=== PATIENT | male | born 1955 | race Caucasian/White ===

== ENCOUNTER 2020-07-18 10:06 | Outpatient (REF) | payer OTHER, SELFPAY ==
--- NOTE | 2020-07-18 | US_ITS ---
EXAMINATION: US RETROPERITONEAL LIMITED (RENAL ONLY) CLINICAL INFORMATION: Renal stone. COMPARISON: Renal ultrasound 02/16/2020 and 11/11/2019. KUB 05/11/2019 and 02/16/2019. CT abdomen and pelvis 05/26/2018. TECHNIQUE: Real-time imaging of the kidneys. FINDINGS: RIGHT KIDNEY: 11.0 x 6.2 x 6.2 cm (SAG x AP x TRV). The kidney is normal in size, contour, and echogenicity. Renal cortical thickness is normal. No hydronephrosis. Simple cyst middle pole right kidney 3.5 x 3.3 x 3 cm. There are echogenic structures likely nonobstructing stones, upper pole 5 x 3 x 3 mm, lower pole 4 x 4 by 3 x 4 mm and lower pole 3 x 5 x 4 millimeter. LEFT KIDNEY: 11.0 x 5.9 x 4.8 cm (SAG x AP x TRV). The kidney is normal in size, contour, and echogenicity. Renal cortical thickness is normal. No hydronephrosis. There is a cyst middle pole left kidney 9 x 9 x 8 mm and 2.2 x 1.8 x 2.2 cm. There are echogenic foci likely nonobstructing stones middle pole 3 x 2 x 2 mm and lower pole 3 x 4 x 3 mm. IMPRESSION: 1. Redemonstration of renal cysts. 2. Redemonstration of Bilateral echogenic structures likely nonobstructing stones 3 on the right and 2 on the left. 3. No ultrasound evidence of renal obstruction or hydronephrosis..
== END 2020-07-18 10:07 | disposition home or self-care (01) ==
LOC: HO.HMGCX 10:06
PROVIDERS: PCP Internal Medicine; Visit Provider Urology
DX: N20.0 Calculus of kidney (principal)
CPT/HCPCS: 76775

== ENCOUNTER 2020-12-30 17:51 | Emergency (ER) | payer OTHER, SELFPAY ==
[2020-12-30 17:58] VITALS: BP 139/84; PULSE 73; RESP 20; TEMP 37.2; O2SAT 96; BMI 24.4
== END 2020-12-30 19:06 | disposition left against medical advice (07) ==
PROVIDERS: Emergency Provider Emergency Medicine; PCP Internal Medicine
DX: R10.9 Unspecified abdominal pain (principal); Z87.442 Personal history of urinary calculi
CPT/HCPCS: 99281; 99282

== ENCOUNTER → 2021-01-09 16:07 | Outpatient (BNVA) | payer OTHER, SELFPAY | PROVIDERS: Visit Provider Urology ==

== ENCOUNTER 2021-01-14 07:35 | Emergency (ER) | payer OTHER, SELFPAY ==
--- NOTE | ~2021-01-14 | CT_ITS ---
EXAMINATION: CT ABDOMEN AND PELVIS WITH CONTRAST CLINICAL INFORMATION: Left lower quadrant pain COMPARISON: None TECHNIQUE: Multidetector volumetric images were obtained from the superior aspect of the liver through the pubic symphysis following administration 85 mL of Omnipaque 350 intravenous contrast. Sagittal and coronal reformatted images were obtained on the technologist's workstation. Oral contrast: No This CT examination was performed using dose optimization techniques as appropriate, variously including the following: *Automated exposure control *Adjustment of mA and/or kV according to patient size (this includes techniques or standardized protocols for targeted exams where dose is matched to indication/reason for exam; i.e. extremities or head) *Use of iterative reconstruction technique DLP: 570 mGy-cm FINDINGS: LUNG BASES: There is bibasilar dependent atelectasis. The heart size is normal. LIVER, GALLBLADDER, AND BILIARY TREE: The liver is normal in size, shape, and attenuation. No focal hepatic lesion or biliary ductal dilatation is present. The gallbladder is unremarkable with no evidence of radiopaque gallstones, gallbladder wall thickening, or obvious pericholecystic inflammatory changes. PANCREAS: Unremarkable. SPLEEN: Unremarkable. ADRENAL GLANDS: Unremarkable. KIDNEYS AND URETERS: The kidneys are normal in size, shape, and attenuation. There is a large 4.1 cm midpole cyst right kidney and 2 cm exophytic and 9 mm cortical midpole left renal cysts. There are several radiopaque calculi right kidney. A 3 mm upper pole, 5 mm midpole, 3 mm and 2 mm lower pole radiopaque right renal calculi. A tumor nonobstructive lower pole left renal calculi seen. BLADDER: Unremarkable. GASTROINTESTINAL TRACT: There is scattered stool and gas seen in colon without distention. There is diffuse colonic diverticulosis with mild mural thickening and pericolic fat stranding proximal sigmoid colon. No free air or fluid collection seen. The cecum, ileocecal valve and the small bowel loops are normal caliber. ABDOMINAL WALL: No significant hernia is appreciated. LYMPH NODES: Normal. VASCULAR: Unremarkable. PELVIC VISCERA: The prostate gland is enlarged. The periprostatic fat planes are preserved. OSSEOUS STRUCTURES: No lytic or sclerotic process seen. There is mild ventral spondylosis L3-L4, L4-L5 and L5-S1 disc levels.. CT/CT abdomen pelvis w con IMPRESSION: Diffuse sigmoid diverticulosis with early proximal sigmoid colon diverticulitis. No proximal obstruction, free air or free fluid. Appendix is not seen. Nonobstructive bilateral radiopaque renal calculi. Bilateral renal cysts. No hydronephrosis seen Mild prostate enlargement.
[2021-01-14 07:41] VITALS: BP 151/89; PULSE 67; RESP 20; TEMP 36.6; O2SAT 99; BMI 24.5
--- NOTE | 2021-01-14 07:59 | ED_ITS ---
HPI - Abdominal Pain General Chief Complaint: General Medical Stated Complaint: LOWER LEFT ABD PAIN Time Seen by Provider: 01/14/21 07:58 Source: patient Mode of arrival: ambulatory Limitations: no limitations History of Present Illness HPI narrative: 65 yo male with hx of renal colic and diverticulitis c/o L low ba ck pain x 3 months but now since yesterday LLQ pain noted, no n/v/d fevers, no bloody stools, last colonoscopy 1 year ago MD elicited complaint: abdominal pain and flank pain Pertinent past history: diverticulitis and kidney stones Onset (ago): day(s) (1) Pain Consistency: constant Location: LLQ Severity: moderate Quality: cramping Radiation: none Migration to: no migration Exacerbating factors: nothing Relieving factors: nothing Associated symptoms: denies other symptoms Related Data Previous Rx's Medication Instructions Recorded doxazosin 2 mg tablet 2 mg PO BEDTIME 14 Days #14 tab 01/09/21 naproxen 500 mg tablet 500 mg PO Q12H PRN #30 tab 01/09/21 oxycodone-acetaminophen 5 mg-325 1 tab PO Q8H PRN 7 Days #20 tab 01/09/21 mg tablet pyridoxine (vitamin B6) 100 mg 100 mg PO DAILY 90 Days #90 tab 01/09/21 tablet levofloxacin 500 mg PO DAILY 7 Days #7 tab 01/14/21 ondansetron 4 mg PO Q8H PRN #20 tab 01/14/21 Allergies Allergy/AdvReac Type Severity Reaction Status Date / Time Penicillins Allergy Intermediate HIVES Verified 01/09/21 16:09 Sulfa (Sulfonamide Allergy Intermediate HIVES Verified 01/09/21 16:09 Antibiotics) citalopram [CITALOPRAM] Allergy Unknown PER H&P Verified 01/09/21 16:09 metronidazole [METRONIDAZOLE] Allergy Unknown PER H&P Verified 01/09/21 16:09 penicillin V Allergy Unknown Unknown Verified 01/09/21 16:09 Clindamycin HCl Allergy Unknown Unknown Uncoded 01/09/21 16:09 Review of Systems Review of Systems Constitutional : No Weight loss, No Fever, No Chills ENT/Mouth : No sore throat, No Rhinorrhea Eyes: No Swelling, No Redness Cardiovascular : No Chest Pain, No SOB, NoEdema Respiratory : No Cough, No Sputum, No Wheezing Gastrointestinal : no Nausea, no Vomiting, no Diarrhea, positive abdominal Pain, No Hematochezia, No Melena Genitourinary : No Dysuria, No Urinary Frequency, No Hematuria, No Urgency Musculoskeletal : No joint pain, No Myalgias, No Joint Swelling Skin : No Skin Lesions, No rash Neuro : No Weakness, No Numbness, No Dizziness, No Headache Psych : No Anxiety/Panic, No Depression Heme/Lymph: No Bruising, No Lymphadenopathy Endocrine : No Polyuria, No Polydipsia All other systems reviewed and are negative. Physical Exam Vital Signs: Vital Signs: Last Vital Signs Temp 97.9 F 01/14/21 10:46 Pulse 57 01/14/21 10:46 Resp 15 01/14/21 10:46 BP 140/87 H 01/14/21 10:46 Pulse Ox 100 01/14/21 10:46 Body Mass Index 24.5 Appearance: Alert. Oriented X3. No acute distress. Eyes: Pupils equal, round and reactive to light. ENT: Pharynx normal. Neck: Normal inspection. Neck supple. CVS: Normal heart rate and rhythm. Pulses normal. Respiratory: No respiratory distress. Breath sounds normal. Abdomen: Soft and mild LLQ no rebround or guarding Skin: Skin warm and dry. Normal skin color. Normal skin turgor. Extremities: No lower extremity edema. No calf ttp Neuro: Oriented X 3. No motor deficit. No sensory deficit. Course Course Course Narrative: able to tolerate PO not toxic, stable for DC treat as outpatient levofloxacin single treatment given PCN and flagyl allergy MDM - Abdominal Pain MDM Narrative Medical decision making narrative: 65 yo male with hx of kidney stones and diverticulitis c/o 3 months L flank pain but noted LLQ pain since yesterday at this time will need labs, UA, CT scan for diverticulitis/renal colic, dispo per results and findings. Lab Data Result diagrams: 01/14/21 08:12 01/14/21 08:12 Labs: Lab Results 01/14/21 01/14/21 01/14/21 Range/Units 08:12 08:12 08:12 WBC 8.2 (4.8-10.8) X10*3/uL RBC 5.44 (4.60-5.80) X10*6/uL Hgb 15.8 (14.0-18.0) g/dl Hct 47.9 (42-52) % MCV 88.1 (80-98) fL MCH 29.0 (27.0-33.0) pg MCHC 33.0 (31.0-36.0) g/dl RDW 13.8 (11.0-16.0) % Plt Count 187 (160-400) X10*3/uL MPV 9.7 (9.4-12.4) fL Immature Gran % (Auto) 0.4 (0.0-0.4) % Neut % (Auto) 77.6 H (45-73) % Lymph % (Auto) 13.6 L (20-40) % [place] % (Auto) 7.2 (2-11) % Eos % (Auto) 0.7 (0-4) % Baso % (Auto) 0.5 (0-2) % Lymph # (Auto) 1.1 L (1.2-4.9) X10*3/uL [place] # (Auto) 0.6 (0.1-1.2) X10*3/uL Eos # (Auto) 0.1 (0.0-0.4) X10*3/uL Baso # (Auto) 0.0 (0.0-0.2) X10*3/uL Abs Immat Gran (auto) 0.03 (0.00-0.03) X10*3/uL Absolute Neuts (auto) 6.3 (2.0-8.3) X10*3/uL Absolute Nucleated RBC 0.000 (0.0-0.012) X10*3/uL Nucleated RBC % (auto) 0.0 (0.0-0.2) /100WBC Hold Blue Top SEE NOTE Sodium 140 (135-145) mmol/L Potassium 4.2 (3.3-5.1) mmol/L Chloride 106 (96-108) mmol/L Carbon Dioxide 27 (22-29) mmol/L Anion Gap 11 L (12-20) BUN 16 (9-16) mg/dL Creatinine 0.98 (0.5-1.4) mg/dL Estim Creat Clear Calc 81.1 Estimated GFR > 60 Random Glucose 98 (60-115) mg/dL Calcium 9.2 (8.4-10.2) mg/dL Magnesium (1.6-2.6) mg/dL Total Bilirubin (0.0-1.0) mg/dL Direct Bilirubin (0.0-0.5) mg/dL AST (5-37) U/L ALT (0-40) U/L Alkaline Phosphatase (39-117) U/L Total Protein (6.5-8.0) g/dL Albumin (3.5-5.0) g/dL Lipase (8-78) U/L Urine Color Urine Appearance Urine pH (5.0-8.0) Ur Specific [place] (1.005-1.025) Urine Protein (NEG-TRACE) MG/DL Urine Glucose (UA) (NEG) MG/DL Urine Ketones (NEG) MG/DL Urine Blood (NEG) Urine Nitrite (NEG) Ur Leukocyte Esterase (NEG) 01/14/21 01/14/21 Range/Units 08:12 09:00 WBC (4.8-10.8) X10*3/uL RBC (4.60-5.80) X10*6/uL Hgb (14.0-18.0) g/dl Hct (42-52) % MCV (80-98) fL MCH (27.0-33.0) pg MCHC (31.0-36.0) g/dl RDW (11.0-16.0) % Plt Count (160-400) X10*3/uL MPV (9.4-12.4) fL Immature Gran % (Auto) (0.0-0.4) % Neut % (Auto) (45-73) % Lymph % (Auto) (20-40) % [place] % (Auto) (2-11) % Eos % (Auto) (0-4) % Baso % (Auto) (0-2) % Lymph # (Auto) (1.2-4.9) X10*3/uL [place] # (Auto) (0.1-1.2) X10*3/uL Eos # (Auto) (0.0-0.4) X10*3/uL Baso # (Auto) (0.0-0.2) X10*3/uL Abs Immat Gran (auto) (0.00-0.03) X10*3/uL Absolute Neuts (auto) (2.0-8.3) X10*3/uL Absolute Nucleated RBC (0.0-0.012) X10*3/uL Nucleated RBC % (auto) (0.0-0.2) /100WBC Hold Blue Top Sodium (135-145) mmol/L Potassium (3.3-5.1) mmol/L Chloride (96-108) mmol/L Carbon Dioxide (22-29) mmol/L Anion Gap (12-20) BUN (9-16) mg/dL Creatinine (0.5-1.4) mg/dL Estim Creat Clear Calc Estimated GFR Random Glucose (60-115) mg/dL Calcium (8.4-10.2) mg/dL Magnesium 2.1 (1.6-2.6) mg/dL Total Bilirubin 1.2 H (0.0-1.0) mg/dL Direct Bilirubin 0.4 (0.0-0.5) mg/dL AST 19 (5-37) U/L ALT 36 (0-40) U/L Alkaline Phosphatase 76 (39-117) U/L Total Protein 6.9 (6.5-8.0) g/dL Albumin 4.4 (3.5-5.0) g/dL Lipase 37 (8-78) U/L Urine Color YELLOW Urine Appearance CLEAR Urine pH 6.0 (5.0-8.0) Ur Specific [place] 1.020 (1.005-1.025) Urine Protein NEG (NEG-TRACE) MG/DL Urine Glucose (UA) NEG (NEG) MG/DL Urine Ketones NEG (NEG) MG/DL Urine Blood NEG (NEG) Urine Nitrite NEG (NEG) Ur Leukocyte Esterase NEG (NEG) Discharge Plan Discharge Clinical Impression: Diverticulitis Patient Disposition: Home, Self-Care Instructions: Diverticulitis (ED) Additional Instructions: return to ED for any worsening symptoms or concerns CT scan results: Diffuse sigmoid diverticulosis with early proximal sigmoid colon diverticulitis. No proximal obstruction, free air or free fluid. Appendix is not seen. Nonobstructive bilateral radiopaque renal calculi. Bilateral renal cysts. No hydronephrosis seen Mild prostate enlargement. Prescriptions: New ondansetron 4 mg tablet,disintegrating 4 mg PO Q8H PRN (Reason: nausea and vomiting) Qty: 20 RF: 0 levofloxacin 500 mg tablet 500 mg PO DAILY 7 Days Qty: 7 RF: 0 No Action doxazosin 2 mg tablet 2 mg PO BEDTIME 14 Days Qty: 14 RF: 1 naproxen [Naprosyn] 500 mg tablet 500 mg PO Q12H PRN (Reason: pain) Qty: 30 RF: 0 oxycodone-acetaminophen [Percocet] 5-325 mg tablet 1 tab PO Q8H PRN (Reason: pain) 7 Days Qty: 20 RF: 0 pyridoxine (vitamin B6) 100 mg tablet 100 mg PO DAILY 90 Days Qty: 90 RF: 1 Referrals: Dilip Grady MD, DO [Primary Care Provider] - 3 days (if not better) Interventions: ED Discharge Assessment Last Done: 01/14/21 10:51 Discharge Date/Time: 01/14/21 10:52 Print Language: Yoruba [facility] Past Medical History Attestation statement: The following information was validated with the patient. Medical History (Updated 01/14/21 @ 10:31 by Madelin Gibbs DO) Diverticulitis Kidney stones Surgical History (Updated 01/14/21 @ 08:05 by Madelin Gibbs DO) Hx of appendectomy Social History Social History (Updated 01/14/21 @ 08:05 by Madelin Gibbs DO) Smoking Status: Never smoker Use of substances other than those prescribed or required for medical reasons: No Advance Directives: Yes Advance Directives Information Provided: Yes Advance Directives on File: No
[2021-01-14] MEDS: 0.9 % Sodium Chloride 1,000 ML 999 ML IVCONT (08:13)
[2021-01-14 08:16] LABS: MANUAL DIFF FLAG NO
[2021-01-14 08:17] LABS: Basophils Percent Auto 0.5 % (0-2); Eosinophils Absolute Auto 0.1 X10*3/uL (0.0-0.4); Eosinophils Percent Auto 0.7 % (0-4); Hematocrit 47.9 % (42-52); Hemoglobin 15.8 g/dl (14.0-18.0); Imm Gran Abs Auto 0.03 X10*3/uL (0.00-0.03); Imm Gran Pct Auto 0.4 % (0.0-0.4); Lymphocytes Absolute Auto 1.1 X10*3/uL (1.2-4.9); Lymphocytes Percent Auto 13.6 % (20-40); Mean Corpuscular Volume 88.1 fL (80-98); Mean Platelet Volume 9.7 fL (9.4-12.4); Monocytes Absolute Auto 0.6 X10*3/uL (0.1-1.2); Monocytes Percent Auto 7.2 % (2-11); Neutrophils Absolute Auto 6.3 X10*3/uL (2.0-8.3); Neutrophils Percent Auto 77.6 % (45-73); Platelet Count 187 X10*3/uL (160-400); Red Blood Count 5.44 X10*6/uL (4.60-5.80); Red Cell Distribution Width 13.8 % (11.0-16.0); White Blood Count 8.2 X10*3/uL (4.8-10.8)
[2021-01-14 08:36] VITALS: BP 153/90; PULSE 56; RESP 20; O2SAT 97
[2021-01-14 08:52] LABS: Anion Gap 11 (12-20); Blood Urea Nitrogen 16 mg/dL (9-16); Calcium 9.2 mg/dL (8.4-10.2); Carbon Dioxide 27 mmol/L (22-29); Chloride 106 mmol/L (96-108); Creatinine Clr Calc Pharmacy 81.1; Estimated Glomerular Filt Rate > 60; Glucose Random 98 mg/dL (60-115); Potassium 4.2 mmol/L (3.3-5.1); Sodium 140 mmol/L (135-145)
[2021-01-14 08:53] LABS: Alanine Aminotransferase 36 U/L (0-40); Albumin Level 4.4 g/dL (3.5-5.0); Alkaline Phosphatase 76 U/L (39-117); Aspartate Amino Transferase 19 U/L (5-37); Bilirubin Direct 0.4 mg/dL (0.0-0.5); Bilirubin Total 1.2 mg/dL (0.0-1.0); Lipase 37 U/L (8-78); Magnesium 2.1 mg/dL (1.6-2.6); Total Protein 6.9 g/dL (6.5-8.0)
[2021-01-14 09:27] LABS: Glucose Urine UA NEG (NEG); Leukocyte Esterase Urine NEG (NEG); Nitrite Urine NEG (NEG); Urine Blood NEG (NEG); Urine Ketones NEG (NEG); Urine Protein NEG (NEG-TRACE)
[2021-01-14 09:31] LABS: Appearance Urine CLEAR; Color Urine YELLOW
[2021-01-14] MEDS: iohexoL 350 MG/ML 100 ML INFUS..BTL IV (09:37)
[2021-01-14 10:46] VITALS: BP 140/87; PULSE 57; RESP 15; TEMP 36.6; O2SAT 100
== END 2021-01-14 10:52 | disposition home or self-care (01) ==
PROVIDERS: Emergency Provider Emergency Medicine; PCP Internal Medicine
DX: K57.32 Diverticulitis of large intestine without perforation or abscess without bleeding (principal); Q61.02 Congenital multiple renal cysts; N20.0 Calculus of kidney; R10.32 Left lower quadrant pain; Z87.442 Personal history of urinary calculi
CPT/HCPCS: 36415; 74177; 80048; 80076; 81003; 83690; 83735; 85025; 96360; 99284; Q9967

== ENCOUNTER 2021-03-04 15:14 | Emergency (ER) | payer OTHER, SELFPAY ==
--- NOTE | ~2021-03-04 | CT_ITS ---
EXAMINATION: CT ABDOMEN AND PELVIS WITHOUT CONTRAST CLINICAL INFORMATION: History of kidney stones. Right flank pain. COMPARISON: CT abdomen pelvis 01/14/2021 TECHNIQUE: Multidetector volumetric imaging was performed from the superior aspect of the liver through the pubic symphysis. Sagittal and coronal reformatted images were obtained on the technologist's workstation. This CT examination was performed using dose optimization techniques as appropriate, variously including the following: *Automated exposure control *Adjustment of mA and/or kV according to patient size (this includes techniques or standardized protocols for targeted exams where dose is matched to indication/reason for exam; i.e. extremities or head) *Use of iterative reconstruction technique DLP: 562 mGy-cm FINDINGS: LUNG BASES: The visualized lung bases are unremarkable. LIVER, GALLBLADDER, AND BILIARY TREE: The liver is normal in size, shape, and attenuation. No focal hepatic lesion or biliary ductal dilatation is present. The gallbladder is unremarkable with no evidence of radiopaque gallstones, gallbladder wall thickening, or obvious pericholecystic inflammatory changes. PANCREAS: Unremarkable. SPLEEN: Unremarkable. ADRENAL GLANDS: Unremarkable. KIDNEYS AND URETERS: Right kidney: At the upper pole the right kidney there is a 3.7 cm cyst. Density measurement of 0 Hounsfield units. There is moderate hydronephrosis of the right kidney collecting system. There is an obstructing stone in the mid right ureter at about the level of the L4-L5 disc level. Stone measures 5 mm. Coronal image 43/77 series 5. Within the right kidney there are approximately 5 additional nonobstructive stones. These measure from 1 mm to 5 mm. Left kidney: There is an exophytic 2 cm cyst at the midpole the left kidney. Density measurement of 13 Hounsfield units. There is a nonobstructive 1 mm stone in the upper pole and a 3 mm stone at the lower pole of the right kidney. There are no ureteral stones. There is no hydronephrosis. BLADDER: Unremarkable. GASTROINTESTINAL TRACT: There are numerous diverticula throughout the colon. Diverticula are most severe at the sigmoid colon. There is no diverticulitis. There is no bowel wall thickening /edema. There is no bowel obstruction. There is a moderate volume of stool in the colon. The appendix is nonvisualized . The small bowel loops are unremarkable. The stomach is normal. There is no hiatal hernia. ABDOMINAL WALL: No significant hernia is appreciated. LYMPH NODES: Normal. VASCULAR: Unremarkable. PELVIC VISCERA: Prostate enlarged. Prostate measures 5 cm transverse. OSSEOUS STRUCTURES: Unremarkable. CT/CT abdomen pelvis wo con IMPRESSION: 1. Moderate hydronephrosis of right kidney due to an obstructing 5 mm stone at the mid right ureter. 2. Additional nonobstructive calculi in both kidneys. 3. Bilateral anechoic cysts in both kidneys. No follow-up imaging is recommended for simple renal cyst. 4. Diverticulosis of the colon. There is no acute abnormality of the bowel.
[2021-03-04 16:12] VITALS: BP 147/64; PULSE 63; RESP 18; TEMP 36.9; O2SAT 98; BMI 24.9
[2021-03-04 16:42] LABS: Basophils Percent Auto 0.2 % (0-2); Eosinophils Percent Auto 0.1 % (0-4); Hematocrit 45.8 % (42-52); Hemoglobin 15.2 g/dl (14.0-18.0); Imm Gran Abs Auto 0.02 X10*3/uL (0.00-0.03); Imm Gran Pct Auto 0.2 % (0.0-0.4); Lymphocytes Absolute Auto 0.6 X10*3/uL (1.2-4.9); Lymphocytes Percent Auto 7.3 % (20-40); MANUAL DIFF FLAG SCAN; Mean Corpuscular HGB Conc 33.2 g/dl (31.0-36.0); Mean Corpuscular Hemoglobin 29.5 pg (27.0-33.0); Mean Corpuscular Volume 88.8 fL (80-98); Mean Platelet Volume 9.7 fL (9.4-12.4); Monocytes Absolute Auto 0.5 X10*3/uL (0.1-1.2); Monocytes Percent Auto 5.4 % (2-11); Neutrophils Absolute Auto 7.6 X10*3/uL (2.0-8.3); Neutrophils Percent Auto 86.8 % (45-73); Platelet Count 177 X10*3/uL (160-400); Red Blood Count 5.16 X10*6/uL (4.60-5.80); Red Cell Distribution Width 13.1 % (11.0-16.0); SCAN SMEAR FLAG 1; White Blood Count 8.8 X10*3/uL (4.8-10.8)
[2021-03-04 16:43] LABS: Glucose Urine UA NEG (NEG); Leukocyte Esterase Urine NEG (NEG); Nitrite Urine NEG (NEG); PH 6.5 (5.0-8.0); Urine Blood 3+ (NEG); Urine Ketones NEG (NEG); Urine Protein TRACE MG/DL (NEG-TRACE)
[2021-03-04 16:44] LABS: Appearance Urine HAZY; Color Urine YELLOW
[2021-03-04 16:51] LABS: Bacteria Urine TRACE /LPF; RBC Urine 50-75 /HPF (0); Squamous Epithelial Cell Urine TRACE /LPF
[2021-03-04 16:58] LABS: SLIDE REVIEW VERIFIED
[2021-03-04 17:07] LABS: Alanine Aminotransferase 29 U/L (0-40); Albumin Level 4.5 g/dL (3.5-5.0); Alkaline Phosphatase 77 U/L (39-117); Anion Gap 12 (12-20); Aspartate Amino Transferase 23 U/L (5-37); Bilirubin Total 1.2 mg/dL (0.0-1.0); Blood Urea Nitrogen 17 mg/dL (9-16); Calcium 9.2 mg/dL (8.4-10.2); Carbon Dioxide 27 mmol/L (22-29); Chloride 106 mmol/L (96-108); Creatinine Clr Calc Pharmacy 67.3; Estimated Glomerular Filt Rate > 60; Glucose Random 103 mg/dL (60-115); Potassium 4.1 mmol/L (3.3-5.1); Sodium 141 mmol/L (135-145); Total Protein 6.9 g/dL (6.5-8.0)
[2021-03-04 17:22] LABS: Lipase 205 U/L (8-78)
--- NOTE | 2021-03-04 17:41 | ED.ABDPAIN ---
HPI - Abdominal Pain General Chief Complaint: General Medical Stated Complaint: flank pain? Time Seen by Provider: 03/04/21 17:06 Source: patient Mode of arrival: ambulatory Limitations: no limitations History of Present Illness MD elicited complaint: abdominal pain Pertinent past history: diverticulitis and kidney stones Onset (ago): hour(s) (started at 8am today) Pain Consistency: constant Location: R flank Severity: severe Quality: stabbing Radiation: RLQ Migration to: no migration Exacerbating factors: nothing Relieving factors: nothing Context: history of similar episodes Associated symptoms: nausea Treatments prior to arrival: prescription analgesics (tried oxycodone with no relief) Related Data Previous Rx's Medication Instructions Recorded doxazosin 2 mg tablet 2 mg PO BEDTIME 14 Days #14 tab 01/09/21 naproxen 500 mg tablet 500 mg PO Q12H PRN #30 tab 01/09/21 oxycodone-acetaminophen 5 mg-325 1 tab PO Q8H PRN 7 Days #20 tab 01/09/21 mg tablet pyridoxine (vitamin B6) 100 mg 100 mg PO DAILY 90 Days #90 tab 01/09/21 tablet levofloxacin 500 mg PO DAILY 7 Days #7 tab 01/14/21 ondansetron 4 mg PO Q8H PRN #20 tab 01/14/21 ondansetron 4 mg PO Q8H PRN #20 tab 03/04/21 oxycodone 5 mg PO Q4H PRN #14 tab 03/04/21 prednisone 40 mg PO DAILY 5 Days #10 tab 03/04/21 tamsulosin 0.4 mg PO DAILY 14 Days #14 cap 03/04/21 Allergies Allergy/AdvReac Type Severity Reaction Status Date / Time Penicillins Allergy Intermediate HIVES Verified 03/04/21 16:11 Sulfa (Sulfonamide Allergy Intermediate HIVES Verified 03/04/21 16:11 Antibiotics) citalopram [CITALOPRAM] Allergy Unknown PER H&P Verified 03/04/21 16:11 metronidazole [METRONIDAZOLE] Allergy Unknown PER H&P Verified 03/04/21 16:11 penicillin V Allergy Unknown Unknown Verified 03/04/21 16:11 Clindamycin HCl Allergy Unknown Unknown Uncoded 01/09/21 16:09 Review of Systems Review of Systems Constitutional : No Weight loss, No Fever, No Chills ENT/Mouth : No sore throat, No Rhinorrhea Eyes: No Swelling, No Redness Cardiovascular : No Chest Pain, No SOB, NoEdema Respiratory : No Cough, No Sputum, No Wheezing Gastrointestinal : Positive Nausea, no Vomiting, no Diarrhea, positive abdominal Pain, No Hematochezia, No Melena Genitourinary : No Dysuria, No Urinary Frequency, No Hematuria, No Urgency Musculoskeletal : No joint pain, No Myalgias, No Joint Swelling Skin : No Skin Lesions, No rash Neuro : No Weakness, No Numbness, No Dizziness, No Headache Psych : No Anxiety/Panic, No Depression Heme/Lymph: No Bruising, No Lymphadenopathy Endocrine : No Polyuria, No Polydipsia All other systems reviewed and are negative. Physical Exam Vital Signs: Vital Signs: Last Vital Signs Temp 98.4 F 03/04/21 16:12 Pulse 57 03/04/21 18:30 Resp 16 03/04/21 18:30 BP 144/70 H 03/04/21 18:30 Pulse Ox 98 03/04/21 18:30 Body Mass Index 24.9 Appearance: Alert. Oriented X3. Anxious in pain mild acute distress. Eyes: Pupils equal, round and reactive to light. ENT: Pharynx normal. Neck: Normal inspection. Neck supple. CVS: Normal heart rate and rhythm. Pulses normal. Respiratory: No respiratory distress. Breath sounds normal. Abdomen: Soft and mild R sided abdominal pain Skin: Skin warm and dry. Normal skin color. Normal skin turgor. Extremities: No lower extremity edema. No calf ttp Neuro: Oriented X 3. No motor deficit. No sensory deficit. Course Course Course Narrative: lipase elevated but no epigastric pain to palpation flomax and steroids ordered for obstructing 5mm stone mid ureter pain improved with dilaudid patient doesn't want admission, message sent to Dr. Erazo patient to follow up as outpatient - he is reliable aware it is obstructing and he will not pass it at home, Dr. Erazo aware MDM - Abdominal Pain MDM Narrative Medical decision making narrative: 65 yo male hx of diverticulitis and renal colic requiring lithotripsy in the past presents with 10 hours of sharp R flank pain consistent with prior history of renal colic, at this time labs, CT scan, IV dilaudid for pain ordered, dispo per results and findings Lab Data Result diagrams: 03/04/21 16:36 03/04/21 16:36 Labs: Lab Results 03/04/21 03/04/21 03/04/21 Range/Units 16:30 16:36 16:36 WBC 8.8 (4.8-10.8) X10*3/uL RBC 5.16 (4.60-5.80) X10*6/uL Hgb 15.2 (14.0-18.0) g/dl Hct 45.8 (42-52) % MCV 88.8 (80-98) fL MCH 29.5 (27.0-33.0) pg MCHC 33.2 (31.0-36.0) g/dl RDW 13.1 (11.0-16.0) % Plt Count 177 (160-400) X10*3/uL MPV 9.7 (9.4-12.4) fL Immature Gran % (Auto) 0.2 (0.0-0.4) % Neut % (Auto) 86.8 H (45-73) % Lymph % (Auto) 7.3 L (20-40) % [place] % (Auto) 5.4 (2-11) % Eos % (Auto) 0.1 (0-4) % Baso % (Auto) 0.2 (0-2) % Lymph # (Auto) 0.6 L (1.2-4.9) X10*3/uL [place] # (Auto) 0.5 (0.1-1.2) X10*3/uL Eos # (Auto) 0.0 (0.0-0.4) X10*3/uL Baso # (Auto) 0.0 (0.0-0.2) X10*3/uL Abs Immat Gran (auto) 0.02 (0.00-0.03) X10*3/uL Absolute Neuts (auto) 7.6 (2.0-8.3) X10*3/uL Absolute Nucleated RBC 0.000 (0.0-0.012) X10*3/uL Nucleated RBC % (auto) 0.0 (0.0-0.2) /100WBC Smear Tech's Comments VERIFIED Sodium (135-145) mmol/L Potassium (3.3-5.1) mmol/L Chloride (96-108) mmol/L Carbon Dioxide (22-29) mmol/L Anion Gap (12-20) BUN (9-16) mg/dL Creatinine (0.5-1.4) mg/dL Estim Creat Clear Calc Estimated GFR Random Glucose (60-115) mg/dL Calcium (8.4-10.2) mg/dL Total Bilirubin (0.0-1.0) mg/dL AST (5-37) U/L ALT (0-40) U/L Alkaline Phosphatase (39-117) U/L Total Protein (6.5-8.0) g/dL Albumin (3.5-5.0) g/dL Lipase 205 H (8-78) U/L Urine Color YELLOW Urine Appearance HAZY Urine pH 6.5 (5.0-8.0) Ur Specific [place] 1.020 (1.005-1.025) Urine Protein TRACE (NEG-TRACE) MG/DL Urine Glucose (UA) NEG (NEG) MG/DL Urine Ketones NEG (NEG) MG/DL Urine Blood 3+ H (NEG) Urine Nitrite NEG (NEG) Ur Leukocyte Esterase NEG (NEG) Urine RBC 50-75 H (0) /HPF Urine WBC 1-4 (0-4) /HPF Ur Squamous Epith Cells TRACE /LPF Urine Bacteria TRACE /LPF 03/04/21 Range/Units 16:36 WBC (4.8-10.8) X10*3/uL RBC (4.60-5.80) X10*6/uL Hgb (14.0-18.0) g/dl Hct (42-52) % MCV (80-98) fL MCH (27.0-33.0) pg MCHC (31.0-36.0) g/dl RDW (11.0-16.0) % Plt Count (160-400) X10*3/uL MPV (9.4-12.4) fL Immature Gran % (Auto) (0.0-0.4) % Neut % (Auto) (45-73) % Lymph % (Auto) (20-40) % [place] % (Auto) (2-11) % Eos % (Auto) (0-4) % Baso % (Auto) (0-2) % Lymph # (Auto) (1.2-4.9) X10*3/uL [place] # (Auto) (0.1-1.2) X10*3/uL Eos # (Auto) (0.0-0.4) X10*3/uL Baso # (Auto) (0.0-0.2) X10*3/uL Abs Immat Gran (auto) (0.00-0.03) X10*3/uL Absolute Neuts (auto) (2.0-8.3) X10*3/uL Absolute Nucleated RBC (0.0-0.012) X10*3/uL Nucleated RBC % (auto) (0.0-0.2) /100WBC Smear Tech's Comments Sodium 141 (135-145) mmol/L Potassium 4.1 (3.3-5.1) mmol/L Chloride 106 (96-108) mmol/L Carbon Dioxide 27 (22-29) mmol/L Anion Gap 12 (12-20) BUN 17 H (9-16) mg/dL Creatinine 1.18 (0.5-1.4) mg/dL Estim Creat Clear Calc 67.3 Estimated GFR > 60 Random Glucose 103 (60-115) mg/dL Calcium 9.2 (8.4-10.2) mg/dL Total Bilirubin 1.2 H (0.0-1.0) mg/dL AST 23 (5-37) U/L ALT 29 (0-40) U/L Alkaline Phosphatase 77 (39-117) U/L Total Protein 6.9 (6.5-8.0) g/dL Albumin 4.5 (3.5-5.0) g/dL Lipase (8-78) U/L Urine Color Urine Appearance Urine pH (5.0-8.0) Ur Specific [place] (1.005-1.025) Urine Protein (NEG-TRACE) MG/DL Urine Glucose (UA) (NEG) MG/DL Urine Ketones (NEG) MG/DL Urine Blood (NEG) Urine Nitrite (NEG) Ur Leukocyte Esterase (NEG) Urine RBC (0) /HPF Urine WBC (0-4) /HPF Ur Squamous Epith Cells /LPF Urine Bacteria /LPF Discharge Plan Discharge Clinical Impression: Ureterolithiasis Patient Disposition: Home, Self-Care Instructions: Ureteral Stones (ED) Additional Instructions: return to ED for any worsening symptoms or concerns Prescriptions: New prednisone 20 mg tablet 40 mg PO DAILY 5 Days Qty: 10 RF: 0 ondansetron 4 mg tablet,disintegrating 4 mg PO Q8H PRN (Reason: nausea and vomiting) Qty: 20 RF: 0 oxycodone 5 mg tablet 5 mg PO Q4H PRN (Reason: pain) Qty: 14 RF: 0 tamsulosin 0.4 mg capsule 0.4 mg PO DAILY 14 Days Qty: 14 RF: 0 No Action ondansetron 4 mg tablet,disintegrating 4 mg PO Q8H PRN (Reason: nausea and vomiting) Qty: 20 RF: 0 levofloxacin 500 mg tablet 500 mg PO DAILY 7 Days Qty: 7 RF: 0 doxazosin 2 mg tablet 2 mg PO BEDTIME 14 Days Qty: 14 RF: 1 naproxen [Naprosyn] 500 mg tablet 500 mg PO Q12H PRN (Reason: pain) Qty: 30 RF: 0 oxycodone-acetaminophen [Percocet] 5-325 mg tablet 1 tab PO Q8H PRN (Reason: pain) 7 Days Qty: 20 RF: 0 pyridoxine (vitamin B6) 100 mg tablet 100 mg PO DAILY 90 Days Qty: 90 RF: 1 Referrals: Isreal Erazo MD [Physician] - 2 days (if not better) Stand Alone Forms: Work/School Release [facility] Past Medical History Attestation statement: The following information was validated with the patient. Medical History Diverticulitis Kidney stones Surgical History Hx of appendectomy Social History Social History Alcohol intake: current Alcohol intake frequency: holidays/special occasions only Alcohol type: wine Patient Tobacco Use Status: Never used Tobacco Use of substances other than those prescribed or required for medical reasons: No Advance Directives: No Advance Directives Information Provided: No
[2021-03-04] MEDS: HYDROmorphone HCl 1 MG/ML SYRINGE IVPUSH (17:53)
[2021-03-04] MEDS: ondansetron HCL 4 MG/2 ML VIAL IVPUSH (17:53)
[2021-03-04] MEDS: 0.9 % Sodium Chloride 1,000 ML 999 ML IVCONT (17:59)
[2021-03-04 18:30] VITALS: BP 144/70; PULSE 57; RESP 16; O2SAT 98
[2021-03-04] MEDS: Tamsulosin HCL 0.4 MG CAPSULE PO (19:06)
[2021-03-04] MEDS: methylPREDNISolone Sod Succ 125 MG/2 ML VIAL 60 MG IVPUSH (19:06)
[2021-03-04 19:13] VITALS: BP 142/88; PULSE 58; RESP 16; O2SAT 99
== END 2021-03-04 19:27 | disposition home or self-care (01) ==
PROVIDERS: Emergency Medicine Emergency Medical Services; Emergency Provider Emergency Medicine; PCP Internal Medicine
DX: N13.2 Hydronephrosis with renal and ureteral calculous obstruction (principal); N40.0 Benign prostatic hyperplasia without lower urinary tract symptoms; N28.1 Cyst of kidney, acquired; K57.30 Diverticulosis of large intestine without perforation or abscess without bleeding; Z87.442 Personal history of urinary calculi
CPT/HCPCS: 36415; 74176; 80053; 81001; 83690; 85025; 96361; 96374; 96375; 99284; J1170; J2405; J2930

== ENCOUNTER 2021-03-06 12:03 | Inpatient (IN) | payer OTHER, SELFPAY ==
--- NOTE | ~2021-03-06 | FL_ITS ---
EXAMINATION: Intraoperative fluoroscopy CLINICAL INFORMATION: Right retrograde urogram COMPARISON: CT abdomen pelvis March 04, 2021 TECHNIQUE: Intraoperative fluoroscopy was provided for use by Dr. Erazo. A total of 1 image was saved to PACS. A radiologist was not present during imaging. Today's dictation is only for administrative purposes to document intraoperative fluoroscopic usage. TOTAL FLUOROSCOPIC TIME: 19 seconds FL/FL guidance in OR FINDINGS~\^^ Intraoperative fluoroscopy provided for use by Dr. Erazo. Please see operative note for detailed findings.
[2021-03-06 13:35] VITALS: BP 150/72; PULSE 71; RESP 16; TEMP 36.7; O2SAT 98; BMI 24.8
[2021-03-06 14:00] LABS: MANUAL DIFF FLAG NO
[2021-03-06 14:05] LABS: Basophils Percent Auto 0.2 % (0-2); Eosinophils Absolute Auto 0.1 X10*3/uL (0.0-0.4); Eosinophils Percent Auto 0.6 % (0-4); Glucose Urine UA NEG (NEG); Hematocrit 43.3 % (42-52); Hemoglobin 14.1 g/dl (14.0-18.0); Imm Gran Abs Auto 0.04 X10*3/uL (0.00-0.03); Imm Gran Pct Auto 0.4 % (0.0-0.4); Leukocyte Esterase Urine NEG (NEG); Lymphocytes Absolute Auto 1.3 X10*3/uL (1.2-4.9); Mean Corpuscular HGB Conc 32.6 g/dl (31.0-36.0); Mean Corpuscular Hemoglobin 29.5 pg (27.0-33.0); Mean Corpuscular Volume 90.6 fL (80-98); Mean Platelet Volume 9.7 fL (9.4-12.4); Monocytes Absolute Auto 0.9 X10*3/uL (0.1-1.2); Monocytes Percent Auto 8.2 % (2-11); Neutrophils Absolute Auto 8.2 X10*3/uL (2.0-8.3); Neutrophils Percent Auto 78.6 % (45-73); Nitrite Urine NEG (NEG); PH 5.5 (5.0-8.0); Platelet Count 175 X10*3/uL (160-400); Red Blood Count 4.78 X10*6/uL (4.60-5.80); Red Cell Distribution Width 13.3 % (11.0-16.0); Urine Blood 2+ (NEG); Urine Ketones NEG (NEG); Urine Protein NEG (NEG-TRACE); White Blood Count 10.5 X10*3/uL (4.8-10.8)
[2021-03-06 14:07] LABS: Appearance Urine CLEAR; Color Urine YELLOW
[2021-03-06 14:13] LABS: WBC Urine 0-2 /HPF (0-4)
[2021-03-06 14:30] LABS: Anion Gap 11 (12-20); Blood Urea Nitrogen 34 mg/dL (9-16); Calcium 9.2 mg/dL (8.4-10.2); Carbon Dioxide 29 mmol/L (22-29); Chloride 104 mmol/L (96-108); Creatinine Clr Calc Pharmacy 36.2; Estimated Glomerular Filt Rate 30; Glucose Random 86 mg/dL (60-115); Potassium 4.1 mmol/L (3.3-5.1); Sodium 140 mmol/L (135-145)
--- NOTE | 2021-03-06 15:22 | ED.ABDPAIN ---
HPI - Abdominal Pain General Chief Complaint: Abdominal Pain Stated Complaint: flank pain Time Seen by Provider: 03/06/21 15:20 Source: patient and old records reviewed Mode of arrival: ambulatory Limitations: no limitations History of Present Illness MD elicited complaint: flank pain Pertinent past history: kidney stones (dx 03/04 with R sided 5mm obstructing stone declined admission) Onset (ago): day(s) (3) Pain Consistency: colicky Location: none and R flank Severity: severe Quality: stabbing Radiation: RLQ Migration to: no migration Exacerbating factors: nothing Relieving factors: nothing Context: history of similar episodes Associated symptoms: nausea Treatments prior to arrival: prescription analgesics Related Data Home Medications Medication Instructions Recorded Confirmed lorazepam 0.5 mg PO BID PRN 03/06/21 03/06/21 Previous Rx's Medication Instructions Recorded pyridoxine (vitamin B6) 100 mg 100 mg PO DAILY 90 Days #90 tab 01/09/21 tablet ondansetron 4 mg PO Q8H PRN #20 tab 03/04/21 oxycodone 5 mg PO Q4H PRN #14 tab 03/04/21 prednisone 40 mg PO DAILY 5 Days #10 tab 03/04/21 tamsulosin 0.4 mg PO DAILY 14 Days #14 cap 03/04/21 Allergies Allergy/AdvReac Type Severity Reaction Status Date / Time Penicillins Allergy Intermediate HIVES Verified 03/04/21 16:11 Sulfa (Sulfonamide Allergy Intermediate HIVES Verified 03/04/21 16:11 Antibiotics) citalopram [CITALOPRAM] Allergy Unknown PER H&P Verified 03/04/21 16:11 metronidazole [METRONIDAZOLE] Allergy Unknown PER H&P Verified 03/04/21 16:11 penicillin V Allergy Unknown Unknown Verified 03/04/21 16:11 Clindamycin HCl Allergy Unknown Unknown Uncoded 01/09/21 16:09 Review of Systems Review of Systems Constitutional : No Weight loss, No Fever, No Chills ENT/Mouth : No sore throat, No Rhinorrhea Eyes: No Swelling, No Redness Cardiovascular : No Chest Pain, No SOB, NoEdema Respiratory : No Cough, No Sputum, No Wheezing Gastrointestinal : Positive Nausea, no Vomiting, no Diarrhea, positive abdominal Pain, No Hematochezia, No Melena Genitourinary : No Dysuria, No Urinary Frequency, No Hematuria, No Urgency Musculoskeletal : No joint pain, No Myalgias, No Joint Swelling Skin : No Skin Lesions, No rash Neuro : No Weakness, No Numbness, No Dizziness, No Headache Psych : No Anxiety/Panic, No Depression Heme/Lymph: No Bruising, No Lymphadenopathy Endocrine : No Polyuria, No Polydipsia All other systems reviewed and are negative. Physical Exam Vital Signs: Vital Signs: Last Vital Signs Temp 98.0 F 03/06/21 13:35 Pulse 62 03/06/21 15:41 Resp 18 03/06/21 15:41 BP 158/87 H 03/06/21 15:41 Pulse Ox 100 03/06/21 15:41 Body Mass Index 24.8 Appearance: Alert. Oriented X3. No acute distress. anxious in pain Eyes: Pupils equal, round and reactive to light. ENT: Pharynx normal. Neck: Normal inspection. Neck supple. CVS: Normal heart rate and rhythm. Pulses normal. Respiratory: No respiratory distress. Breath sounds normal. Abdomen: Soft and mild R sided pain Skin: Skin warm and dry. Normal skin color. Normal skin turgor. Extremities: No lower extremity edema. No calf ttp Neuro: Oriented X 3. No motor deficit. No sensory deficit. Course Course Course Narrative: Dr. Erazo aware will admit patient MDM - Abdominal Pain MDM Narrative Medical decision making narrative: 65 yo male known R sided 5mm obstructing stone dx 03/04 did not want admission comes back with pain and LADI - will need urology admission repeat labs, IV dilaudid for pain Lab Data Result diagrams: 03/06/21 13:50 03/06/21 13:50 Labs: Lab Results 03/06/21 03/06/21 03/06/21 Range/Units 13:50 13:50 13:50 WBC 10.5 (4.8-10.8) X10*3/uL RBC 4.78 (4.60-5.80) X10*6/uL Hgb 14.1 (14.0-18.0) g/dl Hct 43.3 (42-52) % MCV 90.6 (80-98) fL MCH 29.5 (27.0-33.0) pg MCHC 32.6 (31.0-36.0) g/dl RDW 13.3 (11.0-16.0) % Plt Count 175 (160-400) X10*3/uL MPV 9.7 (9.4-12.4) fL Immature Gran % (Auto) 0.4 (0.0-0.4) % Neut % (Auto) 78.6 H (45-73) % Lymph % (Auto) 12.0 L (20-40) % [place] % (Auto) 8.2 (2-11) % Eos % (Auto) 0.6 (0-4) % Baso % (Auto) 0.2 (0-2) % Lymph # (Auto) 1.3 (1.2-4.9) X10*3/uL [place] # (Auto) 0.9 (0.1-1.2) X10*3/uL Eos # (Auto) 0.1 (0.0-0.4) X10*3/uL Baso # (Auto) 0.0 (0.0-0.2) X10*3/uL Abs Immat Gran (auto) 0.04 H (0.00-0.03) X10*3/uL Absolute Neuts (auto) 8.2 (2.0-8.3) X10*3/uL Absolute Nucleated RBC 0.000 (0.0-0.012) X10*3/uL Nucleated RBC % (auto) 0.0 (0.0-0.2) /100WBC Sodium 140 (135-145) mmol/L Potassium 4.1 (3.3-5.1) mmol/L Chloride 104 (96-108) mmol/L Carbon Dioxide 29 (22-29) mmol/L Anion Gap 11 L (12-20) BUN 34 H D (9-16) mg/dL Creatinine 2.19 H (0.5-1.4) mg/dL Estim Creat Clear Calc 36.2 Estimated GFR 30 Random Glucose 86 (60-115) mg/dL Calcium 9.2 (8.4-10.2) mg/dL Urine Color YELLOW Urine Appearance CLEAR Urine pH 5.5 (5.0-8.0) Ur Specific [place] 1.020 (1.005-1.025) Urine Protein NEG (NEG-TRACE) MG/DL Urine Glucose (UA) NEG (NEG) MG/DL Urine Ketones NEG (NEG) MG/DL Urine Blood 2+ H (NEG) Urine Nitrite NEG (NEG) Ur Leukocyte Esterase NEG (NEG) Urine RBC 10-14 H (0) /HPF Urine WBC 0-2 (0-4) /HPF Ur Squamous Epith Cells NONE /LPF Urine Bacteria NONE /LPF Discharge Plan Discharge Clinical Impression: LADI (acute kidney injury), Ureterolithiasis Patient Disposition: Admitted As Inpatient [facility] Past Medical History Attestation statement: The following information was validated with the patient. Medical History Diverticulitis Kidney stones Surgical History Hx of appendectomy Social History Social History Alcohol intake: current Alcohol intake frequency: holidays/special occasions only Alcohol type: wine Patient Tobacco Use Status: Never used Tobacco Advance Directives: No Advance Directives Information Provided: Yes
--- NOTE | 2021-03-06 15:34 | HE.PHANOTE ---
Pharmacy Consult ? Medication Reconciliation Pharmacy has completed the medication reconciliation and there were no significant medication issues requiring provider attention. Ashley Myles, PharmD [phone]
[2021-03-06] MEDS: 0.9 % Sodium Chloride 1,000 ML 999 ML IVCONT (15:35)
[2021-03-06] MEDS: HYDROmorphone HCl 1 MG/ML SYRINGE IVPUSH (15:35)
[2021-03-06] MEDS: ondansetron HCL 4 MG/2 ML VIAL IVPUSH (15:36)
[2021-03-06 15:41] VITALS: BP 158/87; PULSE 62; RESP 18; O2SAT 100
[2021-03-06 16:16] LABS: COVID-19 Test Negative (Negative); IDNOW Serial# 08D9AD1C
[2021-03-06 16:55] VITALS: BP 141/81; PULSE 72
--- NOTE | 2021-03-06 16:58 | PC.NURSE ---
Pt's pain improving. VSS. Awaiting for admission.
[2021-03-06 19:12] VITALS: BP 141/81; PULSE 72; RESP 18; O2SAT 100
[2021-03-06 22:44] VITALS: BP 149/83; PULSE 73; RESP 20; TEMP 36.8; O2SAT 96
[2021-03-06] MEDS: 0.9 % Sodium Chloride 1,000 ML 100 ML IVCONT (22:46)
[2021-03-06] MEDS: oxyCODONE HCl Immed Release 5 MG TABLET PO (22:49)
[2021-03-06 23:43] VITALS: RESP 20
[2021-03-07] VITALS (9 sets, daily range): BP systolic 143–174; BP diastolic 51–86; PULSE 52–68; RESP 14–18; TEMP 36.2–36.8; O2SAT 95–99
[2021-03-07] MEDS: 0.9 % Sodium Chloride 1,000 ML 100 ML IVCONT (07:21)
--- NOTE | 2021-03-07 08:23 | PM.HPGS ---
History of Present Illness History of Present Illness Date of Service: 03/07/21 Chief complaint: Right ureteric stones Narrative: Julio Garcia is a 65 year old male He is a well known stone former Has had right-sided pain associated with nausea and vomiting for past 3-4 days. Evaluated in the emergency room. CT scan shows mid right ureteric stone with perinephric stranding and right hydroureteronephrosis Creatinine elevated over 2 WBC normal range Pain up to 10/10 on right side Will admit for IV medication, pain control and procedure PMFSH Past Medical History Medical History Diverticulitis Kidney stones Surgical History Surgical History Hx of appendectomy Social History Social History Household Members: Spouse Alcohol intake: current Alcohol intake frequency: holidays/special occasions only Alcohol type: wine Patient Tobacco Use Status: Never used Tobacco Smoked in Last 30 Days: No Use of substances other than those prescribed or required for medical reasons: No Currently Displaying Signs/Symptoms of Drug Intoxication Withdrawal: No Have you been hit, kicked, punched, or otherwise hurt by someone within the past year? If so, by whom?: No Do you feel safe in your current relationship?: Yes Is there a partner from a previous relationship who is making you feel unsafe now?: No Are you made to feel afraid or neglected: No Advance Directives: No Advance Directives Information Provided: Yes Do you have thoughts of harming others: None Do you have a plan to hurt others: No Plan Recently lost weight without trying: No Eating poorly because of decreased appetite: No Nutrition Risks: No Nutritional Risk Meds Allergies Allergy/AdvReac Type Severity Reaction Status Date / Time Penicillins Allergy Intermediate HIVES Verified 03/04/21 16:11 Sulfa (Sulfonamide Allergy Intermediate HIVES Verified 03/04/21 16:11 Antibiotics) citalopram [CITALOPRAM] Allergy Unknown PER H&P Verified 03/04/21 16:11 metronidazole [METRONIDAZOLE] Allergy Unknown PER H&P Verified 03/04/21 16:11 penicillin V Allergy Unknown Unknown Verified 03/04/21 16:11 Clindamycin HCl Allergy Unknown Unknown Uncoded 01/09/21 16:09 Active Medications: Current Medications Generic Name Dose Route Start Last Admin Trade Name Hunter PRN Reason Stop Dose Admin Acetaminophen 650 mg 03/06/21 19:12 Acetaminophen 325 Mg Tablet PO Q6H PRN Pain, Mild (Pain Scale 1-3) Sodium Chloride 1,000 mls @ 100 mls/hr 03/06/21 19:15 03/07/21 07:21 Ns IVCONT 100 mls/hr .Q10H DOMINIQUE Administration Ketorolac Tromethamine 30 mg 03/06/21 19:12 Ketorolac Tromethamine 30 Mg/Ml Vial IVPUSH 03/11/21 19:11 Q6H PRN Pain, Mild (Pain Scale 1-3) Levofloxacin 500 mg 03/07/21 09:00 Levofloxacin 500 Mg Tablet PO 03/07/21 09:01 ONCE ONE Ondansetron HCl 4 mg 03/06/21 19:12 Ondansetron Hcl 4 Mg/2 Ml Vial IVPUSH Q8H PRN Nausea and Vomiting Oxycodone HCl 5 mg 03/06/21 19:12 03/06/21 22:49 Oxycodone Hcl Immed Release 5 Mg Tablet PO 5 mg Q6H PRN Administration Pain, Severe (Pain Scale 7-10) Pharmacy Consult 1 each 03/06/21 15:23 Consult Rx Perform Med Rec MISCELLANE ONCE PRN Consult order Sodium Chloride 3 ml 03/07/21 00:00 03/07/21 07:23 0.9 % Sodium Chloride Flush 3 Ml Syringe IVFLUSH Not Given QSHIFT [facility] Home Medications Medication Instructions Recorded Confirmed Last Taken Type lorazepam 0.5 mg PO BID PRN 03/06/21 03/06/21 Unknown History Physical Exam Vital Signs: Vital Signs: Last Vital Signs Temp 98.3 F 03/07/21 03:25 Pulse 68 03/07/21 03:25 Resp 15 03/07/21 03:25 BP 145/51 H 03/07/21 03:25 Pulse Ox 96 03/07/21 03:25 Body Mass Index 24.8 Const: General: cooperative, healthy appearing, comfortable and no acute distress Nutritional Appearance: average body habitus Orientation/consciousness: oriented to person, oriented to place and oriented to time Eyes: General: appearance normal, both eyes and all related structures Chest: Chest palpation & inspection: normal inspection of the chest Resp: Effort & Inspection: normal respiratory effort Cardio: Rate: regular rate GI: Inspection: Yes normal to inspection Skin: Hair: normal Neuro: General: oriented to person, oriented to place and oriented to time Extrem: General: Yes normal to inspection Results Results Labs: Short CBC 03/06/21 Range/Units 13:50 WBC 10.5 (4.8-10.8) X10*3/uL Hgb 14.1 (14.0-18.0) g/dl Hct 43.3 (42-52) % Plt Count 175 (160-400) X10*3/uL BMP 03/06/21 13:50 Sodium 140 Potassium 4.1 Chloride 104 Carbon Dioxide 29 BUN 34 H D Creatinine 2.19 H Calcium 9.2 Urine 03/06/21 Range/Units 13:50 Urine Color YELLOW Urine Appearance CLEAR Urine pH 5.5 (5.0-8.0) Ur Specific [place] 1.020 (1.005-1.025) Urine Protein NEG (NEG-TRACE) MG/DL Urine Glucose (UA) NEG (NEG) MG/DL Assessment and Plan (1) LADI (acute kidney injury): Status: Acute (2) Ureterolithiasis: Status: Acute Ureteroscopy We discussed the nature of the decision and reasonable alternatives for performing the above surgery. Interventions include chemical dissolution, ESWL, ureteroscopy with laser lithotripsy and stent placement, PCNL. Options such as medical therapy were discussed. The relative uncertainties and benefits related to each alternate procedure were adequately discussed. General surgical risks including, but not limited to, pain, bleeding, infection, myocardial infarction, pulmonary embolus, deep vein thrombosis and cerebrovascular accident which may result in further hospitalization were discussed. Full disclosure of the procedure as well as all major risks, benefits and complications were discussed including but not limited to damage to the urethra, bladder and kidney infection, damage to the ureter, stent migration or malposition, scarring to the renal pelvis, remnant stone fragments, subsequent stone passage with need for secondary procedures. The overall secondary procedure rate is approximately 10-15%. The success rate of the procedure was discussed. Success of the procedure in the short-term does not necessarily guarantee that long-term success will be maintained. Suitable follow up will need to be maintained. The patient showed understanding of discussion and wishes to proceed with - cystoscopy, retrograde, ureteroscopy, possible lithotripsy/stone basketing and stent on the right side Procedures Date of Service Date of Service: 03/07/21
[2021-03-07] MEDS: Acetaminophen 325 MG TABLET 650 MG PO (10:20)
[2021-03-07] MEDS: oxyCODONE HCl Immed Release 5 MG TABLET PO ×2 (10:20→17:59)
[2021-03-07] MEDS: levoFLOXacin 500 MG TABLET PO (10:20)
--- NOTE | 2021-03-07 11:31 | MHC.CM.PN ---
CM MET WITH PT WHO REPORTS HE LIVES WITH A FRIEND AND IS INDEPENDENT WITH ALL CARE AND MOBILITY. PT DENIES THE USE OF DME OR SERVICES AT HOME. 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 PT REPORTS HE HAS A HCP COMPLETED ALREADY AND HE CONFIRMS HIS PCP IS [facility]. CURRENT DC PLAN IS HOME WITH NO SERVICES PTS CAR IS IN LOT, HE PLANS TO DRIVE HIMSELF HOME
--- NOTE | 2021-03-07 13:50 | MHC.CM.PN ---
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 per documentation,patient wished to proceed with cystoscopy, retrograde ureteroscopy. possible lithotripsy, care connector to continue to follow for discharge needs
--- NOTE | 2021-03-07 16:09 | HO.ANESPROP2 ---
[facility] Active Problems Active Problems: All Active Problems (Updated 03/06/21 @ 15:44 by Madelin Gibbs DO) LADI (acute kidney injury) (Acute) Ureterolithiasis (Acute) Nephrolithiasis (Acute) Past Medical History Medical History Diverticulitis Kidney stones Surgical History Surgical History Hx of appendectomy Social History Social History Household Members: Spouse Alcohol intake: current Alcohol intake frequency: holidays/special occasions only Alcohol type: wine Patient Tobacco Use Status: Never used Tobacco Smoked in Last 30 Days: No Use of substances other than those prescribed or required for medical reasons: No Currently Displaying Signs/Symptoms of Drug Intoxication Withdrawal: No Have you been hit, kicked, punched, or otherwise hurt by someone within the past year? If so, by whom?: No Do you feel safe in your current relationship?: Yes Is there a partner from a previous relationship who is making you feel unsafe now?: No Are you made to feel afraid or neglected: No Advance Directives: No Advance Directives Information Provided: Yes Do you have thoughts of harming others: None Do you have a plan to hurt others: No Plan Recently lost weight without trying: No Eating poorly because of decreased appetite: No Nutrition Risks: No Nutritional Risk service: No Current occupational status: employed Meds Allergies Allergy/AdvReac Type Severity Reaction Status Date / Time Penicillins Allergy Intermediate HIVES Verified 03/04/21 16:11 Sulfa (Sulfonamide Allergy Intermediate HIVES Verified 03/04/21 16:11 Antibiotics) citalopram [CITALOPRAM] Allergy Unknown PER H&P Verified 03/04/21 16:11 metronidazole [METRONIDAZOLE] Allergy Unknown PER H&P Verified 03/04/21 16:11 penicillin V Allergy Unknown Unknown Verified 03/04/21 16:11 Clindamycin HCl Allergy Unknown Unknown Uncoded 01/09/21 16:09 Active Medications: Current Medications Generic Name Dose Route Start Last Admin Trade Name Freq PRN Reason Stop Dose Admin Acetaminophen 650 mg 03/06/21 19:12 03/07/21 10:20 Acetaminophen 325 Mg Tablet PO 650 mg Q6H PRN Administration Pain, Mild (Pain Scale 1-3) Sodium Chloride 1,000 mls @ 100 mls/hr 03/06/21 19:15 03/07/21 07:21 Ns IVCONT 100 mls/hr .Q10H DOMINIQUE Administration Ketorolac Tromethamine 30 mg 03/06/21 19:12 Ketorolac Tromethamine 30 Mg/Ml Vial IVPUSH 03/11/21 19:11 Q6H PRN Pain, Mild (Pain Scale 1-3) Ondansetron HCl 4 mg 03/06/21 19:12 Ondansetron Hcl 4 Mg/2 Ml Vial IVPUSH Q8H PRN Nausea and Vomiting Oxycodone HCl 5 mg 03/06/21 19:12 03/07/21 10:20 Oxycodone Hcl Immed Release 5 Mg Tablet PO 5 mg Q6H PRN Administration Pain, Severe (Pain Scale 7-10) Pharmacy Consult 1 each 03/06/21 15:23 Consult Rx Perform Med Rec MISCELLANE ONCE PRN Consult order Sodium Chloride 3 ml 03/07/21 00:00 03/07/21 07:23 0.9 % Sodium Chloride Flush 3 Ml Syringe IVFLUSH Not Given QSHIFT [facility] Home Medications Medication Instructions Recorded Confirmed Last Taken Type lorazepam 0.5 mg PO BID PRN 03/06/21 03/06/21 Unknown History Exam Exam Date and Time: March 07, 2021 1609 Height,Weight and Vital Signs: Height 5 ft 11 in Weight 80.739 kg Last Vital Signs Temp 97.2 F 03/07/21 15:08 Pulse 53 03/07/21 15:08 Resp 18 03/07/21 15:08 BP 151/77 H 03/07/21 15:08 Pulse Ox 95 03/07/21 15:08 Pertinent Lab Results Pertinent Lab Results: Laboratory Tests 03/06/21 03/06/21 03/06/21 13:50 13:50 13:50 WBC 10.5 RBC 4.78 Hgb 14.1 Hct 43.3 MCV 90.6 MCH 29.5 MCHC 32.6 RDW 13.3 Plt Count 175 MPV 9.7 Immature Gran % (Auto) 0.4 Neut % (Auto) 78.6 H Lymph % (Auto) 12.0 L [place] % (Auto) 8.2 Eos % (Auto) 0.6 Baso % (Auto) 0.2 Lymph # (Auto) 1.3 [place] # (Auto) 0.9 Eos # (Auto) 0.1 Baso # (Auto) 0.0 Abs Immat Gran (auto) 0.04 H Absolute Neuts (auto) 8.2 Absolute Nucleated RBC 0.000 Nucleated RBC % (auto) 0.0 Sodium 140 Potassium 4.1 Chloride 104 Carbon Dioxide 29 Anion Gap 11 L BUN 34 H D Creatinine 2.19 H Estim Creat Clear Calc 36.2 Estimated GFR 30 Random Glucose 86 Calcium 9.2 Urine Color YELLOW Urine Appearance CLEAR Urine pH 5.5 Ur Specific [place] 1.020 Urine Protein NEG Urine Glucose (UA) NEG Urine Ketones NEG Urine Blood 2+ H Urine Nitrite NEG Ur Leukocyte Esterase NEG Urine RBC 10-14 H Urine WBC 0-2 Ur Squamous Epith Cells NONE Urine Bacteria NONE COVID-19 (VARGHESE) COVID-19 IV Diagnostics Com 03/06/21 15:43 WBC RBC Hgb Hct MCV MCH MCHC RDW Plt Count MPV Immature Gran % (Auto) Neut % (Auto) Lymph % (Auto) [place] % (Auto) Eos % (Auto) Baso % (Auto) Lymph # (Auto) [place] # (Auto) Eos # (Auto) Baso # (Auto) Abs Immat Gran (auto) Absolute Neuts (auto) Absolute Nucleated RBC Nucleated RBC % (auto) Sodium Potassium Chloride Carbon Dioxide Anion Gap BUN Creatinine Estim Creat Clear Calc Estimated GFR Random Glucose Calcium Urine Color Urine Appearance Urine pH Ur Specific [place] Urine Protein Urine Glucose (UA) Urine Ketones Urine Blood Urine Nitrite Ur Leukocyte Esterase Urine RBC Urine WBC Ur Squamous Epith Cells Urine Bacteria COVID-19 (VARGHESE) Negative COVID-19 Clin Com See Note Airway Mallampati Class: II TM Dist: >3cm Neck ROM: Full Assessment and Plan Assessment Anesthesia Assessment: Anesthesia Plan Discussed and Chart Reviewed Final Anesthetic Review NPO: Yes ASA Class: II Final Preanesthetic Review: No Changes in Pt Med Stat, Meds/Allgs Chart Reviewed, Consent Obtained/Reviewed and Anes Risks/Benef Reviewed Patient Risk: Low Procedure Risk: Low Assessment/Block/Sedation in SS: Assess/Block/Sedation-SS Anesthetic Plan Anesthetic Plan: GA Disposition: Standard PACU
--- NOTE | 2021-03-07 17:01 | MHC.SHP ---
Pre-Procedural Eval Section A The patient is an INPATIENT: Yes Changes since office visit: No Cold of Flu in the past 2 weeks, No New Medical Problems, No Changes in Medication and No Patient answered all questions The History & Physical has been completed within 30 days and I have reviewed it.: Yes Section B Chief Complaint: Right ureteric stones Allergies: Allergies Allergy/AdvReac Type Severity Reaction Status Date / Time Penicillins Allergy Intermediate HIVES Verified 03/04/21 16:11 Sulfa (Sulfonamide Allergy Intermediate HIVES Verified 03/04/21 16:11 Antibiotics) citalopram [CITALOPRAM] Allergy Unknown PER H&P Verified 03/04/21 16:11 metronidazole [METRONIDAZOLE] Allergy Unknown PER H&P Verified 03/04/21 16:11 penicillin V Allergy Unknown Unknown Verified 03/04/21 16:11 Clindamycin HCl Allergy Unknown Unknown Uncoded 01/09/21 16:09 Plan Diagnosis/Plan: Unchanged (Right retrograde, ureteroscopy, laser lithotripsy stent placement) I have reviewed the history and physical and performed a pertinent physical examination on my patient. No changes have occurred unless specified.
--- NOTE | 2021-03-07 17:03 | W.PM.OPN ---
Operative Note Operative Note Date of Service: 03/07/21 Narrative: PreOperative Diagnosis: Right mid ureteric stone Post Operative Diagnosis: Right mid ureteric stone Procedure: - right cystoscopy, retrograde - dilatation of ureteric orifice under fluoroscopy - right ureteroscopy, laser lithotripsy, stone basketing - stent placement Surgeon: Dr Isreal Erazo Anesthesia: General Indications for procedure: 65-year-old male. Admitted through emergency room with right mid ureteric stone. Also elevated creatinine and perinephric inflammation presume secondary to calyceal rupture. Plan for intervention with ureteroscopy and stent placement. 8 mm mid ureteric stone Procedure: After informed consent was verified patient was brought to the operating placed in supine position. Anesthesia was administered per protocol. Patient was placed in modified dorsal lithotomy position and prepped and draped in a sterile fashion. Safety pause time-out and side of surgery confirmed. Antibiotics confirmed. A 22 Bengali cystoscope was advanced per urethra. The bladder was examined and normal. Both ureteric orifices in normal position. The right ureteric orifice was cannulated and retrograde examination was performed. Filling defect was seen just distal to the pelvic brim. This is consistent with the location of the stone is seen on CT scan. A Sensor guidewire was placed to the renal pelvis. A Dawson dilator was used to dilate the ureteric orifice under fluoroscopic guidance. A semi rigid Quintanilla ureteral scope was then placed alongside the wire. The stone was encountered. Using a laser the stone was broken into small pieces. Using a flat wire basket multiple passes were made and fragments removed. After fragment removal the wire was backloaded onto the 22 Bengali cystoscope. A 6 Bengali by 24 cm stent was used and placed up to the renal pelvis with good coil. Good coil was seen in the renal pelvis under fluoroscopy and a good coil was seen in the bladder under direct visualization. The bladder was emptied. He tolerated the procedure well was extubated in operating room and transferred in stable condition to the recovery area. Pathology: Stones Drains: 6 Bengali by 24 cm double-J stent
[2021-03-07] MEDS: Phenazopyridine HCL 100 MG TABLET PO (17:53)
--- NOTE | 2021-03-07 20:15 | PM.DS ---
DS: Providers Provider Date of Service: 03/07/21 Date of admission: 03/06/21 19:13 Primary care physician: Dilip Grady MD, DO DS: Diagnosis Discharge Diagnosis (1) LADI (acute kidney injury): Status: Acute (2) Ureterolithiasis: Status: Acute Problem details: 03/25 Ureteroscopy with laser lithotripsy, stone basketing and stent placement DS: Medications Discharge Medications Home Medications: Home Medications Medication Instructions Recorded Confirmed lorazepam 0.5 mg PO BID PRN 03/06/21 03/06/21 Previous Rx's Medication Instructions Recorded pyridoxine (vitamin B6) 100 mg 100 mg PO DAILY 90 Days #90 tab 01/09/21 tablet ondansetron 4 mg PO Q8H PRN #20 tab 03/04/21 oxycodone 5 mg PO Q4H PRN #14 tab 03/04/21 tamsulosin 0.4 mg PO DAILY 14 Days #14 cap 03/04/21 DS: Summary Time Spent with Patient Time attestation: Total time spent providing and/or coordinating discharge services: Discharge coordination time: Less than 30 minutes Quality: Stroke Does the patient have a stroke diagnosis?: No Physical Exam Vital Signs: Vital Signs: Last Vital Signs Temp 98.1 F 03/07/21 17:55 Pulse 56 03/07/21 17:55 Resp 18 03/07/21 17:55 BP 174/86 H 03/07/21 17:55 Pulse Ox 99 03/07/21 17:55 Body Mass Index 24.8 DS: Data Data Completed and Pending Pending studies at discharge: Pending at discharge 03/07/21 17:16 Surgical [PTH] Routine Discharge Plan Discharge Patient Disposition: Home, Self-Care Discharge Diagnosis: Right mid ureteric stone Referrals: Dilip Grady MD, DO [Primary Care Provider] - 1 Week Discharge Medications: Continued ondansetron 4 mg tablet,disintegrating 4 mg PO Q8H PRN (Reason: nausea and vomiting) Qty: 20 RF: 0 oxycodone 5 mg tablet 5 mg PO Q4H PRN (Reason: pain) Qty: 14 RF: 0 tamsulosin 0.4 mg capsule 0.4 mg PO DAILY 14 Days Qty: 14 RF: 0 lorazepam 0.5 mg tablet 0.5 mg PO BID PRN (Reason: Anxiety) RF: 0 pyridoxine (vitamin B6) 100 mg tablet 100 mg PO DAILY 90 Days Qty: 90 RF: 1 Discontinued prednisone 20 mg tablet 40 mg PO DAILY 5 Days Qty: 10 RF: 0 Discharge Orders: Discharge Order (Routine); Ordered 03/07/21 Ordered By: Isreal Erazo Diet: advance to usual diet Activity on Discharge: As tolerated Stand Alone Forms: Patient Portal Discharge page Care Plan Goals: Stone management Health Concerns: Stone stone management Plan of Treatment: Stone management Assessment: Stone in kidney management Discharge Date/Time: 03/07/21 18:15
== END 2021-03-07 18:15 | disposition home or self-care (01) | DRG 446 ==
LOC: HO.ED 16:37 → HO.EDOVER 19:26 → HO.S3 21:18
PROVIDERS: Admitting Provider Urology; Emergency Provider Emergency Medicine; PCP Internal Medicine; Visit Provider Urology
PROC: 0TC68ZZ Extirpation of Matter from Right Ureter, Via Natural or Artificial Opening Endoscopic (ICD-10-PCS; principal; 2021-03-07 16:00)
DX: N20.1 Calculus of ureter (principal); N17.9 Acute kidney failure, unspecified; Z20.822 Contact with and (suspected) exposure to COVID-19; Z88.0 Allergy status to penicillin; Z88.2 Allergy status to sulfonamides; Z87.442 Personal history of urinary calculi; Z79.899 Other long term (current) drug therapy
CPT/HCPCS: 36415; 80048; 81001; 81003; 82365; 85025; 87635; 88300; 96374; 96375; 99285; C1758; C1769; C2617; J1100; J1170; J1885; J2250; J2405; J3010; Q9967

== ENCOUNTER → 2021-03-08 08:41 | Outpatient (BNVA) | payer OTHER, SELFPAY | END | disposition home health service (06) | PROVIDERS: PCP Internal Medicine; Visit Provider Urology | DX: N20.1 Calculus of ureter (principal); N17.9 Acute kidney failure, unspecified | CPT/HCPCS: 99212 ==

== ENCOUNTER → 2021-03-14 08:54 | Outpatient (BNVA) | payer OTHER, SELFPAY | PROVIDERS: PCP Internal Medicine; Visit Provider Urology | DX: N20.0 Calculus of kidney (principal) | CPT/HCPCS: 52310; 99212 ==

== ENCOUNTER 2021-04-09 15:54 | Outpatient (REF) | payer OTHER, SELFPAY ==
--- NOTE | ~2021-04-09 | US_ITS ---
EXAMINATION: US RETROPERITONEAL LIMITED (RENAL ONLY) CLINICAL INFORMATION: Calculus of kidney. COMPARISON: CT abdomen pelvis 03/04/2021. Ultrasound renal 07/18/2020 and 02/16/2020. KUB 05/11/2019 and 02/16/2019. TECHNIQUE: Real-time imaging of the kidneys. FINDINGS: RIGHT KIDNEY: 10.9 x 6.5 x 5.3 cm (SAG x AP x TRV). The kidney is normal in size, contour, and echogenicity. Renal cortical thickness is normal. There is a 3.7 x 3.8 x 3.2 cm cyst in the upper pole. There are 2 stones in the mid and lower pole measuring 5 x 4 mm and 3 x 2 mm. No renal hydronephrosis. LEFT KIDNEY: 11.1 x 5.9 x 4.1 cm (SAG x AP x TRV). The kidney is normal in size, contour, and echogenicity. Renal cortical thickness is normal. There are 2 cysts in the upper pole measuring 2.2 x 1.7 x 1.9 cm and 1 x 0.8 x 1.1 cm. There are 2 stones measuring 0.2 cm in the upper pole and 0.3 cm in the lower pole. No renal hydronephrosis. US/US renal BI IMPRESSION: Bilateral renal stones. Bilateral renal cysts. Previously identified right hydronephrosis on CT February 2021 is no longer seen..
== END 2021-04-09 15:55 | disposition home or self-care (01) ==
LOC: HO.US 15:54
PROVIDERS: Visit Provider Urology
DX: N20.0 Calculus of kidney (principal)
CPT/HCPCS: 76775

== ENCOUNTER 2021-04-19 11:53 | Outpatient (REF) | payer OTHER, SELFPAY ==
--- NOTE | ~2021-04-19 | XR_ITS ---
EXAMINATION: XR SHOULDER, RIGHT CLINICAL INFORMATION: Pain right shoulder COMPARISON: None TECHNIQUE: Three views of the right shoulder. FINDINGS: There is loss of glenohumeral and AC joint space. No acute fracture, dislocation or bony erosive changes seen. The soft tissues are normal. XR/XR shoulder RT min 2V IMPRESSION: Unremarkable right shoulder exam.
== END 2021-04-19 11:54 | disposition home or self-care (01) ==
LOC: HO.HOSX 11:53
PROVIDERS: Visit Provider Orthopaedic Surgery
DX: M25.511 Pain in right shoulder (principal)
CPT/HCPCS: 73030; 99212

== ENCOUNTER 2021-05-05 02:10 | Emergency (ER) | payer MEDICARE, MEDICAID, SELFPAY ==
--- NOTE | ~2021-05-05 | CT_ITS ---
EXAMINATION: CT ABDOMEN AND PELVIS WITH CONTRAST CLINICAL INFORMATION: Left lower quadrant pain COMPARISON: 03/04/2021 TECHNIQUE: Multidetector volumetric images were obtained from the superior aspect of the liver through the pubic symphysis following administration 85 mL of Omnipaque 350 intravenous contrast. Sagittal and coronal reformatted images were obtained on the technologist's workstation. Oral contrast: No This CT examination was performed using dose optimization techniques as appropriate, variously including the following: *Automated exposure control *Adjustment of mA and/or kV according to patient size (this includes techniques or standardized protocols for targeted exams where dose is matched to indication/reason for exam; i.e. extremities or head) *Use of iterative reconstruction technique DLP: 580 mGy-cm FINDINGS: LUNG BASES: The visualized lung bases are unremarkable. LIVER, GALLBLADDER, AND BILIARY TREE: The liver is normal in size, shape, and attenuation. No focal hepatic lesion or biliary ductal dilatation is present. Gallbladder unremarkable. PANCREAS: Unremarkable. SPLEEN: Unremarkable. ADRENAL GLANDS: Unremarkable. KIDNEYS AND URETERS: The kidneys are normal in size, shape, and attenuation. There is a 3 mm nonobstructive calculus in the midpole right kidney, a 2 mm calculus in the upper pole of the right kidney and a 2 mm calculus in the lower pole left kidney. No ureteral calculi or hydronephrosis. Bilateral simple renal cysts are benign and require no further follow-up. No perinephric abnormalities. BLADDER: Unremarkable. GASTROINTESTINAL TRACT: Scattered left colonic diverticula, most concentrated within sigmoid colon. No evidence of diverticulitis. ABDOMINAL WALL: No significant hernia is appreciated. LYMPH NODES: Normal. VASCULAR: Unremarkable. PELVIC VISCERA: Unremarkable. OSSEOUS STRUCTURES: Unremarkable. CT/CT abdomen pelvis w con IMPRESSION: * No acute findings within the abdomen or pelvis to explain the patient's symptomatology. * Bilateral nonobstructive intrarenal calculi. No ureteral calculi or hydronephrosis. * Left colonic diverticulosis without evidence of diverticulitis.
[2021-05-05 02:18] VITALS: BP 142/78; PULSE 67; RESP 18; TEMP 36.4; O2SAT 95; BMI 24.3
[2021-05-05 02:59] VITALS: BP 156/86; PULSE 55; RESP 16; O2SAT 97
--- NOTE | 2021-05-05 03:01 | PC.NURSE ---
Pt reports he took percocet about 1hr [employer]CE [employer]TER and no longer has pain in LLQ. Awaiting pt to be able to provide urine sample. This RN will obtain labs. Stretcher in low locked position, rails raised, call cary within reach.
[2021-05-05 03:16] LABS: MANUAL DIFF FLAG NO
[2021-05-05 03:18] LABS: Basophils Percent Auto 0.7 % (0-2); Eosinophils Absolute Auto 0.2 X10*3/uL (0.0-0.4); Eosinophils Percent Auto 3.1 % (0-4); Hematocrit 45.4 % (42-52); Hemoglobin 15.2 g/dl (14.0-18.0); Imm Gran Abs Auto 0.01 X10*3/uL (0.00-0.03); Imm Gran Pct Auto 0.2 % (0.0-0.4); Lymphocytes Absolute Auto 1.8 X10*3/uL (1.2-4.9); Lymphocytes Percent Auto 32.2 % (20-40); Mean Corpuscular HGB Conc 33.5 g/dl (31.0-36.0); Mean Corpuscular Volume 86.5 fL (80-98); Mean Platelet Volume 9.7 fL (9.4-12.4); Monocytes Absolute Auto 0.5 X10*3/uL (0.1-1.2); Neutrophils Percent Auto 54.8 % (45-73); Platelet Count 178 X10*3/uL (160-400); Red Blood Count 5.25 X10*6/uL (4.60-5.80); Red Cell Distribution Width 12.9 % (11.0-16.0); White Blood Count 5.4 X10*3/uL (4.8-10.8)
--- NOTE | 2021-05-05 03:25 | ED_ITS ---
HPI - Abdominal Pain General Chief Complaint: Abdominal Pain Stated Complaint: diverticulosis Time Seen by Provider: 05/05/21 03:18 Source: patient Mode of arrival: ambulatory Limitations: no limitations History of Present Illness HPI narrative: Patient comes to the emergency room complaining of left lower quadrant pain. Patient states started offer he ate cereal at night. Had 1 episode of diarrhea, states that he has had history of diverticulitis in the past. However, patient also has history of kidney stones, he is scheduled for lithotripsy tomorrow. At this time, patient states that he feels better, he has mild residual left lower quadrant pain, no nausea or diarrhea at this time. Prior to arrival patient took 1 Percocet, at this time he declines any further pain medication. Related Data Home Medications Medication Instructions Recorded Confirmed lorazepam 0.5 mg tablet 0.5 mg PO BID PRN 03/06/21 04/30/21 prednisone 20 mg tablet 40 mg PO DAILY 04/19/21 Previous Rx's Medication Instructions Recorded pyridoxine (vitamin B6) 100 mg 100 mg PO DAILY 90 Days #90 tab 01/09/21 tablet ondansetron 4 mg disintegrating 4 mg PO Q8H PRN #20 tab 03/04/21 tablet tamsulosin 0.4 mg capsule 0.4 mg PO DAILY 14 Days #14 cap 03/04/21 phenazopyridine 200 mg tablet 200 mg PO TID 5 Days #15 tab 03/08/21 (Pyridium) oxycodone 5 mg tablet 5 mg PO Q4H PRN #14 tab 03/11/21 allopurinol 100 mg tablet 100 mg PO DAILY 90 Days #90 tab 03/14/21 ketorolac 10 mg tablet 10 mg PO BID PRN 5 Days #10 tab 05/05/21 Allergies Allergy/AdvReac Type Severity Reaction Status Date / Time citalopram [CITALOPRAM] Allergy Intermediate Hives Verified 05/05/21 02:17 clindamycin Allergy Intermediate Hives Verified 05/05/21 02:17 metronidazole [METRONIDAZOLE] Allergy Intermediate Hives Verified 05/05/21 02:17 Penicillins Allergy Intermediate HIVES Verified 05/05/21 02:17 Sulfa (Sulfonamide Allergy Intermediate HIVES Verified 05/05/21 02:17 Antibiotics) Review of Systems Review of Systems Constitutional : No Weight loss, No Fever, No Chills, No Night Sweats, No Fatigue, No Malaise ENT/Mouth : No Hearing loss, No Ear Pain, No Nasal Congestion, No Sinus Pain, No Hoarseness, No sore throat, No Rhinorrhea, No Swallowing Difficulty Eyes: No Eye Pain, No Swelling, No Redness, No Foreign Body, No Discharge, No Vision Changes Cardiovascular : No Chest Pain, No SOB, No Dyspnea on Exertion, No Orthopnea, No Edema, No Palpitations Respiratory : No Cough, No Sputum, No Wheezing, No Smoke Exposure, No Dyspnea Gastrointestinal : No Nausea, No Vomiting, 1 episode of Diarrhea, No Constipati on, left lower quadrant which is improving after taking Percocet, No Hematochezia, No Melena Genitourinary : no irregular bleeding, No Dysuria, No Urinary Frequency, No Hematuria, No Urinary Incontinence, No Urgency, No Flank Pain, No Urinary Flow Changes, No Hesitancy Musculoskeletal : No joint pain, No Myalgias, No Joint Swelling Skin : No Skin Lesions, No rash Neuro : No Weakness, No Numbness, No Paresthesias, No Loss of Consciousness, No Dizziness, No Headache Psych : No Anxiety/Panic, No Depression, No SI/HI/AH/VH, No Social Issues, Heme/Lymph: No Bruising, No Bleeding,No Lymphadenopathy Endocrine : No Polyuria, No Polydipsia, No Temperature Intolerance Physical Exam Vital Signs: Vital Signs: Last Vital Signs Temp 97.6 F 05/05/21 02:18 Pulse 60 05/05/21 05:09 Resp 16 05/05/21 05:09 BP 142/77 H 05/05/21 05:09 Pulse Ox 96 05/05/21 05:09 Body Mass Index 24.3 Const: Other: Appearance: Alert. Oriented X3. No acute distress. Eyes: Pupils equal, round and reactive to light. ENT: Pharynx normal. Neck: Normal inspection. Neck supple. No lymph nodes noted. No crepitus CVS: Normal heart rate and rhythm. Pulses normal. Normal S1 and S2 Respiratory: No respiratory distress. Breath sounds normal. No Wheezing. No rales Abdomen: Soft , mild discomfort to deep palpation over the left lower quadrant, No rigidity. No distention. good BS x4 Skin: Skin warm and dry. Normal skin color. Normal skin turgor. Extremities: No lower extremity edema. No Lacerations. No Rash Neuro: Oriented X 3. No motor deficit. No sensory deficit. Moving all extermities. No slurred speech. Course Course Course Narrative: Patient states that he feels fairly well, he has mild discomfort in the left flank, 1 dose of IV Toradol given. I discussed the CT scan with the patient and labs. No acute findings. Patient will follow up tomorrow with Dr. Erazo for for lithotripsy MDM - Abdominal Pain Lab Data Result diagrams: 05/05/21 03:09 05/05/21 03:09 Labs: Lab Results 05/05/21 05/05/21 05/05/21 Range/Units 03:09 03:09 04:47 WBC 5.4 (4.8-10.8) X10*3/uL RBC 5.25 (4.60-5.80) X10*6/uL Hgb 15.2 (14.0-18.0) g/dl Hct 45.4 (42-52) % MCV 86.5 (80-98) fL MCH 29.0 (27.0-33.0) pg MCHC 33.5 (31.0-36.0) g/dl RDW 12.9 (11.0-16.0) % Plt Count 178 (160-400) X10*3/uL MPV 9.7 (9.4-12.4) fL Immature Gran % (Auto) 0.2 (0.0-0.4) % Neut % (Auto) 54.8 (45-73) % Lymph % (Auto) 32.2 (20-40) % Avery % (Auto) 9.0 (2-11) % Eos % (Auto) 3.1 (0-4) % Baso % (Auto) 0.7 (0-2) % Lymph # (Auto) 1.8 (1.2-4.9) X10*3/uL Avery # (Auto) 0.5 (0.1-1.2) X10*3/uL Eos # (Auto) 0.2 (0.0-0.4) X10*3/uL Baso # (Auto) 0.0 (0.0-0.2) X10*3/uL Abs Immat Gran (auto) 0.01 (0.00-0.03) X10*3/uL Absolute Neuts (auto) 3.0 (2.0-8.3) X10*3/uL Absolute Nucleated RBC 0.000 (0.0-0.012) X10*3/uL Nucleated RBC % (auto) 0.0 (0.0-0.2) /100WBC Sodium 139 (135-145) mmol/L Potassium 4.7 (3.3-5.1) mmol/L Chloride 108 (96-108) mmol/L Carbon Dioxide 20 L (22-29) mmol/L Anion Gap 16 (12-20) BUN 17 H (9-16) mg/dL Creatinine 0.87 (0.5-1.4) mg/dL Estim Creat Clear Calc 91.3 Estimated GFR > 60 Random Glucose 119 H D (60-115) mg/dL Calcium 8.7 (8.4-10.2) mg/dL Total Bilirubin 1.3 H (0.0-1.0) mg/dL AST 34 D (5-37) U/L ALT 22 (0-40) U/L Alkaline Phosphatase 67 (39-117) U/L Total Protein 6.7 (6.5-8.0) g/dL Albumin 4.0 (3.5-5.0) g/dL Urine Color YELLOW Urine Appearance CLEAR Urine pH 6.0 (5.0-8.0) Ur Specific [place] 1.025 (1.005-1.025) Urine Protein NEG (NEG-TRACE) MG/DL Urine Glucose (UA) NEG (NEG) MG/DL Urine Ketones NEG (NEG) MG/DL Urine Blood NEG (NEG) Urine Nitrite NEG (NEG) Ur Leukocyte Esterase NEG (NEG) Imaging Data CT scan - abdomen: Radiologist's impression: FINDINGS: LUNG BASES: The visualized lung bases are unremarkable.? LIVER, GALLBLADDER, AND BILIARY TREE: The liver is normal in size, shape, and attenuation. No focal hepatic lesion or biliary ductal dilatation is present. Gallbladder unremarkable.? PANCREAS: Unremarkable.? SPLEEN: Unremarkable.? ADRENAL GLANDS: Unremarkable.? KIDNEYS AND URETERS: The kidneys are normal in size, shape, and attenuation. There is a 3 mm nonobstructive calculus in the midpole right kidney, a 2 mm calculus in the upper pole of the right kidney and a 2 mm calculus in the lower pole left kidney. No ureteral calculi or hydronephrosis. Bilateral simple renal cysts are benign and require no further follow-up. No perinephric abnormalities. BLADDER: Unremarkable.? GASTROINTESTINAL TRACT: Scattered left colonic diverticula, most concentrated within sigmoid colon. No evidence of diverticulitis.? ABDOMINAL WALL: No significant hernia is appreciated.? LYMPH NODES: Normal. VASCULAR: Unremarkable. PELVIC VISCERA: Unremarkable.? OSSEOUS STRUCTURES: Unremarkable.? CT/CT abdomen pelvis w con IMPRESSION: *? No acute findings within the abdomen or pelvis to explain the patient's symptomatology. *? Bilateral nonobstructive intrarenal calculi. No ureteral calculi or hydronephrosis. *? Left colonic diverticulosis without evidence of diverticulitis.? Discharge Plan Discharge Clinical Impression: Nephrolithiasis Abdominal pain Qualifiers: Abdominal location: left lower quadrant Qualified Code(s): R10.32 - Left lower quadrant pain Patient Disposition: Home, Self-Care Instructions: Abdominal Pain (ED) Additional Instructions: Please follow-up with your primary care physician tomorrow. If you have any worsening or new symptoms, please return to the emergency room or call 911 Prescriptions: New ketorolac 10 mg tablet 10 mg PO BID PRN (Reason: pain) 5 Days Qty: 10 RF: 0 No Action phenazopyridine [Pyridium] 200 mg tablet 200 mg PO TID 5 Days Qty: 15 RF: 0 oxycodone 5 mg tablet 5 mg PO Q4H PRN (Reason: pain) Qty: 14 RF: 0 ondansetron 4 mg tablet,disintegrating 4 mg PO Q8H PRN (Reason: nausea and vomiting) Qty: 20 RF: 0 tamsulosin 0.4 mg capsule 0.4 mg PO DAILY 14 Days Qty: 14 RF: 0 lorazepam 0.5 mg tablet 0.5 mg PO BID PRN (Reason: Anxiety) RF: 0 allopurinol 100 mg tablet 100 mg PO DAILY 90 Days Qty: 90 RF: 1 prednisone 20 mg tablet 40 mg PO DAILY RF: 0 pyridoxine (vitamin B6) 100 mg tablet 100 mg PO DAILY 90 Days Qty: 90 RF: 1 [facility] Past Medical History Medical History Diverticulitis Kidney stones Surgical History H/O colonoscopy Hx of appendectomy Hx of cystoscopy Hx of lithotripsy Social History Social History Household Members: Spouse Do you presently have visiting nurse or other home services: No Alcohol intake: current Alcohol intake frequency: holidays/special occasions only Alcohol type: wine Patient Tobacco Use Status: Never used Tobacco Advance Directives: No Advance Directives Information Provided: No service: No Current occupational status: employed
[2021-05-05 03:55] LABS: Alanine Aminotransferase 22 U/L (0-40); Alkaline Phosphatase 67 U/L (39-117); Anion Gap 16 (12-20); Aspartate Amino Transferase 34 U/L (5-37); Bilirubin Total 1.3 mg/dL (0.0-1.0); Blood Urea Nitrogen 17 mg/dL (9-16); Calcium 8.7 mg/dL (8.4-10.2); Carbon Dioxide 20 mmol/L (22-29); Chloride 108 mmol/L (96-108); Creatinine Clr Calc Pharmacy 91.3; Estimated Glomerular Filt Rate > 60; Glucose Random 119 mg/dL (60-115); Potassium 4.7 mmol/L (3.3-5.1); Sodium 139 mmol/L (135-145); Total Protein 6.7 g/dL (6.5-8.0)
[2021-05-05] MEDS: iohexoL 350 MG/ML 100 ML INFUS..BTL 85 ML IV (04:51)
[2021-05-05 04:53] LABS: Glucose Urine UA NEG (NEG); Leukocyte Esterase Urine NEG (NEG); Nitrite Urine NEG (NEG); Specific Gravity - Urine 1.025 (1.005-1.025); Urine Blood NEG (NEG); Urine Ketones NEG (NEG); Urine Protein NEG (NEG-TRACE)
[2021-05-05 05:02] LABS: Appearance Urine CLEAR; Color Urine YELLOW
[2021-05-05 05:09] VITALS: BP 142/77; PULSE 60; RESP 16; O2SAT 96
== END 2021-05-05 06:01 | disposition home or self-care (01) ==
PROVIDERS: Emergency Provider Emergency Medicine; PCP Internal Medicine
DX: N20.0 Calculus of kidney (principal); R10.32 Left lower quadrant pain; Z79.899 Other long term (current) drug therapy
CPT/HCPCS: 36415; 74177; 80053; 81003; 85025; 96365; 96375; 99284; Q9967

== ENCOUNTER 2021-05-06 10:01 | Day surgery (SDC) | payer MEDICARE, MEDICAID, SELFPAY ==
[2021-04-30 10:26] VITALS: BMI 24.1
--- NOTE | ~2021-05-06 | FL_ITS ---
EXAMINATION: XR FLUOROSCOPY WITH IMAGES CLINICAL INFORMATION: Urinary tract calculi. COMPARISON: CT abdomen and pelvis 05/05/2021. TECHNIQUE: Fluoroscopy performed by Dr. Isreal Erazo. Fluoroscopy time: 0.6 minutes DAP: 2.41 Gycm2 Images: 1 FINDINGS: There is a catheter or stent overlying the right urinary tract with some contrast in the collecting system. FL/FL guidance in OR IMPRESSION: Fluoroscopy for urologic procedure.
[2021-05-06] MEDS: Lactated Ringers 1,000 ML 100 ML IVCONT (10:33)
[2021-05-06] MEDS: levoFLOXacin 500 MG TABLET PO (10:41)
--- NOTE | 2021-05-06 13:33 | HO.ANESPROP2 ---
HPI - Anesthesia Eval Consult details Narrative: 65 yo male patient for Cystoscopy, ureteroscopy, retro, laser, stent Right ureter PMFSH Active Problems Active Problems: All Active Problems (Updated 05/06/21 @ 00:01 by Onesimo Bass) Nephrolithiasis (Acute) LADI (acute kidney injury) (Acute) Past Medical History Medical History Diverticulitis Kidney stones Family History Family history of problems with anesthesia: No Surgical History Surgical History H/O colonoscopy Hx of appendectomy Hx of cystoscopy Hx of lithotripsy History of Problems with Anesthesia: No Social History Social History Household Members: Spouse Do you presently have visiting nurse or other home services: No Alcohol intake: current Alcohol intake frequency: holidays/special occasions only Alcohol type: wine Patient Tobacco Use Status: Never used Tobacco Use of substances other than those prescribed or required for medical reasons: No Have you been hit, kicked, punched, or otherwise hurt by someone within the past year? If so, by whom?: No Are you DNR?: Yes Advance Directives: No (states has HCP but not on file here) Advance Directives Information Provided: No Advance Directives on File: No Eating poorly because of decreased appetite: No Nutrition Risks: No Nutritional Risk service: No Current occupational status: employed Meds Allergies Allergy/AdvReac Type Severity Reaction Status Date / Time citalopram [CITALOPRAM] Allergy Intermediate Hives Verified 05/05/21 02:17 clindamycin Allergy Intermediate Hives Verified 05/05/21 02:17 metronidazole [METRONIDAZOLE] Allergy Intermediate Hives Verified 05/05/21 02:17 Penicillins Allergy Intermediate HIVES Verified 05/05/21 02:17 Sulfa (Sulfonamide Allergy Intermediate HIVES Verified 05/05/21 02:17 Antibiotics) Home Medications Medication Instructions Recorded Confirmed Last Taken Type lorazepam 0.5 mg tablet 0.5 mg PO BID PRN 03/06/21 04/30/21 Unknown History prednisone 20 mg tablet 40 mg PO DAILY 04/19/21 Unknown History Exam Exam Date and Time: May 06, 2021 1333 Height,Weight and Vital Signs: Height 6 ft 1 in Weight 83.007 kg Airway Mallampati Class: II TM Dist: >3cm Neck ROM: Full Loose/Missing/Broken Teeth: No Heart: RRR Lungs: CTAB Assessment and Plan Final Anesthetic Review Family History of Problems with Anesthesia: No History of Problems with Anesthesia: No ASA Class: II Final Preanesthetic Review: No Changes in Pt Med Stat, Meds/Allgs Chart Reviewed, Consent Obtained/Reviewed and Anes Risks/Benef Reviewed Patient Risk: Low Procedure Risk: Low Assessment/Block/Sedation in SS: Assess/Block/Sedation-SS Anesthetic Plan Anesthetic Plan: GA Disposition: Standard PACU
[2021-05-06 13:54] VITALS: BP 132/74; PULSE 68; RESP 16; TEMP 36.4; O2SAT 96
--- NOTE | 2021-05-06 14:22 | PC.NURSE ---
patient brought to pacu and report given to alexandre elias
--- NOTE | 2021-05-06 14:39 | MHC.SHP ---
Pre-Procedural Eval Section A Date of Service: 05/06/21 Section B Chief Complaint: kidney stone Details of Present Illness: right sided stones Relevant Social History: None Present Medications: see Short Stay Collaborative assessment Medical History: No relevant PMH History of Previous Operations: Relevant previous surgery/procedure and date(s) Allergies: Allergies Allergy/AdvReac Type Severity Reaction Status Date / Time citalopram [CITALOPRAM] Allergy Intermediate Hives Verified 05/05/21 02:17 clindamycin Allergy Intermediate Hives Verified 05/05/21 02:17 metronidazole [METRONIDAZOLE] Allergy Intermediate Hives Verified 05/05/21 02:17 Penicillins Allergy Intermediate HIVES Verified 05/05/21 02:17 Sulfa (Sulfonamide Allergy Intermediate HIVES Verified 05/05/21 02:17 Antibiotics) Review of Systems Sugical H&P ROS: Negative: Constitution, Cardiovascular, Respiratory, Neurological, Psychiatric, Hem-Onc, Allergic/Immunologic, Gastrointestinal, Genitourinary, Musculoskeletal, Integumentary, Endocrine and Eyes/Ears/Nose/Throat Exam Surgical H&P Exam: Normal: HEENT, Normal: Heart, Normal: Lungs, Normal: Extremities, Normal: Abdomen, Normal: Skin and Normal: Neurological Plan Diagnosis/Plan: Unchanged (right sided ureteroscopy laser lithotripsy, possible stent) I have reviewed the history and physical and performed a pertinent physical examination on my patient. No changes have occurred unless specified.
[2021-05-06 15:45] VITALS: BP 130/70; PULSE 55; RESP 10; TEMP 36.6; O2SAT 98
[2021-05-06 15:50] VITALS: BP 126/69; PULSE 57; RESP 16; O2SAT 93
[2021-05-06 15:55] VITALS: BP 128/77; PULSE 68; RESP 16; O2SAT 94
[2021-05-06] MEDS: Phenazopyridine HCL 100 MG TABLET PO (16:04)
[2021-05-06] MEDS: oxyCODONE HCl Immed Release 5 MG TABLET PO (16:04)
[2021-05-06] MEDS: Acetaminophen 325 MG TABLET 650 MG PO (16:04)
[2021-05-06 16:05] VITALS: BP 140/78; PULSE 67; RESP 16; O2SAT 97
[2021-05-06 16:16] VITALS: BP 155/83; PULSE 63; RESP 18; O2SAT 97
[2021-05-11 22:21] LABS: Stone Source KIDNEY
--- NOTE | 2021-08-07 16:31 | P.OP_ITS ---
Operative Note Operative Note Date of Service: 05/06/21 Narrative: PreOperative Diagnosis: Right renal stone Post Operative Diagnosis: Right renal stone Procedure: - cystoscopy, right retrograde - right dilatation of ureteric orifice under fluoroscopy - right ureteroscopy, laser lithotripsy, stone basketing - right stent placement Surgeon: Dr Isreal Erazo Anesthesia: General Indications for procedure: This is a pleasant 66-year-old male. Of note interval imaging had stones in the right renal pelvis. Offered intervention with ureteroscopy versus ESWL. Multiple small stones in different locations so ureteroscopy is preferred. He understands risks benefits and has previously undergone the procedure. Procedure: After informed consent was verified patient was brought to the operating placed in supine position. Anesthesia was administered per protocol. Patient was placed in modified dorsal lithotomy position and prepped and draped in a sterile fashion. Safety pause time-out and side of surgery confirmed. Antibiotics confirmed. Twenty-two Haitian cystoscope was placed per urethra. No abnormality noted the anterior posterior urethra. Bladder was entered. Both ureteric orifices normal position. Right retrograde examination performed. No filling defects seen within the right ureter or kidney. Sensor guidewire placed to the level renal pelvis. Ureteric access sheath used for dilatation of right ureteric orifice under fluoroscopy. Internal cannula used for dilation. Once ureter dilated ureteric access sheath was placed. Flexible ureteral scope placed to the level renal pelvis. Kidney was examined. Stones encountered. Using a holmium laser fiber the stones broken into small pieces. A Zero tip basket was then used to remove stone fragments. These sent for analysis. A 6 Haitian by 24 cm stent was then placed over the wire. The access sheath was removed. The wire was backloaded into the cystoscope and the stent advanced under direct visualization. Good coil seen within the renal pelvis and in the bladder. He tolerated the procedure well. Was extubated in the operating room transferred in stable condition to the recovery area. Pathology: Stones Drains: 6 Haitian by 24 cm stent right side
== END 2021-05-06 16:42 | disposition home or self-care (01) ==
PROVIDERS: PCP Internal Medicine; Visit Provider Urology
PROC: (CPT 52356; principal; 2021-05-06 11:40)
DX: N20.0 Calculus of kidney (principal); Z87.442 Personal history of urinary calculi; Z87.19 Personal history of other diseases of the digestive system; Z79.52 Long term (current) use of systemic steroids; Z79.899 Other long term (current) drug therapy; Z88.0 Allergy status to penicillin; Z88.1 Allergy status to other antibiotic agents; Z88.2 Allergy status to sulfonamides
CPT/HCPCS: 52356; 52352; 82365; 88300; C1758; C1769; J1100; J1885; J2250; J2405; J3010; Q9967

== ENCOUNTER 2021-06-20 09:27 | Outpatient (REF) | payer MEDICARE, BC, SELFPAY ==
--- NOTE | ~2021-06-20 | US_ITS ---
EXAMINATION: US RETROPERITONEAL LIMITED (RENAL ONLY) CLINICAL INFORMATION: Calculus of kidney. COMPARISON: CT abdomen and pelvis 05/05/2021. Renal ultrasound 04/09/2021 and 07/18/2020. X-ray abdomen KUB 05/11/2019. TECHNIQUE: Real-time imaging of the kidneys. FINDINGS: RIGHT KIDNEY: 10.9 x 7.3 x 5.6 cm (SAG x AP x TRV). The kidney is normal in size, contour, and echogenicity. Renal cortical thickness is normal. There is a 3.2 x 3.4 x 3 cm cyst in the midpole. There is a 2 mm echogenic density in the midpole suggestive of a small stone. Additional right renal stone not appreciated. No hydronephrosis. LEFT KIDNEY: 10.2 x 6.0 x 4.9 cm (SAG x AP x TRV). The kidney is normal in size, contour, and echogenicity. Renal cortical thickness is normal. There are 2 adjacent cysts exophytic to the lateral lower pole measuring 2 x 1.2 x 1.9 cm and 0.9 cm. No renal calculi or hydronephrosis. Previously identified stone is not appreciated. US/US renal BI IMPRESSION: Small right renal stone. Other previously identified stones not appreciated on the current exam. Bilateral renal cysts.
== END 2021-06-20 09:28 | disposition home or self-care (01) ==
LOC: HO.US 09:27
PROVIDERS: Visit Provider Urology
DX: N20.0 Calculus of kidney (principal)
CPT/HCPCS: 76775

== ENCOUNTER → 2021-06-27 13:52 | Outpatient (BNVA) | payer MEDICARE, MEDICAID, SELFPAY | PROVIDERS: PCP Internal Medicine; Visit Provider Urology | DX: N40.1 Benign prostatic hyperplasia with lower urinary tract symptoms (principal); N13.8 Other obstructive and reflux uropathy; R35.1 Nocturia; N20.0 Calculus of kidney | CPT/HCPCS: Q3014 ==

== ENCOUNTER → 2021-08-28 13:00 | Outpatient (BNVA) | payer MEDICARE, BC, MEDICAID, SELFPAY | PROVIDERS: PCP Internal Medicine; Visit Provider Urology | CPT/HCPCS: Q3014 ==

== ENCOUNTER 2021-09-14 19:17 | Emergency (ER) | payer MEDICARE, BC, SELFPAY | END 2021-09-14 21:13 | disposition left against medical advice (07) | PROVIDERS: Emergency Provider Emergency Medicine; PCP Internal Medicine | DX: M79.603 Pain in arm, unspecified (principal) ==

== ENCOUNTER 2021-09-24 16:30 | Emergency (ER) | payer MEDICARE, BC, MEDICAID, SELFPAY ==
[2021-09-24 17:02] VITALS: BP 153/115; PULSE 82; RESP 16; TEMP 36.4; O2SAT 98; BMI 24.4
--- NOTE | 2021-09-24 19:41 | ED_ITS ---
HPI - Extremity Problem General Chief complaint: Extremity Injury, Upper Stated complaint: R arm pain/Fever Time Seen by Provider: 09/24/21 17:39 Source: patient Mode of arrival: ambulatory History of Present Illness HPI Narrative: 66-year-old male, known COVID 19 positive presenting to the ED complaining of acute on chronic right shoulder pain x1 year. Reports pain progressively worsening, worse with arm movement/lifting and palpation. Admits use to do heavy lifting in the past, denies known injury/trauma or fall, numbness/tingling or weakness. Denies CP/SOB Admits had x-rays 2 months ago that were WNL, no known injury since these imaging MD Complaint: extremity pain Onset (ago): year(s) Related Data Home Medications Medication Instructions Recorded Confirmed lorazepam 0.5 mg tablet 0.5 mg PO BID PRN 03/06/21 04/30/21 Previous Rx's Medication Instructions Recorded oxycodone 5 mg tablet 5 mg PO Q4H PRN #14 tab 03/11/21 pyridoxine (vitamin B6) 100 mg 100 mg PO DAILY 90 Days #90 tab 06/27/21 tablet oxybutynin chloride 5 mg 5 mg PO DAILY 30 Days #30 tab 08/28/21 tablet,extended release 24 hr acetaminophen 500 mg tablet 500 mg PO Q6H PRN #20 tab 09/24/21 (Tylenol Extra Strength) cyclobenzaprine 5 mg tablet 5 mg PO Q8H PRN 5 Days #14 tab 09/24/21 lidocaine 5 % topical patch 1 patch TOPICAL DAILY PRN #30 ea 09/24/21 (Lidoderm) MDD remove after 12 hours naproxen 500 mg tablet 500 mg PO BID PRN 10 Days #20 tab 09/24/21 Allergies Allergy/AdvReac Type Severity Reaction Status Date / Time citalopram [CITALOPRAM] Allergy Intermediate Hives Verified 08/28/21 13:01 clindamycin Allergy Intermediate Hives Verified 08/28/21 13:01 metronidazole [METRONIDAZOLE] Allergy Intermediate Hives Verified 08/28/21 13:01 Penicillins Allergy Intermediate HIVES Verified 08/28/21 13:01 Sulfa (Sulfonamide Allergy Intermediate HIVES Verified 08/28/21 13:01 Antibiotics) Review of Systems Review of Systems: Constitutional: No Fever, No Chills ENT/Mouth: No Ear Pain, No Nasal Congestion, No sore throat, No Rhinorrhea, No Swallowing Difficulty Cardiovascular: No Chest Pain, No SOB Respiratory: No Cough Gastrointestinal: No Nausea, No Vomiting, No Diarrhea, No Constipation, No Abdominal pain Genitourinary: No Urinary Incontinence, No Urgency, No Flank Pain Musculoskeletal: + joint pain, No Myalgias, No Joint Swelling Skin: No Skin Lesions, No rash Neuro: No Weakness, No Numbness, No Paresthesias Yes all other systems are reviewed and are negative [facility] Past Medical History Attestation statement: The following information was validated with the patient. Medical History Diverticulitis Kidney stones Surgical History H/O colonoscopy Hx of appendectomy Hx of cystoscopy Hx of lithotripsy Social History Social History Household Members: Spouse Do you presently have visiting nurse or other home services: No Alcohol intake: current Alcohol intake frequency: holidays/special occasions only Alcohol type: wine Patient Tobacco Use Status: Never used Tobacco Advance Directives: No Advance Directives Information Provided: No service: No Current occupational status: employed Physical Exam Vital Signs: Vital Signs: Last Vital Signs Temp 98.9 F 09/24/21 19:52 Pulse 83 09/24/21 19:52 Resp 16 09/24/21 19:52 BP 140/83 H 09/24/21 19:52 Pulse Ox 97 09/24/21 19:52 BMI result Body Mass Index 24.4 Const: General: cooperative, healthy appearing and no acute distress Orientation/consciousness: patient oriented x3 Limitations: no limitations HENMT: Head: Yes normal to inspection Ears: hearing grossly normal bilaterally General nose exam: Normal external nose present Face and sinus: Yes normal facial exam Eyes: General: appearance normal, both eyes and all related structures EOM: EOMs intact bilaterally Neck: Neck: Yes normal visual inspection and Yes no meningeal signs Resp: Effort & Inspection: normal respiratory effort and no respiratory distress Cardio: Rate: regular rate Peripheral pulses: radial pulses present Skin: Rashes: no rashes Wounds: no wounds Neuro: General: patient oriented x3 and no meningeal signs Gait exam (Neuro): Normal gait present Extrem: Other: Right shoulder normal to inspection, no deformity, tender to palpation greater to anterior aspect of AC joint. Decreased flexion forward and abduction secondary to pain. Neurovascular intact distally. General: Yes normal to inspection MDM - Extremity (Nontraumatic) MDM Narrative Medical decision making narrative: 66-year-old male, known COVID 19 positive presenting to the ED complaining of acute on chronic right shoulder pain x1 year. On exam vital signs stable, NAD/nontoxic, physical exam as above. Concern for rotator cuff injury versus tendon/tendinitis or ligamental injury. Low concern for fracture/dislocation. Discussed with patient he needs to follow-up with his PCP/orthopedics for likely MRI. Discharge Plan Discharge Clinical Impression: Chronic right shoulder pain Patient Disposition: Home, Self-Care Instructions: Shoulder Pain (ED) Additional Instructions: You likely have a rotator cuff injury and or tendon/ligamental injury. You need an MRI Continue to self isolate while your COVID positive Call your primary care doctor and or the multimedia authoring specialist for further evaluation Flexeril is a muscle relaxer, take at night as it makes you drowsy, do not drive, drink alcohol, or operate machinery while taking it Naproxen as an anti-inflammatory / pain medication, take with food Lidoderm patches are numbing patches, apply to painful area In addition take Tylenol at home If symptoms persist or worsen, pain becomes unbearable, you developed urinary retention or incontinence, or weakness return to the ED Prescriptions: New acetaminophen [Tylenol Extra Strength] 500 mg tablet 500 mg PO Q6H PRN (Reason: pain or fever) Qty: 20 RF: 0 lidocaine [Lidoderm] 5 % adhesive patch,medicated 1 patch topical DAILY MDD remove after 12 hours PRN (Reason: pain) Qty: 30 RF: 0 naproxen 500 mg tablet 500 mg PO BID PRN (Reason: pain) 10 Days Qty: 20 RF: 0 cyclobenzaprine 5 mg tablet 5 mg PO Q8H PRN (Reason: pain (scale score 7-10)) 5 Days Qty: 14 RF: 0 No Action oxycodone 5 mg tablet 5 mg PO Q4H PRN (Reason: pain) Qty: 14 RF: 0 lorazepam 0.5 mg tablet 0.5 mg PO BID PRN (Reason: Anxiety) RF: 0 pyridoxine (vitamin B6) 100 mg tablet 100 mg PO DAILY 90 Days Qty: 90 RF: 1 oxybutynin chloride 5 mg tablet extended release 24hr 5 mg PO DAILY 30 Days Qty: 30 RF: 1 Referrals: Ulysses Maxwell MD [Physician] - 10 days Dilip Grady MD, DO [Primary Care Provider] - 5 days Interventions: ED Discharge Assessment Last Done: 09/24/21 19:58 Discharge Date/Time: 09/24/21 19:59
[2021-09-24 19:52] VITALS: BP 140/83; PULSE 83; RESP 16; TEMP 37.2; O2SAT 97
== END 2021-09-24 19:59 | disposition home or self-care (01) ==
PROVIDERS: Emergency Provider Emergency Medicine; PCP Internal Medicine
DX: M25.511 Pain in right shoulder (principal); G89.29 Other chronic pain; U07.1 COVID-19
CPT/HCPCS: 99283; 99284

== ENCOUNTER 2021-10-01 17:47 | Outpatient (REF) | payer MEDICARE, MEDICAID, SELFPAY ==
--- NOTE | ~2021-10-01 | MR_ITS ---
EXAMINATION: MR SHOULDER WITHOUT CONTRAST, RIGHT CLINICAL INFORMATION: Anterior right shoulder pain radiating to the neck. COMPARISON: Right shoulder radiographs dated 04/19/2021. TECHNIQUE: MRI of the shoulder without contrast was performed on a high-field scanner. FINDINGS: ROTATOR CUFF: Full-thickness tearing involving the majority of the supraspinatus tendon with a few, thin anterior tendon fibers possibly remaining intact. Full-thickness tearing extends to the anterior aspect of the infraspinatus tendon with a few posterior tendon fibers remaining intact. Overall, tearing measures up to 4.1 cm in AP dimension with retraction of the tendon fibers to the level of the humeral head apex. This measures approximately 4 cm in ML dimension. Fluid extending proximally along the infraspinatus myotendinous junction. Mild subscapularis tendinosis with distal articular surface partial tearing measuring 3 cm in ML dimension. No muscle atrophy or fatty infiltration. BICEPS: Normal. CORACOACROMIAL ARCH: The undersurface of the acromion is minimally curved with anterior and lateral subacromial spurring. Moderate acromioclavicular osteoarthritis. The acromioclavicular joint is normal. LABRUM/CAPSULE: Degenerative signal within the superior and posterosuperior labrum as well as throughout the inferior labrum. No displaced labral tear. Intact joint capsule. GLENOHUMERAL JOINT/MARROW: Inferomedial humeral head and central glenoid articular cartilage thinning with areas of aukq-avzx-zsuinfmir loss. Marginal osteophytes. Small joint effusion. MR/MR shoulder RT wo con IMPRESSION: 1. Full-thickness tear involving the majority of the supraspinatus tendon with a few anterior tendon fibers remaining intact. Tearing extends to the majority of the anterior infraspinatus tendon within posterior tendon fibers remaining intact. Overall this measures 4.1 x 4.0 cm (AP by ML). 2. Subscapularis tendinosis with distal articular surface partial tearing measuring 3.0 cm in ML dimension. 3. Moderate acromioclavicular osteoarthritis with anterior and lateral subacromial spurring. 4. Degenerative signal within the superior, posterosuperior, and inferior labrum. 5. [id number]-[id number] glenohumeral osteoarthritis and small joint effusion.
== END 2021-10-01 17:48 | disposition home or self-care (01) ==
LOC: HO.MRI 17:47
PROVIDERS: PCP Internal Medicine; Visit Provider Orthopaedic Surgery
DX: R29.898 Other symptoms and signs involving the musculoskeletal system (principal)
CPT/HCPCS: 73221

== ENCOUNTER → 2021-10-03 13:07 | Outpatient (BNVA) | payer MEDICARE, SELFPAY | PROVIDERS: PCP Internal Medicine; Visit Provider Orthopaedic Surgery | DX: M75.101 Unspecified rotator cuff tear or rupture of right shoulder, not specified as traumatic (principal) | CPT/HCPCS: 99212 ==

== ENCOUNTER → 2021-10-22 08:48 | Outpatient (BNVA) | payer MEDICARE, SELFPAY | PROVIDERS: Visit Provider Urology | DX: N40.1 Benign prostatic hyperplasia with lower urinary tract symptoms (principal); N13.8 Other obstructive and reflux uropathy; N20.0 Calculus of kidney | CPT/HCPCS: Q3014 ==

== ENCOUNTER 2021-10-23 07:14 | Day surgery (SDC) | payer MEDICARE, MEDICAID, SELFPAY ==
[2021-10-16 14:35] VITALS: BMI 24.1
--- NOTE | 2021-10-22 09:49 | HO.ANESPROP2 ---
Documented by User: Xiomara Begum NP 10/22/21 09:53 HPI - Anesthesia Eval Consult details Narrative: 66yo M for Right Arthroscopic Rotator Cuff Repair s/p cysto 05/2021 with GA-LMA 5 PMFSH Active Problems Active Problems: All Active Problems (Updated 10/16/21 @ 14:35 by Aleksandra Fishman RN) Nephrolithiasis (Acute) LADI (acute kidney injury) (Acute) BPH w urinary obs/LUTS (Acute) Nocturia (Acute) Urinary urgency (Acute) Shoulder weakness (Acute) Rotator cuff tear, right (Acute) Past Medical History Medical History BPH (benign prostatic hyperplasia) COVID-19 vaccination declined Diverticulitis History of COVID-19 Kidney stones Family History Family history of problems with anesthesia: No Surgical History Surgical History H/O colonoscopy Hx of appendectomy Hx of cystoscopy Hx of cystoscopy Hx of lithotripsy History of Problems with Anesthesia: No Social History Social History Household Members: Spouse Are you a primary before and after school daycare worker to a significant other at home: No Do you presently have visiting nurse or other home services: No Alcohol intake: current Alcohol intake frequency: holidays/special occasions only Alcohol type: wine Patient Tobacco Use Status: Never used Tobacco Use of substances other than those prescribed or required for medical reasons: No Have you been hit, kicked, punched, or otherwise hurt by someone within the past year? If so, by whom?: No Are you DNR?: Yes Advance Directives Information Provided: Yes (as above noted) Advance Directives on File: No Recently lost weight without trying: No Eating poorly because of decreased appetite: No Nutrition Risks: No Nutritional Risk service: No Current occupational status: employed Meds Allergies Allergy/AdvReac Type Severity Reaction Status Date / Time citalopram [CITALOPRAM] Allergy Intermediate Hives Verified 10/22/21 08:50 clindamycin Allergy Intermediate Hives Verified 10/22/21 08:50 metronidazole [METRONIDAZOLE] Allergy Intermediate Hives Verified 10/22/21 08:50 Penicillins Allergy Intermediate HIVES Verified 10/22/21 08:50 Sulfa (Sulfonamide Allergy Intermediate HIVES Verified 10/22/21 08:50 Antibiotics) Home Medications Medication Instructions Recorded Confirmed Last Taken Type lorazepam 0.5 mg tablet 0.5 mg PO BID PRN 03/06/21 10/16/21 Unknown History ibuprofen 800 mg tablet 800 mg PO Q8H PRN 10/16/21 10/16/21 Unknown History Exam Exam Date and Time: October 22, 2021 0949 Height,Weight and Vital Signs: Height 6 ft 1 in Weight 83.007 kg Pertinent Lab Results Pertinent Lab Results: Laboratory Tests 05/05/21 05/05/21 03:09 03:09 WBC 5.4 Hgb 15.2 Hct 45.4 Plt Count 178 Sodium 139 Potassium 4.7 Chloride 108 Carbon Dioxide 20 L BUN 17 H Creatinine 0.87 Assessment and Plan Assessment Anesthesia Assessment: Chart Reviewed Final Anesthetic Review Family History of Problems with Anesthesia: No History of Problems with Anesthesia: No Documented by User: Nydia Soriano MD 10/23/21 09:29 PMFSH Past Medical History Medical History BPH (benign prostatic hyperplasia) COVID-19 vaccination declined Diverticulitis History of COVID-19 Kidney stones Surgical History Surgical History H/O colonoscopy Hx of appendectomy Hx of cystoscopy Hx of cystoscopy Hx of lithotripsy Social History Social History Household Members: Spouse Are you a primary before and after school daycare worker to a significant other at home: No Do you presently have visiting nurse or other home services: No Alcohol intake: current Alcohol intake frequency: holidays/special occasions only Alcohol type: wine Patient Tobacco Use Status: Never used Tobacco Use of substances other than those prescribed or required for medical reasons: No Have you been hit, kicked, punched, or otherwise hurt by someone within the past year? If so, by whom?: No Are you DNR?: Yes Advance Directives Information Provided: Yes (as above noted) Advance Directives on File: No Recently lost weight without trying: No Eating poorly because of decreased appetite: No Nutrition Risks: No Nutritional Risk service: No Current occupational status: employed Meds Allergies Allergy/AdvReac Type Severity Reaction Status Date / Time citalopram [CITALOPRAM] Allergy Intermediate Hives Verified 10/22/21 08:50 clindamycin Allergy Intermediate Hives Verified 10/22/21 08:50 metronidazole [METRONIDAZOLE] Allergy Intermediate Hives Verified 10/22/21 08:50 Penicillins Allergy Intermediate HIVES Verified 10/22/21 08:50 Sulfa (Sulfonamide Allergy Intermediate HIVES Verified 10/22/21 08:50 Antibiotics) Home Medications Medication Instructions Recorded Confirmed Last Taken Type lorazepam 0.5 mg tablet 0.5 mg PO BID PRN 03/06/21 10/16/21 Unknown History ibuprofen 800 mg tablet 800 mg PO Q8H PRN 10/16/21 10/16/21 Unknown History Exam Height,Weight and Vital Signs: Height 6 ft 1 in Weight 83.007 kg Vital Signs Temp Pulse Resp BP Pulse Ox 10/23/21 08:06 97.6 F 71 16 154/95 H 96 Airway Mallampati Class: II TM Dist: >3cm Neck ROM: Full Denture: Upper Heart: RRR Lungs: CTAB Assessment and Plan Assessment Anesthesia Assessment: Anesthesia Plan Discussed Final Anesthetic Review NPO: Yes ASA Class: II Final Preanesthetic Review: No Changes in Pt Med Stat, Meds/Allgs Chart Reviewed, Consent Obtained/Reviewed and Anes Risks/Benef Reviewed Patient Risk: Low Procedure Risk: Low Assessment/Block/Sedation in SS: Assess/Block/Sedation-SS Anesthetic Plan Anesthetic Plan: GA and Regional Block (Right brachial plexus block) Disposition: Standard PACU
[2021-10-23] VITALS (8 sets, daily range): BP systolic 132–163; BP diastolic 78–95; PULSE 61–74; RESP 14–16; TEMP 36.4–36.9; O2SAT 94–97
[2021-10-23] MEDS: vancomycin HCL 1,500 MG in 0.9 % Sodium Chloride 500 ML 333.33 MG IV (08:23)
[2021-10-23] MEDS: Lactated Ringers 1,000 ML 100 ML IVCONT (08:23)
--- NOTE | 2021-10-23 09:06 | PC.NURSE ---
Addendum entered by Fabiola Stratton RN 10/23/21 09:16: IV Benadryl given per orders Addendum entered by Fabiola Stratton RN 10/23/21 09:08: 284.1ml left to be infused Original Note: Patient speaking w/ Dr Soriano when developed itching just on my head . Slight redness to upper portion of head, actively itching scalp. ABX stopped and line flushed. Surgeon made aware.
--- NOTE | 2021-10-23 09:29 | PC.NURSE ---
Spoke with pharmacist regarding reaction and Odutola request to restart ABX slower. Per pharmacy able to restart slower and monitor for further rxn. Per pharmacy recommendations, 284ml restarted with rate of 213 ml/hr.
--- NOTE | 2021-10-23 09:47 | MHC.SHP ---
Pre-Procedural Eval Section A Date of Service: 10/23/21 The patient is an INPATIENT: No Changes since office visit: Yes Patient answered all questions; No Cold of Flu in the past 2 weeks, No New Medical Problems and No Changes in Medication The History & Physical has been completed within 30 days and I have reviewed it.: Yes Section B Chief Complaint: rotator cuff tear Allergies: Allergies Allergy/AdvReac Type Severity Reaction Status Date / Time citalopram [CITALOPRAM] Allergy Intermediate Hives Verified 10/22/21 08:50 clindamycin Allergy Intermediate Hives Verified 10/22/21 08:50 metronidazole [METRONIDAZOLE] Allergy Intermediate Hives Verified 10/22/21 08:50 Penicillins Allergy Intermediate HIVES Verified 10/22/21 08:50 Sulfa (Sulfonamide Allergy Intermediate HIVES Verified 10/22/21 08:50 Antibiotics) Plan I have reviewed the history and physical and performed a pertinent physical examination on my patient. No changes have occurred unless specified.
--- NOTE | 2021-10-23 12:37 | PM.OP ---
Brief Operative Note Date of Service: 10/23/21 Pre-op diagnosis: right rtc tear Procedure: Right subscapularis repair Right supraspinatus repair Right subacromial decompression Right circumferential labral debridement Implants: Herbert and nephew 5.0 helacoil knotless x3 and 4.75 helacoil double loaded suture anchors Surgeon: Ulysses Maxwell MD Anesthesia: GETA and regional Was an Cold Meat Chef used for this Procedure?: No Cold Meat Chef: Meron Whyte Estimated blood loss (mL): 25 IV fluids (mL): 1,000 Pathology: none sent Condition: stable Disposition: PACU
[2021-10-23] MEDS: Ketorolac Tromethamine 30 MG/ML VIAL 15 MG IVPUSH (13:24)
--- NOTE | 2021-11-04 12:20 | W.PM.OPN ---
Operative Note Operative Note Date of Service: 11/04/21 Narrative: Date of Service: 10/23/21 Pre-op diagnosis: right rtc tear Procedure: Right subscapularis repair Right supraspinatus repair Right subacromial decompression Right circumferential labral debridement Implants: Herbert and nephew 5.0 helacoil knotless x3 and 4.75 helacoil double loaded suture anchors Surgeon: Ulysses Maxwell MD Anesthesia: GETA and regional Was an Monitoring Coordinator used for this Procedure?: No Monitoring Coordinator: Meron Whyte Estimated blood loss (mL): 25 IV fluids (mL): 1,000 Pathology: none sent Condition: stable Disposition: PACU Procedure in detail: Patient was brought to the operating room and placed the the beach chair position. All bony prominences were well padded and the limb was prepped and draped in standard sterile fashion. A time out was called to identify proper site, proper procedure and proper surgeon. IV antibiotics per weight were administered. I began by making a posterolateral stab incision with a 15 blade. A blunt trochar was placed into the glenohumeral joint and I insufflated the joint with saline and a 30 degree arthroscope was placed. I established an outside- in anterior portal just distal to the biceps tendon. I then began my inspection of the glenohumeral joint. There was circumferential labral tearing with mild glenoid chondral malacia. There was a large full-thickness superior rotator cuff tear and a high-grade partial tear of the superior aspect of the subscapularis. Biceps tendon was intact. I circumferentially debrided the labrum. I then assessed the subscap. The toward superior portion was mobile and so I placed 2 suture tape through this and reapproximated the insertion site just medial to the bicipital groove. I per this down with the bur and then placed 1 4.75 knotless helical oil attached to the FiberTape. Once this was done I took my final pictures. I then removed the trochar and entered the subacromial space. A direct lateral portal was then established and I performed a bursectomy. The cuff was then examined. There was a retracted but mobile full-thickness tear of the entirety of the supraspinatus and the anterior 50% of the infraspinatus. I placed 2 medial row anchors each double loaded and then using standard cross bridge technique brought these to 2 lateral anchors. Prior to this I debrided the bare area down to bleeding bone. After the placement of the lateral anchors and the reapproximation of the normal footprint of the cuff I examined the shoulder and took it through range of motion. I was extremely satisfied with the stability of the repair. I then performed a 5 mm subacromial decompression. Once I was satisfied the final images were captured and I removed all instrumentation. Portals were closed with nylon. Patient was placed in an abduction sling, extubated and brought to the recovery room in stable condition. There were no known complications.
== END 2021-10-23 14:49 | disposition home or self-care (01) ==
PROVIDERS: PCP Internal Medicine; Visit Provider Orthopaedic Surgery
PROC: (CPT 29827; principal; 2021-10-23 09:40)
DX: M75.121 Complete rotator cuff tear or rupture of right shoulder, not specified as traumatic (principal); M94.211 Chondromalacia, right shoulder; Z87.19 Personal history of other diseases of the digestive system; Z87.442 Personal history of urinary calculi; Z86.16 Personal history of COVID-19; Z88.0 Allergy status to penicillin; Z88.8 Allergy status to other drugs, medicaments and biological substances; Z88.2 Allergy status to sulfonamides
CPT/HCPCS: 29827; 29826; 29822; C1713; J0171; J1100; J1200; J1885; J2250; J2405; J3010; J3370

== ENCOUNTER → 2021-10-28 10:46 | Outpatient (BNVA) | payer MEDICARE, SELFPAY | PROVIDERS: PCP Internal Medicine; Visit Provider Physician Assistant | DX: Z98.890 Other specified postprocedural states (principal) | CPT/HCPCS: 99212 ==

== ENCOUNTER → 2021-12-02 10:27 | Outpatient (BNVA) | payer MEDICARE, SELFPAY | PROVIDERS: PCP Internal Medicine; Visit Provider Physician Assistant | DX: Z47.89 Encounter for other orthopedic aftercare (principal) | CPT/HCPCS: 99212 ==

== ENCOUNTER 2021-12-24 07:20 | Outpatient (REF) | payer MEDICARE, SELFPAY ==
--- NOTE | ~2021-12-24 | XR_ITS ---
EXAMINATION: XR SHOULDER, RIGHT CLINICAL INFORMATION: Pain in right shoulder. COMPARISON: Right shoulder 04/19/2021 TECHNIQUE: Three views of the right shoulder. FINDINGS: 3 orthopedic anchors in the right humeral head. There are 2 small calcifications in the soft tissues adjacent to the greater tuberosity of the humeral head measuring about 2 mm and 4 mm. Could be due to calcific tendinosis or bursitis. The glenohumeral joint and acromioclavicular joint is normal. XR/XR shoulder RT min 2V IMPRESSION: 2 small calcifications in the soft tissues adjacent to the humeral head. Could be due to calcific tendinosis or bursitis.
== END 2021-12-24 07:21 | disposition home or self-care (01) ==
LOC: HO.HOSX 07:20
PROVIDERS: Visit Provider Physician Assistant
DX: Z47.89 Encounter for other orthopedic aftercare (principal); M25.511 Pain in right shoulder
CPT/HCPCS: 73030; 99212

== ENCOUNTER → 2021-12-30 14:45 | Outpatient (BNVA) | payer MEDICARE, SELFPAY | PROVIDERS: PCP Internal Medicine; Visit Provider Surgery | DX: K62.89 Other specified diseases of anus and rectum (principal) | CPT/HCPCS: 99202 ==

== ENCOUNTER → 2022-01-13 09:27 | Outpatient (BNVA) | payer MEDICARE, MEDICAID, SELFPAY | PROVIDERS: PCP Internal Medicine; Visit Provider Physician Assistant | DX: Z47.89 Encounter for other orthopedic aftercare (principal); Z98.890 Other specified postprocedural states | CPT/HCPCS: 99212 ==

== ENCOUNTER 2022-02-05 08:00 | Outpatient (RCR) | payer MEDICARE, MEDICAID, SELFPAY ==
--- NOTE | 2021-10-29 12:38 | MHC.PT.EP ---
[facility] [place] [facility] [place] Office [place] Office [address] Devin Bethea [address] [phone] F: [phone] F: [phone] F: [phone] F: [phone] Physical Therapy Plan of Care Date of Evaluation: Date of Surgery: 10/23/21 Diagnosis: Rt RTC REPAIR 10/23/[address] VIERA (SUPRASPINATUS AND SUBSCAPULARIS REPAIR W SAD Assessment: 66 YO MALE REF TO PT S/P Rt RTC REPAIR 10/23/21 (SUPRASPINATUS AND SUBSCAPULARIS REPAIR W Rt SAD AND Rt circumferential labral debridement. 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 FUNCTIONAL LIMITATIONS INCLUDE PERF ADLs W LEFT UE, Rt SH IMMOB, DIFFIC SLEEPING, AND UNABLE TO PERFORM WORK DUTIES. Pt IS A GOOD CANDIDATE FOR SKILLED PT TO GUIDE HIM ALONG HIS POST-OP COURSE, ADDRESS PAIN MGMT, AND PER PROTOCOL INCR ROM AND STRENGTH. Frequency and Duration: The patient will be seen 2 x WK x 10WKS Short Term Goals: Pt DEMON WFL AROM Rt ELBOW AND IMPR PROM Rt SH FLEX AND ER TO NEUTRAL (PER PROTOCOL) IN 2 WKS Pt'S Rt SH PAIN DECR TO 2-3/10 IN 3 WKS DEV INITIAL HEP FOR ACUTE POST-OP Rt RTC REPAIR PHASE-> PENDULUM EX, ELB IN 2 WKS REINFORCE PRECAUTIONS AND RESTRICTIONS FOR Rt RTC REPAIR IN 2 WKS Block Mason Goals: Pt DEMON WFL AROM Rt SH GIRDLE IN 8 WKS Pt INDEP HEP PROGR AND SELF-SX MGMT STRATEGIES FOR post-op Rt RTC REPAIR IN 10 WKS Pt RESUME REG ADLs TO JUAN M (PER PROTOCOL) EVIDENT IN IMPROVED SPADI BY 8-10 POINTS ( AT EVAL 92/130 ) IN 10 WKS Pt DEMON IMPROVED Rt SH GIRDLE STRETCNGTH BY 1 GRADE IN 10 WKS Treatment Plan: Modalities to reduce pain, spasms and effusion. Manual therapy to restore motion and function. Therapeutic exercise to improve strength and flexibility. Neuromuscular re-education for posture and balance. Therapeutic activities to return to functional activities of daily living. Electronically signed by: Nadine AlejandroPT Please sign and return to therapist. Thank you for your referral.
--- NOTE | 2022-03-10 09:19 | MHC.PT.DC ---
[facility] [place] Office [place] Office [place] Office [address] [phone] F: [phone] F: [phone] F: [phone] F: [phone] Physical Therapy Discharge Report Diagnosis: Rt RTC REPAIR 10/23/[address] VIERA (SUPRASPINATUS AND SUBSCAPULARIS REPAIR W SAD Date of Surgery: 10/23/21 Date of Evaluation: 10/29/21 Date of Discharge: 03/10/22 Treatments to Date: 20 Cancellations to Date: 1 No Shows to Date: Discharge Status: Achieved Goals Improved Function Independent with HEP Discharge Summary: Pt STATES HE HAS BEEN ABLE TO RESUME REGULAR FUNCT USE OF Rt UE- HE HAS END RANGE SOFT TISSUE RESTRICTION- Pt REQUESTING D/C FROM PT AT THIS TIME DUE TO WORK DEMANDS- HE FEELS READY TO CONTINUE ON HIS OWN AND COMPREHENDS THE IMPORTANCE OF END ROM STRETCH AND PROGRESSIVE STRENGTHENING FOR Rt SH COMPLEX. Pt HAS MET HIS PT GOALS TO MAX POTENTIAL AT THIS TIME, NOTED, IT IS CRITICAL THAT HE CONT W END ROM AND STRENGTHENING FOR OPTIMAL FUNCTION W Rt SH COMPLEX. Electronically signed by: Nadine Alejandro,PT Please sign and return to therapist. Thank you for your referral.
== END 2022-03-10 09:19 | disposition home or self-care (01) ==
LOC: HO.PT 08:00
PROVIDERS: Visit Provider Physician Assistant
DX: M75.101 Unspecified rotator cuff tear or rupture of right shoulder, not specified as traumatic (principal); Z98.890 Other specified postprocedural states
CPT/HCPCS: 97110; 97140; 97162

== ENCOUNTER 2022-02-10 08:26 | Outpatient (REF) | payer MEDICARE, MEDICAID, SELFPAY ==
[2022-02-10 08:58] LABS: MANUAL DIFF FLAG NO
[2022-02-10 09:42] LABS: Basophils Absolute Auto 0.1 X10*3/uL (0.0-0.2); Basophils Percent Auto 0.8 % (0-2); Eosinophils Absolute Auto 0.3 X10*3/uL (0.0-0.4); Eosinophils Percent Auto 4.1 % (0-4); Hematocrit 50.9 % (42.0-52.0); Hemoglobin 16.6 g/dl (14.0-18.0); Imm Gran Abs Auto 0.02 X10*3/uL (0.00-0.03); Imm Gran Pct Auto 0.3 % (0.0-0.4); Lymphocytes Absolute Auto 1.5 X10*3/uL (1.2-4.9); Mean Corpuscular HGB Conc 32.6 g/dl (31.0-36.0); Mean Corpuscular Hemoglobin 28.7 pg (27.0-33.0); Mean Corpuscular Volume 87.9 fL (80.0-98.0); Mean Platelet Volume 9.8 fL (9.4-12.4); Monocytes Absolute Auto 0.4 X10*3/uL (0.1-1.2); Monocytes Percent Auto 6.8 % (2-11); Neutrophils Absolute Auto 3.8 x10*3/uL (2.0-8.3); Platelet Count 219 X10*3/uL (160-400); Red Blood Count 5.79 X10*6/uL (4.60-5.80); Red Cell Distribution Width 13.3 % (11.0-16.0)
[2022-02-10 10:00] LABS: Alanine Aminotransferase 25 U/L (0-40); Albumin Level 4.4 g/dL (3.5-5.0); Alkaline Phosphatase 88 U/L (39-117); Anion Gap 15 (12-20); Aspartate Amino Transferase 20 U/L (5-37); Blood Urea Nitrogen 17 mg/dL (9-16); Calcium 9.3 mg/dL (8.4-10.2); Carbon Dioxide 24 mmol/L (22-29); Chloride 110 mmol/L (96-108); Cholesterol 259 mg/dL; Estimated Glomerular Filt Rate > 60; Glucose Fasting 103 mg/dL (60-99); HDL Cholesterol 50 mg/dL; LDL Cholesterol Calculated 182 mg/dl; Potassium 4.4 mmol/L (3.3-5.1); Sodium 145 mmol/L (135-145); Total Protein 7.5 g/dL (6.5-8.0); Triglycerides 139 mg/dL
[2022-02-10 10:12] LABS: Uric Acid 7.3 mg/dL (3.4-7.0)
[2022-02-10 10:22] LABS: PSA,Total (Free>4and<10) 2.66 ng/mL (0.00-4.00); Thyroid Stimulating Hormone 1.25 uIU/mL (0.32-4.0); Vitamin D 25-OH Total 25.6 ng/mL (>30)
[2022-02-10 10:27] LABS: Folate 15.8 ng/mL (> or = 4.0); Vitamin B12 266 pg/mL (200-900)
== END 2022-02-10 08:27 | disposition home or self-care (01) ==
LOC: HO.LAB 08:26
PROVIDERS: PCP Internal Medicine; Visit Provider Internal Medicine
DX: Z12.5 Encounter for screening for malignant neoplasm of prostate (principal); F51.04 Psychophysiologic insomnia; N20.0 Calculus of kidney
CPT/HCPCS: 36415; 80053; 80061; 82306; 82607; 82746; 84153; 84443; 84550; 85025

== ENCOUNTER 2022-02-20 15:28 | Outpatient (REF) | payer MEDICARE, MEDICAID, SELFPAY ==
--- NOTE | ~2022-02-20 | US_ITS ---
EXAMINATION: US RETROPERITONEAL LIMITED (RENAL ONLY) CLINICAL INFORMATION: Calculus of kidney. COMPARISON: US retroperitoneal limited (renal only) 06/20/2021 CT abdomen and pelvis with contrast 05/05/2021. TECHNIQUE: Real-time imaging of the kidneys. FINDINGS: RIGHT KIDNEY: 12.3 x 6.3 x 7.1 cm (SAG x AP x TRV). The kidney is normal in size, contour, and echogenicity. Renal cortical thickness is normal. No renal calculi or hydronephrosis. 4.6 x 4.1 x 4.0 cm simple cyst in the right mid kidney for which no imaging follow-up is recommended. LEFT KIDNEY: 11.6 x 5.7 x 4.8 cm (SAG x AP x TRV). The kidney is normal in size, contour, and echogenicity. Renal cortical thickness is normal. No hydronephrosis. 2.0 and 1.0 cm left mid renal cysts. There is a 4 mm echogenic, shadowing left lower pole calculus. US/US renal BI IMPRESSION: 4 mm nonobstructing left lower pole calculus, not seen on the prior ultrasound. The prior ultrasound showed a right renal stone, not seen presently. Bilateral simple renal cysts, for which no imaging follow-up is recommended.
== END 2022-02-20 15:29 | disposition home or self-care (01) ==
LOC: HO.HMGCX 15:28
PROVIDERS: Visit Provider Urology
DX: N20.0 Calculus of kidney (principal)
CPT/HCPCS: 76775

== ENCOUNTER → 2022-02-24 09:16 | Outpatient (BNVA) | payer MEDICARE, MEDICAID, SELFPAY | PROVIDERS: PCP Internal Medicine; Visit Provider Physician Assistant | DX: Z47.89 Encounter for other orthopedic aftercare (principal); Z98.890 Other specified postprocedural states | CPT/HCPCS: 99212 ==

== ENCOUNTER 2022-03-20 06:30 | Outpatient (REF) | payer MEDICARE, MEDICAID, SELFPAY ==
--- NOTE | ~2022-03-20 | XR_ITS ---
EXAMINATION: XR PELVIS CLINICAL INFORMATION: Pain COMPARISON: None TECHNIQUE: AP view of the pelvis. FINDINGS: No acute visible fracture or dislocation. Moderate degenerative changes of the bilateral femoral acetabular joints, right greater than left with joint space narrowing, sclerosis, and periarticular osteophyte formation. Degenerative changes of the lower lumbar spine and lumbosacral junction. 5 mm subtle sclerotic focus in the left femoral neck statistically representing a bone island. Enthesopathy along the bilateral iliac wings. Joint spaces and alignment are otherwise maintained. Pelvic phleboliths are noted. Soft tissues are unremarkable. XR/XR pelvis 1-2V IMPRESSION: 1. No acute visible fracture or dislocation. 2. Moderate degenerative changes of the bilateral femoral acetabular joints, right greater than left with joint. 3. Degenerative changes of the lower lumbar spine and lumbosacral junction.
== END 2022-03-20 06:31 | disposition home or self-care (01) ==
LOC: HO.HOSX 06:30
PROVIDERS: Visit Provider Orthopaedic Surgery
DX: M25.551 Pain in right hip (principal); M16.11 Unilateral primary osteoarthritis, right hip; M54.2 Cervicalgia; Z98.890 Other specified postprocedural states
CPT/HCPCS: 72170; 99212

== ENCOUNTER → 2022-04-03 09:15 | Outpatient (BNVA) | payer MEDICARE, MEDICAID, SELFPAY | PROVIDERS: PCP Internal Medicine; Visit Provider Surgery | DX: L98.9 Disorder of the skin and subcutaneous tissue, unspecified (principal) | CPT/HCPCS: 99202 ==

== ENCOUNTER → 2022-04-10 12:49 | Outpatient (BNVA) | payer MEDICARE, MEDICAID, SELFPAY | PROVIDERS: PCP Internal Medicine; Visit Provider Nurse Practitioner Family | DX: M62.838 Other muscle spasm (principal); M47.812 Spondylosis without myelopathy or radiculopathy, cervical region; M54.6 Pain in thoracic spine | CPT/HCPCS: 99202 ==

== ENCOUNTER 2022-04-11 10:03 | Outpatient (REF) | payer MEDICARE, MEDICAID, SELFPAY ==
--- NOTE | ~2022-04-11 | XR_ITS ---
EXAMINATION: Thoracic and cervical spine. CLINICAL INFORMATION: Spondylosis without myelopathy COMPARISON: None TECHNIQUE: 3 views cervical spine and 3 views dorsal spine. FINDINGS: CERVICAL SPINE: There is normal cervical lordosis. The vertebral heights and alignment is normal. There is loss of C4-C5, C5-C6 and C6-C7 disc heights with mild ventral spondylosis. There is mild right C2-C5 facet joint arthropathy no visible acute fracture, dislocation or subluxation seen. The prevertebral soft tissues are normal. DORSAL SPINE: There is normal thoracic kyphosis. The vertebral heights, alignment and disc heights are normal. There is no visible acute fracture, dislocation or subluxation seen. The paravertebral soft tissues are normal. XR/XR cervical spine 3V IMPRESSION: Moderate degenerative disc changes C4-C5, C5-C6 and C6-C7 disc levels with moderate ventral spondylosis cervical spine. No visible acute fracture or dislocation seen. Mild spurring ventral spondylosis mid dorsal spine. No acute fracture or dislocation seen.
--- NOTE | ~2022-04-11 | XR_ITS ---
EXAMINATION: Thoracic and cervical spine. CLINICAL INFORMATION: Spondylosis without myelopathy COMPARISON: None TECHNIQUE: 3 views cervical spine and 3 views dorsal spine. FINDINGS: CERVICAL SPINE: There is normal cervical lordosis. The vertebral heights and alignment is normal. There is loss of C4-C5, C5-C6 and C6-C7 disc heights with mild ventral spondylosis. There is mild right C2-C5 facet joint arthropathy no visible acute fracture, dislocation or subluxation seen. The prevertebral soft tissues are normal. DORSAL SPINE: There is normal thoracic kyphosis. The vertebral heights, alignment and disc heights are normal. There is no visible acute fracture, dislocation or subluxation seen. The paravertebral soft tissues are normal. XR/XR thoracic spine 2V IMPRESSION: Moderate degenerative disc changes C4-C5, C5-C6 and C6-C7 disc levels with moderate ventral spondylosis cervical spine. No visible acute fracture or dislocation seen. Mild spurring ventral spondylosis mid dorsal spine. No acute fracture or dislocation seen.
== END 2022-04-11 10:04 | disposition home or self-care (01) ==
LOC: HO.XRAY 10:03
PROVIDERS: PCP Internal Medicine; Visit Provider Nurse Practitioner Family
DX: M47.812 Spondylosis without myelopathy or radiculopathy, cervical region (principal); M54.6 Pain in thoracic spine
CPT/HCPCS: 72040; 72070

== ENCOUNTER 2022-04-24 11:18 | Outpatient (REF) | payer MEDICARE, MEDICAID, SELFPAY | END 2022-04-24 11:19 | disposition home or self-care (01) | LOC: HO.LAB 11:18 | PROVIDERS: PCP Internal Medicine; Visit Provider Surgery | DX: L98.8 Other specified disorders of the skin and subcutaneous tissue (principal); L82.1 Other seborrheic keratosis | CPT/HCPCS: 11401; 11402; 11441; 88305 ==

== ENCOUNTER → 2022-04-30 11:37 | Outpatient (BNVA) | payer MEDICARE, MEDICAID, SELFPAY | PROVIDERS: PCP Internal Medicine; Visit Provider Urology | DX: N40.1 Benign prostatic hyperplasia with lower urinary tract symptoms (principal); N13.8 Other obstructive and reflux uropathy; N20.0 Calculus of kidney; R35.1 Nocturia | CPT/HCPCS: 99212 ==

== ENCOUNTER 2022-05-07 09:43 | Emergency (ER) | payer MEDICARE, MEDICAID, SELFPAY ==
--- NOTE | ~2022-05-07 | XR_ITS ---
EXAMINATION: XR TOES, LEFT CLINICAL INFORMATION: Pain COMPARISON: None TECHNIQUE: 3 views of the left toes were obtained. FINDINGS: No fracture, dislocation or destructive process. Noted prominent osseous excrescence related to the base of the distal phalanx of the first toe. XR/XR toe LT min 2V IMPRESSION: No acute findings.
[2022-05-07 10:02] VITALS: BMI 25.9
[2022-05-07 10:04] VITALS: BP 138/85; PULSE 78; RESP 16; TEMP 36.7; O2SAT 94
--- NOTE | 2022-05-07 11:37 | ED.LOWEXIN ---
HPI - Extremity Injury (Lower) General Chief Complaint: Extremity Injury, Lower Stated Complaint: gout in toes Time Seen by Provider: 05/07/22 11:26 Source: patient Mode of arrival: ambulatory History of Present Illness HPI Narrative: 66-year-old male with a past medical history BPH, diverticulitis, renal stones, gout, presenting to the ED complaining suspected gout flare to the left great toe. Reports increasing pain, redness, and swelling since yesterday. Has been taking ibuprofen with minimal relief. Denies trauma, injury, fall, fever, numbness/tingling MD complaint: foot injury Related Data Home Medications Medication Instructions Recorded Confirmed lorazepam 0.5 mg tablet 0.5 mg PO BID PRN Anxiety 03/06/21 04/25/22 ibuprofen 800 mg tablet 800 mg PO Q8H PRN Pain 10/16/21 04/25/22 Previous Rx's Medication Instructions Recorded acetaminophen 500 mg tablet 500 mg PO Q6H PRN pain or fever 09/24/21 (Tylenol Extra Strength) #20 tabs tizanidine 4 mg tablet 4 mg PO Q8H PRN muscle spasticity 04/10/22 30 days #90 tabs tamsulosin 0.4 mg capsule 0.4 mg PO BEDTIME 30 days #30 caps 04/30/22 hydrocodone 5 mg-acetaminophen 325 1 tab PO Q8H PRN pain, severe 3 05/07/22 mg tablet days #9 tabs naproxen 500 mg tablet 500 mg PO BID PRN pain 10 days #20 05/07/22 tabs prednisone 20 mg tablet 40 mg PO DAILY 5 days #10 tabs 05/07/22 Allergies Allergy/AdvReac Type Severity Reaction Status Date / Time citalopram [CITALOPRAM] Allergy Intermediate Hives Verified 05/07/22 10:01 clindamycin Allergy Intermediate Hives Verified 05/01/22 11:00 metronidazole [METRONIDAZOLE] Allergy Intermediate Hives Verified 05/01/22 11:00 Penicillins Allergy Intermediate HIVES Verified 05/01/22 11:00 Sulfa (Sulfonamide Allergy Intermediate HIVES Verified 05/01/22 11:00 Antibiotics) Review of Systems Review of Systems: Constitutional: No Fever, No Chills ENT/Mouth: No Ear Pain, No Nasal Congestion, No sore throat, No Swallowing Difficulty Cardiovascular: No Chest Pain, No SOB Respiratory: No Cough, No Sputum, No Wheezing Gastrointestinal: No Nausea, No Vomiting, No Diarrhea, No Constipation, No Abdominal pain Genitourinary: No Dysuria, No Urinary Frequency, No Hematuria, No Flank Pain Musculoskeletal: + joint pain, No Myalgias, + Joint Swelling Skin: No Skin Lesions, No rash Neuro: No Weakness, No Numbness, No Paresthesias Yes all other systems are reviewed and are negative Constitutional: Constitutional: Reports as per [facility] Past Medical History Attestation statement: The following information was validated with the patient. Medical History Anal pain BPH (benign prostatic hyperplasia) COVID-19 vaccination declined Diverticulitis History of COVID-19 Kidney stones Skin lesions Surgical History H/O colonoscopy History of nasal surgery Hx of appendectomy Hx of cystoscopy Hx of cystoscopy Hx of lithotripsy Social History Social History Household Members: Spouse Are you a primary medicare sales representative to a significant other at home: No Do you presently have visiting nurse or other home services: No Alcohol intake: current Alcohol intake frequency: holidays/special occasions only Alcohol type: wine Patient Tobacco Use Status: Never used Tobacco Advance Directives: Yes Advance Directives Information Provided: No Advance Directives on File: No service: No Current occupational status: employed 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 Physical Exam Vital Signs: Vital Signs: Last Vital Signs Temp 98.1 F 05/07/22 10:04 Pulse 78 05/07/22 10:04 Resp 16 05/07/22 10:04 BP 138/85 05/07/22 10:04 Pulse Ox 94 05/07/22 10:04 O2 Del Method 05/07/22 10:04 BMI result Body Mass Index 25.9 Const: General: cooperative, healthy appearing and no acute distress Orientation/consciousness: patient oriented x3 Limitations: no limitations HEENT: Head: Yes normal to inspection and Yes atraumatic Ears: hearing grossly normal bilaterally General nose exam: Normal external nose present Face and sinus: Yes normal facial exam Eyes: General: appearance normal, both eyes and all related structures EOM: EOMs intact bilaterally Neck: Neck: Yes normal visual inspection and Yes no meningeal signs Resp: Effort & Inspection: normal respiratory effort and no respiratory distress Auscultation: clear to auscultation bilaterally Cardio: Rate: regular rate Heart sounds: S1 normal heart sound present and S2 normal heart sound present GI: Inspection: Yes normal to inspection : General: Yes no CVA tenderness Back/Spine/Pelvis: Back: no CVA tenderness Skin: Rashes: no rashes Wounds: no wounds Neuro: General: patient oriented x3, tone normal and no meningeal signs Gait exam (Neuro): Normal gait present Extrem: Other: +Left great toe with noted swelling, erythema, and tenderness. Decreased ROM secondary to pain. No warmth or streaking, no fluctuance/induration Course Course Course Narrative: XR toe LT min 2V IMPRESSION: No acute findings. Results discussed with patient including worrisome signs and symptoms and strict return precautions, and when to return to the emergency department. They verbalized understanding and feel safe for discharge at this time. MDM - Extremity Injury (Lower) MDM Narrative Medical decision making narrative: 66-year-old male with a past medical history BPH, diverticulitis, renal stones, gout, presenting to the ED complaining suspected gout flare to the left great toe. On exam vital signs stable, NAD, nontoxic appearing, physical exam as above consistent with gout flare. Lower suspicion for cellulitis or septic joint Plan: X-rays were ordered in triage, prednisone, NSAIDs Medical Records Attestation: I reviewed the patient's medical records. Lab Data Attestation: I reviewed the patient's lab results. Discharge Plan Discharge Clinical Impression: Gout flare Patient Disposition: Home, Self-Care Instructions: Gout (ED) Additional Instructions: You are having a gout flare. Prednisone and naproxen will help with inflammation, take as prescribed [place] as an opiate pain medication, take only when pain is severe for the next 3 days. Be aware [place] has Tylenol mixed in do not exceed 4 g of Tylenol in [address], drink alcohol, or operate machinery while taking If pain persists or worsens, develops fever return to the emergency department Prescriptions: New hydrocodone-acetaminophen 5-325 mg tablet 1 tab PO Q8H PRN (Reason: pain, severe) 3 Days Qty: 9 0RF Rx Instructions: Partial Fill upon patient request. prednisone 20 mg tablet 40 mg PO DAILY 5 Days Qty: 10 0RF naproxen 500 mg tablet 500 mg PO BID PRN (Reason: pain) 10 Days Qty: 20 0RF No Action lorazepam 0.5 mg tablet 0.5 mg PO BID PRN (Reason: Anxiety) acetaminophen [Tylenol Extra Strength] 500 mg tablet 500 mg PO Q6H PRN (Reason: pain or fever) Qty: 20 0RF ibuprofen 800 mg Tablet 800 mg PO Q8H PRN (Reason: Pain) tamsulosin 0.4 mg capsule 0.4 mg PO BEDTIME 30 Days Qty: 30 1RF tizanidine 4 mg tablet 4 mg PO Q8H PRN (Reason: muscle spasticity) 30 Days Qty: 90 0RF Rx Instructions: Start first dose at bedtime as medication can be sedating. Referrals: Dilip Grady DO [Primary Care Provider] - 5 days Interventions: ED Discharge Assessment Last Done: 05/07/22 12:03
== END 2022-05-07 12:03 | disposition home or self-care (01) ==
PROVIDERS: Emergency Provider Emergency Medicine Emergency Medical Services; PCP Internal Medicine
DX: M10.072 Idiopathic gout, left ankle and foot (principal); M79.672 Pain in left foot; Z79.899 Other long term (current) drug therapy
CPT/HCPCS: 73660; 99283

== ENCOUNTER → 2022-05-08 13:06 | Outpatient (BNVA) | payer MEDICARE, MEDICAID, SELFPAY | PROVIDERS: PCP Internal Medicine; Visit Provider Nurse Practitioner Family | DX: M62.838 Other muscle spasm (principal); M47.812 Spondylosis without myelopathy or radiculopathy, cervical region; M54.6 Pain in thoracic spine | CPT/HCPCS: Q3014 ==

== ENCOUNTER 2022-06-02 12:18 | Outpatient (REF) | payer MEDICARE, MEDICAID, SELFPAY ==
[2022-06-02 14:15] LABS: Hematocrit 48.5 % (42.0-52.0); Hemoglobin 16.1 g/dl (14.0-18.0); Mean Corpuscular HGB Conc 33.2 g/dl (31.0-36.0); Mean Corpuscular Hemoglobin 28.6 pg (27.0-33.0); Mean Corpuscular Volume 86.3 fL (80.0-98.0); Mean Platelet Volume 10.3 fL (9.4-12.4); Platelet Count 204 X10*3/uL (160-400); Red Blood Count 5.62 X10*6/uL (4.60-5.80); Red Cell Distribution Width 13.3 % (11.0-16.0); White Blood Count 5.1 X10*3/uL (4.8-10.8)
== END 2022-06-02 12:19 | disposition home or self-care (01) ==
LOC: HO.HMGCLDS 12:18
PROVIDERS: PCP Internal Medicine; Visit Provider Internal Medicine
DX: R21 Rash and other nonspecific skin eruption (principal)
CPT/HCPCS: 36415; 85027

== ENCOUNTER 2022-08-18 08:25 | Outpatient (REF) | payer MEDICARE, BC, SELFPAY ==
--- NOTE | ~2022-08-18 | XR_ITS ---
EXAMINATION: XR HIP, RIGHT WITH PELVIS CLINICAL INFORMATION: Pain. COMPARISON: None TECHNIQUE: Two views of the right hip. AP pelvis one view. FINDINGS: AP PELVIS: There is mild reduction in the right hip joint space. The left hip joint space is maintained. No bony erosive changes, acute fracture or dislocation. The SI joints are symmetrical. The soft tissues are symmetrical. RIGHT HIP: AP and frog-leg views right hip reveal mild reduction of superolateral hip joint space with small right acetabular spurring. No bony erosive changes, acute fracture or dislocation seen. The soft tissues are normal. XR/XR hip RT w PEL1V IMPRESSION: 1. Mild degenerative changes right hip joint. No visible acute fracture or dislocation seen. 2. Rest of the pelvis is unremarkable.
== END 2022-08-18 08:26 | disposition home or self-care (01) ==
LOC: HO.HOSX 08:25
PROVIDERS: Visit Provider Physician Assistant
DX: M16.11 Unilateral primary osteoarthritis, right hip (principal)
CPT/HCPCS: 73502; 99212

== ENCOUNTER 2022-09-01 13:27 | Outpatient (REF) | payer MEDICARE, BC, SELFPAY ==
--- NOTE | ~2022-09-01 | US_ITS ---
EXAMINATION: US RETROPERITONEAL LIMITED (RENAL ONLY) CLINICAL INFORMATION: Calculus of kidney. COMPARISON: Renal ultrasound 02/20/2022, renal ultrasound 06/20/2021. TECHNIQUE: Real-time imaging of the kidneys. FINDINGS: RIGHT KIDNEY: 11.4 x 5.7 x 6.6 cm (SAG x AP x TRV). Nonobstructive calculi in the interpolar region measuring up to 0.3 cm. Renal cortical thickness is normal. No hydronephrosis. Simple cyst in the interpolar region measuring 4.4 cm for which no imaging follow-up is recommended. LEFT KIDNEY: 11.0 x 5.8 x 4.5 cm (SAG x AP x TRV). Renal cortical thickness is normal. No renal calculi or hydronephrosis. Simple cysts in the interpolar region measuring up to 1.6 cm for which no imaging follow-up is recommended. US/US renal BI IMPRESSION: Nonobstructive right-sided renal calculi.
== END 2022-09-01 13:28 | disposition home or self-care (01) ==
LOC: HO.US 13:27
PROVIDERS: PCP Internal Medicine; Visit Provider Urology
DX: N20.0 Calculus of kidney (principal)
CPT/HCPCS: 76775

== ENCOUNTER → 2022-10-31 09:48 | Outpatient (BNVA) | payer MEDICARE, SELFPAY | PROVIDERS: PCP Internal Medicine; Visit Provider Urology | DX: N40.1 Benign prostatic hyperplasia with lower urinary tract symptoms (principal); N13.8 Other obstructive and reflux uropathy; R35.1 Nocturia; R39.15 Urgency of urination; N20.0 Calculus of kidney | CPT/HCPCS: 99212 ==

== ENCOUNTER → 2022-11-12 09:53 | Outpatient (BNVA) | payer MEDICARE, SELFPAY | PROVIDERS: PCP Internal Medicine; Visit Provider Orthopaedic Surgery | DX: Z13.89 Encounter for screening for other disorder (principal) ==

== ENCOUNTER → 2022-11-27 10:13 | Outpatient (BNVA) | payer MEDICARE, SELFPAY | PROVIDERS: PCP Internal Medicine; Visit Provider Physician Assistant | DX: Z13.89 Encounter for screening for other disorder (principal) ==

== ENCOUNTER 2022-12-02 06:03 | Inpatient (IN) | payer MEDICARE, SELFPAY ==
--- NOTE | 2022-11-12 11:22 | ECG_ITS ---
Test Reason : preop Blood Pressure : / mmHG Vent. Rate : 063 BPM Atrial Rate : 063 BPM P-R Int : 238 ms QRS Dur : 108 ms QT Int : 414 ms P-R-T Axes : 076 003 052 degrees QTc Int : 423 ms Sinus rhythm with 1st degree A-V block Minimal voltage criteria for LVH, may be normal variant ( [place] product ) Borderline ECG When compared with ECG of 28-AUG-2019 22:39, No significant change was found Referred By: Ulysses Maxwell Electronically Signed By:ESTEVAN RICO MD
[2022-11-12 11:34] LABS: MANUAL DIFF FLAG NO
[2022-11-12 12:06] LABS: Basophils Percent Auto 0.8 % (0-2); Eosinophils Absolute Auto 0.3 X10*3/uL (0.0-0.4); Hematocrit 50.6 % (42.0-52.0); Hemoglobin 16.9 g/dl (14.0-18.0); Imm Gran Abs Auto 0.01 X10*3/uL (0.00-0.03); Imm Gran Pct Auto 0.2 % (0.0-0.4); Lymphocytes Absolute Auto 1.4 X10*3/uL (1.2-4.9); Lymphocytes Percent Auto 28.4 % (20-40); Mean Corpuscular HGB Conc 33.4 g/dl (31.0-36.0); Mean Corpuscular Hemoglobin 28.4 pg (27.0-33.0); Mean Corpuscular Volume 84.9 fL (80.0-98.0); Mean Platelet Volume 9.9 fL (9.4-12.4); Monocytes Absolute Auto 0.4 X10*3/uL (0.1-1.2); Monocytes Percent Auto 8.3 % (2-11); Neutrophils Absolute Auto 2.9 x10*3/uL (2.0-8.3); Neutrophils Percent Auto 57.3 % (45-73); Platelet Count 208 X10*3/uL (160-400); Red Blood Count 5.96 X10*6/uL (4.60-5.80); Red Cell Distribution Width 13.4 % (11.0-16.0)
[2022-11-12 13:01] LABS: Anion Gap 15 (12-20); Blood Urea Nitrogen 17 mg/dL (9-16); Calcium 9.7 mg/dL (8.4-10.2); Carbon Dioxide 23 mmol/L (22-29); Chloride 106 mmol/L (96-108); Estimated Glomerular Filt Rate > 60; Glucose Random 74 mg/dL (60-115); Potassium 4.9 mmol/L (3.3-5.1); Sodium 139 mmol/L (135-145)
[2022-11-26 11:47] VITALS: BP 141/75; PULSE 70; RESP 20; O2SAT 96; BMI 25.2
--- NOTE | 2022-11-26 12:18 | P.CONAN_ITS ---
HPI - Anesthesia Eval Consult details Narrative: 67 yo male patient for Right Total hip arthroplasty PMFSH Active Problems Active Problems: All Active Problems (Updated 11/26/22 @ 11:38 by Aleksandra Fishman RN) Nephrolithiasis (Acute) LADI (acute kidney injury) (Acute) BPH w urinary obs/LUTS (Acute) Nocturia (Acute) Urinary urgency (Acute) Shoulder weakness (Acute) Rotator cuff tear, right (Acute) History of arthroscopy of right shoulder (Acute) Status post right rotator cuff repair (Acute) Osteoarthritis of right hip (Acute) Skin lesion of cheek (Acute) Muscle spasms of neck (Acute) Cervical spondylosis (Acute) Thoracic back pain (Acute) Rash (Acute) Cerumen impaction (Acute) Skin lesions (Acute) Anal pain (Acute) Past Medical History Medical History Anal pain BPH (benign prostatic hyperplasia) Cervical disc disease COVID-19 vaccination declined Depression Diverticulitis Elevated cholesterol Gout History of COVID-19 Insomnia Kidney stones Osteoarthritis Skin lesions Family History Family history of problems with anesthesia: No Surgical History Surgical History H/O blepharoplasty H/O colonoscopy History of arthroscopic surgery of shoulder History of nasal surgery Hx of appendectomy Hx of cystoscopy Hx of cystoscopy Hx of lithotripsy History of Problems with Anesthesia: No Social History Social History Household Members: Spouse Household Members Other:: friend Are you a primary resident care provider to a significant other at home: No Do you presently have visiting nurse or other home services: No Alcohol intake: current Alcohol intake frequency: holidays/special occasions only Alcohol type: wine Patient Tobacco Use Status: Never used Tobacco service: No Current occupational status: employed 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 Meds Allergies Allergy/AdvReac Type Severity Reaction Status Date / Time citalopram [CITALOPRAM] Allergy Intermediate Hives Verified 10/31/22 09:52 clindamycin Allergy Intermediate Hives Verified 10/31/22 09:52 metronidazole [METRONIDAZOLE] Allergy Intermediate Hives Verified 10/31/22 09:52 Penicillins Allergy Intermediate HIVES Verified 01/27/23 09:52 Sulfa (Sulfonamide Allergy Intermediate HIVES Verified 10/31/22 09:52 Antibiotics) Home Medications Medication Instructions Recorded Confirmed Last Taken Type psyllium husk 3.4 gram/5.4 gram 1 tbsp PO DAILY 11/25/22 11/25/22 Unknown History oral powder (Metamucil) Exam Exam Date and Time: November 26, 2022 1218 Height,Weight and Vital Signs: Height 5 ft 11.75 in Weight 83.915 kg Last Vital Signs Pulse 70 11/26/22 11:47 Resp 20 11/26/22 11:47 BP 141/75 H 11/26/22 11:47 Pulse Ox 96 11/26/22 11:47 O2 Del Method 11/26/22 11:47 Pertinent Lab Results Pertinent Lab Results: Laboratory Tests 11/12/22 11/12/22 11:34 11:34 WBC 5.0 RBC 5.96 H Hgb 16.9 Hct 50.6 MCV 84.9 MCH 28.4 MCHC 33.4 RDW 13.4 Plt Count 208 MPV 9.9 Immature Gran % (Auto) 0.2 Neut % (Auto) 57.3 Lymph % (Auto) 28.4 [place] % (Auto) 8.3 Eos % (Auto) 5.0 H Baso % (Auto) 0.8 Lymph # (Auto) 1.4 [place] # (Auto) 0.4 Eos # (Auto) 0.3 Baso # (Auto) 0.0 Abs Immat Gran (auto) 0.01 Absolute Neuts (auto) 2.9 Absolute Nucleated RBC 0.000 Nucleated RBC % (auto) 0.0 Sodium 139 Potassium 4.9 Chloride 106 Carbon Dioxide 23 Anion Gap 15 BUN 17 H Creatinine 0.96 Estim Creat Clear Calc TNP Estimated GFR > 60 Random Glucose 74 Calcium 9.7 Airway Mallampati Class: II TM Dist: >3cm Neck ROM: Full Denture: Upper Loose/Missing/Broken Teeth: No (Denies broken, loose teeth) Heart: RRR Lungs: CTAB Assessment and Plan Assessment Anesthesia Assessment: Anesthesia Plan Discussed and Chart Reviewed Final Anesthetic Review Family History of Problems with Anesthesia: No History of Problems with Anesthesia: No NPO: Yes ASA Class: II Final Preanesthetic Review: No Changes in Pt Med Stat, Meds/Allgs Chart Reviewed, Consent Obtained/Reviewed and Anes Risks/Benef Reviewed Patient Risk: Low Procedure Risk: Low Assessment/Block/Sedation in SS: Assess/Block/Sedation-SS Anesthetic Plan Anesthetic Plan: GA Disposition: Standard PACU
[2022-11-26 14:12] LABS: MRSA Nasal PCR NEGATIVE (Negative); SA Nasal PCR NEGATIVE (Negative)
[2022-12-02] VITALS (17 sets, daily range): BP systolic 104–144; BP diastolic 47–80; PULSE 69–90; RESP 13–18; TEMP 36.3–37.2; O2SAT 94–100
--- NOTE | ~2022-12-02 | XR_ITS ---
EXAMINATION: XR PELVIS CLINICAL INFORMATION: Right total hip arthroplasty COMPARISON: 08/18/2022 TECHNIQUE: AP view of the pelvis. FINDINGS: Right total hip arthroplasty is identified in anatomic alignment on this single projection. No evidence of periprosthetic fracture. Mild subcutaneous emphysema and skin damaso identified. XR/XR pelvis 1-2V IMPRESSION: Right total hip arthroplasty is in alignment on this single view.
[2022-12-02] MEDS: Lactated Ringers 1,000 ML 100 ML IVCONT ×3 (06:07→21:18)
[2022-12-02 06:42] LABS: COVID-19 Test Negative (Negative); IDNOW Serial# 6674DD1D
[2022-12-02] MEDS: oxyCODONE HCl ER 10 MG TAB.ER.12H PO ×2 (06:53→20:10)
[2022-12-02] MEDS: vancomycin HCL 1,500 MG in 0.9 % Sodium Chloride 500 ML 333.33 MG IV (06:54)
--- NOTE | 2022-12-02 07:05 | PC.NURSE ---
Dr. Maxwell updated that patient stated that he used a topical hair removal on his upper chest and back and that a rash - red, raised and not open - is noted to both body parts. No rash noted to right hip area. No interventions at this time.
--- NOTE | 2022-12-02 07:16 | HO.ANESPROP2 ---
HPI - Anesthesia Eval Consult details Narrative: Thr PMFSH Active Problems Active Problems: All Active Problems (Updated 11/26/22 @ 11:38 by Aleksandra Fishman RN) Nephrolithiasis (Acute) LADI (acute kidney injury) (Acute) BPH w urinary obs/LUTS (Acute) Nocturia (Acute) Urinary urgency (Acute) Shoulder weakness (Acute) Rotator cuff tear, right (Acute) History of arthroscopy of right shoulder (Acute) Status post right rotator cuff repair (Acute) Osteoarthritis of right hip (Acute) Skin lesion of cheek (Acute) Muscle spasms of neck (Acute) Cervical spondylosis (Acute) Thoracic back pain (Acute) Rash (Acute) Cerumen impaction (Acute) Skin lesions (Acute) Anal pain (Acute) Past Medical History Medical History Anal pain BPH (benign prostatic hyperplasia) Cervical disc disease COVID-19 vaccination declined Depression Diverticulitis Elevated cholesterol Gout History of COVID-19 Insomnia Kidney stones Osteoarthritis Skin lesions Family History Family history of problems with anesthesia: No Surgical History Surgical History H/O blepharoplasty H/O colonoscopy History of arthroscopic surgery of shoulder History of nasal surgery Hx of appendectomy Hx of cystoscopy Hx of cystoscopy Hx of lithotripsy History of Problems with Anesthesia: No Social History Social History Household Members: Spouse Household Members Other:: friend Are you a primary care management associate to a significant other at home: No Do you presently have visiting nurse or other home services: No Alcohol intake: current Alcohol intake frequency: holidays/special occasions only Alcohol type: wine Patient Tobacco Use Status: Never used Tobacco Use of substances other than those prescribed or required for medical reasons: No Have you been hit, kicked, punched, or otherwise hurt by someone within the past year? 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 Meds Allergies Allergy/AdvReac Type Severity Reaction Status Date / Time citalopram [CITALOPRAM] Allergy Intermediate Hives Verified 12/02/22 06:03 clindamycin Allergy Intermediate Hives Verified 12/02/22 06:03 metronidazole [METRONIDAZOLE] Allergy Intermediate Hives Verified 12/02/22 06:03 Penicillins Allergy Intermediate HIVES Verified 12/02/22 06:03 Sulfa (Sulfonamide Allergy Intermediate HIVES Verified 12/02/22 06:03 Antibiotics) Active Medications: Current Medications Lactated Ringer's (Lr) 1,000 mls @ 100 mls/hr IVCONT .Q10H DOMINIQUE Last Admin: 12/02/22 06:07 Dose: 100 mls/hr Vancomycin HCl 1,500 mg/ (Sodium Chloride) 500 mls @ 333.333 mls/hr IV PREOP ONE Stop: 12/02/22 08:14 Last Admin: 12/02/22 06:54 Dose: 333.33 mls/hr Pharmacy Consult (Consult Rx Vancomycin Dosing) 1 each MISCELLANE DAILY PRN PRN Reason: Consult order Home Medications Medication Instructions Recorded Confirmed Last Taken Type psyllium husk 3.4 gram/5.4 gram 1 tbsp PO DAILY 11/25/22 11/25/22 Unknown History oral powder (Metamucil) Exam Exam Date and Time: December 02, 2022 0716 Height,Weight and Vital Signs: Height 5 ft 11.75 in Weight 83.915 kg Last Vital Signs Temp 97.9 F 12/02/22 06:39 Pulse 74 12/02/22 06:39 Resp 18 12/02/22 06:39 BP 139/80 12/02/22 06:39 Pulse Ox 96 12/02/22 06:39 O2 Del Method 12/02/22 06:39 Pertinent Lab Results Pertinent Lab Results: Laboratory Tests 11/12/22 11/12/22 11/26/22 11:34 11:34 12:10 WBC 5.0 RBC 5.96 H Hgb 16.9 Hct 50.6 MCV 84.9 MCH 28.4 MCHC 33.4 RDW 13.4 Plt Count 208 MPV 9.9 Immature Gran % (Auto) 0.2 Neut % (Auto) 57.3 Lymph % (Auto) 28.4 [place] % (Auto) 8.3 Eos % (Auto) 5.0 H Baso % (Auto) 0.8 Lymph # (Auto) 1.4 [place] # (Auto) 0.4 Eos # (Auto) 0.3 Baso # (Auto) 0.0 Abs Immat Gran (auto) 0.01 Absolute Neuts (auto) 2.9 Absolute Nucleated RBC 0.000 Nucleated RBC % (auto) 0.0 Sodium 139 Potassium 4.9 Chloride 106 Carbon Dioxide 23 Anion Gap 15 BUN 17 H Creatinine 0.96 Estim Creat Clear Calc TNP Estimated GFR > 60 Random Glucose 74 Calcium 9.7 Nasal Screen MRSA (PCR) NEGATIVE Nasal S. aureus Screen NEGATIVE Nasal MRSA/S.aureus Interp SEE NOTE COVID-19 (VARGHESE) COVID-19 Clin Com Blood Type Antibody Screen 11/26/22 12/02/22 12:40 06:00 WBC RBC Hgb Hct MCV MCH MCHC RDW Plt Count MPV Immature Gran % (Auto) Neut % (Auto) Lymph % (Auto) [place] % (Auto) Eos % (Auto) Baso % (Auto) Lymph # (Auto) [place] # (Auto) Eos # (Auto) Baso # (Auto) Abs Immat Gran (auto) Absolute Neuts (auto) Absolute Nucleated RBC Nucleated RBC % (auto) Sodium Potassium Chloride Carbon Dioxide Anion Gap BUN Creatinine Estim Creat Clear Calc Estimated GFR Random Glucose Calcium Nasal Screen MRSA (PCR) Nasal S. aureus Screen Nasal MRSA/S.aureus Interp COVID-19 (VARGHESE) Negative COVID-19 Clin Com See Note Blood Type O Positive Antibody Screen NEGATIVE Airway Mallampati Class: II TM Dist: >3cm Neck ROM: Full Heart: rrr Lungs: cta Assessment and Plan Final Anesthetic Review Family History of Problems with Anesthesia: No History of Problems with Anesthesia: No NPO: Yes ASA Class: II Final Preanesthetic Review: No Changes in Pt Med Stat, Meds/Allgs Chart Reviewed, Consent Obtained/Reviewed and Anes Risks/Benef Reviewed Patient Risk: Low Procedure Risk: Intermediate Anesthetic Plan Anesthetic Plan: GA and Agree w/ Assess. and Plan Disposition: Standard PACU
--- NOTE | 2022-12-02 07:21 | PHA.MEDREC ---
Pharmacy Consult ? Medication Reconciliation Pharmacy has completed the medication reconciliation. Med Rec checked in am
--- NOTE | 2022-12-02 11:01 | P.BOP_ITS ---
Brief Operative Note Date of Service: 12/02/22 Pre-op diagnosis: Right hip OA Post-op diagnosis: same Procedure: Right JIGNESH Implants: Yu Trident2 56/20 deg lip Accolade 2 #7 127 deg with + 5 36 ceramic Surgeon: Ulysses Maxwell MD Anesthesia: GETA and local Was an Electric Track Switch Maintainer used for this Procedure?: Yes Electric Track Switch Maintainer: Bernardino Hernandez Estimated blood loss (mL): 250 IV fluids (mL): 1,200 Pathology: other Condition: stable Disposition: PACU
--- NOTE | 2022-12-02 11:01 | MHC.SHP ---
Pre-Procedural Eval Section A Date of Service: 12/02/22 The patient is an INPATIENT: No Changes since office visit: No Cold of Flu in the past 2 weeks, No New Medical Problems, No Changes in Medication and No Patient answered all questions The History & Physical has been completed within 30 days and I have reviewed it.: Yes Section B Chief Complaint: RTHA Allergies: Allergies Allergy/AdvReac Type Severity Reaction Status Date / Time citalopram [CITALOPRAM] Allergy Intermediate Hives Verified 12/02/22 06:03 clindamycin Allergy Intermediate Hives Verified 12/02/22 06:03 metronidazole [METRONIDAZOLE] Allergy Intermediate Hives Verified 12/02/22 06:03 Penicillins Allergy Intermediate HIVES Verified 12/02/22 06:03 Sulfa (Sulfonamide Allergy Intermediate HIVES Verified 12/02/22 06:03 Antibiotics) Plan I have reviewed the history and physical and performed a pertinent physical examination on my patient. No changes have occurred unless specified. Time Spent With Patient Time: Total time managing care of this patient today ____ minutes.
[2022-12-02] MEDS: HYDROmorphone HCl 0.5 MG/0.5 ML SYRINGE 0.25 MG IVPUSH ×2 (11:45→12:10)
[2022-12-02] MEDS: oxyCODONE HCl Immed Release 5 MG TABLET PO ×2 (12:56→18:39)
[2022-12-02] MEDS: Acetaminophen 325 MG TABLET 650 MG PO (14:15)
--- NOTE | 2022-12-02 17:49 | PC.NURSE ---
Pt arrived to unit via bed. A/o without pain. Aquacel to right hip CDI
[2022-12-02] MEDS: vancomycin HCL 1,000 MG in 0.9 % Sodium Chloride 250 ML 270 MG IV (18:41)
[2022-12-02 19:06] LABS: Estimated Glomerular Filt Rate > 60
[2022-12-02] MEDS: Docusate Sodium 100 MG CAPSULE PO (20:10)
[2022-12-02] MEDS: Celecoxib 200 MG CAPSULE PO (20:10)
[2022-12-03] MEDS: oxyCODONE HCl Immed Release 5 MG TABLET PO ×2 (00:44→08:07)
[2022-12-03 03:09] VITALS: BP 137/62; PULSE 80; RESP 17; TEMP 36.9; O2SAT 94
--- NOTE | 2022-12-03 06:05 | P.PNOP_ITS ---
Subjective Subjective Date of Service: 12/03/22 Interval history: POD 1 s/p RT JIGNESH no overnight events resting in bed denies sob,palpitations, chest pain Physical Exam Vital Signs: Vital Signs: Last Vital Signs Temp 98.4 F 12/03/22 03:09 Pulse 80 12/03/22 03:09 Resp 17 12/03/22 03:09 BP 137/62 12/03/22 03:09 Pulse Ox 94 12/03/22 03:09 O2 Del Method 12/03/22 03:09 O2 Flow Rate 2 12/02/22 13:30 BMI result Body Mass Index 25.2 Const: General: cooperative, healthy appearing and no acute distress Resp: Effort & Inspection: normal respiratory effort and able to speak in complete sentences Cardio: Rate: regular rate Peripheral pulses: Peripheral pulses 2+ throughout GI: Palpation (GI): Soft to palpation Skin: General skin exam: no rashes or lesions noted Extrem: Other: incision clean dry and intact. [place] intact. No erythema or effusion. Calf supple nontender. Neurovascularly intact. Procedures Date of Service Date of Service: 12/03/22 Progress Note: A&P Assessment and plan (1) History of total right hip replacement: Status: Acute Assessment and Plan: * Continue pain mgmnt * Begin Aspirin for dvt ppx * begin PT for RT JIGNESH * Dispo planning-Pending PT eval, pain mgmnt Time Spent With Patient Time: Total time managing care of this patient today ____ minutes. Quality Stroke Does the patient have a stroke diagnosis?: No VTE Prior VTE?: No VTE Risk Level:: Surgical - very high VTE Device Contraindication: N/A - Device Ordered VTE Drug Contraindication: N/A - Med Ordered
[2022-12-03] MEDS: Lactated Ringers 1,000 ML 100 ML IVCONT (06:11)
[2022-12-03 06:32] LABS: MANUAL DIFF FLAG NO
[2022-12-03 06:34] LABS: Basophils Percent Auto 0.2 % (0-2); Eosinophils Percent Auto 0.1 % (0-4); Hematocrit 35.1 % (42.0-52.0); Hemoglobin 11.7 g/dl (14.0-18.0); Imm Gran Abs Auto 0.06 X10*3/uL (0.00-0.03); Imm Gran Pct Auto 0.5 % (0.0-0.4); Lymphocytes Absolute Auto 1.1 X10*3/uL (1.2-4.9); Lymphocytes Percent Auto 8.8 % (20-40); Mean Corpuscular HGB Conc 33.3 g/dl (31.0-36.0); Mean Corpuscular Hemoglobin 29.1 pg (27.0-33.0); Mean Corpuscular Volume 87.3 fL (80.0-98.0); Mean Platelet Volume 10.1 fL (9.4-12.4); Monocytes Absolute Auto 1.1 X10*3/uL (0.1-1.2); Monocytes Percent Auto 8.9 % (2-11); Neutrophils Absolute Auto 9.8 x10*3/uL (2.0-8.3); Neutrophils Percent Auto 81.5 % (45-73); Platelet Count 186 X10*3/uL (160-400); Red Blood Count 4.02 X10*6/uL (4.60-5.80); Red Cell Distribution Width 14.1 % (11.0-16.0)
[2022-12-03 07:03] LABS: Anion Gap 8 (12-20); Blood Urea Nitrogen 15 mg/dL (9-16); Calcium 8.2 mg/dL (8.4-10.2); Carbon Dioxide 26 mmol/L (22-29); Chloride 109 mmol/L (96-108); Estimated Glomerular Filt Rate > 60; Glucose Fasting 165 mg/dL (60-99); Potassium 4.1 mmol/L (3.3-5.1); Sodium 139 mmol/L (135-145)
[2022-12-03 07:37] VITALS: BP 126/54; PULSE 75; RESP 18; TEMP 36.6; O2SAT 96
--- NOTE | 2022-12-03 07:40 | P.CONHOSP_ITS ---
History of Present Illness Data of Consult Service Date: 12/03/22 Requesting physician: Ulysses Maxwell Primary Care Provider: Dilip Grady DO HPI 67-year-old man admitted by Orthopedic surgery next status post right total hip arthroplasty. He has no acute complaints, pain is very minimal, he is working with physical therapy in hopes to go home today. He denies nausea, vomiting, diarrhea. Vital signs are stable, labs within acceptable limits. Review of Systems Review of Systems: Denies any recent fever chills or decrease in appetite respiratory denies any shortness of breath coverage production cardiovascular denies chest pain gastrointestinal denies any dysphagia abdominal pain nausea vomiting or diarrhea genitourinary denies any dysuria frequency or hematuria musculoskeletal minimal hip pain neuropsych denies any weakness or seizures all other systems reviewed are negative [facility] Medical History Anal pain BPH (benign prostatic hyperplasia) Cervical disc disease COVID-19 vaccination declined Depression Diverticulitis Elevated cholesterol Gout History of COVID-19 Insomnia Kidney stones Osteoarthritis Skin lesions Pertinent family history: Denies cardiac disease Surgical History H/O blepharoplasty H/O colonoscopy History of arthroscopic surgery of shoulder History of nasal surgery Hx of appendectomy Hx of cystoscopy Hx of cystoscopy Hx of lithotripsy Social History Household Members: Other Household Members Other:: Roomate Housing: Condominium Are you a primary wound care rn to a significant other at home: No Do you presently have visiting nurse or other home services: No Alcohol intake: current Alcohol intake frequency: holidays/special occasions only Alcohol type: wine Patient Tobacco Use Status: Never used Tobacco Use of substances other than those prescribed or required for medical reasons: No Currently Displaying Signs/Symptoms of Drug Intoxication Withdrawal: No Have you been hit, kicked, punched, or otherwise hurt by someone within the past year? If so, by whom?: No Do you feel safe in your current relationship?: No Current Relationship Is there a partner from a previous relationship who is making you feel unsafe now?: No Are you made to feel afraid or neglected: No Are you DNR?: No Advance Directives Information Provided: Yes Advance Directives on File: No Do you have thoughts of harming others: None Do you have a plan to hurt others: No Plan Recently lost weight without trying: No Eating poorly because of decreased appetite: No Nutrition Risks: No Nutritional Risk Poor oral hygiene: No service: No Current occupational status: employed 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 Meds Allergies Allergy/AdvReac Type Severity Reaction Status Date / Time citalopram [CITALOPRAM] Allergy Intermediate Hives Verified 12/02/22 06:03 clindamycin Allergy Intermediate Hives Verified 12/02/22 06:03 metronidazole [METRONIDAZOLE] Allergy Intermediate Hives Verified 12/02/22 06:03 Penicillins Allergy Intermediate HIVES Verified 12/02/22 06:03 Sulfa (Sulfonamide Allergy Intermediate HIVES Verified 12/02/22 06:03 Antibiotics) Active Medications: Current Medications Acetaminophen (Acetaminophen 325 Mg Tablet) 650 mg PO Q6H PRN PRN Reason: Pain, Mild (Pain Scale 1-3) Last Admin: 12/02/22 14:15 Dose: 650 mg Aspirin (Aspirin 325 Mg Tablet) 325 mg PO BID [facility] Celecoxib (Celecoxib 200 Mg Capsule) 200 mg PO BID [facility] Last Admin: 12/02/22 20:10 Dose: 200 mg Diphenhydramine HCl (Diphenhydramine Hcl 25 Mg Capsule) 25 mg PO Q4H PRN PRN Reason: Itching Docusate Sodium (Docusate Sodium 100 Mg Capsule) 100 mg PO BID [facility] Last Admin: 12/02/22 20:10 Dose: 100 mg Hydromorphone HCl (Hydromorphone Hcl 0.5 Mg/0.5 Ml Syringe) 0.25 mg IVPUSH Q4H PRN; Protocol PRN Reason: Pain, Severe (Pain Scale 7-10) Lactated Ringer's (Lr) 1,000 mls @ 100 mls/hr IVCONT .Q10H [facility] Stop: 12/03/22 11:36 Last Admin: 12/03/22 06:11 Dose: 100 mls/hr Ondansetron HCl (Ondansetron Hcl 4 Mg/2 Ml Vial) 4 mg IVPUSH Q8H PRN PRN Reason: Nausea and Vomiting Oxycodone HCl (Oxycodone Hcl Immed Release 5 Mg Tablet) 5 mg PO Q4H PRN PRN Reason: Pain, Moderate (Pain Scale 4-6 Last Admin: 12/03/22 00:44 Dose: 5 mg Oxycodone HCl (Oxycodone Hcl Er 10 Mg Tab.Er.12h) 10 mg PO BID [facility] Last Admin: 12/02/22 20:10 Dose: 10 mg Pharmacy Consult (Consult Rx Vancomycin Dosing) 1 each MISCELLANE DAILY PRN PRN Reason: Consult order Sodium Chloride (0.9 % Sodium Chloride Flush 3 Ml Syringe) 3 ml IVFLUSH QSHIFT [facility] Last Admin: 12/03/22 00:05 Dose: Not Given Trazodone HCl (Trazodone Hcl 50 Mg Tablet) 50 mg PO DAILY [facility] Home Medications Medication Instructions Recorded Confirmed Last Taken Type psyllium husk 3.4 gram/5.4 gram 1 tbsp PO DAILY 11/25/22 11/25/22 Unknown History oral powder (Metamucil) trazodone 50 mg tablet 1 tab PO DAILY 12/02/22 12/02/22 Unknown History Physical Exam Vital Signs and Narrative: Vital Signs: Last Vital Signs Temp 97.9 F 12/03/22 07:37 Pulse 75 12/03/22 07:37 Resp 18 12/03/22 07:37 BP 126/54 L 12/03/22 07:37 Pulse Ox 96 12/03/22 07:37 O2 Del Method 12/03/22 07:37 O2 Flow Rate 2 12/02/22 13:30 BMI result Body Mass Index 25.2 Appearing in no acute distress head is normocephalic atraumatic eyes pupils are PERRLA sclera is anicteric mouth throat mucous membranes are intact and moist neck is supple no lymphadenopathy, no JVD noted lung sounds are clear to auscultation heart regular rate rhythm, clear S1, S2 positive bowel sounds, abdomen is soft, nontender neuro patient is alert x3, no focal deficits Musculoskeletal right surgical hip dressing intact, surgical wound not visualized Results Labs 12/03/22 06:12 12/03/22 06:12 Labs: Laboratory Results - last 24 hr 12/02/22 12/03/22 12/03/22 18:40 06:12 06:12 MCV 87.3 MCH 29.1 MCHC 33.3 RDW 14.1 Plt Count 186 MPV 10.1 Immature Gran % (Auto) 0.5 H Neut % (Auto) 81.5 H Lymph % (Auto) 8.8 L [place] % (Auto) 8.9 Eos % (Auto) 0.1 Baso % (Auto) 0.2 Lymph # (Auto) 1.1 L [place] # (Auto) 1.1 Eos # (Auto) 0.0 Baso # (Auto) 0.0 Abs Immat Gran (auto) 0.06 H Absolute Neuts (auto) 9.8 H Absolute Nucleated RBC 0.000 Nucleated RBC % (auto) 0.0 Anion Gap 8 L Estim Creat Clear Calc 69.0 73.0 Estimated GFR > 60 > 60 Fasting Glucose 165 H Calcium 8.2 L D Imaging Radiologist's Impressions: Impressions Pelvis X-Ray 12/02/22 12:05 IMPRESSION: Right total hip arthroplasty is in alignment on this single view. Assessment and Plan (1) History of total right hip replacement: Status: Acute Plan 67 year old man s/p RTHA RTHA management as per surgical team pain management Leukocytosis Postsurgical Normocytic anemia Postsurgical Stable H&H Mental health Continue home medications DVT prophylaxis with full-dose aspirin Medical consultation complete, will sign off Time Spent With Patient Time: Total time managing care of this patient today ____ minutes.
[2022-12-03] MEDS: oxyCODONE HCl ER 10 MG TAB.ER.12H PO (07:56)
[2022-12-03] MEDS: Aspirin 325 MG TABLET PO (08:06)
[2022-12-03] MEDS: Docusate Sodium 100 MG CAPSULE PO (08:06)
[2022-12-03] MEDS: Celecoxib 200 MG CAPSULE PO (08:08)
--- NOTE | 2022-12-03 08:55 | MHC.CM.PN ---
CM met with Patient at bedside and addressed IMM with him, providing him with the original and placing a copy on the chart. 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 Home with new VNA VS STR pending PT eval is the tentative plan ((R) JIGNESH) and CM has initiated and will follow for dc planning. Patient has received no Covid vax and his PCP is Dr. Dilip Grady. Patient's Aunt Valerie is the HCP.
--- NOTE | 2022-12-03 10:18 | P.DS_ITS ---
DS: Providers Provider Date of Service: 12/03/22 Date of admission: 12/02/22 06:03 Primary care physician: Dilip Grady DO Consults: 12/02/22 16:23 Consult to Hospitalist Routine Consulting Provider: Hospitalist Reason For Exam: medical management DS: Diagnosis Discharge Diagnosis (1) History of total right hip replacement: Status: Acute DS: Summary Hospital Course Hospital Course: The patient underwent a successful right total hip arthroplasty, was transferred to PACU and then to the floor to recover. During their stay, their vitals were stable, afebrile at 97.9 . Labs were unremarkable, H/H 11.7/ 35.1. POD 1 he was started on ASA 325mg tabs po bid for DVT ppx, he also received PT/OT services twice a day. Prior to discharge, dressing was clean dry and intact, he will be discharged home with VNA services. Time Spent with Patient Time attestation: Total time managing care of this patient today ____ minutes. Discharge coordination time: Less than 30 minutes Quality: Safe Use of Opioids Does Pt have an Active Cancer Diagnosis on the Problem List?: No Quality: Stroke Does the patient have a stroke diagnosis?: No Physical Exam Vital Signs: Vital Signs: Last Vital Signs Temp 97.9 F 12/03/22 07:37 Pulse 75 12/03/22 07:37 Resp 18 12/03/22 07:37 BP 126/54 L 12/03/22 07:37 Pulse Ox 96 12/03/22 07:37 O2 Del Method 12/03/22 07:37 O2 Flow Rate 2 12/02/22 13:30 BMI result Body Mass Index 25.2 DS: Data Data Completed and Pending Completed studies during hospitalization [Text1]: Procedures Dilation of Right Ureter with Intraluminal Device, Via Natural or Artificial Opening Endoscopic (03/06/21) Extirpation of Matter from Right Ureter, Via Natural or Artificial Opening Endoscopic (03/06/21) Fluoroscopy of Right Kidney, Ureter and Bladder (03/06/21) Pending studies at discharge: Pending at discharge 12/02/22 10:46 Surgical [PTH] Routine Labs on day of discharge: Laboratory Results - last 24 hr 12/02/22 12/03/22 12/03/22 18:40 06:12 06:12 WBC 12.0 H RBC 4.02 L D Hgb 11.7 L D Hct 35.1 L D MCV 87.3 MCH 29.1 MCHC 33.3 RDW 14.1 Plt Count 186 MPV 10.1 Immature Gran % (Auto) 0.5 H Neut % (Auto) 81.5 H Lymph % (Auto) 8.8 L [place] % (Auto) 8.9 Eos % (Auto) 0.1 Baso % (Auto) 0.2 Lymph # (Auto) 1.1 L [place] # (Auto) 1.1 Eos # (Auto) 0.0 Baso # (Auto) 0.0 Abs Immat Gran (auto) 0.06 H Absolute Neuts (auto) 9.8 H Absolute Nucleated RBC 0.000 Nucleated RBC % (auto) 0.0 Sodium 139 Potassium 4.1 Chloride 109 H Carbon Dioxide 26 Anion Gap 8 L BUN 15 Creatinine 1.12 1.06 Estim Creat Clear Calc 69.0 73.0 Estimated GFR > 60 > 60 Fasting Glucose 165 H Calcium 8.2 L D Discharge Plan Discharge Anticipated Discharge Date/Time: 12/03/22 10:20 Patient Disposition: Home Health Service Discharge Diagnosis: s/p rt hernan Referrals: Meron Whyte PA-C [Physician Water Plant Operator] - 2 Weeks (12/18/22 12:30 [facility] Meron Whyte PA-C) Discharge Medications: New acetaminophen 325 mg Tablet 650 mg PO Q6H PRN (Reason: Pain, Mild (Pain Scale 1-3)) 30 Days Qty: 240 0RF aspirin 325 mg Tablet 325 mg PO BID 42 Days Qty: 84 0RF oxycodone 5 mg Tablet 5 mg PO Q4H PRN (Reason: Pain, Moderate (Pain Scale 4-6) 7 Days Qty: 42 0RF Rx Instructions: Partial Fill upon patient request. Continued [facility] See [facility] Instructions .ROUTE .MEDSUPPLY Qty: 1 0RF Rx Instructions: Folding front wheeled walker (DME) Raised toliet seat See Rx Instructions .ROUTE .MEDSUPPLY Qty: 1 0RF Rx Instructions: As directed Metamucil 3.4 gram/5.4 gram Powder 1 tbsp PO DAILY Rx Instructions: mix into at least 8 oz of water or juice before administering trazodone 50 mg tablet 1 tab PO DAILY Discharge Orders: Discharge Order (Routine); Ordered 12/03/22 Ordered By: Bernardino Hernandez Diet: Regular diet Activity on Discharge: Use cane or walker Stand Alone Forms: Patient Portal Discharge page Care Plan Goals: Restore function of joint Health Concerns: none Plan of Treatment: Physical Therapy Pain management DVT prophylaxis Assessment: * Physical Therapy for Total hip arthroplasty: wbat, posterior precautions, gait training, ROM, strength * Limit stair climbing * No showering, no tub bath-keep dressing clean, dry and intact * No driving x6 weeks * Continue Aspirin twice a day x 6 weeks * Follow up with [facility] in 2 weeks: [facility]22bb12:30[facility] SurgeonsM[facility] Whyte PA-C
--- NOTE | 2022-12-03 10:20 | W.MHC.F2F ---
Service Date Service Date: 12/03/22 Encounter Date of encounter: 12/03/22 Reasons for Services Signs and symptoms assessed: Right hip pain, weakness, difficulty with ambulation Reason for physical therapy: home safety and mobility, therapeutic exercises, restore joint function, gait/transfer training, ADL training and energy conservation Reason for occupational therapy: home safety and mobility, therapeutic exercises, restore joint function, gait/transfer training, ADL training and energy conservation Overseeing Care: Ulysses Maxwell Homebound: Leaving the home is medically contraindicated at this time without the asist of a device and/or another person due th the listed conditions above and below. Reason homebound: unsteady gait / fall risk, pain with ambulation, poor balance / fall risk and unable to drive Homebound supporting statement: Pt. is considered home bound due to recent surgery. Unable to drive, poor balance, poor gait mechanics. Certification: Based on the above findings, I certify that this patient is confined to the home and needs intermittent senior living care, physical therapy and/or speech therapy, or continues to need occupational therapy. The patient is under my care, and I have initiated the establishment of the plan of care. The patient will be followed by a physician who will periodically review the plan of care. Time Spent With Patient Time: Total time managing care of this patient today ____ minutes.
--- NOTE | 2022-12-03 10:28 | MHC.CM.PN ---
Patient has been medically cleared for dc to home today, with services. A referral has been made to [facility], who has been made aware of today's dc.
--- NOTE | 2022-12-03 10:40 | W.PM.OPN ---
Operative Note Operative Note Date of Service: 12/03/22 Narrative: Date of Service: 12/02/22 Pre-op diagnosis: Right hip OA Post-op diagnosis: same Procedure: Right JIGNESH Implants: [place] Trident2 56/20 deg lip Accolade 2 #7 127 deg with + 5 36 ceramic Surgeon: Ulysses Maxwell MD Anesthesia: GETA and local Was an Heel Cementer Machine used for this Procedure?: Yes Heel Cementer Machine: Bernardino Hernandez Estimated blood loss (mL): 250 IV fluids (mL): 1,200 Pathology: other Condition: stable Disposition: PACU Procedure in detail: Patient was brought into the operating room and placed in the right lateral decubitus position. All bony prominences were well padded and the limb was prepped and draped in standard sterile fashion. A time-out was called to identify proper site procedure proper surgeon IV antibiotics and 1 g of transaxemic acid were administered. I began by making a curvilinear incision over the posterolateral aspect of the greater trochanter. Dissection was taken down to the tensor fascia which was incised in line with the incision and a Charnley retractor was placed. Cautery was used to maintain hemostasis. The hip was internally rotated and the external rotators were identified. The vessels were cauterized and a full-thickness capsular/external rotator layer was developed starting just proximal to the piriformis. This layer was tagged and a dull Hohmann retractor was placed underneath the neck in the hip was dislocated. A neck cut was made 1 cm proximal to the lesser trochanter and the head and neck were removed and measured 52-54mm on the back table. I then removed the labrum and cauterized the fovea. I started with a 46 reamer and medialized to the inner table. I sequentially reamed up to a size 55 and impacted a 56mm cup at 45 degrees of inclination and 25 degrees of version. I then placed a 20 deg posterior lipped liner and turned my attention to the femur. I identified the piriformis insertion and used this as a starting point for my leann cutter. The medius tendon was protected with a Hibs retractor. A Charnley awl was inserted in the canal and a curved curette used to remove the lateral bone. I irrigated copiously. I then sequentially broached in the patient's natural version to a size 5 and placed my trial implants. I used a #6/127/+5 based on my pre-operative template and intra-operative trialing. Using a trail head I took the hip through range of motion. I was satisfied with the posterior stability but there was anterior imingmenet of the neck and posterior lip of the cup in hyper abduction and ER. This required removal of the stem which was time consuiming as the senior geologist was difficult to attach to the stem and required lateralization with a cookie cutter and currette. The stem removal was otherwise uncomplication. I then removed the liner and the cup without complication. The cup was then inserted with less anterversion. I retrialed and there was no impingement. I then placed a 20 deg lipped liner and re-inserted the stem. I was again satisfied with the stability and tyhere was no impingement. I trialed a +5 and a +2.5 and was satisfied with the +5. I removed all instrumentation and copiously irrigated. I then irrigated for 3 minutes with iodine and placed 1 g of local transaxemic acid. I performed a capsular closure with 2.0 fiberwire, Tisha's fascia with 0 Vicryl, subcuticular with 2-0 Vicryl and the skin with damaso. Patient was placed into a sterile dressing. Patient was extubated brought to the recovery room in stable condition. There were no known complications.
--- NOTE | 2022-12-03 12:54 | HO.POSTANES ---
Post Anesthesia Evaluation Post Anesthesia Evaluation Vital Signs: Vital Signs Temp Pulse Resp BP Pulse Ox O2 Del Method 12/03/22 07:37 97.9 F 75 18 126/54 L 96 Room Air 12/03/22 03:09 98.4 F 80 17 137/62 94 Room Air Anesthesia: General Mental Status: Awake Pain Control: Satisfactory Nausea/Vomiting: None Hydration: Adequate Anesthesia-Related Issues: No Anes. Related Issues
== END 2022-12-03 12:27 | disposition home health service (06) | DRG 470 ==
LOC: HO.SSSA 06:07 → HO.S3 15:28
PROVIDERS: Physician Assistant; Admitting Provider Orthopaedic Surgery; PCP Internal Medicine; Visit Provider Orthopaedic Surgery
PROC: 0SR903A Replacement of Right Hip Joint with Ceramic Synthetic Substitute, Uncemented, Open Approach (ICD-10-PCS; CPT 27130; principal; 2022-12-02 07:30)
DX: M16.11 Unilateral primary osteoarthritis, right hip (principal); D72.829 Elevated white blood cell count, unspecified; D64.89 Other specified anemias; G47.00 Insomnia, unspecified; F32.A Depression, unspecified; N40.0 Benign prostatic hyperplasia without lower urinary tract symptoms; E78.00 Pure hypercholesterolemia, unspecified; Z88.0 Allergy status to penicillin; Z88.1 Allergy status to other antibiotic agents; Z88.2 Allergy status to sulfonamides; Z88.8 Allergy status to other drugs, medicaments and biological substances; Z79.899 Other long term (current) drug therapy; Z20.822 Contact with and (suspected) exposure to COVID-19
CPT/HCPCS: 27130; 36415; 72170; 80048; 82565; 85025; 86850; 86900; 86901; 87635; 87640; 87641; 88304; 88311; 93005; 97161; 97165; C1776; J0131; J1100; J1170; J1885; J2405; J2795; J3010; J3370; J3371

== ENCOUNTER → 2022-12-18 12:24 | Outpatient (BNVA) | payer MEDICARE, SELFPAY | PROVIDERS: PCP Internal Medicine; Visit Provider Physician Assistant | DX: Z47.1 Aftercare following joint replacement surgery (principal); Z96.641 Presence of right artificial hip joint | CPT/HCPCS: 99212 ==

== ENCOUNTER → 2023-01-15 12:22 | Outpatient (BNVA) | payer MEDICARE, SELFPAY | PROVIDERS: PCP Internal Medicine; Visit Provider Physician Assistant | DX: Z47.1 Aftercare following joint replacement surgery (principal); Z96.641 Presence of right artificial hip joint | CPT/HCPCS: 99212 ==

== ENCOUNTER 2023-02-23 08:34 | Outpatient (REF) | payer MEDICARE, SELFPAY ==
--- NOTE | ~2023-02-23 | XR_ITS ---
EXAMINATION: XR PELVIS CLINICAL INFORMATION: Hip pain. COMPARISON: Pelvic radiographs 12/02/2022. TECHNIQUE: AP view of the pelvis. FINDINGS: There is a right hip prosthesis. Hardware is intact. There is no fracture, dislocation, destructive process, or osteolysis. No periostitis. The SI joints and pubis are unremarkable. Some minor mineralization is seen at the superior aspect greater trochanter possibly related to the gluteus minimus insertion. XR/XR pelvis 1-2V IMPRESSION: - Right hip prosthesis. Hardware intact. No destructive process. - Mild mineralization superior aspect greater trochanter likely possibly related to gluteal insertions.
--- NOTE | ~2023-02-23 | XR_ITS ---
EXAMINATION: XR SHOULDER, RIGHT CLINICAL INFORMATION: Right shoulder pain. COMPARISON: December 24, 2021. TECHNIQUE: AP external rotation, Grashey, scapular Y, and axillary views of the right shoulder. XR/XR shoulder RT min 2V FINDINGS/IMPRESSION: There is no acute radiographic finding. No fracture or dislocation is seen. Deformity of the greater tuberosity of humerus may be postsurgical and/or posttraumatic, unchanged. Metallic orthopedic anchor devices project over the right humeral head. There are mild degenerative changes of the glenohumeral joint. Previously described 2 small calcifications in the soft tissues adjacent to the humeral head are not appreciated on the current study.
== END 2023-02-23 08:35 | disposition home or self-care (01) ==
LOC: HO.HOSX 08:34
PROVIDERS: Visit Provider Orthopaedic Surgery
DX: M25.551 Pain in right hip (principal); M25.511 Pain in right shoulder; Z96.641 Presence of right artificial hip joint; Z47.1 Aftercare following joint replacement surgery; Z98.890 Other specified postprocedural states
CPT/HCPCS: 72170; 73030; 99212

== ENCOUNTER 2023-04-30 19:05 | Emergency (ER) | payer MEDICARE, SELFPAY ==
--- NOTE | ~2023-04-30 | CT_ITS ---
EXAMINATION: CT ABDOMEN AND PELVIS WITHOUT CONTRAST CLINICAL INFORMATION: Left flank pain. COMPARISON: 05/05/2021 CT scan of the abdomen and pelvis, renal ultrasound dated 08/24/2020. TECHNIQUE: Multidetector volumetric imaging was performed from the superior aspect of the liver through the pubic symphysis. Sagittal and coronal reformatted images were obtained on the technologist's workstation. Lack of intravenous and oral contrast limits visceral evaluation. This CT examination was performed using dose optimization techniques as appropriate, variously including the following: *Automated exposure control *Adjustment of mA and/or kV according to patient size (this includes techniques or standardized protocols for targeted exams where dose is matched to indication/reason for exam; i.e. extremities or head) *Use of iterative reconstruction technique DLP: 686 mGy-cm FINDINGS: LUNG BASES: The visualized lung bases are unremarkable. LIVER, GALLBLADDER, AND BILIARY TREE: No hepatic abnormality. The gallbladder is mildly distended distended limiting evaluation without focal abnormality. No biliary ductal dilatation. PANCREAS: Mild fatty infiltration of the pancreatic head. No pancreatic ductal dilatation or peripancreatic abnormality. SPLEEN: Unremarkable. ADRENAL GLANDS: Unremarkable. KIDNEYS AND URETERS: Fluid attenuation cysts bilaterally, right greater than left. The largest on the right in the upper pole measuring 4.6 cm. Multiple small nonobstructing intrarenal calculi are seen bilaterally. No hydroureteronephrosis bilaterally. BLADDER: Unremarkable. GASTROINTESTINAL TRACT: The stomach and small bowel unremarkable. The appendix is not visualized. No evidence for acute appendicitis. The colon shows mild to moderate diverticulosis in the descending and sigmoid colon without surrounding abnormality. The rectum is unremarkable. ABDOMINAL WALL: No significant hernia is appreciated. LYMPH NODES: No lymphadenopathy. VASCULAR: Unremarkable. PELVIC VISCERA: Moderate prostatomegaly. OSSEOUS STRUCTURES: L4-L5 and L5-S1 mild degenerative disc disease. CT/CT abdomen pelvis wo IV con IMPRESSION: 1. Bilateral renal cysts demonstrate benign features without significant change, not requiring follow-up at this time. Nonobstructing intrarenal calculi bilaterally. No hydroureteronephrosis. 2. Mild to moderate descending/sigmoid diverticulosis without evidence for acute diverticulitis. 3. Moderate prostatomegaly.
--- NOTE | 2023-04-30 19:20 | ED_ITS ---
HPI - General Adult General Chief complaint: Urogenital-Male Stated complaint: kidney stone Time Seen by Provider: 04/30/23 21:46 Source: patient Mode of arrival: ambulatory Limitations: no limitations History of Present Illness HPI narrative: 67-year-old male history of kidney stone came in for evaluation of left flank pain started since this morning pain is constant waxes and wanes, no hematuria, no frequency urination, no dysuria, patient had a history of obstructing ureteric stone require lithotripsy in the past. No nausea, no vomiting, no fever, chills, no diarrhea. Related Data Home Medications Medication Instructions Recorded Confirmed psyllium husk 3.4 gram/5.4 gram 1 tbsp PO DAILY 11/25/22 11/25/22 oral powder (Metamucil) trazodone 50 mg tablet 1 tab PO DAILY 12/02/22 12/02/22 Previous Rx's Medication Instructions Recorded Raised toliet seat #1 ea 11/14/22 walker #1 ea 11/14/22 acetaminophen 325 mg tablet 650 mg PO Q6H PRN Pain, Mild (Pain 12/03/22 Scale 1-3) 30 days #240 tabs aspirin 325 mg tablet 325 mg PO BID 6 weeks #84 tabs 12/03/22 alfuzosin 10 mg tablet,extended 10 mg PO DAILY #90 tabs 12/23/22 release 24 hr oxycodone 5 mg tablet 5 mg PO Q12H PRN Pain, Moderate 01/19/23 (Pain Scale 4-6 7 days #14 tabs Allergies Allergy/AdvReac Type Severity Reaction Status Date / Time citalopram [CITALOPRAM] Allergy Intermediate Hives Verified 04/30/23 19:20 clindamycin Allergy Intermediate Hives Verified 04/30/23 19:20 metronidazole [METRONIDAZOLE] Allergy Intermediate Hives Verified 04/30/23 19:20 Penicillins Allergy Intermediate HIVES Verified 04/30/23 19:20 Sulfa (Sulfonamide Allergy Intermediate HIVES Verified 04/30/23 19:20 Antibiotics) Review of Systems Review of Systems: All other systems are reviewed and are negative Constitutional: Reports as per HPI and Reports no additional constitutional complaints Eyes: Reports as per HPI and Reports no additional eye complaints Reports system reviewed and no additional complaints, except as documented Cardiovascular: Reports as per HPI and Reports no additional cardiovascular complaints Respiratory: Reports as per HPI and Reports no additional respiratory complaints Gastrointestinal: Reports as per HPI and Reports no additional gastrointestinal complaints Genitourinary: Reports no additional female genitourinary complaints Musculoskeletal: Reports no additional musculoskeletal complaints Skin/Breast: Reports system reviewed and no additional complaints, except as docu Psychiatric: Reports no additional psychiatric complaints Endocrine: Reports no additional endocrine complaints Hematologic/Lymphatic: Reports no additional hematologic/lymphatic complaints Allergic/Immunologic: Reports no additional allergic/immunologic complaints Reports system reviewed and no additional complaints, except as documented and Reports Abnormal speech present [facility] [place] Past Medical History Medical History Anal pain BPH (benign prostatic hyperplasia) Cervical disc disease COVID-19 vaccination declined Depression Diverticulitis Elevated cholesterol Gout History of COVID-19 Insomnia Kidney stones Osteoarthritis Skin lesions Surgical History H/O blepharoplasty H/O colonoscopy History of arthroscopic surgery of shoulder History of nasal surgery Hx of appendectomy Hx of cystoscopy Hx of cystoscopy Hx of lithotripsy Social History Social History Household Members: Other Household Members Other:: Roomate Housing: Condominium Are you a primary hospice spiritual care coordinator to a significant other at home: No Do you presently have visiting nurse or other home services: No Alcohol intake: current Alcohol intake frequency: holidays/special occasions only Alcohol type: wine Patient Tobacco Use Status: Never used Tobacco Advance Directives: No Advance Directives Information Provided: No service: No Current occupational status: employed 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 Physical Exam ED Vital Signs: Vital Signs - 24 hr 04/30/23 19:21 Temperature 97 F Pulse Rate 62 Respiratory Rate 18 Blood Pressure 180/81 H Pulse Oximetry 95 Oxygen Delivery Method Room Air BMI result Body Mass Index 25.9 Vital signs have been reviewed as appeared to be correct. Blood pressure normal. Heart rate normal. Respiration rate normal. Temperature normal. Oxygen saturation normal. Appearance: Alert. Oriented X3. No acute distress. Head: Normal external exam. Normocephalic. Atraumatic. No Valdez signs noted. No raccoon eyes noted Eyes: PERRLA. EOMI. Conjunctiva and sclera normal. Eyelids normal. ENT: TM's Normal. Pharynx normal. Uvula midline. Moist mucous membranes. No trismus noted. No drooling noted. No muffled voice noted. Neck: Normal inspection. Neck supple. FROM. No adenopathy. Thyroid Normal. No meningeal signs. No neck mass noted. CVS: Normal heart rate and rhythm. Heart sound normal. No murmurs noted. Pulses normal throughout. Respiratory: No respiratory distress. Painless inspiration. Breath sounds normal. No wheezes/rales/rhonchi noted. Chest nontender. No accessory muscle usage noted or decreased air movement noted. Abdomen: Soft and nontender. Bowel sounds normal in all 4 quadrants. No distention noted. No organomegaly noted. No visible injury noted. Back: No CVA tenderness. Full range of motion noted. Skin: Skin warm and dry. Normal skin color. Normal skin turgor. No rashes/lesions/lacerations noted. Extremities: No lower extremity edema. Extremities exhibit normal range of motion. Extremities nontender. Neuro: Oriented X 3. Cranial nerve exam: II-XII are grossly intact No motor deficit. No sensory deficit. Reflexes normal. Course Course Course Narrative: This is an RME: Additional HPI, ROS, PE not included below will be deferred to primary provider. This is a 78-ydll-kbr-male, hx of kidney stones, BPH, diverticulitis, insomnia, gout, presenting to the ER with complaints of left flank pain since today. Hx of kidney stones requiring lithotripsy. No hematuria. No urinary symptoms. No nausea, vomiting. VSS. Plan: UA, labs, CT abd & pelvis ordered. Reevaluation(s) Reevaluation #1: History of obstructing kidney stone, no obstructing kidney stone today, no fever, no chills, abdomen CT is showing no obstructive kidney stone, no UTI. Time: 22:03 Medical Decision Making Differential Diagnosis Differential Diagnoses: The differential diagnosis associated with the presentation includes (Kidney stone, UTI, muscular pain, electrolyte abn ormality, severe anemia.) Admission/Observation Consideration of admission/observation: Escalation of care including admission/observation considered Lab Data MDM Lab Attestation statement: I reviewed the patient's lab results. 04/30/23 19:35 04/30/23 19:35 Labs: Lab Results 04/30/23 04/30/23 04/30/23 Range/Units 19:35 19:35 19:35 WBC 6.2 (4.8-10.8) X10*3/uL RBC 5.83 H D (4.60-5.80) X10*6/uL Hgb 15.5 D (14.0-18.0) g/dl Hct 47.4 D (42.0-52.0) % MCV 81.3 (80.0-98.0) fL MCH 26.6 L (27.0-33.0) pg MCHC 32.7 (31.0-36.0) g/dl RDW 15.2 (11.0-16.0) % Plt Count 195 (160-400) X10*3/uL MPV 9.7 (9.4-12.4) fL Immature Gran % (Auto) 0.3 (0.0-0.4) % Neut % (Auto) 61.4 (45-73) % Lymph % (Auto) 27.6 (20-40) % Richardson % (Auto) 7.4 (2-11) % Eos % (Auto) 2.7 (0-4) % Baso % (Auto) 0.6 (0-2) % Lymph # (Auto) 1.7 (1.2-4.9) X10*3/uL Richardson # (Auto) 0.5 (0.1-1.2) X10*3/uL Eos # (Auto) 0.2 (0.0-0.4) X10*3/uL Baso # (Auto) 0.0 (0.0-0.2) X10*3/uL Abs Immat Gran (auto) 0.02 (0.00-0.03) X10*3/uL Absolute Neuts (auto) 3.8 (2.0-8.3) x10*3/uL Absolute Nucleated RBC 0.000 (0.0-0.012) X10*3/uL Nucleated RBC % (auto) 0.0 (0.0-0.2) /100WBC Sodium 138 (135-145) mmol/L Potassium 4.0 (3.3-5.1) mmol/L Chloride 107 (96-108) mmol/L Carbon Dioxide 20 L (22-29) mmol/L Anion Gap 15 (12-20) BUN 18 H (9-16) mg/dL Creatinine 1.03 (0.5-1.4) mg/dL Estim Creat Clear Calc 75.1 Estimated GFR > 60 Random Glucose 106 (60-115) mg/dL Calcium 9.1 D (8.4-10.2) mg/dL Total Bilirubin 0.7 (0.0-1.0) mg/dL Direct Bilirubin 0.2 (0.0-0.5) mg/dL AST 19 (5-37) U/L ALT 24 (0-40) U/L Alkaline Phosphatase 100 (39-117) U/L Total Protein 6.9 (6.5-8.0) g/dL Albumin 4.1 (3.5-5.0) g/dL Urine Color Yellow Urine Appearance Clear Urine pH 7.0 (5.0-9.0) Ur Specific [place] 1.020 (1.005-1.025) Urine Protein Negative (Neg-Trace) mg/dL Urine Glucose (UA) Negative (Negative) mg/dL Urine Ketones Negative (Negative) mg/dL Urine Blood Negative (Negative) Urine Nitrite Negative (Negative) Ur Leukocyte Esterase Negative (Negative) Independent Interpretation I performed an independent interpretation of an: CT Scan (Abdomen and pelvis: Bilateral renal cysts, diverticulosis without diverticulitis, electrolyte abnor mality, severe anemia.) Radiology Impression Discussion of test interpretation with radiology: I have reviewed the radiologist's reading. Discharge Plan Discharge Clinical Impression: Acute left flank pain Patient Disposition: Home, Self-Care Instructions: Flank Pain (ED) Prescriptions: No Action (DME) walker Misc See Rx Instructions .ROUTE .MEDSUPPLY Qty: 1 0RF Rx Instructions: Folding front wheeled walker (DME) Raised toliet seat See Rx Instructions .ROUTE .MEDSUPPLY Qty: 1 0RF Rx Instructions: As directed alfuzosin 10 mg tablet extended release 24 hr 10 mg PO DAILY Qty: 90 1RF Rx Instructions: administer after the same meal each day oxycodone 5 mg tablet 5 mg PO Q12H PRN (Reason: Pain, Moderate (Pain Scale 4-6) 7 Days Qty: 14 0RF Rx Instructions: Partial Fill upon patient request. Metamucil 3.4 gram/5.4 gram Powder 1 tbsp PO DAILY Rx Instructions: mix into at least 8 oz of water or juice before administering trazodone 50 mg tablet 1 tab PO DAILY acetaminophen 325 mg Tablet 650 mg PO Q6H PRN (Reason: Pain, Mild (Pain Scale 1-3)) 30 Days Qty: 240 0RF aspirin 325 mg Tablet 325 mg PO BID 42 Days Qty: 84 0RF Referrals: Isreal Erazo MD [Physician] - Dilip Grady DO [Primary Care Provider] -
[2023-04-30 19:21] VITALS: BP 180/81; PULSE 62; RESP 18; TEMP 36.1; O2SAT 95; BMI 25.9
[2023-04-30 19:48] LABS: MANUAL DIFF FLAG NO
[2023-04-30 19:50] LABS: Basophils Percent Auto 0.6 % (0-2); Eosinophils Absolute Auto 0.2 X10*3/uL (0.0-0.4); Eosinophils Percent Auto 2.7 % (0-4); Hematocrit 47.4 % (42.0-52.0); Hemoglobin 15.5 g/dl (14.0-18.0); Imm Gran Abs Auto 0.02 X10*3/uL (0.00-0.03); Imm Gran Pct Auto 0.3 % (0.0-0.4); Lymphocytes Absolute Auto 1.7 X10*3/uL (1.2-4.9); Lymphocytes Percent Auto 27.6 % (20-40); Mean Corpuscular HGB Conc 32.7 g/dl (31.0-36.0); Mean Corpuscular Hemoglobin 26.6 pg (27.0-33.0); Mean Corpuscular Volume 81.3 fL (80.0-98.0); Mean Platelet Volume 9.7 fL (9.4-12.4); Monocytes Absolute Auto 0.5 X10*3/uL (0.1-1.2); Monocytes Percent Auto 7.4 % (2-11); Neutrophils Absolute Auto 3.8 x10*3/uL (2.0-8.3); Neutrophils Percent Auto 61.4 % (45-73); Platelet Count 195 X10*3/uL (160-400); Red Blood Count 5.83 X10*6/uL (4.60-5.80); Red Cell Distribution Width 15.2 % (11.0-16.0); White Blood Count 6.2 X10*3/uL (4.8-10.8)
[2023-04-30 19:51] LABS: Appearance Urine Clear; Color Urine Yellow; Glucose Urine UA Negative (Negative); Leukocyte Esterase Urine Negative (Negative); Nitrite Urine Negative (Negative); Urine Blood Negative (Negative); Urine Ketones Negative (Negative); Urine Protein Negative (Neg-Trace)
[2023-04-30 20:10] LABS: Alanine Aminotransferase 24 U/L (0-40); Albumin Level 4.1 g/dL (3.5-5.0); Alkaline Phosphatase 100 U/L (39-117); Anion Gap 15 (12-20); Aspartate Amino Transferase 19 U/L (5-37); Bilirubin Direct 0.2 mg/dL (0.0-0.5); Bilirubin Total 0.7 mg/dL (0.0-1.0); Blood Urea Nitrogen 18 mg/dL (9-16); Calcium 9.1 mg/dL (8.4-10.2); Carbon Dioxide 20 mmol/L (22-29); Chloride 107 mmol/L (96-108); Creatinine Clr Calc Pharmacy 75.1; Estimated Glomerular Filt Rate > 60; Glucose Random 106 mg/dL (60-115); Sodium 138 mmol/L (135-145); Total Protein 6.9 g/dL (6.5-8.0)
== END 2023-04-30 22:05 | disposition home or self-care (01) ==
PROVIDERS: Physician Assistant Medical; Emergency Provider Emergency Medicine; PCP Internal Medicine
DX: R10.2 Pelvic and perineal pain (principal); R10.9 Unspecified abdominal pain; Z79.899 Other long term (current) drug therapy
CPT/HCPCS: 36415; 74176; 80048; 80076; 81003; 85025; 99282; 99284

== ENCOUNTER 2023-06-01 09:49 | Outpatient (AMB) | payer MEDICARE, SELFPAY ==
--- NOTE | 2023-06-01 09:50 | MHC.OFFVIS ---
Intake Intake Visit Reasons: New Prob- Left hip pain Intake Note: Julio is a 68 year old male who presents today with new concerns of left hip pain. Patient reports that the left hip has been painful for some time now. He reports that the left hip has started to feel similar to the right hip. Allergies citalopram [CITALOPRAM] Allergy (Intermediate, Verified 04/30/23 19:20) Hives clindamycin Allergy (Intermediate, Verified 04/30/23 19:20) Hives metronidazole [METRONIDAZOLE] Allergy (Intermediate, Verified 04/30/23 19:20) Hives Penicillins Allergy (Intermediate, Verified 04/30/23 19:20) HIVES Sulfa (Sulfonamide Antibiotics) Allergy (Intermediate, Verified 04/30/23 19:20) HIVES HPI New Prob- Left hip pain HPI Details Julio is a 68 year old man who returns with complaints of new left hip pain. He is ~6 months S/P right JIGNESH, with good relief. 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 His primary complaint is of feeling imbalance recently. He has some mild pain in his hip, and says his left hip feels similar to his right hip pain prior to surgery, similar to a groin pull . He denies any groin pain He also complains of some lower back pain. He says he has a hx of Gout and just finished a course of medication for this. [facility] Medical History Anal pain BPH (benign prostatic hyperplasia) Cervical disc disease COVID-19 vaccination declined Depression Diverticulitis Elevated cholesterol Gout History of COVID-19 Insomnia Kidney stones Osteoarthritis Skin lesions Surgical History H/O blepharoplasty H/O colonoscopy History of arthroscopic surgery of shoulder History of nasal surgery Hx of appendectomy Hx of cystoscopy Hx of cystoscopy Hx of lithotripsy Social History Household Members: Other Household Members Other:: Roomate Housing: Condominium Are you a primary resident care spec to a significant other at home: No Do you presently have visiting nurse or other home services: No Alcohol intake: current Alcohol intake frequency: holidays/special occasions only Alcohol type: wine Patient Tobacco Use Status: Never used Tobacco service: No Current occupational status: employed 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 Review of Systems Const All systems reviewed & are unremarkable except as noted in HPI and below Physical Exam Const General: no acute distress, alert and awake Orientation/consciousness: patient oriented x3 HEENT Head: Yes normocephalic and Yes atraumatic Eyes EOM: EOMs intact bilaterally Resp Effort & Inspection: normal respiratory effort and able to speak in complete sentences Cardio Jugular venous distension: no JVD Skin General skin exam: turgor normal Rashes: no rashes Neuro General: patient oriented x3 Extrem Other: Left Hip: No groin pain with hip ROM nl gait Psych Appearance: grossly normal Affect: normal affect Attitude: cooperative Results Reviewed Results Reviewed: I personally reviewed relevant radiographs. Cam deformity left hip but minimal OA Assessment & Plan Assessment & Plan (1) History of total right hip replacement: Code(s): Z96.641 - Presence of right artificial hip joint Plan: S/P right JIGNESH, DOS: 12/03/22. I recommend he continue to work on strengthening exercises. Follow up as needed. Plan This is a 68 year old man who presents with complaints of mild left hip pain. He denies any groin pain with activity and has good ROM. No acute intervention warranted, he can follow up prn. Coding Level of Care Code Est Pt Level 4 (58075) Diagnoses History of total right hip replacement Z96.641
== END 2023-06-01 10:13 | disposition home or self-care (01) ==
PROVIDERS: PCP Internal Medicine; Visit Provider Orthopaedic Surgery
DX: M25.552 Pain in left hip (principal); Z96.641 Presence of right artificial hip joint
CPT/HCPCS: 99213

== ENCOUNTER → 2023-06-01 09:49 | Outpatient (BNVA) | payer MEDICARE, SELFPAY | PROVIDERS: PCP Internal Medicine; Visit Provider Orthopaedic Surgery ==

== ENCOUNTER 2023-06-02 11:28 | Outpatient (AMB) | payer MEDICARE, SELFPAY ==
--- NOTE | 2023-06-02 11:49 | MHC.OFFVIS ---
Intake Intake Visit Reasons: med review Intake Note: Patient is present for follow up BPH/urinary urgency/nocturia Urology Med: alfuzosin Blood Thinner: None PVR: 17ml's Knife Operator Required: No Accompanied by: Self / Same As Patient Allergies citalopram [CITALOPRAM] Allergy (Intermediate, Verified 06/02/23 15:39) Hives clindamycin Allergy (Intermediate, Verified 06/02/23 15:39) Hives metronidazole [METRONIDAZOLE] Allergy (Intermediate, Verified 06/02/23 15:39) Hives Penicillins Allergy (Intermediate, Verified 06/02/23 15:39) HIVES Sulfa (Sulfonamide Antibiotics) Allergy (Intermediate, Verified 06/02/23 15:39) HIVES Medication List - Last Reconciled 06/02/23 by BLAZE Abel-VICENTE acetaminophen 650 mg (2 x 325 mg) PO Q6H PRN 30 days aspirin 325 mg PO BID 6 weeks oxycodone 5 mg PO Q12H PRN 7 days psyllium husk (Metamucil) 1 tbsp PO DAILY [Raised toliet seat As directed] walker Folding front wheeled walker HPI HPI Comments History of Present Illness Details Julio is a pleasant 68 year old male patient of Dr. Goodson. He has a past medical history of BPH, cervical disc disease, depression, diverticulitis, hypercholesteremia, gout, insomnia, renal stones, and osteoarthritis. He presents to the office for follow-up of his benign prostatic hyperplasia. In discussion with the patient today reports to be doing and feeling well. He reports calling to make sooner appointment for review of urological medications. Patient reports he has trialed tamsulosin, terazosin, oxybutynin, and alfuzosin and does not feel lower urinary tract symptoms have improved with any of these medications. He discusses medications are not working and he is experiencing side effects from medications such as retrograde ejaculation, dizziness, and dry mouth he does not wish to continue these medications. Discussed obtaining retroperitoneal ultrasound for further assessment evaluation and further assessing if patient is a candidate for question of TURP. Will also assess for nephrolithiasis with retroperitoneal ultrasound. Patient otherwise denies hematuria, dysuria, foul smelling urine, changes to urinary stream, flank pain, fever, and or chills. He discusses his recent left hip replacement and his ball room dancing. He otherwise offers no issues or concerns at this time. In review of patient's chart PSAs are as follows... 08/22--1.8 05/24--3.1 02/23--2.7 Lower urinary tract symptoms Progressive Primarily nocturia 2-3 times Prior medications tamsulosin minimal effect Minimal benefit from combination terazosin oxybutynin Nephrolithiasis Long history of chronic renal stone disease Has undergone multiple procedures with ESWL Does feel he may have stone currently Has previously been able to pass stones Stone composition - 01/23 uric acid with calcium oxalate, 03/25 mixed calcium oxalate 80% monohydrate Imaging - renal ultrasound 07/24 multiple renal stones, 3 on right, 2 on left. Bilateral renal cysts. Stones approximately 5 mm - 06/25 renal ultrasound bilateral renal cyst stable. Small stone? On right 2 mm - 08/26 renal ultrasound bilateral renal cysts, query small stone 3 mm right side Intervention - 03/25 right ureteroscopy, laser lithotripsy and stent placement Therapeutic plan - vitamin B6, fluids PFSH Medical History Anal pain BPH (benign prostatic hyperplasia) Cervical disc disease COVID-19 vaccination declined Depression Diverticulitis Elevated cholesterol Gout History of COVID-19 Insomnia Kidney stones Osteoarthritis Skin lesions Surgical History H/O blepharoplasty H/O colonoscopy History of arthroscopic surgery of shoulder History of nasal surgery Hx of appendectomy Hx of cystoscopy Hx of cystoscopy Hx of lithotripsy Social History Household Members: Other Household Members Other:: Roomate Housing: Condominium Are you a primary pet caretaker to a significant other at home: No Do you presently have visiting nurse or other home services: No Alcohol intake: current Alcohol intake frequency: holidays/special occasions only Alcohol type: wine Patient Tobacco Use Status: Never used Tobacco service: No Current occupational status: employed 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 Review of Systems Const Reports as per HPI Eyes Reports no additional complaints ENT Reports no additional complaints Card Reports as per HPI Resp Reports no additional complaints GI Reports as per HPI Reports as per HPI Musc Reports as per HPI Neuro Reports no additional complaints Psych Reports as per HPI Physical Exam Const General: cooperative, healthy appearing, comfortable, no acute distress, well developed, alert and awake Orientation/consciousness: patient oriented x3 Limitations: no limitations HEENT Head: Yes normal to inspection, Yes normocephalic and Yes atraumatic Ears: hearing grossly normal bilaterally Eyes General: appearance normal, both eyes and all related structures Neck Neck: Yes normal visual inspection and Yes trachea midline Chest Chest palpation & inspection: normal inspection of the chest Resp Effort & Inspection: normal respiratory effort and able to speak in complete sentences Cardio Rate: regular rate GI Inspection: Yes normal to inspection General: Yes no CVA tenderness Back/Spine/Pelvis Back: no CVA tenderness Skin General skin exam: no rashes or lesions noted Neuro General: patient oriented x3 Extrem General: Yes normal to inspection Psych Appearance: grossly normal and well kempt Mental Status: mental status grossly normal Speech and movement: Normal speech and movement present and Clear speech present Affect: normal affect Attitude: cooperative Thought process: Normal thought process present Thought content: Normal thought content present Insight: Good insight present (Psych) Judgement: Good judgement present (Psych) Office Procedures Post Void Residual Post Residual Void Post Void Residual (PVR): 17 [id number] Void Residual by ultrasound Results AMB Urinalysis, Automated UA Leukoctes 0 Fortino/uL Last Edit by [employer] on 06/02/23 12:27 UA Nitrite Last Edit by [employer] on 06/02/23 12:27 UA Urobilinogen 0.2 mg/dL Last Edit by [employer] on 06/02/23 12:27 UA Protein 0 mg/dL Last Edit by [employer] on 06/02/23 12:27 UA pH 7.0 Last Edit by [employer] on 06/02/23 12:27 UA Blood 0 Edwin/uL Last Edit by [employer] on 06/02/23 12:27 UA Specific [place] 1.015 Last Edit by [employer] on 06/02/23 12:27 UA Ketone Negative Last Edit by [employer] on 06/02/23 12:27 UA Bilirubin 0 mg/dL Last Edit by [employer] on 06/02/23 12:27 UA Glucose 0 mg/dL Last Edit by [employer] on 06/02/23 12:27 Results Reviewed Results Reviewed: Laboratory Last Values Urine pH (Auto) 7.0 06/02/23 11:58 Specific [place] (Auto) 1.015 06/02/23 11:58 Urine Protein (Auto) 0 mg/dL 06/02/23 11:58 Glucose (UA)(Auto) 0 mg/dL 06/02/23 11:58 Urine Ketones (Auto) Negative 06/02/23 11:58 Urine Blood (Auto) 0 Edwin/uL 06/02/23 11:58 Urine Bilirubin (Auto) 0 mg/dL 06/02/23 11:58 Urine Urobilinogen (Auto) 0.2 mg/dL 06/02/23 11:58 Leukocyte Esterase (Auto) 0 Fortino/uL 06/02/23 11:58 Assessment & Plan Assessment & Plan (1) Nocturia: Code(s): R35.1 - Nocturia (2) Urinary urgency: Code(s): R39.15 - Urgency of urination (3) BPH w urinary obs/LUTS: Code(s): N40.1 - Benign prostatic hyperplasia with lower urinary tract symptoms; N13.8 - Other obstructive and reflux uropathy Plan In office urinalysis results reviewed with the patient today; as noted above. PVR-17mls Discontinue all urological medications; as noted above. Will obtain retroperitoneal ultrasound for further assessment evaluation. Will obtain PSA for further assessment evaluation Discussed near future in office cystoscopy for further assessment evaluation. Discussed limiting fluids 3-4 hours prior to bed to assist with decreasing episodes of nocturia. Follow-up in 1-2 months with imaging to be completed prior; or sooner with any issues, concerns, and or questions. Orders: Orders Prostate Specific Antigen Today N13.8 - Other obstructive and reflux uropathy, N40.1 - Benign prostatic hyperplasia with lower urinary tract symptoms AMB Urinalysis Automated Today Z13.9 - Encounter for screening, unspecified AMB Post Void Residual by ultrasound Today N13.8 - Other obstructive and reflux uropathy, N40.1 - Benign prostatic hyperplasia with lower urinary tract symptoms Patient Instructions: The patient had an opportunity to ask questions regarding the treatment plan. All questions were answered. Physical exam, labs, and imaging were discussed and reviewed in detail. As well as risks, benefits, and discussion of treatment choices. No major barriers to understanding were identified. The patient expressed understanding and agreement with the above treatment plan. The patient was made aware they should contact our office by phone for worsening of their current condition, the appearance of new symptoms, or with any questions or concerns. Compliance is encouraged with any medications and follow up testing that is ordered. It is a privilege to be allowed the opportunity to participate in? your urological care.? Again, if you have any questions or concerns If you have any questions or concerns please do not hesitate to contact me. The office is [phone]. This note is constructed using voice recognition software. While every effort has been made to ensure accuracy bench chemist errors may have been included. Yours sincerely, JAYLIN Abel Coding Level of Care Code Est Pt Level 3 (62564) Diagnoses Nocturia R35.1 Urinary urgency R39.15 BPH w urinary obs/LUTS N40.1; N13.8 CPT Codes Post Residual Void - PVR CPT Code: 66907-Lsre Void Residual by ultrasound ([id number])
== END 2023-06-02 12:32 | disposition home or self-care (01) ==
PROVIDERS: PCP Internal Medicine; Visit Provider Nurse Practitioner Family
DX: N40.1 Benign prostatic hyperplasia with lower urinary tract symptoms (principal); R35.1 Nocturia; R39.15 Urgency of urination; N13.8 Other obstructive and reflux uropathy
CPT/HCPCS: 99213

== ENCOUNTER → 2023-06-02 11:28 | Outpatient (BNVA) | payer MEDICARE, SELFPAY | PROVIDERS: PCP Internal Medicine; Visit Provider Nurse Practitioner Family | DX: N40.1 Benign prostatic hyperplasia with lower urinary tract symptoms (principal); N13.8 Other obstructive and reflux uropathy; R35.1 Nocturia; R39.15 Urgency of urination | CPT/HCPCS: 51798; 81003; 99212 ==

== ENCOUNTER 2023-07-20 11:28 | Outpatient (REF) | payer MEDICARE, SELFPAY ==
--- NOTE | ~2023-07-20 | US_ITS ---
EXAMINATION: US RETROPERITONEAL COMPLETE (RENAL) CLINICAL INFORMATION: Benign prostatic hyperplasia with lower urinary tract symptoms. COMPARISON: CT abdomen and pelvis without contrast 04/30/2023. Ultrasound retroperitoneal limited (renal only) 09/01/2022 and 02/20/2022. X-ray abdomen KUB 05/11/2019 and 02/16/2019. TECHNIQUE: Real-time imaging of the kidneys and bladder. Limited visualization due to bowel gas. FINDINGS: RIGHT KIDNEY: 11.5 x 6.8 x 6.3 cm (SAG x AP x TRV). No hydronephrosis. No renal calculi. Limited visualization. 4.3 x 4.3 x 4.9 cm midpole cyst with thin septations, better characterized on prior CT scan. There is no indication for followup imaging. LEFT KIDNEY: 10.4 x 5.8 x 5.3 cm (SAG x AP x TRV). No hydronephrosis. Limited visualization. Lower pole renal calculi measure 0.3 cm and 0.5 cm 1.0 x 1.2 x 1.1 cm midpole cyst with septation. 2.2 x 1.9 x 1.7 cm exophytic cyst midpole cyst with septation. These cysts are difficult to fully characterize due to limited visualization and were better characterized on prior CT exams. There is no indication for followup imaging at this time. BLADDER: Partially distended, limiting evaluation. Bilateral ureteral jets are demonstrated. Prevoid bladder volume is 91.1 mL. Postvoid bladder volume is 25.9 mL. ADDITIONAL FINDINGS: Prostate volume is 73.6 mL, enlarged. Irregularity and trabeculation of the bladder wall, although visualization limited due to suboptimal distention. US/US retroperitoneal comp IMPRESSION: 1. Prostate gland is enlarged. Irregularity and trabeculation of the bladder wall, although visualization limited due to suboptimal distention. Postvoid bladder volume is 25.9 mL. 2. No hydronephrosis. Small left renal calculi, largest 0.5 cm lower pole.
== END 2023-07-20 11:29 | disposition home or self-care (01) ==
LOC: HO.HMGCX 11:28
PROVIDERS: PCP Internal Medicine; Visit Provider Nurse Practitioner Family
DX: N40.1 Benign prostatic hyperplasia with lower urinary tract symptoms (principal); N13.8 Other obstructive and reflux uropathy; R35.1 Nocturia; R39.15 Urgency of urination
CPT/HCPCS: 76770

== ENCOUNTER 2023-08-10 20:28 | Emergency (ER) | payer MEDICARE, SELFPAY ==
--- NOTE | ~2023-08-10 | XR_ITS ---
EXAMINATION: CHEST 2 VIEWS CLINICAL INFORMATION: pain. COMPARISON: No recent pertinent prior studies are available for comparison. TECHNIQUE: PA and lateral views of the chest obtained. FINDINGS: The lungs are well expanded. Linear scarring at the left lung base. No focal infiltrate, effusion, edema, or pneumothorax. Cardiac and mediastinal silhouettes are within normal limits for technique. No acute bony abnormality seen XR/XR chest 2V IMPRESSION: No evidence of acute disease
[2023-08-10 20:49] VITALS: BP 157/90; PULSE 81; RESP 16; TEMP 36.8; O2SAT 94; BMI 26.6
--- NOTE | 2023-08-10 20:51 | ED.GENADULT ---
HPI - General Adult General Chief complaint: Fever Stated complaint: fever, shaking lower abd pain Time Seen by Provider: 08/10/23 23:44 Source: patient Mode of arrival: ambulatory Limitations: no limitations History of Present Illness HPI narrative: Patient been having fever with shaking chills since yesterday off and on T-max 100.9 degrees no cough or shortness of breath no rash nor sore throat no urinary symptoms no urinary symptoms no abdominal pain. No history of prostate infection the past no history of tick bite no other family member sick patient had jaw up lift 5 weeks ago , no signs of infection at the site of surgery no recent travel no mosquito bites Related Data Home Medications Medication Instructions Recorded Confirmed psyllium husk 3.4 gram/5.4 gram 1 tbsp PO DAILY 11/25/22 11/25/22 oral powder (Metamucil) Previous Rx's Medication Instructions Recorded Raised toliet seat #1 ea 11/14/22 walker #1 ea 11/14/22 acetaminophen 325 mg tablet 650 mg (2 x 325 mg) PO Q6H PRN 12/03/22 Pain, Mild (Pain Scale 1-3) 30 days #240 tabs aspirin 325 mg tablet 325 mg PO BID 6 weeks #84 tabs 12/03/22 oxycodone 5 mg tablet 5 mg PO Q12H PRN Pain, Moderate 01/19/23 (Pain Scale 4-6 7 days #14 tabs cefuroxime axetil 500 mg tablet 500 mg PO BID 10 days #20 tabs 08/11/23 doxycycline hyclate 100 mg tablet 100 mg PO BID #20 tabs 08/11/23 ibuprofen 600 mg tablet 600 mg PO Q6H PRN fever or pain 08/11/23 #30 tabs Allergies Allergy/AdvReac Type Severity Reaction Status Date / Time citalopram [CITALOPRAM] Allergy Intermediate Hives Verified 06/02/23 15:39 clindamycin Allergy Intermediate Hives Verified 06/02/23 15:39 metronidazole [METRONIDAZOLE] Allergy Intermediate Hives Verified 06/02/23 15:39 Penicillins Allergy Intermediate HIVES Verified 06/02/23 15:39 Sulfa (Sulfonamide Allergy Intermediate HIVES Verified 06/02/23 15:39 Antibiotics) Review of Systems Review of Systems: Yes all other systems are reviewed and are negative PMFSH Past Medical History Medical History Anal pain BPH (benign prostatic hyperplasia) Cervical disc disease COVID-19 vaccination declined Depression Diverticulitis Elevated cholesterol Gout History of COVID-19 Insomnia Kidney stones Osteoarthritis Skin lesions Surgical History H/O blepharoplasty H/O colonoscopy History of arthroscopic surgery of shoulder History of nasal surgery Hx of appendectomy Hx of cystoscopy Hx of cystoscopy Hx of lithotripsy Social History Social History Household Members: Other Household Members Other:: Roomate Housing: Condominium Are you a primary manager care management to a significant other at home: No Do you presently have visiting nurse or other home services: No Alcohol intake: current Alcohol intake frequency: a few times a month Alcohol type: wine Patient Tobacco Use Status: Never used Tobacco Smoked in Last 30 Days: No Use of substances other than those prescribed or required for medical reasons: No Advance Directives: No Advance Directives Information Provided: Yes service: No Current occupational status: employed 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 Physical Exam ED Vital Signs: Vital Signs - 24 hr 08/11/23 02:23 Temperature 98.4 F Pulse Rate 74 Respiratory Rate 12 Blood Pressure 134/78 Pulse Oximetry 96 Oxygen Delivery Method Room Air BMI result Body Mass Index 26.6 Appearance: Alert. Oriented X3. No acute distress. Eyes: No pallor or icterus ENT: Pharynx normal. Oral Mucosa moist mastoid normal Neck: Normal inspection. Neck supple. CVS: Normal heart rate and rhythm. Pulses normal. Respiratory: No respiratory distress. Equal air entry bilateral, no wheezing/rales/rhonchi Abdomen: Soft and nontender. Bowel sounds are present, no mass palpable, no CVA tenderness rectal: Normal prostate nontender Skin: Skin warm and dry. Normal skin color. Normal skin turgor. Extremities: No lower extremity edema. No calf tenderness Neuro: Oriented X 3. No motor deficit. Course Course Course Narrative: RME- 68 year old male presents for evaluation of fevers, chills and lower abdominal pain. T max 100.9. Plan for labs including blood cultures Medications Administered Discontinued Medications Generic Name Dose Route Start Last Admin Trade Name Freq PRN Reason Stop Dose Admin Doxycycline Monohydrate 100 mg 08/11/23 01:08 08/11/23 01:31 Doxycycline Monohydrate 100 Mg Capsule PO 08/11/23 01:09 100 mg ONCE ONE Administration Sodium Chloride 1,000 mls @ 999 mls/hr 08/11/23 00:05 08/11/23 01:35 Ns IV 08/11/23 01:05 Infused .Q1H1M ONE Infusion Ceftriaxone Sodium 1 gm/ 50 mls @ 100 mls/hr 08/11/23 01:13 08/11/23 02:22 Sodium Chloride IV 08/11/23 01:42 Infused ONCE ONE Infusion Ibuprofen 600 mg 08/11/23 00:05 08/11/23 00:23 Ibuprofen 600 Mg Tablet PO 08/11/23 00:06 600 mg ONCE ONE Administration Medical Decision Making Medical Decision Making [facility] Narrative: Patient with fever and chills of unknown origin elevated lactic acid level to 2.7 responded to IV fluid patient does have severe chills likely has bacteremia will start patient prophylactically on doxy and Ceftin no history of tick bite no source of infection so far blood cultures are drawn Differential Diagnosis Differential Diagnoses: The differential diagnosis associated with the presentation includes Viral fever/strep throat/pneumonia/UTI Admission/Observation Consideration of admission/observation: Escalation of care including admission/observation considered Lab Data [facility] Lab Attestation statement: I reviewed the patient's lab results. 08/10/23 22:59 08/10/23 22:59 Labs: Lab Results 08/10/23 08/10/23 08/11/23 Range/Units 22:59 23:02 00:12 WBC 3.6 L (4.8-10.8) X10*3/uL RBC 6.05 H (4.60-5.80) X10*6/uL Hgb 17.2 (14.0-18.0) g/dl Hct 52.3 H (42.0-52.0) % MCV 86.4 (80.0-98.0) fL MCH 28.4 (27.0-33.0) pg MCHC 32.9 (31.0-36.0) g/dl RDW 14.0 (11.0-16.0) % Plt Count 121 L D (160-400) X10*3/uL MPV 9.5 (9.4-12.4) fL Immature Gran % (Auto) 0.3 (0.0-0.4) % Neut % (Auto) 76.2 H (45-73) % Lymph % (Auto) 13.7 L (20-40) % [place] % (Auto) 9.2 (2-11) % Eos % (Auto) 0.0 (0-4) % Baso % (Auto) 0.6 (0-2) % Lymph # (Auto) 0.5 L (1.2-4.9) X10*3/uL [place] # (Auto) 0.3 (0.1-1.2) X10*3/uL Eos # (Auto) 0.0 (0.0-0.4) X10*3/uL Baso # (Auto) 0.0 (0.0-0.2) X10*3/uL Abs Immat Gran (auto) 0.01 (0.00-0.03) X10*3/uL Absolute Neuts (auto) 2.7 (2.0-8.3) x10*3/uL Absolute Nucleated RBC 0.000 (0.0-0.012) X10*3/uL Nucleated RBC % (auto) 0.0 (0.0-0.2) /100WBC Sodium 139 (135-145) mmol/L Potassium 3.4 (3.3-5.1) mmol/L Chloride 104 (96-108) mmol/L Carbon Dioxide 24 (22-29) mmol/L Anion Gap 14 (12-20) BUN 16 (9-16) mg/dL Creatinine 1.32 (0.5-1.4) mg/dL Estim Creat Clear Calc 57.8 Estimated GFR 54 Random Glucose 148 H (60-115) mg/dL Lactic Acid 2.7 H* (0.5-2.0) mmol/L Lactic Acid F/U @ 2Hr (0.5-2.0) mmol/L Calcium 9.4 (8.4-10.2) mg/dL Total Bilirubin 1.1 H (0.0-1.0) mg/dL AST 24 (5-37) U/L ALT 22 (0-40) U/L Alkaline Phosphatase 103 (39-117) U/L Total Protein 8.0 (6.5-8.0) g/dL Albumin 4.6 (3.5-5.0) g/dL Lipase 28 (8-78) U/L Urine Color Dark Yellow Urine Appearance Clear Urine pH 5.5 (5.0-9.0) Ur Specific [place] >= 1.030 H (1.005-1.025) Urine Protein Trace (Neg-Trace) mg/dL Urine Glucose (UA) Negative (Negative) mg/dL Urine Ketones Trace (Negative) mg/dL Urine Blood Negative (Negative) Urine Nitrite Negative (Negative) Ur Leukocyte Esterase Negative (Negative) Urine RBC 0-2 (0-2) /HPF Urine WBC 0-5 (0-5) /HPF Ur Squamous Epith Cells 0-2 (0-2) /HPF Urine Bacteria None Seen (None Seen) Hyaline Casts 0-2 (0-2) /LPF Influenza Type A (PCR) NEGATIVE (Negative) Influenza Type B (PCR) NEGATIVE (Negative) RSV RNA Qual (PCR) NEGATIVE (Negative) SARS-CoV-2 RNA (RT-PCR) NEGATIVE (Negative) 08/11/23 Range/Units 01:29 WBC (4.8-10.8) X10*3/uL RBC (4.60-5.80) X10*6/uL Hgb (14.0-18.0) g/dl Hct (42.0-52.0) % MCV (80.0-98.0) fL MCH (27.0-33.0) pg MCHC (31.0-36.0) g/dl RDW (11.0-16.0) % Plt Count (160-400) X10*3/uL MPV (9.4-12.4) fL Immature Gran % (Auto) (0.0-0.4) % Neut % (Auto) (45-73) % Lymph % (Auto) (20-40) % [place] % (Auto) (2-11) % Eos % (Auto) (0-4) % Baso % (Auto) (0-2) % Lymph # (Auto) (1.2-4.9) X10*3/uL [place] # (Auto) (0.1-1.2) X10*3/uL Eos # (Auto) (0.0-0.4) X10*3/uL Baso # (Auto) (0.0-0.2) X10*3/uL Abs Immat Gran (auto) (0.00-0.03) X10*3/uL Absolute Neuts (auto) (2.0-8.3) x10*3/uL Absolute Nucleated RBC (0.0-0.012) X10*3/uL Nucleated RBC % (auto) (0.0-0.2) /100WBC Sodium (135-145) mmol/L Potassium (3.3-5.1) mmol/L Chloride (96-108) mmol/L Carbon Dioxide (22-29) mmol/L Anion Gap (12-20) BUN (9-16) mg/dL Creatinine (0.5-1.4) mg/dL Estim Creat Clear Calc Estimated GFR Random Glucose (60-115) mg/dL Lactic Acid (0.5-2.0) mmol/L Lactic Acid F/U @ 2Hr 0.7 (0.5-2.0) mmol/L Calcium (8.4-10.2) mg/dL Total Bilirubin (0.0-1.0) mg/dL AST (5-37) U/L ALT (0-40) U/L Alkaline Phosphatase (39-117) U/L Total Protein (6.5-8.0) g/dL Albumin (3.5-5.0) g/dL Lipase (8-78) U/L Urine Color Urine Appearance Urine pH (5.0-9.0) Ur Specific [place] (1.005-1.025) Urine Protein (Neg-Trace) mg/dL Urine Glucose (UA) (Negative) mg/dL Urine Ketones (Negative) mg/dL Urine Blood (Negative) Urine Nitrite (Negative) Ur Leukocyte Esterase (Negative) Urine RBC (0-2) /HPF Urine WBC (0-5) /HPF Ur Squamous Epith Cells (0-2) /HPF Urine Bacteria (None Seen) Hyaline Casts (0-2) /LPF Influenza Type A (PCR) (Negative) Influenza Type B (PCR) (Negative) RSV RNA Qual (PCR) (Negative) SARS-CoV-2 RNA (RT-PCR) (Negative) Discharge Plan Discharge Clinical Impression: Fever and chills Patient Disposition: Home, Self-Care Instructions: Fever in Adults (ED) Additional Instructions: Cause of the fever is not very clear Blood cultures were drawn will Give prophylactic antibiotics pending blood cultures as likely you may have bacteremia although is not very clear Report to the ER if continued to have fever/ not feeling better Prescriptions: New cefuroxime axetil 500 mg tablet 500 mg PO BID 10 Days Qty: 20 0RF doxycycline hyclate 100 mg tablet 100 mg PO BID Qty: 20 0RF ibuprofen 600 mg tablet 600 mg PO Q6H PRN (Reason: fever or pain) Qty: 30 0RF No Action (DME) walker Misc See Rx Instructions .ROUTE .MEDSUPPLY Qty: 1 0RF Rx Instructions: Folding front wheeled walker (DME) Raised toliet seat See Rx Instructions .ROUTE .MEDSUPPLY Qty: 1 0RF Rx Instructions: As directed oxycodone 5 mg tablet 5 mg PO Q12H PRN (Reason: Pain, Moderate (Pain Scale 4-6) 7 Days Qty: 14 0RF Rx Instructions: Partial Fill upon patient request. Metamucil 3.4 gram/5.4 gram Powder 1 tbsp PO DAILY Rx Instructions: mix into at least 8 oz of water or juice before administering acetaminophen 325 mg Tablet 650 mg PO Q6H PRN (Reason: Pain, Mild (Pain Scale 1-3)) 30 Days Qty: 240 0RF aspirin 325 mg Tablet 325 mg PO BID 42 Days Qty: 84 0RF Interventions: ED Discharge Assessment Last Done: 08/11/23 02:29 Discharge Date/Time: 08/11/23 02:30
[2023-08-10 23:10] LABS: MANUAL DIFF FLAG NO
[2023-08-10 23:11] LABS: Basophils Percent Auto 0.6 % (0-2); Hematocrit 52.3 % (42.0-52.0); Hemoglobin 17.2 g/dl (14.0-18.0); Imm Gran Abs Auto 0.01 X10*3/uL (0.00-0.03); Imm Gran Pct Auto 0.3 % (0.0-0.4); Lymphocytes Absolute Auto 0.5 X10*3/uL (1.2-4.9); Lymphocytes Percent Auto 13.7 % (20-40); Mean Corpuscular HGB Conc 32.9 g/dl (31.0-36.0); Mean Corpuscular Hemoglobin 28.4 pg (27.0-33.0); Mean Corpuscular Volume 86.4 fL (80.0-98.0); Mean Platelet Volume 9.5 fL (9.4-12.4); Monocytes Absolute Auto 0.3 X10*3/uL (0.1-1.2); Monocytes Percent Auto 9.2 % (2-11); Neutrophils Absolute Auto 2.7 x10*3/uL (2.0-8.3); Neutrophils Percent Auto 76.2 % (45-73); Platelet Count 121 X10*3/uL (160-400); Red Blood Count 6.05 X10*6/uL (4.60-5.80); White Blood Count 3.6 X10*3/uL (4.8-10.8)
[2023-08-10 23:12] LABS: Appearance Urine Clear; Color Urine Dark Yellow; Glucose Urine UA Negative (Negative); Leukocyte Esterase Urine Negative (Negative); Nitrite Urine Negative (Negative); PH 5.5 (5.0-9.0); Specific Gravity - Urine >= 1.030 (1.005-1.025); Urine Blood Negative (Negative); Urine Ketones Trace mg/dL (Negative); Urine Protein Trace mg/dL (Neg-Trace)
[2023-08-10 23:14] VITALS: BP 140/80; PULSE 89; RESP 14; TEMP 36.9; O2SAT 95
[2023-08-10 23:17] LABS: Bacteria Urine None Seen (None Seen); Hyaline Casts Urine 0-2 /LPF (0-2); RBC Urine 0-2 /HPF (0-2); Squamous Epithelial Cell Urine 0-2 /HPF (0-2); WBC Urine 0-5 /HPF (0-5)
[2023-08-10 23:25] LABS: Alanine Aminotransferase 22 U/L (0-40); Albumin Level 4.6 g/dL (3.5-5.0); Alkaline Phosphatase 103 U/L (39-117); Anion Gap 14 (12-20); Aspartate Amino Transferase 24 U/L (5-37); Bilirubin Total 1.1 mg/dL (0.0-1.0); Blood Urea Nitrogen 16 mg/dL (9-16); Calcium 9.4 mg/dL (8.4-10.2); Carbon Dioxide 24 mmol/L (22-29); Chloride 104 mmol/L (96-108); Creatinine Clr Calc Pharmacy 57.8; Estimated Glomerular Filt Rate 54; Glucose Random 148 mg/dL (60-115); Lactic Acid 2.7 mmol/L (0.5-2.0); Lipase 28 U/L (8-78); Potassium 3.4 mmol/L (3.3-5.1); Sodium 139 mmol/L (135-145)
[2023-08-10 23:33] VITALS: BP 127/79; PULSE 87; RESP 16; TEMP 37.3; O2SAT 95
[2023-08-11] MEDS: 0.9 % Sodium Chloride 1,000 ML 999 ML IV (00:23)
[2023-08-11] MEDS: Ibuprofen 600 MG TABLET PO (00:23)
[2023-08-11 00:55] LABS: Influenza A PCR NEGATIVE (Negative); Influenza B PCR NEGATIVE (Negative); Resp Syncy Virus RNA Qual PCR NEGATIVE (Negative); SARS COV2 PCR INHOUSE NEGATIVE (Negative)
[2023-08-11 01:08] LABS: Reflex Lactate? Lactic Acid Added
[2023-08-11] MEDS: Doxycycline Monohydrate 100 MG CAPSULE PO (01:31)
[2023-08-11] MEDS: cefTRIAXone sodium 1 GM in 0.9 % Sodium Chloride 50 ML IV (01:31)
[2023-08-11 01:49] LABS: ~Lactic Acid-LAB USE ONLY 0.7 mmol/L (0.5-2.0)
[2023-08-11 02:23] VITALS: BP 134/78; PULSE 74; RESP 12; TEMP 36.9; O2SAT 96
[2023-08-13 04:53] LABS: Lyme Abs Screen <0.90 index
== END 2023-08-11 02:30 | disposition home or self-care (01) ==
PROVIDERS: Physician Assistant; Emergency Provider Internal Medicine; PCP Internal Medicine
DX: R50.9 Fever, unspecified (principal); R10.30 Lower abdominal pain, unspecified; R07.89 Other chest pain; Z20.822 Contact with and (suspected) exposure to COVID-19; Z20.828 Contact with and (suspected) exposure to other viral communicable diseases; Z79.899 Other long term (current) drug therapy
CPT/HCPCS: 0241U; 36415; 71046; 80053; 81001; 83605; 83690; 85025; 86617; 86618; 87040; 96361; 96365; 99284; J0696

== ENCOUNTER 2023-08-17 11:16 | Outpatient (REF) | payer MEDICARE, SELFPAY ==
[2023-08-17 12:31] LABS: Prostate Specific Antigen 2.98 ng/mL (<0.05-4.0)
== END 2023-08-17 11:17 | disposition home or self-care (01) ==
LOC: HO.LAB 11:16
PROVIDERS: PCP Internal Medicine; Visit Provider Nurse Practitioner Family
DX: N40.1 Benign prostatic hyperplasia with lower urinary tract symptoms (principal); N13.8 Other obstructive and reflux uropathy; Z12.5 Encounter for screening for malignant neoplasm of prostate
CPT/HCPCS: 36415; 84153

== ENCOUNTER 2023-08-18 09:38 | Outpatient (AMB) | payer MEDICARE, SELFPAY ==
--- NOTE | 2023-08-18 09:47 | A.OFFVIS_ITS ---
Intake Intake Visit Reasons: BPH w urinary obs/LUTS- follow up/US Intake Note: Patient is present for follow up BPH/urinary urgency/nocturia Urology Medications: none Blood Thinner: aspirin PVR: 191ml's Bingo Clerk Required: No Accompanied by: Self / Same As Patient Allergies citalopram [CITALOPRAM] Allergy (Intermediate, Verified 08/18/23 22:44) Hives clindamycin Allergy (Intermediate, Verified 08/18/23 22:44) Hives metronidazole [METRONIDAZOLE] Allergy (Intermediate, Verified 08/18/23 22:44) Hives Penicillins Allergy (Intermediate, Verified 08/18/23 22:44) HIVES Sulfa (Sulfonamide Antibiotics) Allergy (Intermediate, Verified 08/18/23 22:44) HIVES Medication List - Last Reconciled 08/18/23 by BLAZE Abel-VICENTE acetaminophen 650 mg (2 x 325 mg) PO Q6H PRN 30 days cefuroxime axetil 500 mg PO BID 10 days doxycycline hyclate 100 mg PO BID finasteride 5 mg PO DAILY 30 days ibuprofen 600 mg PO Q6H PRN lorazepam 1 mg PO DAILY PRN psyllium husk (Metamucil) 1 tbsp PO DAILY [Raised toliet seat As directed] terazosin 5 mg PO BEDTIME 30 days walker Folding front wheeled walker HPI HPI Comments History of Present Illness Details Julio is a pleasant 68 year old male patient of Dr. Goodson. He has a past medical history of BPH, cervical disc disease, depression, diverticulitis, hypercholesteremia, gout, insomnia, renal stones, and osteoarthritis. He presents to the office for follow-up of his benign prostatic hyperplasia. Of note, patient was seen approximately 2 and half months ago at which time retroperitoneal ultrasound and PSA were ordered for further assessment evaluation. These results reviewed with the patient today. Right kidney with no hydronephrosis or 4.3 x 4.3 x 4.9 cm midpole cyst with thin septations, better characterized on prior CT scan. There is no indication for followup imaging per radiology report. Left kidney with no hydronephrosis. L ower pole renal calculi measuring 0.3 cm and 0.5cm. 1.0 x 1.2 x 1.1 cm midpole cyst with septation. 2.2 x 1.9 x 1.7 cm exophytic cyst midpole cyst with septation. These cysts are difficult to fully characterize due to limited visualization and were better characterized on prior CT exams. There is no indication for followup imaging at this time per radiology report. The bladder is partially distended, limiting evaluation. Bilateral ureteral jets are demonstrated. Pre void bladder volume is approximately 90 mL. Postvoid bladder volume is approximately 25 mL. The prostate volume is enlarged at approximately 75 mL. Irregularity and trabeculation of the bladder wall, althoughvisualization limited due to suboptimal distention. Patient reports he has trialed tamsulosin, terazosin, oxybutynin, and alfuzosin and does not feel lower urinary tract symptoms have improved with any of these medications. He discusses medications are not working and he is experiencing side effects from medications such as retrograde ejaculation, dizziness, and dry mouth he does not wish to continue these medications. Discussed at length findings noted on retroperitoneal ultrasound noting enlarged prostate. Discuss trial of finasteride. Discussed nephrolithiasis as well as causes of nephrolithiasis. Patient otherwise denies hematuria, dysuria, foul smelling urine, changes to urinary stream, flank pain, fever, and or chills. He otherwise offers no issues or concerns at this time. In review of patient's chart PSAs are as follows... 08/22--1.8 05/24--3.1 02/23--2.7 08/27--3.0 Lower urinary tract symptoms Progressive Primarily nocturia 2-3 times Prior medications tamsulosin minimal effect Minimal benefit from combination terazosin oxybutynin Nephrolithiasis Long history of chronic renal stone disease Has undergone multiple procedures with ESWL Does feel he may have stone currently Has previously been able to pass stones Stone composition - 01/23 uric acid with calcium oxalate, 03/25 mixed calcium oxalate 80% monohydrate Imaging - renal ultrasound 07/24 multiple renal stones, 3 on right, 2 on left. Bilateral renal cysts. Stones approximately 5 mm - 06/25 renal ultrasound bilateral renal cyst stable. Small stone? On right 2 mm - 08/26 renal ultrasound bilateral renal cysts, query small stone 3 mm right side Intervention - 03/25 right ureteroscopy, laser lithotr ipsy and stent placement Therapeutic plan - vitamin B6, fluids PFSH Medical History Osteoarthritis Insomnia Gout Depression Cervical disc disease Elevated cholesterol Skin lesions Anal pain COVID-19 vaccination declined History of COVID-19 BPH (benign prostatic hyperplasia) Diverticulitis Kidney stones Surgical History History of arthroscopic surgery of shoulder H/O blepharoplasty History of nasal surgery Hx of cystoscopy Hx of cystoscopy Hx of lithotripsy H/O colonoscopy Hx of appendectomy Social History Household Members: Other Household Members Other:: Roomate Housing: Condominium Are you a primary group care worker to a significant other at home: No Do you presently have visiting nurse or other home services: No Alcohol intake: current Alcohol intake frequency: a few times a month Alcohol type: wine Patient Tobacco Use Status: Never used Tobacco service: No Current occupational status: employed 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 Review of Systems Const Reports as per HPI Eyes Reports no additional complaints ENT Reports no additional complaints Card Reports as per HPI Resp Reports no additional complaints GI Reports as per HPI Reports as per HPI Musc Reports as per HPI Neuro Reports no additional complaints Psych Reports as per HPI Physical Exam Const General: cooperative, healthy appearing, comfortable, no acute distress, well developed, alert and awake Orientation/consciousness: patient oriented x3 Limitations: no limitations HEENT Head: Yes normal to inspection, Yes normocephalic and Yes atraumatic Ears: hearing grossly normal bilaterally Eyes General: appearance normal, both eyes and all related structures Neck Neck: Yes normal visual inspection and Yes trachea midline Chest Chest palpation & inspection: normal inspection of the chest Resp Effort & Inspection: normal respiratory effort and able to speak in complete sentences Cardio Rate: regular rate GI Inspection: Yes normal to inspection General: Yes no CVA tenderness Back/Spine/Pelvis Back: no CVA tenderness Skin General skin exam: no rashes or lesions noted Neuro General: patient oriented x3 Extrem General: Yes normal to inspection Psych Appearance: grossly normal and well kempt Mental Status: mental status grossly normal Speech and movement: Normal speech and movement present and Clear speech present Affect: normal affect Attitude: cooperative Thought process: Normal thought process present Thought content: Normal thought content present Insight: Good insight present (Psych) Judgement: Good judgement present (Psych) Office Procedures Post Void Residual Post Residual Void Post Void Residual (PVR): [id number] Void Residual by ultrasound Results AMB Urinalysis, Automated UA Leukoctes 0 Fortino/uL Last Edit by Yamilet Andres on 08/18/23 10:08 UA Nitrite Negative Last Edit by Yamilet Andres on 08/18/23 10:08 UA Urobilinogen 0.2 mg/dL Last Edit by Yamilet Andres on 08/18/23 10:08 UA Protein 0 mg/dL Last Edit by Sabre Energylilibeth Andres on 08/18/23 10:08 UA pH 6.0 Last Edit by Sabre Energylilibeth Andres on 08/18/23 10:08 UA Blood 0 Edwin/uL Last Edit by [employer]noelle [employer]ma[employer] on 08/18/23 10:08 UA Specific Dale 1.025 Last Edit by [employer]elle Andres on 08/18/23 10:08 UA Ketone Negative Last Edit by [employer]noelle Andres on 08/18/23 10:08 UA Bilirubin 0 mg/dL Last Edit by Sabre Energylilibeth Andres on 08/18/23 10:08 UA Glucose 0 mg/dL Last Edit by [employer] on 08/18/23 10:08 Results Reviewed Results Reviewed: Laboratory Last Values Urine pH (Auto) 6.0 08/18/23 09:51 Specific Dale (Auto) 1.025 08/18/23 09:51 Urine Protein (Auto) 0 mg/dL 08/18/23 09:51 Glucose (UA)(Auto) 0 mg/dL 08/18/23 09:51 Urine Ketones (Auto) Negative 08/18/23 09:51 Urine Blood (Auto) 0 Edwin/uL 08/18/23 09:51 Urine Nitrite (Auto) Negative 08/18/23 09:51 Urine Bilirubin (Auto) 0 mg/dL 08/18/23 09:51 Urine Urobilinogen (Auto) 0.2 mg/dL 08/18/23 09:51 Leukocyte Esterase (Auto) 0 Fortino/uL 08/18/23 09:51 Date of Service: 07/20/23 EXAMINATION: US RETROPERITONEAL COMPLETE (RENAL) FINDINGS: RIGHT KIDNEY: 11.5 x 6.8 x 6.3 cm (SAG x AP x TRV). No hydronephrosis. No renal calculi. Limited visualization. 4.3 x 4.3 x 4.9 cm midpole cyst with thin septations, better characterized on prior CT scan. There is no indication for followup imaging. LEFT KIDNEY: 10.4 x 5.8 x 5.3 cm (SAG x AP x TRV). No hydronephrosis. Limited visualization. Lower pole renal calculi measure 0.3 cm and 0.5 cm 1.0 x 1.2 x 1.1 cm midpole cyst with septation. 2.2 x 1.9 x 1.7 cm exophytic cyst midpole cyst with septation. These cysts are difficult to fully characterize due to limited visualization and were better characterized on prior CT exams. There is no indication for followup imaging at this time. BLADDER: Partially distended, limiting evaluation. Bilateral ureteral jets are demonstrated. Prevoid bladder volume is 91.1 mL. Postvoid bladder volume is 25.9 mL. ADDITIONAL FINDINGS: Prostate volume is 73.6 mL, enlarged. Irregularity and trabeculation of the bladder wall, although visualization limited due to suboptimal distention. IMPRESSION: 1. Prostate gland is enlarged. Irregularity and trabeculation of the bladder wall, although visualization limited due to suboptimal distention. Postvoid bladder volume is 25.9 mL. 2. No hydronephrosis. Small left renal calculi, largest 0.5 cm lower pole. Assessment & Plan Assessment & Plan (1) Incomplete bladder emptying: Code(s): R33.9 - Retention of urine, unspecified (2) BPH w urinary obs/LUTS: Code(s): N40.1 - Benign prostatic hyperplasia with lower urinary tract symptoms; N13.8 - Other obstructive and reflux uropathy (3) Nocturia: Code(s): R35.1 - Nocturia (4) Enlarged prostate: Code(s): N40.0 - Benign prostatic hyperplasia without lower urinary tract symptoms (5) Bladder trabeculation: Code(s): N32.89 - Other specified disorders of bladder (6) Urinary urgency: Code(s): R39.15 - Urgency of urination Plan In office urinalysis results reviewed with the patient today; as noted above. PVR-191mls Recent retroperitoneal ultrasound results reviewed with the patient today; as noted above. Recent PSA results reviewed with the patient today; as noted above. Discussed at length potential causes for lower urinary tract symptoms patient is reporting. Patient with a history of multiple failed urological medications. Start finasteride as discussed and prescribed. Discussed at length causes and affects of incomplete bladder emptying. Discussed near future in office cystoscopy for further assessment evaluation if symptoms persist and/or worsen. Discussed limiting fluids 3-4 hours prior to bed to assist with decreasing episodes of nocturia. Follow-up in 6 weeks with PVR; or sooner with any issues, concerns, and or questions. Orders: Orders AMB Post Void Residual by ultrasound 08/18/23 R35.1 - Nocturia AMB Urinalysis Automated 08/18/23 Z13.9 - Encounter for screening, unspecified Medications: New finasteride 5 mg PO DAILY 30 days 30 tabs 1RF N40.1 - Benign prostatic hyperplasia with lower urinary tract symptoms, R33.9 - Retention of urine, unspecified terazosin 5 mg PO BEDTIME 30 days 30 caps 1RF N40.1 - Benign prostatic hyperplasia with lower urinary tract symptoms, R35.0 - Frequency of micturition Patient Instructions: The patient had an opportunity to ask questions regarding the treatment plan. All questions were answered. Physical exam, labs, and imaging were discussed and reviewed in detail. As well as risks, benefits, and discussion of treatment choices. No major barriers to understanding were identified. The patient expressed understanding and agreement with the above treatment plan. The patient was made aware they should contact our office by phone for worsening of their current condition, the appearance of new symptoms, or with any questions or concerns. Compliance is encouraged with any medications and follow up testing that is ordered. It is a privilege to be allowed the opportunity to participate in? your urological care.? Again, if you have any questions or concerns If you have any questions or concerns please do not hesitate to contact me. The office is [phone]. This note is constructed using voice recognition software. While every effort has been made to ensure accuracy mental retardation nurse errors may have been included. Yours sincerely, JAYLIN Abel Coding Level of Care Code Est Pt Level 4 (66541) Diagnoses Incomplete bladder emptying R33.9 BPH w urinary obs/LUTS N40.1; N13.8 Nocturia R35.1 Enlarged prostate N40.0 Bladder trabeculation N32.89 Urinary urgency R39.15 CPT Codes Post Residual Void - PVR CPT Code: 28233-Ovcq Void Residual by ultrasound ([id number])
== END 2023-08-18 11:12 | disposition home or self-care (01) ==
PROVIDERS: PCP Internal Medicine; Visit Provider Nurse Practitioner Family
DX: R33.9 Retention of urine, unspecified (principal); N40.1 Benign prostatic hyperplasia with lower urinary tract symptoms; N13.8 Other obstructive and reflux uropathy; R35.1 Nocturia; N40.0 Benign prostatic hyperplasia without lower urinary tract symptoms; N32.89 Other specified disorders of bladder; R39.15 Urgency of urination
CPT/HCPCS: 99214

== ENCOUNTER → 2023-08-18 09:38 | Outpatient (BNVA) | payer MEDICARE, SELFPAY | PROVIDERS: PCP Internal Medicine; Visit Provider Nurse Practitioner Family | DX: N40.1 Benign prostatic hyperplasia with lower urinary tract symptoms (principal); N13.8 Other obstructive and reflux uropathy; R33.9 Retention of urine, unspecified; R35.1 Nocturia; R39.15 Urgency of urination; N32.89 Other specified disorders of bladder | CPT/HCPCS: 51798; 81003; 99212 ==

== ENCOUNTER 2023-08-27 20:19 | Emergency (ER) | payer MEDICARE, SELFPAY ==
[2023-08-27 20:39] VITALS: BP 154/91
--- NOTE | 2023-08-27 20:39 | ECG_ITS ---
Test Reason : HTN Blood Pressure : / mmHG Vent. Rate : 072 BPM Atrial Rate : 072 BPM P-R Int : 216 ms QRS Dur : 102 ms QT Int : 388 ms P-R-T Axes : 072 -07 078 degrees QTc Int : 424 ms Sinus rhythm with 1st degree A-V block Inferior infarct , age undetermined Abnormal ECG When compared with ECG of 12-NOV-2022 11:27, Nonspecific T wave abnormality now evident in Lateral leads Referred By: Generic ED Physician Electronically Signed By:VIANEY PATEL MD
[2023-08-27 21:10] VITALS: BP 156/83; PULSE 72; RESP 16; TEMP 36.6; O2SAT 95; BMI 26.1
[2023-08-27 21:51] LABS: MANUAL DIFF FLAG NO
[2023-08-27 21:52] LABS: Basophils Percent Auto 0.7 % (0-2); Eosinophils Absolute Auto 0.2 X10*3/uL (0.0-0.4); Eosinophils Percent Auto 2.5 % (0-4); Hematocrit 48.2 % (42.0-52.0); Hemoglobin 15.9 g/dl (14.0-18.0); Imm Gran Abs Auto 0.01 X10*3/uL (0.00-0.03); Imm Gran Pct Auto 0.2 % (0.0-0.4); Lymphocytes Absolute Auto 2.3 X10*3/uL (1.2-4.9); Lymphocytes Percent Auto 38.2 % (20-40); Mean Corpuscular Hemoglobin 28.4 pg (27.0-33.0); Mean Corpuscular Volume 86.2 fL (80.0-98.0); Mean Platelet Volume 9.1 fL (9.4-12.4); Monocytes Absolute Auto 0.5 X10*3/uL (0.1-1.2); Monocytes Percent Auto 8.3 % (2-11); Neutrophils Percent Auto 50.1 % (45-73); Platelet Count 220 X10*3/uL (160-400); Red Blood Count 5.59 X10*6/uL (4.60-5.80); Red Cell Distribution Width 13.3 % (11.0-16.0); White Blood Count 5.9 X10*3/uL (4.8-10.8)
--- NOTE | 2023-08-27 22:02 | ED_ITS ---
HPI - General Adult General Chief complaint: General Medical Stated complaint: high blood pressure,chest discomfort Time Seen by Provider: 08/27/23 21:58 History of Present Illness HPI narrative: Patient came here for high blood pressure 175/90 patient noticed high blood pressure when he went to dentist 1 week ago since then blood pressure been on the higher range in 160-170 systolic, no history of hypertension no headache no nausea no vomiting no pain patient was seen here 08/10 at that time blood pressure was normal Related Data Home Medications Medication Instructions Recorded Confirmed psyllium husk 3.4 gram/5.4 gram 1 tbsp PO DAILY 11/25/22 08/18/23 oral powder (Metamucil) lorazepam 1 mg tablet 1 mg PO DAILY PRN 08/18/23 08/18/23 Previous Rx's Medication Instructions Recorded Raised toliet seat #1 ea 11/14/22 walker #1 ea 11/14/22 acetaminophen 325 mg tablet 650 mg (2 x 325 mg) PO Q6H PRN 12/03/22 Pain, Mild (Pain Scale 1-3) 30 days #240 tabs cefuroxime axetil 500 mg tablet 500 mg PO BID 10 days #20 tabs 08/11/23 doxycycline hyclate 100 mg tablet 100 mg PO BID #20 tabs 08/11/23 ibuprofen 600 mg tablet 600 mg PO Q6H PRN fever or pain 08/11/23 #30 tabs finasteride 5 mg tablet 5 mg PO DAILY 30 days #30 tabs 08/18/23 terazosin 5 mg capsule 5 mg PO BEDTIME 30 days #30 caps 08/18/23 doxycycline hyclate 100 mg tablet 100 mg PO DAILY 1hr prior to 08/20/23 dental procedure 1 day #1 tab losartan 50 mg tablet 50 mg PO DAILY #90 tabs 08/27/23 Allergies Allergy/AdvReac Type Severity Reaction Status Date / Time citalopram [CITALOPRAM] Allergy Intermediate Hives Verified 08/18/23 22:44 clindamycin Allergy Intermediate Hives Verified 08/18/23 22:44 metronidazole [METRONIDAZOLE] Allergy Intermediate Hives Verified 08/18/23 22:44 Penicillins Allergy Intermediate HIVES Verified 08/18/23 22:44 Sulfa (Sulfonamide Allergy Intermediate HIVES Verified 08/18/23 22:44 Antibiotics) Review of Systems 2 Review of Systems: Yes all other systems are reviewed and are negative [facility] Past Medical History Medical History Osteoarthritis Insomnia Gout Depression Cervical disc disease Elevated cholesterol Skin lesions Anal pain COVID-19 vaccination declined History of COVID-19 BPH (benign prostatic hyperplasia) Diverticulitis Kidney stones Surgical History History of arthroscopic surgery of shoulder H/O blepharoplasty History of nasal surgery Hx of cystoscopy Hx of cystoscopy Hx of lithotripsy H/O colonoscopy Hx of appendectomy Social History Household Members: Other Household Members Other:: Roomate Housing: Condominium Are you a primary neurocritical care physician to a significant other at home: No Do you presently have visiting nurse or other home services: No Alcohol intake: current Alcohol intake frequency: a few times a month Alcohol type: wine Patient Tobacco Use Status: Never used Tobacco Advance Directives: No Advance Directives Information Provided: No service: No Current occupational status: employed 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 Physical Exam ED Vital Signs: Vital Signs - 24 hr 08/27/23 20:39 08/27/23 21:10 08/27/23 22:17 Temperature 97.8 F Pulse Rate 72 67 Respiratory Rate 16 18 Blood Pressure 154/91 H 156/83 H 160/94 H Pulse Oximetry 95 94 Oxygen Delivery Method Room Air Room Air BMI result Body Mass Index 26.1 Appearance: Alert. Oriented X3. No acute distress. ENT: Pharynx normal. Oral Mucosa moist Neck: Normal inspection. Neck supple. CVS: Normal heart rate and rhythm. Pulses normal. Respiratory: No respiratory distress. Equal air entry bilateral, Abdomen: Soft and nontender. Bowel sounds are present, no mass palpable, no CVA tenderness Skin: Skin warm and dry. Normal skin color. Normal skin turgor. Extremities: No lower extremity edema. No calf tenderness Neuro: Oriented X 3. No motor deficit. Medications Administered Discontinued Medications Generic Name Dose Route Start Last Admin Trade Name Freq PRN Reason Stop Dose Admin Losartan Potassium 50 mg 08/27/23 22:18 08/27/23 22:23 Losartan Potassium 50 Mg Tablet PO 08/27/23 22:19 50 mg ONCE ONE Administration Protocol Medical Decision Making Medical Decision Making MDM Narrative: Patient 68 years old with hypertension for last 1 week with no pain no kidney dysfunction does not know much about the family likely patient is in the range for hypertension will start patient on losartan advise to keep the blood pressure checked at least 2 times before taking the medication before going to bed. Lab Data [facility] Lab Attestation statement: I reviewed the patient's lab results. 08/27/23 21:47 08/27/23 21:47 Labs: Lab Results 08/27/23 Range/Units 21:47 WBC 5.9 (4.8-10.8) X10*3/uL RBC 5.59 (4.60-5.80) X10*6/uL Hgb 15.9 (14.0-18.0) g/dl Hct 48.2 (42.0-52.0) % MCV 86.2 (80.0-98.0) fL MCH 28.4 (27.0-33.0) pg MCHC 33.0 (31.0-36.0) g/dl RDW 13.3 (11.0-16.0) % Plt Count 220 D (160-400) X10*3/uL MPV 9.1 L (9.4-12.4) fL Immature Gran % (Auto) 0.2 (0.0-0.4) % Neut % (Auto) 50.1 (45-73) % Lymph % (Auto) 38.2 (20-40) % [facility] % (Auto) 8.3 (2-11) % Eos % (Auto) 2.5 (0-4) % Baso % (Auto) 0.7 (0-2) % Lymph # (Auto) 2.3 (1.2-4.9) X10*3/uL [facility] # (Auto) 0.5 (0.1-1.2) X10*3/uL Eos # (Auto) 0.2 (0.0-0.4) X10*3/uL Baso # (Auto) 0.0 (0.0-0.2) X10*3/uL Abs Immat Gran (auto) 0.01 (0.00-0.03) X10*3/uL Absolute Neuts (auto) 3.0 (2.0-8.3) x10*3/uL Absolute Nucleated RBC 0.000 (0.0-0.012) X10*3/uL Nucleated RBC % (auto) 0.0 (0.0-0.2) /100WBC Sodium 138 (135-145) mmol/L Potassium 3.9 (3.3-5.1) mmol/L Chloride 107 (96-108) mmol/L Carbon Dioxide 23 (22-29) mmol/L Anion Gap 12 (12-20) BUN 19 H (9-16) mg/dL Creatinine 1.04 (0.5-1.4) mg/dL Estim Creat Clear Calc 73.4 Estimated GFR > 60 Random Glucose 134 H (60-115) mg/dL Calcium 9.2 (8.4-10.2) mg/dL Troponin I High Sens < 2.7 (<3.5-35.0) ng/L Independent Interpretation I performed an independent interpretation of an: EKG Interpretation: Normal sinus rhythm heart rate 72 beats per minute poor progression of R-wave no acute ST T wave changes no acute ischemia Discharge Plan Discharge Clinical Impression: Benign essential hypertension Patient Disposition: Home, Self-Care Instructions: How to Take a Blood Pressure (ED), Hypertension (ED) Additional Instructions: You likely have high blood pressure a new diagnosis Normal blood pressure should be less than 135/85 Take blood pressure medication daily and check her blood pressure before taking the medicine and before going to bed Follow-up with PCP Prescriptions: New losartan 50 mg tablet 50 mg PO DAILY Qty: 90 0RF No Action (DME) walker Misc See Rx Instructions .ROUTE .MEDSUPPLY Qty: 1 0RF Rx Instructions: Folding front wheeled walker (DME) Raised toliet seat See Rx Instructions .ROUTE .MEDSUPPLY Qty: 1 0RF Rx Instructions: As directed doxycycline hyclate 100 mg tablet 100 mg PO DAILY 1 Days Qty: 1 10RF Metamucil 3.4 gram/5.4 gram Powder 1 tbsp PO DAILY Rx Instructions: mix into at least 8 oz of water or juice before administering acetaminophen 325 mg Tablet 650 mg PO Q6H PRN (Reason: Pain, Mild (Pain Scale 1-3)) 30 Days Qty: 240 0RF cefuroxime axetil 500 mg tablet 500 mg PO BID 10 Days Qty: 20 0RF doxycycline hyclate 100 mg tablet 100 mg PO BID Qty: 20 0RF ibuprofen 600 mg tablet 600 mg PO Q6H PRN (Reason: fever or pain) Qty: 30 0RF lorazepam 1 mg tablet 1 mg PO DAILY PRN finasteride 5 mg tablet 5 mg PO DAILY 30 Days Qty: 30 1RF terazosin 5 mg capsule 5 mg PO BEDTIME 30 Days Qty: 30 1RF Interventions: ED Discharge Assessment Last Done: 08/27/23 22:57 Discharge Date/Time: 08/27/23 22:58
[2023-08-27 22:04] LABS: Anion Gap 12 (12-20); Blood Urea Nitrogen 19 mg/dL (9-16); Calcium 9.2 mg/dL (8.4-10.2); Carbon Dioxide 23 mmol/L (22-29); Chloride 107 mmol/L (96-108); Creatinine Clr Calc Pharmacy 73.4; Estimated Glomerular Filt Rate > 60; Glucose Random 134 mg/dL (60-115); Potassium 3.9 mmol/L (3.3-5.1); Sodium 138 mmol/L (135-145)
[2023-08-27 22:13] LABS: Troponin-I High Sensitivity < 2.7 ng/L (<3.5-35.0)
[2023-08-27 22:17] VITALS: BP 160/94; PULSE 67; RESP 18; O2SAT 94
[2023-08-27] MEDS: Losartan Potassium 50 MG TABLET PO (22:23)
== END 2023-08-27 22:58 | disposition home or self-care (01) ==
PROVIDERS: Emergency Provider Internal Medicine; PCP Internal Medicine
DX: I10 Essential (primary) hypertension (principal)
CPT/HCPCS: 36415; 80048; 84484; 85025; 93005; 99284

== ENCOUNTER 2023-09-01 09:02 | Outpatient (REF) | payer MEDICARE, SELFPAY ==
[2023-09-01 09:30] LABS: MANUAL DIFF FLAG NO
[2023-09-01 10:21] LABS: Basophils Absolute Auto 0.1 X10*3/uL (0.0-0.2); Basophils Percent Auto 1.1 % (0-2); Eosinophils Absolute Auto 0.1 X10*3/uL (0.0-0.4); Eosinophils Percent Auto 3.1 % (0-4); Hematocrit 50.7 % (42.0-52.0); Hemoglobin 16.6 g/dl (14.0-18.0); Imm Gran Abs Auto 0.01 X10*3/uL (0.00-0.03); Imm Gran Pct Auto 0.2 % (0.0-0.4); Lymphocytes Absolute Auto 1.8 X10*3/uL (1.2-4.9); Lymphocytes Percent Auto 38.7 % (20-40); Mean Corpuscular HGB Conc 32.7 g/dl (31.0-36.0); Mean Corpuscular Hemoglobin 28.8 pg (27.0-33.0); Mean Corpuscular Volume 87.9 fL (80.0-98.0); Monocytes Absolute Auto 0.3 X10*3/uL (0.1-1.2); Monocytes Percent Auto 7.4 % (2-11); Neutrophils Absolute Auto 2.3 x10*3/uL (2.0-8.3); Neutrophils Percent Auto 49.5 % (45-73); Platelet Count 217 X10*3/uL (160-400); Red Blood Count 5.77 X10*6/uL (4.60-5.80); Red Cell Distribution Width 13.3 % (11.0-16.0); White Blood Count 4.6 X10*3/uL (4.8-10.8)
[2023-09-01 11:08] LABS: Alanine Aminotransferase 73 U/L (0-40); Albumin Level 4.5 g/dL (3.5-5.0); Alkaline Phosphatase 112 U/L (39-117); Anion Gap 12 (12-20); Aspartate Amino Transferase 38 U/L (5-37); Bilirubin Total 1.1 mg/dL (0.0-1.0); Blood Urea Nitrogen 18 mg/dL (9-16); Calcium 9.4 mg/dL (8.4-10.2); Carbon Dioxide 28 mmol/L (22-29); Chloride 103 mmol/L (96-108); Cholesterol 271 mg/dL (<200); Estimated Glomerular Filt Rate > 60; Glucose Fasting 103 mg/dL (60-99); HDL Cholesterol 47 mg/dL (>40); LDL Cholesterol Calculated 172 mg/dL (<100); Potassium 4.1 mmol/L (3.3-5.1); Sodium 139 mmol/L (135-145); Total Protein 7.8 g/dL (6.5-8.0); Triglycerides 263 mg/dL (<150)
[2023-09-01 11:12] LABS: Thyroid Stimulating Hormone 1.01 uIU/mL (0.32-4.0); Vitamin D 25-OH Total 28.1 ng/mL (>30)
== END 2023-09-01 09:03 | disposition home or self-care (01) ==
LOC: HO.LAB 09:02
PROVIDERS: PCP Internal Medicine; Visit Provider Internal Medicine
DX: I10 Essential (primary) hypertension (principal); N20.0 Calculus of kidney; F41.9 Anxiety disorder, unspecified; E78.00 Pure hypercholesterolemia, unspecified; E55.9 Vitamin D deficiency, unspecified
CPT/HCPCS: 36415; 80053; 80061; 82306; 84443; 85025

== ENCOUNTER 2023-09-17 16:18 | Emergency (ER) | payer MEDICARE, SELFPAY ==
--- NOTE | 2023-09-17 16:24 | ECG_ITS ---
Test Reason : NEAR SYNCOPE Blood Pressure : / mmHG Vent. Rate : 070 BPM Atrial Rate : 070 BPM P-R Int : 230 ms QRS Dur : 096 ms QT Int : 412 ms P-R-T Axes : 067 -09 070 degrees QTc Int : 444 ms Sinus rhythm with 1st degree A-V block Possible Anterior infarct (cited on or before 27-AUG-2023) Abnormal ECG When compared with ECG of 27-AUG-2023 20:59, No significant change was found Referred By: Generic ED Physician Electronically Signed By:Carlos Jiménez
[2023-09-17 16:32] VITALS: BP 107/71; PULSE 74
[2023-09-17 17:08] VITALS: BP 115/57; PULSE 72; RESP 16; TEMP 36.5; O2SAT 93; BMI 25.1
--- NOTE | 2023-09-17 17:14 | ED_ITS ---
HPI - General Adult General Chief complaint: Syncope Stated complaint: syncopal episode, pale, clammy Time Seen by Provider: 09/17/23 16:52 Source: patient Mode of arrival: EMS Limitations: no limitations History of Present Illness HPI narrative: Pt is a 68yo male who presents to the ED after a near syncopal episode this afternoon. Pt state he took terazosin for the first time and an hour later he started to feel groggy and dizzy. He was able to drive to his hair appointment where he began to feel more lightheaded. Pt reports he did not pass out and that a nurse was there and she called 911 because he was pale and clammy. He denies any cp, sob, or diaphoresis. Pt takes losartan for HTN at night and has taken no other medications today. He reports that he took his BP before going to the hair appointment and it was low for him with a systolic of 110. Related Data Home Medications Medication Instructions Recorded Confirmed psyllium husk 3.4 gram/5.4 gram 1 tbsp PO DAILY 11/25/22 08/18/23 oral powder (Metamucil) lorazepam 1 mg tablet 1 mg PO DAILY PRN 08/18/23 08/18/23 Previous Rx's Medication Instructions Recorded Raised toliet seat #1 ea 11/14/22 walker #1 ea 11/14/22 acetaminophen 325 mg tablet 650 mg (2 x 325 mg) PO Q6H PRN 12/03/22 Pain, Mild (Pain Scale 1-3) 30 days #240 tabs cefuroxime axetil 500 mg tablet 500 mg PO BID 10 days #20 tabs 08/11/23 doxycycline hyclate 100 mg tablet 100 mg PO BID #20 tabs 08/11/23 ibuprofen 600 mg tablet 600 mg PO Q6H PRN fever or pain 08/11/23 #30 tabs finasteride 5 mg tablet 5 mg PO DAILY 30 days #30 tabs 08/18/23 terazosin 5 mg capsule 5 mg PO BEDTIME 30 days #30 caps 08/18/23 doxycycline hyclate 100 mg tablet 100 mg PO DAILY 1hr prior to 08/20/23 dental procedure 1 day #1 tab losartan 50 mg tablet 50 mg PO DAILY #90 tabs 08/27/23 Allergies Allergy/AdvReac Type Severity Reaction Status Date / Time citalopram [CITALOPRAM] Allergy Intermediate Hives Verified 08/18/23 22:44 clindamycin Allergy Intermediate Hives Verified 08/18/23 22:44 metronidazole [METRONIDAZOLE] Allergy Intermediate Hives Verified 08/18/23 22:44 Penicillins Allergy Intermediate HIVES Verified 08/18/23 22:44 Sulfa (Sulfonamide Allergy Intermediate HIVES Verified 08/18/23 22:44 Antibiotics) Review of Systems 2 Constitutional: Constitutional: Denies chills, Denies excessive sweating, Denies fever(s) and Denies headache(s) Eyes: Eyes: Denies change in vision ENT: Reports dizziness and Denies headache(s) Cardiovascular: Cardiovascular: Denies chest pain, Reports syncope (near syncope), Reports lightheadedness and Denies dyspnea Respiratory: Respiratory: Denies dyspnea Gastrointestinal: Gastrointestinal: Denies abdominal pain, Denies change in stool character, Denies nausea and Denies vomiting Musculoskeletal: Musculoskeletal: Denies myalgias Neurologic: Reports dizziness, Reports syncope (near syncope) and Denies headache(s) Endocrine: Endocrine: Denies excessive sweating PMFSH Past Medical History Medical History Osteoarthritis Insomnia Gout Depression Cervical disc disease Elevated cholesterol Skin lesions Anal pain COVID-19 vaccination declined History of COVID-19 BPH (benign prostatic hyperplasia) Diverticulitis Kidney stones Surgical History History of arthroscopic surgery of shoulder H/O blepharoplasty History of nasal surgery Hx of cystoscopy Hx of cystoscopy Hx of lithotripsy H/O colonoscopy Hx of appendectomy Social History Social History Household Members: Other Household Members Other:: Roomate Housing: Condominium Are you a primary primary health care nurse to a significant other at home: No Do you presently have visiting nurse or other home services: No Alcohol intake: current Alcohol intake frequency: a few times a month Alcohol type: wine Patient Tobacco Use Status: Never used Tobacco Advance Directives: Yes Advance Directives Information Provided: No Advance Directives on File: No service: No Current occupational status: employed 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 Physical Exam ED Vital Signs: Vital Signs - 24 hr 09/17/23 17:08 12/14/23 18:29 09/17/23 18:29 Temperature 97.7 F Pulse Rate 72 75 83 Respiratory Rate 16 Blood Pressure 115/57 L 112/60 106/64 Pulse Oximetry 93 Oxygen Delivery Method Room Air 09/17/23 18:31 09/17/23 18:32 Temperature 97.8 F Pulse Rate 86 79 Respiratory Rate 18 Blood Pressure 110/62 110/62 Pulse Oximetry 94 Oxygen Delivery Method Room Air BMI result Body Mass Index 25.1 Const General: cooperative, comfortable, no acute distress, alert and awake Orientation/consciousness: patient oriented x3 HENMT Head: Yes normal to inspection Ears: hearing grossly normal bilaterally General nose exam: Normal external nose present Eyes General: appearance normal, both eyes and all related structures Resp Effort & Inspection: normal respiratory effort and able to speak in complete sentences Auscultation: clear to auscultation bilaterally Cardio Rate: regular rate Rhythm: regular rhythm Heart sounds: S1 normal heart sound present and S2 normal heart sound present Neuro General: patient oriented x3 and moves all extremities Cranial nerves: Yes CN's II-XII intact bilaterally Motor exam (neuro): 5/5 motor strength present throughout Course Reevaluation(s) Reevaluation #1: Patient re-evaluated, he reports that he continues to feel well. He ambulated to the bathroom back without any difficulty. He is not feeling dizzy or lightheaded. His workup was largely unremarkable. He never had any chest pain and his initial troponin was negative, EKG was nonischemic. Patient's symptoms are likely a side effect of his terazosin. Patient was instructed to not take this again, talk to his primary doctor about alternatives. Furthermore, I also asked him to hold his losartan for the night as his blood pressure is within normal limits but lower end. Time: 18:53 Medications Administered Discontinued Medications Generic Name Dose Route Start Last Admin Trade Name Freq PRN Reason Stop Dose Admin Sodium Chloride 1,000 mls @ 999 mls/hr 09/17/23 17:30 09/17/23 18:15 Ns IV 09/17/23 18:30 999 mls/hr .Q1H1M DOMINIQUE Administration Medical Decision Making Medical Decision Making MDM Narrative: 68-year-old male presents for what sounds like a near syncopal episode. It is unclear if there was a true syncopal episodes the patient states that he never syncopized but EMS reports that he did. Patient currently feels at his baseline. He is mildly hypertensive at 115/57. He denies having had any chest pain or shortness of breath. It is possible his symptoms are all related to terazosin side effects. Will obtain an EKG, basic labs, orthostatics and treat with IV fluids in the meantime. Differential Diagnosis Differential Diagnoses: The differential diagnosis associated with the presentation includes (adverse effects of terazosin, NSTEMI, STEMI, panic attack, vasovagal syncope) Admission/Observation Consideration of admission/observation: Escalation of care including admission/observation considered Patient presents for a syncope versus near-syncope. Consideration for admission will depend on workup Lab Data 09/17/23 18:03 09/17/23 18:03 Labs: Lab Results 09/17/23 Range/Units 18:03 WBC 9.3 (4.8-10.8) X10*3/uL RBC 5.41 (4.60-5.80) X10*6/uL Hgb 15.7 (14.0-18.0) g/dl Hct 47.4 (42.0-52.0) % MCV 87.6 (80.0-98.0) fL MCH 29.0 (27.0-33.0) pg MCHC 33.1 (31.0-36.0) g/dl RDW 13.7 (11.0-16.0) % Plt Count 184 (160-400) X10*3/uL MPV 9.4 (9.4-12.4) fL Immature Gran % (Auto) 0.3 (0.0-0.4) % Neut % (Auto) 83.7 H (45-73) % Lymph % (Auto) 11.2 L (20-40) % Robertson % (Auto) 3.7 (2-11) % Eos % (Auto) 0.8 (0-4) % Baso % (Auto) 0.3 (0-2) % Lymph # (Auto) 1.0 L (1.2-4.9) X10*3/uL Robertson # (Auto) 0.3 (0.1-1.2) X10*3/uL Eos # (Auto) 0.1 (0.0-0.4) X10*3/uL Baso # (Auto) 0.0 (0.0-0.2) X10*3/uL Abs Immat Gran (auto) 0.03 (0.00-0.03) X10*3/uL Absolute Neuts (auto) 7.8 (2.0-8.3) x10*3/uL Absolute Nucleated RBC 0.000 (0.0-0.012) X10*3/uL Nucleated RBC % (auto) 0.0 (0.0-0.2) /100WBC PT 12.1 (11.1-13.3) SEC INR 1.0 (0.9-1.1) APTT 28.3 (26.0-36.4) SEC Sodium 139 (135-145) mmol/L Potassium 4.1 (3.3-5.1) mmol/L Chloride 108 (96-108) mmol/L Carbon Dioxide 25 (22-29) mmol/L Anion Gap 10 L (12-20) BUN 18 H (9-16) mg/dL Creatinine 1.10 (0.5-1.4) mg/dL Estim Creat Clear Calc 69.4 Estimated GFR > 60 Random Glucose 151 H (60-115) mg/dL Calcium 9.0 (8.4-10.2) mg/dL Total Bilirubin 0.8 (0.0-1.0) mg/dL AST 20 (5-37) U/L ALT 28 (0-40) U/L Alkaline Phosphatase 90 (39-117) U/L Troponin I High Sens < 2.7 (<3.5-35.0) ng/L Total Protein 6.9 (6.5-8.0) g/dL Albumin 4.1 (3.5-5.0) g/dL Independent Interpretation I performed an independent interpretation of an: EKG (Sinus rhythm with first- degree AV block, WA interval of 230. No ectopy or ischemia) Discharge Plan Discharge Clinical Impression: Near syncope Patient Disposition: Home, Self-Care Instructions: Near Syncope (ED) Additional Instructions: Your workup in the emergency department today was reassuring. Your blood pressure was slightly low today I recommend that you do not take losartan tonight, but you may resume it tomorrow morning Do not take terazosin again, this was likely the cause of your near syncopal episode today Prescriptions: No Action (DME) walker Misc See Rx Instructions .ROUTE .MEDSUPPLY Qty: 1 0RF Rx Instructions: Folding front wheeled walker (DME) Raised toliet seat See Rx Instructions .ROUTE .MEDSUPPLY Qty: 1 0RF Rx Instructions: As directed doxycycline hyclate 100 mg tablet 100 mg PO DAILY 1 Days Qty: 1 10RF Metamucil 3.4 gram/5.4 gram Powder 1 tbsp PO DAILY Rx Instructions: mix into at least 8 oz of water or juice before administering acetaminophen 325 mg Tablet 650 mg PO Q6H PRN (Reason: Pain, Mild (Pain Scale 1-3)) 30 Days Qty: 240 0RF losartan 50 mg tablet 50 mg PO DAILY Qty: 90 0RF cefuroxime axetil 500 mg tablet 500 mg PO BID 10 Days Qty: 20 0RF doxycycline hyclate 100 mg tablet 100 mg PO BID Qty: 20 0RF ibuprofen 600 mg tablet 600 mg PO Q6H PRN (Reason: fever or pain) Qty: 30 0RF lorazepam 1 mg tablet 1 mg PO DAILY PRN finasteride 5 mg tablet 5 mg PO DAILY 30 Days Qty: 30 1RF terazosin 5 mg capsule 5 mg PO BEDTIME 30 Days Qty: 30 1RF
[2023-09-17 18:09] LABS: MANUAL DIFF FLAG NO
[2023-09-17] MEDS: 0.9 % Sodium Chloride 1,000 ML 999 ML IV (18:15)
[2023-09-17 18:18] LABS: Prothrombin Time 12.1 SEC (11.1-13.3)
[2023-09-17 18:21] LABS: Basophils Percent Auto 0.3 % (0-2); Eosinophils Absolute Auto 0.1 X10*3/uL (0.0-0.4); Eosinophils Percent Auto 0.8 % (0-4); Hematocrit 47.4 % (42.0-52.0); Hemoglobin 15.7 g/dl (14.0-18.0); Imm Gran Abs Auto 0.03 X10*3/uL (0.00-0.03); Imm Gran Pct Auto 0.3 % (0.0-0.4); Lymphocytes Percent Auto 11.2 % (20-40); Mean Corpuscular HGB Conc 33.1 g/dl (31.0-36.0); Mean Corpuscular Volume 87.6 fL (80.0-98.0); Mean Platelet Volume 9.4 fL (9.4-12.4); Monocytes Absolute Auto 0.3 X10*3/uL (0.1-1.2); Monocytes Percent Auto 3.7 % (2-11); Neutrophils Absolute Auto 7.8 x10*3/uL (2.0-8.3); Neutrophils Percent Auto 83.7 % (45-73); Partial Thromboplastin Time 28.3 SEC (26.0-36.4); Platelet Count 184 X10*3/uL (160-400); Red Blood Count 5.41 X10*6/uL (4.60-5.80); Red Cell Distribution Width 13.7 % (11.0-16.0); White Blood Count 9.3 X10*3/uL (4.8-10.8)
[2023-09-17 18:25] LABS: Alanine Aminotransferase 28 U/L (0-40); Albumin Level 4.1 g/dL (3.5-5.0); Alkaline Phosphatase 90 U/L (39-117); Anion Gap 10 (12-20); Aspartate Amino Transferase 20 U/L (5-37); Bilirubin Total 0.8 mg/dL (0.0-1.0); Blood Urea Nitrogen 18 mg/dL (9-16); Carbon Dioxide 25 mmol/L (22-29); Chloride 108 mmol/L (96-108); Creatinine Clr Calc Pharmacy 69.4; Estimated Glomerular Filt Rate > 60; Glucose Random 151 mg/dL (60-115); Potassium 4.1 mmol/L (3.3-5.1); Sodium 139 mmol/L (135-145); Total Protein 6.9 g/dL (6.5-8.0)
[2023-09-17 18:29] VITALS: BP 106/64; BP 112/60; PULSE 75; PULSE 83
[2023-09-17 18:31] VITALS: BP 110/62; PULSE 86
[2023-09-17 18:32] VITALS: BP 110/62; PULSE 79; RESP 18; TEMP 36.6; O2SAT 94
[2023-09-17 18:42] LABS: Troponin-I High Sensitivity < 2.7 ng/L (<3.5-35.0)
--- NOTE | 2023-09-17 18:44 | PC.NURSE ---
patient ambulated to bathroom with steady gait
--- NOTE | 2023-09-17 19:25 | PC.NURSE ---
pt states sx have resolved. pt denies cp/sob/n/v/dizziness/CUELLO. pt up atiya d/c however waiting for ride and fluids to infuse. call cary within reach.
[2023-09-17 19:37] VITALS: BP 133/72; PULSE 76; RESP 18; TEMP 36.8; O2SAT 95
== END 2023-09-17 20:11 | disposition home or self-care (01) ==
PROVIDERS: Physician Assistant; Emergency Provider Internal Medicine; PCP Internal Medicine
DX: R55 Syncope and collapse (principal); R94.31 Abnormal electrocardiogram [ECG] [EKG]; R42 Dizziness and giddiness; I10 Essential (primary) hypertension; Z79.899 Other long term (current) drug therapy
CPT/HCPCS: 36415; 80053; 84484; 85025; 85610; 85730; 93005; 96360; 99284; 99285

== ENCOUNTER → 2023-09-17 16:24 | Outpatient (BNV) | payer MEDICARE, SELFPAY | PROVIDERS: Emergency Provider Internal Medicine; PCP Internal Medicine; Visit Provider Internal Medicine Cardiovascular Disease | DX: I44.0 Atrioventricular block, first degree (principal) | CPT/HCPCS: 93010 ==

== ENCOUNTER 2023-09-29 09:19 | Outpatient (AMB) | payer MEDICARE, SELFPAY ==
--- NOTE | 2023-09-29 09:22 | A.OFFVIS_ITS ---
Intake Intake Visit Reasons: 6 wks f/U,PVR Intake Note: Patient is present for follow up BPH/urinary urgency/nocturia Urology Medications: none Blood Thinner: aspirin PVR: 65ml's Or Assistant Required: No Accompanied by: Self / Same As Patient Allergies citalopram [CITALOPRAM] Allergy (Intermediate, Verified 09/29/23 09:39) Hives clindamycin Allergy (Intermediate, Verified 09/29/23 09:39) Hives metronidazole [METRONIDAZOLE] Allergy (Intermediate, Verified 09/29/23 09:39) Hives Penicillins Allergy (Intermediate, Verified 09/29/23 09:39) HIVES Sulfa (Sulfonamide Antibiotics) Allergy (Intermediate, Verified 09/29/23 09:39) HIVES terazosin Adverse Reaction (Uncoded 09/29/23 09:39) Fainting Medication List - Last Reconciled 09/29/23 by BLAZE Abel-VICENTE acetaminophen 650 mg (2 x 325 mg) PO Q6H PRN 30 days finasteride 5 mg PO DAILY 30 days ibuprofen 600 mg PO Q6H PRN lorazepam 1 mg PO DAILY PRN losartan 50 mg PO DAILY psyllium husk (Metamucil) 1 tbsp PO DAILY [Raised toliet seat As directed] walker Folding front wheeled walker HPI HPI Comments History of Present Illness Details Julio is a pleasant 68 year old male patient of Dr. Goodson. He has a past medical history of BPH, cervical disc disease, depression, diverticulitis, hypercholesteremia, gout, insomnia, renal stones, and osteoarthritis. He presents to the office for follow-up of his benign prostatic hyperplasia. Of note, patient was seen approximately 6 weeks ago at which time he was started on finasteride and terazosin. In discussion with the patient today he reports approximately 2 weeks ago having had a near syncopal episode and relates this to his terazosin at which time he has since stopped. He reports compliance with finasteride 5 mg daily however he does continue to have lower urinary tract symptoms. Previous workup has included a retroperitoneal ultrasound noting bilateral kidneys with benign like cysts requiring no follow- up per radiology report. No hydronephrosis. Left kidney with lower pole renal calculi measuring approximately 3 and 4 mm. Right kidney with no calculi noted. Bilateral ureteral jets are demonstrated. Pre void bladder volume is approximately 90 mL. Postvoid bladder volume is approximately 25 mL. The prostate volume is enlarged at approximately 75 mL. Irregularity and trabeculation of the bladder wall, although visualization limited due to suboptimal distention. Patient has trialed tamsulosin, terazosin, oxybutynin, and alfuzosin and does not feel lower urinary tract symptoms have improved with any of these medications. He discusses medications are not working and he is experiencing side effects from medications such as retrograde ejaculation, dizziness, and dry mouth he does not wish to continue these medications. Discussed at length findings noted on retroperitoneal ultrasound noting enlarged prostate. Discussed continuation of finasteride. Discussed further assessment evaluation with urodynamics and or in office cystoscopy. Patient otherwise denies hematuria, dysuria, foul smelling urine, changes to urinary stream, flank pain, fever, and or chills. He otherwise offers no issues or concerns at this time. In review of patient's chart PSAs are as follows... 08/22--1.8 05/24--3.1 02/23--2.7 08/27--3.0 Lower urinary tract symptoms Progressive Primarily nocturia 2-3 times Prior medications tamsulosin minimal effect Minimal benefit from combination terazosin oxybutynin Nephrolithiasis Long history of chronic renal stone disease Has undergone multiple procedures with ESWL Does feel he may have stone currently Has previously been able to pass stones Stone composition - 01/23 uric acid with calcium oxalate, 03/25 mixed calcium oxalate 80% monohydrate Imaging - renal ultrasound 07/24 multiple renal stones, 3 on right, 2 on left. Bilateral renal cysts. Stones approximately 5 mm - 06/25 renal ultrasound bilateral renal cyst stable. Small stone? On right 2 mm - 08/26 renal ultrasound bilateral renal cysts, query small stone 3 mm right side Intervention - 03/25 right ureteroscopy, laser lithotr ipsy and stent placement Therapeutic plan - vitamin B6, fluids PFSH Medical History Osteoarthritis Insomnia Gout Depression Cervical disc disease Elevated cholesterol Skin lesions Anal pain COVID-19 vaccination declined History of COVID-19 BPH (benign prostatic hyperplasia) Diverticulitis Kidney stones Surgical History History of arthroscopic surgery of shoulder H/O blepharoplasty History of nasal surgery Hx of cystoscopy Hx of cystoscopy Hx of lithotripsy H/O colonoscopy Hx of appendectomy Social History Household Members: Other Household Members Other:: Roomate Housing: Condominium Are you a primary healthcare recruiter to a significant other at home: No Do you presently have visiting nurse or other home services: No Alcohol intake: current Alcohol intake frequency: a few times a month Alcohol type: wine Patient Tobacco Use Status: Never used Tobacco service: No Current occupational status: employed 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 Review of Systems Const Reports as per [facility] Eyes Reports no additional complaints ENT Reports no additional complaints Card Reports as per [facility] Resp Reports no additional complaints GI Reports as per HPI Reports as per [facility] Musc Reports as per [facility] Neuro Reports no additional complaints Psych Reports as per HPI Physical Exam Const General: cooperative, healthy appearing, comfortable, no acute distress, well developed, alert and awake Orientation/consciousness: patient oriented x3 Limitations: no limitations HEENT Head: Yes normal to inspection, Yes normocephalic and Yes atraumatic Ears: hearing grossly normal bilaterally Eyes General: appearance normal, both eyes and all related structures Neck Neck: Yes normal visual inspection and Yes trachea midline Chest Chest palpation & inspection: normal inspection of the chest Resp Effort & Inspection: normal respiratory effort and able to speak in complete sentences Cardio Rate: regular rate GI Inspection: Yes normal to inspection General: Yes no CVA tenderness Back/Spine/Pelvis Back: no CVA tenderness Skin General skin exam: no rashes or lesions noted Neuro General: patient oriented x3 Extrem General: Yes normal to inspection Psych Appearance: grossly normal and well kempt Mental Status: mental status grossly normal Speech and movement: Normal speech and movement present and Clear speech present Affect: normal affect Attitude: cooperative Thought process: Normal thought process present Thought content: Normal thought content present Insight: Good insight present (Psych) Judgement: Good judgement present (Psych) Office Procedures Post Void Residual Post Residual Void Post Void Residual (PVR): 65 [id number] Void Residual by ultrasound Results AMB Urinalysis, Automated UA Leukoctes 0 Fortino/uL Last Edit by Yamilet Andres on 09/29/23 09:50 UA Nitrite Negative Last Edit by Yamilet Andres on 09/29/23 09:50 UA Urobilinogen 0.2 mg/dL Last Edit by Brandonlilibeth Aurelialacey on 09/29/23 09:50 UA Protein 0 mg/dL Last Edit by Yamilet Aurelialacey on 09/29/23 09:50 UA pH 5.5 Last Edit by Yamilet Andres on 09/29/23 09:50 UA Blood 0 Edwin/uL Last Edit by Yamilet Andres on 09/29/23 09:50 UA Specific Cooter 1.025 Last Edit by Yamilet Aurelialacey on 09/29/23 09:50 UA Ketone Negative Last Edit by Yamilet Aurelialacey on 09/29/23 09:50 UA Bilirubin 0 mg/dL Last Edit by Yamilet Andres on 09/29/23 09:50 UA Glucose 0 mg/dL Last Edit by Yamilet Andres on 09/29/23 09:50 Results Reviewed Results Reviewed: Laboratory Last Values Urine pH (Auto) 5.5 09/29/23 09:32 Specific Cooter (Auto) 1.025 09/29/23 09:32 Urine Protein (Auto) 0 mg/dL 09/29/23 09:32 Glucose (UA)(Auto) 0 mg/dL 09/29/23 09:32 Urine Ketones (Auto) Negative 09/29/23 09:32 Urine Blood (Auto) 0 Edwin/uL 09/29/23 09:32 Urine Nitrite (Auto) Negative 09/29/23 09:32 Urine Bilirubin (Auto) 0 mg/dL 09/29/23 09:32 Urine Urobilinogen (Auto) 0.2 mg/dL 09/29/23 09:32 Leukocyte Esterase (Auto) 0 Fortino/uL 09/29/23 09:32 Assessment & Plan Assessment & Plan (1) Bladder trabeculation: Code(s): N32.89 - Other specified disorders of bladder (2) Enlarged prostate: Code(s): N40.0 - Benign prostatic hyperplasia without lower urinary tract symptoms (3) Incomplete bladder emptying: Code(s): R33.9 - Retention of urine, unspecified (4) Nephrolithiasis: Code(s): N20.0 - Calculus of kidney (5) BPH w urinary obs/LUTS: Code(s): N40.1 - Benign prostatic hyperplasia with lower urinary tract symptoms; N13.8 - Other obstructive and reflux uropathy (6) Nocturia: Code(s): R35.1 - Nocturia (7) Urinary urgency: Code(s): R39.15 - Urgency of urination Plan In office urinalysis results reviewed with the patient today; as noted above. PVR 65 mL. Continue finasteride as discussed and prescribed. Stop terazosin. Discussed at length potential causes for lower urinary tract symptoms patient is experiencing. Discussed bladder triggers/irritants. Discussed limiting fluids 2-3 hours prior to bed to assist with decreasing episodes of nocturia. Follow-up in office cystoscopy for further assessment evaluation; or sooner with any issues, concerns, and or questions. Orders: Orders AMB Post Void Residual by ultrasound Today R39.15 - Urgency of urination AMB Urinalysis Automated Today Z13.9 - Encounter for screening, unspecified Patient Instructions: The patient had an opportunity to ask questions regarding the treatment plan. All questions were answered. Physical exam, labs, and imaging were discussed and reviewed in detail. As well as risks, benefits, and discussion of treatment choices. No major barriers to understanding were identified. The patient expressed understanding and agreement with the above treatment plan. The patient was made aware they should contact our office by phone for worsening of their current condition, the appearance of new symptoms, or with any questions or concerns. Compliance is encouraged with any medications and follow up testing that is ordered. It is a privilege to be allowed the opportunity to participate in? your urological care.? Again, if you have any questions or concerns If you have any questions or concerns please do not hesitate to contact me. The office is [phone]. This note is constructed using voice recognition software. While every effort has been made to ensure accuracy developer programmer errors may have been included. Yours sincerely, JAYLIN Abel Coding Level of Care Code Est Pt Level 3 (73627) Diagnoses Bladder trabeculation N32.89 Enlarged prostate N40.0 Incomplete bladder emptying R33.9 Nephrolithiasis N20.0 BPH w urinary obs/LUTS N40.1; N13.8 Nocturia R35.1 Urinary urgency R39.15 CPT Codes Post Residual Void - PVR CPT Code: 93403-Jlxz Void Residual by ultrasound ([id number])
== END 2023-09-29 10:07 | disposition home or self-care (01) ==
PROVIDERS: PCP Internal Medicine; Visit Provider Nurse Practitioner Family
DX: N32.89 Other specified disorders of bladder (principal); N40.0 Benign prostatic hyperplasia without lower urinary tract symptoms; R33.9 Retention of urine, unspecified; N20.0 Calculus of kidney; N40.1 Benign prostatic hyperplasia with lower urinary tract symptoms; N13.8 Other obstructive and reflux uropathy; R35.1 Nocturia; R39.15 Urgency of urination
CPT/HCPCS: 99213

== ENCOUNTER → 2023-09-29 09:19 | Outpatient (BNVA) | payer MEDICARE, SELFPAY | PROVIDERS: PCP Internal Medicine; Visit Provider Nurse Practitioner Family | DX: N40.1 Benign prostatic hyperplasia with lower urinary tract symptoms (principal); N13.8 Other obstructive and reflux uropathy; R33.9 Retention of urine, unspecified; R35.1 Nocturia; R39.15 Urgency of urination; N32.89 Other specified disorders of bladder; N20.0 Calculus of kidney | CPT/HCPCS: 51798; 81003; 99212 ==

== ENCOUNTER 2023-10-27 09:06 | Outpatient (AMB) | payer MEDICARE, SELFPAY ==
--- NOTE | 2023-10-27 09:09 | A.OFFVIS_ITS ---
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 Intake Note: NPV Medicaid Plan Compliance Director Required: No Accompanied by: Self / Same As Patient Allergies citalopram [CITALOPRAM] Allergy (Intermediate, Verified 10/27/23 09:12) Hives clindamycin Allergy (Intermediate, Verified 10/27/23 09:12) Hives metronidazole [METRONIDAZOLE] Allergy (Intermediate, Verified 10/27/23 09:12) Hives Penicillins Allergy (Intermediate, Verified 10/27/23 09:12) HIVES Sulfa (Sulfonamide Antibiotics) Allergy (Intermediate, Verified 10/27/23 09:12) HIVES terazosin Adverse Reaction (Uncoded 10/27/23 09:12) Fainting Medication List - Last Reconciled 10/27/23 by Mike Ceballos MD lorazepam 1 mg PO DAILY PRN losartan 100 mg PO DAILY psyllium husk (Metamucil) 1 tbsp PO DAILY [Raised toliet seat As directed] walker Folding front wheeled walker HPI HPI Comments History of Present Illness Details Julio is here for consultation regarding hypertension and family history of coronary disease. Recently, he has been diagnosed hypertension. He was initially on losartan 50 mg daily but then dose has been doubled. He has also been tried other drugs for prostate including terazosin, finasteride. It seems that actually lead to syncope. He has no longer taking terazosin or the finasteride. Still remains on losartan but gets tired and dizzy with that. Could be because of low blood pressure issues. Otherwise, no clear chest pain but he just does not feel good overall. He is concerned about any major cardiac issues due to family history. His father apparently had cardiac arrest but again unclear details. [facility] Medical History Osteoarthritis Insomnia Gout Depression Cervical disc disease Elevated cholesterol Skin lesions Anal pain COVID-19 vaccination declined History of COVID-19 BPH (benign prostatic hyperplasia) Diverticulitis Kidney stones Surgical History History of arthroscopic surgery of shoulder H/O blepharoplasty History of nasal surgery Hx of cystoscopy Hx of cystoscopy Hx of lithotripsy H/O colonoscopy Hx of appendectomy Family History (Updated 10/27/23 @ 09:35 by Mike Ceballos MD) Father Heart disease Social History Household Members: Other Household Members Other:: Roomate [facility] Are you a primary care rep to a significant other at home: No Do you presently have visiting nurse or other home services: No Alcohol intake: current Alcohol intake frequency: a few times a month Alcohol type: wine Patient Tobacco Use Status: Never used Tobacco service: No Current occupational status: employed 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 Review of Systems Const All systems reviewed & are unremarkable except as noted in HPI and below Reports as per HPI and Reports no additional complaints Eyes Reports as per HPI and Denies no additional complaints ENT Denies no additional complaints and Reports as per HPI Card Reports as per HPI, Reports no additional complaints, Denies acrocyanosis, Denies chest pain, Denies leg edema, Denies lightheadedness, Denies palpitations and Denies dyspnea Resp Reports as per HPI, Denies no additional complaints and Denies dyspnea GI Reports as per HPI and Denies no additional complaints Reports no additional complaints and Reports as per HPI Musc Reports no additional complaints and Reports as per HPI Skin/Breast Reports system reviewed and no additional complaints, except as documented Neuro Reports no additional complaints and Reports as per HPI Psych Reports no additional complaints and Reports as per HPI Endo Reports no additional complaints, Reports as per HPI and Denies palpitations David/Lymph Reports no additional complaints and Reports as per HPI Aller/Immun Reports no additional complaints and Reports as per HPI Physical Exam Vital Signs: Last Vital Signs Pulse 63 10/27/23 09:12 BP 110/68 10/27/23 09:12 BMI result Body Mass Index 26.1 Const General: comfortable and no acute distress Orientation/consciousness: patient oriented x3 HEENT Other: Unremarkable Head: Yes normal to inspection Neck Neck: Yes normal visual inspection Chest Chest palpation & inspection: normal inspection of the chest Resp Auscultation: clear to auscultation bilaterally Cardio Palpation: normal PMI Heart sounds: S1 normal heart sound present, S2 normal heart sound present, no gallops, no murmurs and no rubs GI Palpation (GI): Soft to palpation Back/Spine/Pelvis Other: unremarkable Skin General skin exam: no rashes or lesions noted Neuro General: patient oriented x3 Extrem General: Yes normal to inspection Psych Mental Status: mental status grossly normal Assessment & Plan Assessment & Plan (1) Essential hypertension: Code(s): I10 - Essential (primary) hypertension (2) Family history of coronary artery disease: Code(s): Z82.49 - Family history of ischemic heart disease and other diseases of the circulatory system Plan Somewhat labile hypertension, family history of cardiac issues multiple family members. We can start with an echocardiogram for cardiac function assessment, any significant left ventricular hypertrophy or diastolic dysfunction. With regard to coronary assessment, obtain coronary CTA. We discussed about this today and he is agreeable. He has had a history of elevated creatinine but currently normal at 1.1. Can hydrate well before procedure. Will need updated kidney function at that time. As he has not feeling too good with the higher dose of losartan, go back to Losartan 50 mg daily. If the pressure goes up, then he may need something in between, possibly 75 mg daily. We will see him back in follow-up once this is completed. Orders: Orders CA echo transthoracic complete Today I10 - Essential (primary) hypertension CT Cardiac Coronary Angio Today I10 - Essential (primary) hypertension, I25.10 - Atherosclerotic heart disease of [place] coronary artery without angina pectoris Basic Metabolic Panel Today I10 - Essential (primary) hypertension Medications: Changed From losartan 50 mg PO DAILY 90 tabs 0RF To losartan 100 mg PO DAILY Coding Level of Care Code New Pt Level 4 (10292) Diagnoses Essential hypertension I10 Family history of coronary artery disease Z82.49
[2023-10-27 09:12] VITALS: BP 110/68; PULSE 63; BMI 26.1
== END 2023-10-27 09:41 | disposition home or self-care (01) ==
PROVIDERS: PCP Internal Medicine; Visit Provider Internal Medicine
DX: I10 Essential (primary) hypertension (principal); Z82.49 Family history of ischemic heart disease and other diseases of the circulatory system
CPT/HCPCS: 99204

== ENCOUNTER → 2023-10-27 09:06 | Outpatient (BNVA) | payer MEDICARE, SELFPAY | PROVIDERS: PCP Internal Medicine; Visit Provider Internal Medicine | DX: I10 Essential (primary) hypertension (principal); Z82.49 Family history of ischemic heart disease and other diseases of the circulatory system; Z79.899 Other long term (current) drug therapy | CPT/HCPCS: 99202 ==

== ENCOUNTER → 2023-11-18 07:46 | Outpatient (REF) | payer MEDICARE, SELFPAY ==
--- NOTE | 2023-11-18 07:50 | CA_ITS ---
Transthoracic Echocardiogram Patient (Last, First, Middle): Julio Garcia F Gender: Male Date of : 1955 Age: 68 Procedure Date: 11/18/2023 Procedure Type: Transthoracic Echocardiogram Location: OP Height: 180.34 cm Weight: 82.1 kg BSA: 2.02 m2 Heart Rate: bpm BP: 114 / 70 mmHg Size Tester: CARMEN Referring MD: Mike Ceballos MD Cordage Sales Representative: Garth Gooden MD Symptoms: I10 - Essential (primary) hypertension Study Quality: Adequate ECG Rhythm: Sinus Conclusions: - 1. Normal LV ejection fraction 55-60% with grade 1 diastolic dysfunction 2. Normal cardiac valvular Doppler 3. No gross pericardial effusion Findings Left Ventricle Normal left ventricular size, thickness, and systolic function. The visually estimated ejection fraction is between 55-60%. Spectral Doppler is indicative of an impaired relaxation filling pattern. E/E prime ratio is <8, consistent with normal filling pressures. Evidence suggests grade I (mild) diastolic dysfunction. possible basal inferior hypokinesis can not be ruled out. Peak GLS is -14.5%, which is moderately reduced. Right Ventricle Normal right ventricular cavity size and systolic function. Atria Both atria are normal in size. There is lipomatous hypertrophy of the interatrial septum. There is no evidence of interatrial shunt. Aortic Valve Normal aortic valve structure and function. There is no aortic valve stenosis. There is no aortic valve regurgitation. Mitral Valve Normal mitral valve structure and function. There is trace mitral valve regurgitation. There is no mitral valve stenosis. Pulmonic Valve The pulmonic valve is likely normal. Tricuspid Valve Normal tricuspid valve structure. Tricuspid regurgitation envelope is inadequate for calculation of right ventricular systolic pressure. Normal right atrial pressure. Great Vessels All visible segments of the aorta are normal in size. The pulmonary artery was not well visualized. Venous The inferior vena cava is normal in size and collapses greater than 50% with inspiration. Pericardium/Pleural There is no evidence of pericardial effusion. Prior Study Comparison no previous study in the last 5 years for comparison Measurements 2D Linear Measurements IVSd: 0.79 0.6-0.9/0.6-1.0 cm LVIDd: 5.06 3.9-5.3/4.2-5.9 cm LVIDd Index: 2.50 2.4-3.2/2.2-3.1 cm/m2 LVIDs: 3.09 2.0-3.6 cm LVPWd: 0.82 0.7-1.1 cm LA Diam: 3.30 2.7-3.8/3.0-4.0 cm LAIDs Index: 1.63 1.5-2.3 cm/m2 LV Mass: 172.90 67-162/88-224 g LV Mass Index: 85.60 43-95/49-115 g/m2 LVOT Diam: 2.20 3.0+(-)1.3 cm 2D Systolic Function EF 4C: 57.20 >55% EF 2C: 54.60 >55% EF BiP: 54.90 >55% Mitral Valve MV Pk E: 0.59 MV PK A: 0.62 MV Decel Time: 243.00 E/A: 1.00 E'Lateral: 9.14 E'Medial: 8.27 E/E' Med: 7.10 E/E' Lat: 6.50 PHT: 71.00 MVA PHT: 3.10 Decel Morrill: 2.43 Aortic Valve AoV Pk Lamont: 1.23 AoV Mn Lamont: 0.88 AoV VTI: 0.26 AoV Pk Grad: 6.00 Aov Mn Grad: 3.00 ROBERTO Cont.VTI: 2.48 LVOT LVOT Pk Lamont: 0.81 LVOT Mn Lamont: 0.52 LVOT VTI: 0.17 LVOT Pk Grad: 3.00 LVOT Mn Grad: 1.00 LVOT Diam: 2.20 LVOT Area: 3.80 Diastolic Function MV Pk E: 0.59 MV Pk A: 0.62 E/A: 1.00 E'Medial: 8.27 E/E' Med: 7.10 E' Laterial: 9.14 E/E' Lat: 6.50 Right Ventricle TAPSE (mm): 24.90 TVS' Lamont: 12.30 Tricuspid Valve RA Press: 3.00 Great Vessels Aorta Sinus of Valsalva: 3.36 2.0-3.[address] Ridge: 2.72 1.7-3.4 cm Ao Asc: 3.30 2.1-3.4 cm Ao Arch: 2.80 Updated in Other Vendor System with Status of Final Garth Gooden MD electronically signed on 11/18/2023 3:42:37 PM with status of Final
[2023-11-18 08:33] LABS: Anion Gap 11 (12-20); Blood Urea Nitrogen 17 mg/dL (9-16); Calcium 9.2 mg/dL (8.4-10.2); Carbon Dioxide 28 mmol/L (22-29); Chloride 108 mmol/L (96-108); Estimated Glomerular Filt Rate > 60; Glucose Random 111 mg/dL (60-115); Potassium 3.9 mmol/L (3.3-5.1); Sodium 143 mmol/L (135-145)
== END ==
LOC: HO.CARD 07:46
PROVIDERS: PCP Internal Medicine; Visit Provider Internal Medicine
DX: I10 Essential (primary) hypertension (principal)
CPT/HCPCS: 36415; 80048; 93306; 93356

== ENCOUNTER → 2023-11-18 07:50 | Outpatient (BNV) | payer MEDICARE, SELFPAY | PROVIDERS: PCP Internal Medicine; Visit Provider Internal Medicine Cardiovascular Disease | DX: I51.9 Heart disease, unspecified (principal); I10 Essential (primary) hypertension | CPT/HCPCS: 93306 ==

== ENCOUNTER 2023-11-30 10:57 | Outpatient (AMB) | payer MEDICARE, SELFPAY ==
--- NOTE | 2023-11-30 10:58 | A.OFFVIS_ITS ---
Intake Intake Visit Reasons: ov- Right shoulder cortisone injection Intake Note: Julio is a 68 year old right hand dominant male who presents to the office today for a right shoulder cortisone injection. Pt has not had any shoulder injections in the past. Allergies citalopram [CITALOPRAM] Allergy (Intermediate, Verified 11/30/23 10:58) Hives clindamycin Allergy (Intermediate, Verified 11/30/23 10:58) Hives metronidazole [METRONIDAZOLE] Allergy (Intermediate, Verified 11/30/23 10:58) Hives Penicillins Allergy (Intermediate, Verified 11/30/23 10:58) HIVES Sulfa (Sulfonamide Antibiotics) Allergy (Intermediate, Verified 11/30/23 10:58) HIVES terazosin Adverse Reaction (Uncoded 11/30/23 10:58) Fainting HPI ov- Right shoulder cortisone injection HPI Details Julio is a 68 year old man who presents with complaints of right shoulder pain. He is requesting a steroid injection today. He complains of pain with daily activity. He has a hx of right RTC repair and denies any prior injections. He had RTC about 2 years ago. He states the pain is occasional and associated with lifting his arm. [facility] Medical History Osteoarthritis Insomnia Gout Depression Cervical disc disease Elevated cholesterol Skin lesions Anal pain COVID-19 vaccination declined History of COVID-19 BPH (benign prostatic hyperplasia) Diverticulitis Kidney stones Surgical History History of arthroscopic surgery of shoulder H/O blepharoplasty History of nasal surgery Hx of cystoscopy Hx of cystoscopy Hx of lithotripsy H/O colonoscopy Hx of appendectomy Family History Father Heart disease Social History Household Members: Other Household Members Other:: Roomate Housing: Condominium Are you a primary ocular care technologist to a significant other at home: No Do you presently have visiting nurse or other home services: No Alcohol intake: current Alcohol intake frequency: a few times a month Alcohol type: wine Patient Tobacco Use Status: Never used Tobacco service: No Current occupational status: employed 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 Review of Systems Const All systems reviewed & are unremarkable except as noted in HPI and below Physical Exam Const General: no acute distress, alert and awake Orientation/consciousness: patient oriented x3 HEENT Head: Yes normocephalic and Yes atraumatic Eyes EOM: EOMs intact bilaterally Resp Effort & Inspection: normal respiratory effort and able to speak in complete sentences Cardio Jugular venous distension: no JVD Skin General skin exam: turgor normal Rashes: no rashes Neuro General: patient oriented x3 Extrem Other: Full ROM +H/N Neg EC Psych Appearance: grossly normal Affect: normal affect Attitude: cooperative Assessment & Plan Assessment & Plan (1) Status post right rotator cuff repair: Code(s): Z98.890 - Other specified postprocedural states Plan: History of right RTC repair with bursitis type presentation PT recommended and reviewed exercises No injetion indicated at this time trudy given history of RTC repair Plan Prepared for Ulysses Maxwell MD by Peter Eddy, medical secretary teacher, on 11/30/23 at 11:05 AM, EST. Coding Level of Care Code Est Pt Level 3 (70110) Diagnoses Status post right rotator cuff repair Z98.890
== END 2023-11-30 11:19 | disposition home or self-care (01) ==
PROVIDERS: PCP Internal Medicine; Visit Provider Orthopaedic Surgery
DX: M75.21 Bicipital tendinitis, right shoulder (principal)
CPT/HCPCS: 99213

== ENCOUNTER → 2023-11-30 10:57 | Outpatient (BNVA) | payer MEDICARE, SELFPAY | PROVIDERS: PCP Internal Medicine; Visit Provider Orthopaedic Surgery | DX: Z98.890 Other specified postprocedural states (principal) | CPT/HCPCS: 99212 ==

== ENCOUNTER 2023-12-09 08:14 | Outpatient (REF) | payer MEDICARE, SELFPAY ==
[2023-12-09 08:34] LABS: MANUAL DIFF FLAG NO
[2023-12-09 08:53] LABS: Basophils Absolute Auto 0.1 X10*3/uL (0.0-0.2); Basophils Percent Auto 1.1 % (0-2); Eosinophils Absolute Auto 0.2 X10*3/uL (0.0-0.4); Eosinophils Percent Auto 3.7 % (0-4); Hematocrit 48.8 % (42.0-52.0); Hemoglobin 16.3 g/dl (14.0-18.0); Imm Gran Abs Auto 0.01 X10*3/uL (0.00-0.03); Imm Gran Pct Auto 0.2 % (0.0-0.4); Lymphocytes Absolute Auto 1.4 X10*3/uL (1.2-4.9); Lymphocytes Percent Auto 30.4 % (20-40); Mean Corpuscular HGB Conc 33.4 g/dl (31.0-36.0); Mean Corpuscular Hemoglobin 28.8 pg (27.0-33.0); Mean Corpuscular Volume 86.4 fL (80.0-98.0); Mean Platelet Volume 9.9 fL (9.4-12.4); Monocytes Absolute Auto 0.3 X10*3/uL (0.1-1.2); Monocytes Percent Auto 6.1 % (2-11); Neutrophils Absolute Auto 2.7 x10*3/uL (2.0-8.3); Neutrophils Percent Auto 58.5 % (45-73); Platelet Count 204 X10*3/uL (160-400); Red Blood Count 5.65 X10*6/uL (4.60-5.80); Red Cell Distribution Width 13.1 % (11.0-16.0); White Blood Count 4.6 X10*3/uL (4.8-10.8)
[2023-12-09 09:38] LABS: Alanine Aminotransferase 25 U/L (0-40); Albumin Level 4.6 g/dL (3.5-5.0); Alkaline Phosphatase 97 U/L (39-117); Anion Gap 13 (12-20); Aspartate Amino Transferase 21 U/L (5-37); Bilirubin Total 0.8 mg/dL (0.0-1.0); Blood Urea Nitrogen 19 mg/dL (9-16); Calcium 9.7 mg/dL (8.4-10.2); Carbon Dioxide 27 mmol/L (22-29); Chloride 107 mmol/L (96-108); Cholesterol 186 mg/dL (<200); Estimated Glomerular Filt Rate > 60; Glucose Fasting 99 mg/dL (60-99); HDL Cholesterol 50 mg/dL (>40); LDL Cholesterol Calculated 117 mg/dL (<100); Potassium 4.5 mmol/L (3.3-5.1); Sodium 142 mmol/L (135-145); Total Protein 7.7 g/dL (6.5-8.0); Triglycerides 97 mg/dL (<150)
[2023-12-09 09:57] LABS: Thyroid Stimulating Hormone 1.07 uIU/mL (0.32-4.0)
== END 2023-12-09 08:15 | disposition home or self-care (01) ==
LOC: HO.LAB 08:14
PROVIDERS: PCP Internal Medicine; Visit Provider Internal Medicine
DX: I10 Essential (primary) hypertension (principal); E78.00 Pure hypercholesterolemia, unspecified; G47.9 Sleep disorder, unspecified; N20.0 Calculus of kidney; N40.1 Benign prostatic hyperplasia with lower urinary tract symptoms; N13.8 Other obstructive and reflux uropathy; R33.9 Retention of urine, unspecified
CPT/HCPCS: 36415; 52000; 80053; 80061; 81003; 84443; 85025; 99212

== ENCOUNTER 2023-12-09 12:50 | Outpatient (AMB) | payer MEDICARE, SELFPAY ==
--- NOTE | 2023-12-09 13:11 | MHC.OFFVIS ---
Intake Intake Visit Reasons: Cysto(vm to confirm) Intake Note: Patient presents today for a Cystoscopy Meds: None Allergies to Antibiotic: Sulfa, Penicillins, Clindamycin, Metronidazole Blood Thinner: None Urinalysis test clear for Cysto? Yes Disposable Uro-G Cystoscope Cannula: Lot: [id number] Exp: 02/15/2025 Veterinary Laboratory Technician Required: No Accompanied by: Self / Same As Patient Allergies citalopram [CITALOPRAM] Allergy (Intermediate, Verified 12/09/23 13:17) Hives clindamycin Allergy (Intermediate, Verified 12/09/23 13:17) Hives metronidazole [METRONIDAZOLE] Allergy (Intermediate, Verified 12/09/23 13:17) Hives Penicillins Allergy (Intermediate, Verified 12/09/23 13:17) HIVES Sulfa (Sulfonamide Antibiotics) Allergy (Intermediate, Verified 12/09/23 13:17) HIVES terazosin Adverse Reaction (Uncoded 12/09/23 13:17) Fainting HPI HPI Comments History of Present Illness Details Julio is a pleasant male. He is a patient of Dr. Goodson. 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 Bilateral renal cysts. Stones approximately 5 mm - 06/25 renal ultrasound bilateral renal cyst stable. Small stone? On right 2 mm - 08/26 renal ultrasound bilateral renal cysts, query small stone 3 mm right side Intervention - 03/25 right ureteroscopy, laser lithotripsy and stent placement Therapeutic plan - vitamin B6, fluids PFSH Medical History Osteoarthritis Insomnia Gout Depression Cervical disc disease Elevated cholesterol Skin lesions Anal pain COVID-19 vaccination declined History of COVID-19 BPH (benign prostatic hyperplasia) Diverticulitis Kidney stones Surgical History History of arthroscopic surgery of shoulder H/O blepharoplasty History of nasal surgery Hx of cystoscopy Hx of cystoscopy Hx of lithotripsy H/O colonoscopy Hx of appendectomy Family History Father Heart disease Social History Household Members: Other Household Members Other:: Roomate Housing: [facility] Are you a primary adult care provider to a significant other at home: No Do you presently have visiting nurse or other home services: No Alcohol intake: current Alcohol intake frequency: a few times a month Alcohol type: wine Patient Tobacco Use Status: Never used Tobacco service: No Current occupational status: employed 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 Review of Systems Const Denies chills and Denies fever(s) Card Reports no additional complaints and Denies syncope Resp Denies cough GI Denies abdominal pain and Denies heartburn Reports as per HPI and Denies change in libido Neuro Denies syncope Psych Denies change in libido Endo Denies change in libido Physical Exam Const General: cooperative, healthy appearing, comfortable and no acute distress Orientation/consciousness: patient oriented x3 HEENT Face and sinus: Yes normal facial exam Mouth: moist mucous membranes Neck Neck: Yes normal visual inspection, Yes full ROM and Yes trachea midline Chest Chest palpation & inspection: normal inspection of the chest Resp Effort & Inspection: normal respiratory effort, able to speak in complete sentences and no respiratory distress GI Inspection: Yes normal to inspection Back/Spine/Pelvis Cervical Spine: normal cervical lordosis Thoracic/Lumbar Spine: thoracic and lumbar spine normal to inspection Skin General skin exam: no rashes or lesions noted Neuro General: patient oriented x3, gait normal, tone normal and moves all extremities Extrem General: Yes normal to inspection and Yes capillary refill normal Office Procedures Cystoscopy Consent Discussed risk and benefit or proposed procedure with the patient. Information consent for procedure given to the patient. Discussed technical aspects, risks, benefits and alternatives in full. Addressed all of the patient's questions and concerns regarding the procedure. The patient demonstrated knowledge and understanding. They wish to proceed with this procedure. Preparation The patient was prepped in the usual manner. A cnc milling machine operator was present and in the room. Genitalia was prepped with betadine solution in a sterile manner. Lidocaine Jelly 2% was placed into the urethra and 16Fr flexible Olympus cystoscope was inserted into the meatus after adequate lubrication. [id number] DISPOSABLE SCOPE URO-G FLEXIBLE SCOPE Procedure code (CPT) selection complete Office Meds lidocaine HCl 2 % mucosal jelly in applicator Performing Provider: Isreal Erazo MD Performing Location: [facility] Administered by: Ailyn Mcqueen RN on 12/09/23 13:16 Dose Route Admin Location Dispensed Lot Number Expiration Date ND Enrobing Machine Operator 10 mL intra-urethral 10 mL nitrofurantoin monohydrate/macrocrystals 100 mg capsule Performing Provider: Isreal Erazo MD Performing Location: [facility] Administered by: Ailyn Mcqueen RN on 12/09/23 13:16 Dose Route Admin Location Dispensed Lot Number Expiration Date ND Enrobing Machine Operator 100 mg PO 1 cap naproxen 500 mg tablet Performing Provider: Isreal Erazo MD Performing Location: [facility] Administered by: Ailyn Mcqueen RN on 12/09/23 13:16 Dose Route Admin Location Dispensed Lot Number Expiration Date NDC Enrobing Machine Operator 500 mg PO 1 tab Results AMB Urinalysis, Automated UA Leukoctes 0 Fortino/uL Last Edit by Radha Rodarte CMA on 12/09/23 13:20 UA Nitrite Negative Last Edit by Radha Rodarte CMA on 12/09/23 13:20 UA Urobilinogen 0.2 mg/dL Last Edit by Radha Rodarte CMA on 12/09/23 13:20 UA Protein 0 mg/dL Last Edit by Radha Rodarte CMA on 12/09/23 13:20 UA pH 5.5 Last Edit by Radha Rodarte CMA on 12/09/23 13:20 UA Blood 0 Edwin/uL Last Edit by Radha Rodarte CMA on 12/09/23 13:20 UA Specific [place] 1.025 Last Edit by Radha Rodarte CMA on 12/09/23 13:20 UA Ketone Negative Last Edit by Radha Rodarte CMA on 12/09/23 13:20 UA Bilirubin 0 mg/dL Last Edit by Radha Rodarte CMA on 12/09/23 13:20 UA Glucose 0 mg/dL Last Edit by Radha Rodarte CMA on 12/09/23 13:20 Results Reviewed Results Reviewed: Laboratory Last Values Urine pH (Auto) 5.5 12/09/23 13:19 Specific [place] (Auto) 1.025 12/09/23 13:19 Urine Protein (Auto) 0 mg/dL 12/09/23 13:19 Glucose (UA)(Auto) 0 mg/dL 12/09/23 13:19 Urine Ketones (Auto) Negative 12/09/23 13:19 Urine Blood (Auto) 0 Edwin/uL 12/09/23 13:19 Urine Nitrite (Auto) Negative 12/09/23 13:19 Urine Bilirubin (Auto) 0 mg/dL 12/09/23 13:19 Urine Urobilinogen (Auto) 0.2 mg/dL 12/09/23 13:19 Leukocyte Esterase (Auto) 0 Fortino/uL 12/09/23 13:19 Assessment & Plan Assessment & Plan (1) Nephrolithiasis: Code(s): N20.0 - Calculus of kidney (2) BPH w urinary obs/LUTS: Code(s): N40.1 - Benign prostatic hyperplasia with lower urinary tract symptoms; N13.8 - Other obstructive and reflux uropathy Plan We discussed the nature of the decision and reasonable options for performing a prostate intervention. Interventions include TURP, GreenLight laser enucleation of the prostate, GreenLight laser ablation of the prostate, transurethral incision of the prostate, and I-Tend prostate procedure. Options such as medical therapy were discussed. The relative uncertainties and benefits related to each alternate procedure were adequately discussed. General surgical risks including, but not limited to, pain, bleeding, infection, myocardial infarction, pulmonary embolus, deep vein thrombosis and cerebrovascular accident which may result in further hospitalization were discussed. Full disclosure of the procedure as well as all major risks, benefits and complications were discussed including but not limited to damage to the urethra or bladder neck, recurrent BPH, retrograde ejaculation, bladder infection, urge, de rosalie frequency, incomplete emptying, dysuria, remote chance of erectile dysfunction, epididymitis, and meatal stenosis. The success rate of the procedure was discussed. Success of the procedure in the short-term does not necessarily guarantee that long-term success will be maintained. Suitable follow up will need to be maintained. The patient showed understanding of discussion. An opportunity was provided for questions to be answered and wishes to proceed with the following procedure. - GreenLight laser prostate Orders: Orders AMB Urinalysis Automated 12/09/23 R33.9 - Retention of urine, unspecified AMB Cystoscopy 12/09/23 N40.1 - Benign prostatic hyperplasia with lower urinary tract symptoms, N13.8 - Other obstructive and reflux uropathy, R33.9 - Retention of urine, unspecified Patient Instructions: Imaging studies, laboratory and physical exam results were discussed and reviewed in detail. No major barriers to patient understanding were identified. An opportunity to ask questions regarding the treatment plan was provided. All questions were answered. The patient expressed understanding and agreement with the above treatment plan. The patient is aware they should contact our office by phone for worsening of their current condition or the appearance of new urologic symptoms. Compliance is encouraged with any medications and followup testing that is ordered. It is a privilege to participate in the urologic care of your patient. If you have any questions or concerns regarding treatment for the above conditions, or other urologic issues, please do not hesitate to contact me. The office telephone contact is [phone]. This note is constructed using voice recognition software. While every effort has been made to ensure accuracy honey blender errors may have been included. Yours sincerely, Dr Isreal Erazo MD, [facility] Urology Providers of Expert, Compassionate Care for the Genitourinary System Coding Level of Care Code Est Pt Level 4 (23753) Diagnoses Nephrolithiasis N20.0 BPH w urinary obs/LUTS N40.1; N13.8 CPT Codes Cystoscopy - CPT: [id number] ([id number])
== END 2023-12-09 14:32 | disposition home or self-care (01) ==
PROVIDERS: PCP Internal Medicine; Visit Provider Urology
DX: N40.1 Benign prostatic hyperplasia with lower urinary tract symptoms (principal); N13.8 Other obstructive and reflux uropathy; N20.0 Calculus of kidney
CPT/HCPCS: 52000; 99214

== ENCOUNTER 2024-01-14 16:48 | Emergency (ER) | payer MEDICARE, SELFPAY ==
--- NOTE | ~2024-01-14 | CT_ITS ---
EXAMINATION: CT ABDOMEN AND PELVIS WITHOUT CONTRAST CLINICAL INFORMATION: Left flank pain. COMPARISON: CT abdomen and pelvis 04/10/2023. TECHNIQUE: Multidetector volumetric imaging was performed from the superior aspect of the liver through the pubic symphysis. Sagittal and coronal reformatted images were obtained on the technologist's workstation. This CT examination was performed using dose optimization techniques as appropriate, variously including the following: *Automated exposure control. *Adjustment of mA and/or kV according to patient size (this includes techniques or standardized protocols for targeted exams where dose is matched to indication/reason for exam; i.e. extremities or head). *Use of iterative reconstruction technique. DLP: 592 mGy-cm FINDINGS: LUNG BASES: The visualized lung bases are unremarkable aside from bibasilar atelectasis. LIVER, GALLBLADDER, AND BILIARY TREE: No hepatic abnormality. The gallbladder is mildly distended distended limiting evaluation without focal abnormality. No biliary ductal dilatation. PANCREAS: The pancreas is unremarkable aside from some mild fatty infiltration of the pancreatic head. No pancreatic ductal dilatation or peripancreatic abnormality. SPLEEN: Unremarkable. ADRENAL GLANDS: Unremarkable. KIDNEYS AND URETERS: Fluid attenuation benign Bosniak class I cysts bilaterally, right greater than left. The largest on the right in the upper pole measuring 5.2 cm. These need no follow-up or additional imaging. No solid renal masses are seen. Multiple bilateral nonobstructing intrarenal calculi are seen which have increased in size since the prior study. For example, there was a 4 mm stone at the lower pole of the left kidney which now measures 7 mm (4:284 compare prior 4:307). Of note, there is a 3 mm calculus present in the posterior bladder in the midline which is new compared to the prior study. This most likely represents a recently passed stone presumably on the left, the site of the patient's flank pain. It is possible that this stone could be in the ureterovesical junction although it is a bit medial. BLADDER: Unremarkable. GASTROINTESTINAL TRACT: The stomach and small bowel unremarkable. The appendix is not visualized. No evidence for acute appendicitis. Again seen is moderate colonic diverticulosis in the sigmoid colon without diverticulitis. Small and large bowel are otherwise unremarkable. ABDOMINAL WALL: No significant hernia is appreciated. LYMPH NODES: No lymphadenopathy. VASCULAR: Unremarkable. PELVIC VISCERA: There is marked prostatomegaly. OSSEOUS STRUCTURES: L4-L5 and L5-S1 mild degenerative disc disease. CT/CT abdomen pelvis wo IV con IMPRESSION: 1. There is a 3 mm calculus in the posterior bladder in the midline which is new compared to the prior study. This most likely represents a recently passed stone presumably on the left, the site of the patient's flank pain. It is possible that this stone could be in the ureterovesical junction although it is a bit medial. 2. Bilateral nonobstructing intrarenal calculi have increased in size since the prior study. 3. Other incidental findings as described above. Fleischner guidelines were followed.
[2024-01-14 17:04] VITALS: BP 138/77; PULSE 69; RESP 18; TEMP 36.8; O2SAT 97; BMI 25.3
--- NOTE | 2024-01-14 17:04 | ED_ITS ---
HPI - Abdominal Pain General Chief Complaint: Urogenital-Male Stated Complaint: Kidney stone? Time Seen by Provider: 01/14/24 18:53 Source: patient, RN notes reviewed and old records reviewed Mode of arrival: ambulatory Limitations: no limitations History of Present Illness HPI narrative: 68-year-old male presents for evaluation of left flank pain. Patient reports his pain started 3 hours ago. He reports he had some burning with urination and reported some ilno blood in the urine Patient states that he took a Percocet that he had left over from a previous shoulder surgery Currently he has dull, 1 or 2/10 pain. Denies any fevers or chills. Denies any nausea vomiting, diarrhea. He has no other complaints or concerns at this time The patient reports a significant history of kidney stones Related Data Home Medications ?Medication ?Instructions ?Recorded ?Confirmed psyllium husk 3.4 gram/5.4 gram 1 tbsp PO DAILY 11/25/22 10/27/23 oral powder (Metamucil) lorazepam 1 mg tablet 1 mg PO DAILY PRN 08/18/23 10/27/23 Previous Rx's ?Medication ?Instructions ?Recorded oxycodone-acetaminophen 5 mg-325 1 tab PO Q4-6H PRN severe pain 01/14/24 mg tablet (Percocet) (scale score 7-10) #10 tabs Allergies Allergy/AdvReac Type Severity Reaction Status Date / Time citalopram [CITALOPRAM] Allergy Intermediate Hives Verified 01/14/24 17:07 clindamycin Allergy Intermediate Hives Verified 01/14/24 17:07 metronidazole [METRONIDAZOLE] Allergy Intermediate Hives Verified 01/14/24 17:07 Penicillins Allergy Intermediate HIVES Verified 01/14/24 17:07 Sulfa (Sulfonamide Allergy Intermediate HIVES Verified 01/14/24 17:07 Antibiotics) terazosin AdvReac Fainting Uncoded 12/09/23 13:17 Review of Systems Constitutional: Denies body ache(s), Denies chills and Denies fever(s) Eyes: Denies blurry vision Denies sore throat Cardiovascular: Denies chest pain and Denies dyspnea Respiratory: Denies cough and Denies dyspnea Gastrointestinal: Reports abdominal pain (Left flank pain), Denies nausea and Denies vomiting Genitourinary: Reports hematuria and Reports flank pain Musculoskeletal: Reports back pain Skin/Breast: Denies rash PMFSH Past Medical History Medical History Osteoarthritis Insomnia Gout Depression Cervical disc disease Elevated cholesterol Skin lesions Anal pain COVID-19 vaccination declined History of COVID-19 BPH (benign prostatic hyperplasia) Diverticulitis Kidney stones Surgical History History of arthroscopic surgery of shoulder H/O blepharoplasty History of nasal surgery Hx of cystoscopy Hx of cystoscopy Hx of lithotripsy H/O colonoscopy Hx of appendectomy Family History Family History Father Heart disease Social History Social History Household Members: Other Household Members Other:: Roomate Housing: [facility] Are you a primary complex care nurse practitioner to a significant other at home: No Do you presently have visiting nurse or other home services: No Alcohol intake: current Alcohol intake frequency: holidays/special occasions only Alcohol type: wine Patient Tobacco Use Status: Never used Tobacco Smoked in Last 30 Days: No Use of substances other than those prescribed or required for medical reasons: No Advance Directives: No Advance Directives Information Provided: Yes service: No Current occupational status: employed 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 Physical Exam ED Vital Signs: Vital Signs - 24 hr 01/14/24 17:04 01/14/24 19:09 Temperature 98.2 F 98.5 F Pulse Rate 69 63 Respiratory Rate 18 18 Blood Pressure 138/77 120/59 L Pulse Oximetry 97 95 Oxygen Delivery Method Room Air Room Air BMI result Body Mass Index 25.3 Const General: healthy appearing, comfortable, no acute distress, alert and awake Nutritional Appearance: well nourished Orientation/consciousness: patient oriented x3 HENMT Head: Yes normocephalic and Yes atraumatic Eyes Eyelids: Yes eyelids normal Conjunctivae: conjunctivae normal Sclerae: sclerae normal Corneas: corneas normal Pupils: Equal, round and reactive pupils present EOM: EOMs intact bilaterally Neck Neck: Yes full ROM Resp Effort & Inspection: normal respiratory effort, able to speak in complete sentences and not labored GI Other: No CVA tenderness bilaterally Inspection: No distended Palpation (GI): Soft to palpation, not firm, nontender, no guarding and not rigid Skin General skin exam: elasticity normal Neuro General: patient oriented x3 Cranial nerves: Yes Equal, round and reactive pupils present and Yes Bilaterally intact EOM present Cognition (Neuro): normal cognition Extrem Other: Moving all extremities well without any obvious deformities Course Course Course Narrative: This is a Rapid Medical Examination (RME) in triage, full HPI, ROS, assessment and plan per primary provider in the Main ED. 68 yo male with history of kidney stones presents to the ER for evaluation of 3 hours of severe left flank pain c/w a kidney stone. Also reports hematuria and dysuria. No fever or vomiting. Plan: labs, UA, CT abd/pelvis Medical Decision Making Medical Decision Making [facility] Narrative: 68-year-old male presents for evaluation of left flank pain that has subsided. He has a history of kidney stones, he reports this feels like his kidney stones. A CT scan of the abdomen pelvis was ordered in triage. Patient's labs are reassuring, his creatinine is 1.02. This is consistent his baseline. His BUN is slightly elevated 22 but he always has a slightly elevated BUN. This may also reflect obstructive uropathy. Sodium potassium are within normal limits. Patient's bilirubin is slightly elevated to 1.2, however he has no right abdominal pain, nausea, vomiting. Doubt biliary obstruction. UA pending Differential Diagnosis Differential Diagnoses: The differential diagnosis associated with the presentation includes Obstructive uropathy UTI Pyelonephritis Abdominal pain Lab Data [facility] Lab Attestation statement: I reviewed the patient's lab results. See above 01/14/24 17:19 01/14/24 17:19 Labs: Lab Results 01/14/24 01/14/24 Range/Units 17:19 19:14 WBC 8.5 (4.8-10.8) X10*3/uL RBC 5.53 (4.60-5.80) X10*6/uL Hgb 16.3 (14.0-18.0) g/dl Hct 47.4 (42.0-52.0) % MCV 85.7 (80.0-98.0) fL MCH 29.5 (27.0-33.0) pg MCHC 34.4 (31.0-36.0) g/dl RDW 13.2 (11.0-16.0) % Plt Count 209 (160-400) X10*3/uL MPV 10.2 (9.4-12.4) fL Immature Gran % (Auto) 0.2 (0.0-0.4) % Neut % (Auto) 63.6 (45-73) % Lymph % (Auto) 26.2 (20-40) % [place] % (Auto) 6.1 (2-11) % Eos % (Auto) 3.4 (0-4) % Baso % (Auto) 0.5 (0-2) % Lymph # (Auto) 2.2 (1.2-4.9) X10*3/uL [place] # (Auto) 0.5 (0.1-1.2) X10*3/uL Eos # (Auto) 0.3 (0.0-0.4) X10*3/uL Baso # (Auto) 0.0 (0.0-0.2) X10*3/uL Abs Immat Gran (auto) 0.02 (0.00-0.03) X10*3/uL Absolute Neuts (auto) 5.4 (2.0-8.3) x10*3/uL Absolute Nucleated RBC 0.000 (0.0-0.012) X10*3/uL Nucleated RBC % (auto) 0.0 (0.0-0.2) /100WBC Sodium 140 (135-145) mmol/L Potassium 4.3 (3.3-5.1) mmol/L Chloride 109 H (96-108) mmol/L Carbon Dioxide 25 (22-29) mmol/L Anion Gap 10 L (12-20) BUN 22 H (9-16) mg/dL Creatinine 1.02 (0.5-1.4) mg/dL Estim Creat Clear Calc 74.8 Estimated GFR > 60 Random Glucose 116 H (60-115) mg/dL Calcium 9.4 (8.4-10.2) mg/dL Magnesium 2.1 (1.6-2.6) mg/dL Total Bilirubin 1.2 H (0.0-1.0) mg/dL Direct Bilirubin 0.4 (0.0-0.5) mg/dL AST 20 (5-37) U/L ALT 27 (0-40) U/L Alkaline Phosphatase 103 (39-117) U/L Total Protein 7.7 (6.5-8.0) g/dL Albumin 4.4 (3.5-5.0) g/dL Urine Color Yellow Urine Appearance Clear Urine pH 5.5 (5.0-9.0) Ur Specific [place] 1.020 (1.005-1.025) Urine Protein Negative (Neg-Trace) mg/dL Urine Glucose (UA) Negative (Negative) mg/dL Urine Ketones Negative (Negative) mg/dL Urine Blood Large (3+) H (Negative) Urine Nitrite Negative (Negative) Ur Leukocyte Esterase Negative (Negative) Urine RBC >20 H (0-2) /HPF Urine WBC 0-5 (0-5) /HPF Ur Squamous Epith Cells 0-2 (0-2) /HPF Urine Bacteria None Seen (None Seen) Hyaline Casts 0-2 (0-2) /LPF Independent Interpretation I performed an independent interpretation of an: CT Scan (Mild stool burden. Right renal cyst, calcification in the center of the bladder) Radiology Impression Discussion of test interpretation with radiology: I have reviewed the radiologist's reading. Radiologist Impression: IMPRESSION: 1. There is a 3 mm calculus in the posterior bladder in the midline which is new compared to the prior study. This most likely represents a recently passed stone presumably on the left, the site of the patient's flank pain. It is possible that this stone could be in the ureterovesical junction although it is a bit medial. 2. Bilateral nonobstructing intrarenal calculi have increased in size since the prior study. 3. Other incidental findings as described above Discharge Plan Discharge Clinical Impression: Acute unilateral obstructive uropathy Patient Disposition: Home, Self-Care Instructions: Kidney Stones (ED) Additional Instructions: Your workup shows a 3 mm kidney stone within the bladder which is likely a recently passed stone. You have [id number] constipation Your blood work was reassuring Take Percocet as needed for any severe breakthrough pain This may make you sleepy, did not drink alcohol or drive after taking it Follow-up with your primary doctor Prescriptions: New oxycodone-acetaminophen [Percocet] 5-325 mg tablet 1 tab PO Q4-6H PRN (Reason: severe pain (scale score 7-10)) Qty: 10 0RF Rx Instructions: Partial Fill upon patient request. No Action Metamucil 3.4 gram/5.4 gram Powder 1 tbsp PO DAILY Rx Instructions: mix into at least 8 oz of water or juice before administering lorazepam 1 mg tablet 1 mg PO DAILY PRN Print Language: Mozambican
[2024-01-14 17:26] LABS: MANUAL DIFF FLAG NO
[2024-01-14 17:32] LABS: Basophils Percent Auto 0.5 % (0-2); Eosinophils Absolute Auto 0.3 X10*3/uL (0.0-0.4); Eosinophils Percent Auto 3.4 % (0-4); Hematocrit 47.4 % (42.0-52.0); Hemoglobin 16.3 g/dl (14.0-18.0); Imm Gran Abs Auto 0.02 X10*3/uL (0.00-0.03); Imm Gran Pct Auto 0.2 % (0.0-0.4); Lymphocytes Absolute Auto 2.2 X10*3/uL (1.2-4.9); Lymphocytes Percent Auto 26.2 % (20-40); Mean Corpuscular HGB Conc 34.4 g/dl (31.0-36.0); Mean Corpuscular Hemoglobin 29.5 pg (27.0-33.0); Mean Corpuscular Volume 85.7 fL (80.0-98.0); Mean Platelet Volume 10.2 fL (9.4-12.4); Monocytes Absolute Auto 0.5 X10*3/uL (0.1-1.2); Monocytes Percent Auto 6.1 % (2-11); Neutrophils Absolute Auto 5.4 x10*3/uL (2.0-8.3); Neutrophils Percent Auto 63.6 % (45-73); Platelet Count 209 X10*3/uL (160-400); Red Blood Count 5.53 X10*6/uL (4.60-5.80); Red Cell Distribution Width 13.2 % (11.0-16.0); White Blood Count 8.5 X10*3/uL (4.8-10.8)
[2024-01-14 17:48] LABS: Alanine Aminotransferase 27 U/L (0-40); Albumin Level 4.4 g/dL (3.5-5.0); Alkaline Phosphatase 103 U/L (39-117); Anion Gap 10 (12-20); Aspartate Amino Transferase 20 U/L (5-37); Bilirubin Direct 0.4 mg/dL (0.0-0.5); Bilirubin Total 1.2 mg/dL (0.0-1.0); Blood Urea Nitrogen 22 mg/dL (9-16); Calcium 9.4 mg/dL (8.4-10.2); Carbon Dioxide 25 mmol/L (22-29); Chloride 109 mmol/L (96-108); Creatinine Clr Calc Pharmacy 74.8; Estimated Glomerular Filt Rate > 60; Glucose Random 116 mg/dL (60-115); Magnesium 2.1 mg/dL (1.6-2.6); Potassium 4.3 mmol/L (3.3-5.1); Sodium 140 mmol/L (135-145); Total Protein 7.7 g/dL (6.5-8.0)
[2024-01-14 19:09] VITALS: BP 120/59; PULSE 63; RESP 18; TEMP 36.9; O2SAT 95
[2024-01-14 19:25] LABS: Appearance Urine Clear; Color Urine Yellow; Glucose Urine UA Negative (Negative); Leukocyte Esterase Urine Negative (Negative); Nitrite Urine Negative (Negative); PH 5.5 (5.0-9.0); UMIC TRIGGER UACC YES; Urine Blood Large (3+) (Negative); Urine Ketones Negative (Negative); Urine Protein Negative (Neg-Trace)
[2024-01-14 19:30] LABS: Bacteria Urine None Seen (None Seen); Hyaline Casts Urine 0-2 /LPF (0-2); RBC Urine >20 /HPF (0-2); Squamous Epithelial Cell Urine 0-2 /HPF (0-2); WBC Urine 0-5 /HPF (0-5)
[2024-01-14 19:51] VITALS: BP 120/59; PULSE 63; RESP 18; TEMP 36.9; O2SAT 95
== END 2024-01-14 19:53 | disposition home or self-care (01) ==
PROVIDERS: Physician Assistant; Emergency Provider Internal Medicine; PCP Internal Medicine
DX: N13.9 Obstructive and reflux uropathy, unspecified (principal); R10.9 Unspecified abdominal pain; Z79.899 Other long term (current) drug therapy
CPT/HCPCS: 36415; 74176; 80048; 80076; 81001; 83735; 85025; 99284

== ENCOUNTER 2024-01-25 10:02 | Outpatient (AMB) | payer MEDICARE, SELFPAY ==
[2024-01-25 10:21] VITALS: BP 116/68; PULSE 78; O2SAT 98; BMI 24.4
--- NOTE | 2024-01-25 10:21 | MHC.OFFVIS ---
Vital Signs 01/25/24 10:21 Height 5 ft 11 in Weight 175 lb BMI 24.4 BMI Reason not done Patient refused/unable BP 116/68 Blood Pressure Location Lt brachial Position Sitting Pulse 78 Pulse Source Pulse Oximeter Pulse Oximetry (%) 98 Oxygen Delivery Method Room Air Intake Visit Reasons: f/up cta Allergies citalopram [CITALOPRAM] Allergy (Intermediate, Verified 01/14/24 17:07) Hives clindamycin Allergy (Intermediate, Verified 01/14/24 17:07) Hives metronidazole [METRONIDAZOLE] Allergy (Intermediate, Verified 01/14/24 17:07) Hives Penicillins Allergy (Intermediate, Verified 01/14/24 17:07) HIVES Sulfa (Sulfonamide Antibiotics) Allergy (Intermediate, Verified 01/14/24 17:07) HIVES terazosin Adverse Reaction (Uncoded 12/09/23 13:17) Fainting Medication List - Last Reconciled 01/25/24 by Mike Ceballos MD lorazepam 1 mg PO DAILY PRN oxycodone-acetaminophen 5-325 mg (Percocet) 1 tab PO Q4-6H PRN psyllium husk (Metamucil) 1 tbsp PO DAILY HPI Comments Details: Julio returns for follow-up. Recently seen in consultation regarding hypertension as well as family history of coronary disease. With regard to hypertension, somewhat of recent diagnosis per patient but going back few years, he has had intermittent high blood pressures. He has tried losartan as well as amlodipine and had some side effects and currently not taking anything. However, 20s blood pressure is still normal. He was also on other medications like terazosin, finasteride that apparently led to syncope. Hence it is possible that he is just getting low blood pressures on medications otherwise having intermittent high blood pressures. Otherwise, there is also history of coronary disease in family. Father apparently had cardiac arrest but unknown details. Since last seen, completed an echocardiogram and coronary CT. [facility] Medical History (Updated 01/25/24 @ 10:35 by Mike Ceballos MD) Atherosclerotic cardiovascular disease Osteoarthritis Insomnia Gout Depression Cervical disc disease Elevated cholesterol Skin lesions Anal pain COVID-19 vaccination declined History of COVID-19 BPH (benign prostatic hyperplasia) Diverticulitis Kidney stones Surgical History History of arthroscopic surgery of shoulder H/O blepharoplasty History of nasal surgery Hx of cystoscopy Hx of cystoscopy Hx of lithotripsy H/O colonoscopy Hx of appendectomy Family History Father Heart disease Social History Household Members: Other Household Members Other:: [facility]ate [facility] Are you a primary child caregiver to a significant other at home: No Do you presently have visiting nurse or other home services: No Alcohol intake: current Alcohol intake frequency: holidays/special occasions only Alcohol type: wine Patient Tobacco Use Status: Never used Tobacco service: No Current occupational status: employed 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 Review of Systems Const All systems reviewed & are unremarkable except as noted in HPI and below Reports as per HPI and Reports no additional complaints Eyes Reports as per HPI and Denies no additional complaints ENT Denies no additional complaints and Reports as per HPI Card Reports as per HPI, Reports no additional complaints, Denies acrocyanosis, Denies chest pain, Denies leg edema, Denies lightheadedness, Denies palpitations and Denies dyspnea Resp Reports as per HPI, Denies no additional complaints and Denies dyspnea GI Reports as per HPI and Denies no additional complaints Reports no additional complaints and Reports as per HPI Musc Reports no additional complaints and Reports as per HPI Skin/Breast Reports system reviewed and no additional complaints, except as documented Neuro Reports no additional complaints and Reports as per HPI Psych Reports no additional complaints and Reports as per HPI Endo Reports no additional complaints, Reports as per HPI and Denies palpitations David/Lymph Reports no additional complaints and Reports as per HPI Aller/Immun Reports no additional complaints and Reports as per HPI Physical Exam Vital Signs: Last Vital Signs Pulse 78 01/25/24 10:21 BP 116/68 01/25/24 10:21 Pulse Ox 98 01/25/24 10:21 Oxygen Delivery Method Room Air 01/25/24 10:21 BMI result Body Mass Index 24.4 Const General: comfortable and no acute distress Orientation/consciousness: patient oriented x3 HEENT Other: Unremarkable Head: Yes normal to inspection Neck Neck: Yes normal visual inspection Chest Chest palpation & inspection: normal inspection of the chest Resp Auscultation: clear to auscultation bilaterally Cardio Palpation: normal PMI Heart sounds: S1 normal heart sound present, S2 normal heart sound present, no gallops, no murmurs and no rubs GI Palpation (GI): Soft to palpation Back/Spine/Pelvis Other: unremarkable Skin General skin exam: no rashes or lesions noted Neuro General: patient oriented x3 Extrem General: Yes normal to inspection Psych Mental Status: mental status grossly normal Assessment & Plan Assessment & Plan (1) Atherosclerotic cardiovascular disease: Code(s): I25.10 - Atherosclerotic heart disease of [place] coronary artery without angina pectoris Category: Medical Plan: Coronary CTA reviewed. Multiple mixed plaques throughout the proximal LAD causing moderate approximately 50% stenosis. One area with either central ulceration versus calcification. FFR is pending. Minimal to mild stenosis in the RCA. In the echocardiogram, possible basal inferior hypokinesis with reduced strain. Not clear if the wall motion abnormalities artifactual as there is no significant disease in the RCA. Overall, recommend aspirin and statins. After long discussion he agrees. Check lipids in a few months. Clinically, he does not have any angina at this time. (2) Essential hypertension: Code(s): I10 - Essential (primary) hypertension Category: Medical Plan: Possible intermittent hypertension. He is off both amlodipine and lisinopril. No changes today. Orders: Orders Lipid Panel 3 Months E78.5 - Hyperlipidemia, unspecified, I25.10 - Atherosclerotic heart disease of [place] coronary artery without angina pectoris LDL Cholesterol Direct 3 Months I25.10 - Atherosclerotic heart disease of [place] coronary artery without angina pectoris Liver Panel 3 Months I25.10 - Atherosclerotic heart disease of [place] coronary artery without angina pectoris Medications: New aspirin (Adult Low Dose Aspirin) 81 mg PO DAILY 90 tabs 3RF atorvastatin 80 mg PO QPM 90 tabs 3RF
== END 2024-01-25 10:57 | disposition home or self-care (01) ==
LOC: HO.HCS 10:02
PROVIDERS: PCP Internal Medicine; Visit Provider Internal Medicine
DX: I25.10 Atherosclerotic heart disease of native coronary artery without angina pectoris (principal); I10 Essential (primary) hypertension
CPT/HCPCS: 99214

== ENCOUNTER → 2024-01-25 10:02 | Outpatient (BNVA) | payer MEDICARE, SELFPAY | PROVIDERS: PCP Internal Medicine; Visit Provider Internal Medicine | DX: I25.10 Atherosclerotic heart disease of native coronary artery without angina pectoris (principal); I10 Essential (primary) hypertension | CPT/HCPCS: 99212 ==

== ENCOUNTER 2024-03-21 07:15 | Day surgery (SDC) | payer MEDICARE, SELFPAY ==
[2024-03-17 10:33] VITALS: BMI 24.4
[2024-03-21] VITALS (10 sets, daily range): BP systolic 130–152; BP diastolic 75–88; PULSE 53–70; RESP 16–18; TEMP 36.1–36.7; O2SAT 95–99; BMI 24.4
[2024-03-21] MEDS: Lactated Ringers 1,000 ML 80 ML IVCONT (07:56)
--- NOTE | 2024-03-21 08:20 | P.CONAN_ITS ---
HPI - Anesthesia Eval Consult details Narrative: laser prostrate PMFSH Active Problems Active Problems: All Active Problems Family history of coronary artery disease (Acute) Essential hypertension (Acute) Bladder trabeculation (Acute) Enlarged prostate (Acute) Incomplete bladder emptying (Acute) History of total right hip replacement (Acute) Cerumen impaction (Acute) Rash (Acute) Thoracic back pain (Acute) Cervical spondylosis (Acute) Muscle spasms of neck (Acute) Skin lesion of cheek (Acute) Osteoarthritis of right hip (Acute) Status post right rotator cuff repair (Acute) History of arthroscopy of right shoulder (Acute) Rotator cuff tear, right (Acute) Shoulder weakness (Acute) Urinary urgency (Acute) Nocturia (Acute) BPH w urinary obs/LUTS (Acute) LADI (acute kidney injury) (Acute) Nephrolithiasis (Acute) Atherosclerotic cardiovascular disease (Acute) Skin lesions (Acute) Anal pain (Acute) Past Medical History Medical History Atherosclerotic cardiovascular disease Osteoarthritis Insomnia Gout Depression Cervical disc disease Elevated cholesterol Skin lesions Anal pain History of COVID-19 BPH (benign prostatic hyperplasia) Diverticulitis Kidney stones Family History Family History Father Heart disease Family history of problems with anesthesia: No Surgical History Surgical History History of total right hip replacement History of arthroscopic surgery of shoulder H/O blepharoplasty History of nasal surgery Hx of cystoscopy Hx of cystoscopy Hx of lithotripsy H/O colonoscopy Hx of appendectomy History of Problems with Anesthesia: No Social History Social History Household Members: Other Household Members Other:: Roomate Housing: Condominium Are you a primary managed care manager to a significant other at home: No Do you presently have visiting nurse or other home services: No Alcohol intake: current Alcohol intake frequency: holidays/special occasions only Alcohol type: wine Patient Tobacco Use Status: Never used Tobacco Are you DNR?: No Advance Directives: No Advance Directives Information Provided: Yes Nutrition Risks: No Nutritional Risk service: No Current occupational status: employed 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 Meds Allergies Allergy/AdvReac Type Severity Reaction Status Date / Time citalopram [CITALOPRAM] Allergy Intermediate Hives Verified 03/21/24 07:48 clindamycin Allergy Intermediate Hives Verified 03/21/24 07:48 metronidazole [METRONIDAZOLE] Allergy Intermediate Hives Verified 03/21/24 07:48 Penicillins Allergy Intermediate HIVES Verified 03/21/24 07:48 Sulfa (Sulfonamide Allergy Intermediate HIVES Verified 03/21/24 07:48 Antibiotics) terazosin AdvReac Intermediate fainting Verified 03/21/24 07:48 Active Medications: Current Medications Lactated Ringer's (Lr) 1,000 mls @ 80 mls/hr IVCONT .[id number] DOMINIQUE Last Admin: 03/21/24 07:56 Dose: 80 mls/hr Home Medications ?Medication ?Instructions ?Recorded ?Confirmed ?Last Taken ?Type psyllium husk 3.4 gram/5.4 gram 1 tbsp PO DAILY 11/25/22 03/17/24 Unknown History oral powder (Metamucil) lorazepam 1 mg tablet 1 mg PO DAILY PRN Anxiety 08/18/23 03/17/24 Unknown History Exam Height,Weight and Vital Signs: Height 5 ft 11 in Weight 79.379 kg Last Vital Signs Temp 98.0 F 03/21/24 08:17 Pulse 66 03/21/24 08:17 Resp 18 03/21/24 08:17 BP 139/88 03/21/24 08:17 Pulse Ox 97 03/21/24 08:17 O2 Del Method Room Air 03/21/24 08:17 Airway Mallampati Class: II TM Dist: >3cm Neck ROM: Full Denture: Upper and Lower Heart: rrr Lungs: cta Assessment and Plan Assessment Anesthesia Assessment: Anesthesia Plan Discussed and Chart Reviewed Final Anesthetic Review Family History of Problems with Anesthesia: No History of Problems with Anesthesia: No NPO: Yes ASA Class: II (pt says not on any antihypertensive, cath showed mild block, no need for stent. ) Final Preanesthetic Review: No Changes in Pt Med Stat, Meds/Allgs Chart Reviewed, Consent Obtained/Reviewed and Anes Risks/Benef Reviewed Patient Risk: Low Procedure Risk: Low Anesthetic Plan Anesthetic Plan: GA Disposition: Standard PACU
--- NOTE | 2024-03-21 09:12 | MHC.SHP ---
Pre-Procedural Eval Section A - 24 Hr Update-Section A only Date of Service: 03/21/24 The patient is an INPATIENT: No Changes since office visit: No Cold of Flu in the past 2 weeks, No New Medical Problems, No Changes in Medication and No Patient answered all questions The patient has been examined within 24 hours of the surgical procedure. The History & Physical has been completed within 30 days and I have reviewed it.: Yes Section B - Complete if H&P > 30 days Chief Complaint: Benign prostatic hyperplasia without lower urinary Details of Present Illness: 75 g prostate Allergies: Allergies Allergy/AdvReac Type Severity Reaction Status Date / Time citalopram [CITALOPRAM] Allergy Intermediate Hives Verified 03/21/24 07:48 clindamycin Allergy Intermediate Hives Verified 03/21/24 07:48 metronidazole [METRONIDAZOLE] Allergy Intermediate Hives Verified 03/21/24 07:48 Penicillins Allergy Intermediate HIVES Verified 03/21/24 07:48 Sulfa (Sulfonamide Allergy Intermediate HIVES Verified 03/21/24 07:48 Antibiotics) terazosin AdvReac Intermediate fainting Verified 03/21/24 07:48 Review of Systems Sugical H&P ROS: Negative: Constitution, Cardiovascular, Respiratory, Neurological, Psychiatric, Hem-Onc, Allergic/Immunologic, Gastrointestinal, Genitourinary, Musculoskeletal, Integumentary, Endocrine and Eyes/Ears/Nose/Throat Exam Surgical H&P Exam: Normal: HEENT, Normal: Heart, Normal: Lungs, Normal: Extremities, Normal: Abdomen, Normal: Skin and Normal: Neurological Plan Diagnosis/Plan: Unchanged (GreenLight laser prostatectomy) I have reviewed the history and physical and performed a pertinent physical examination on my patient. No changes have occurred unless specified. Time Spent With Patient Time: Total time managing care of this patient today ____ minutes.
--- NOTE | 2024-03-21 10:05 | P.OP_ITS ---
Operative Note Operative Note Date of Service: 03/21/24 Narrative: PreOperative Diagnosis: Bladder outlet obstruction Post Operative Diagnosis: Bladder outlet obstruction Procedure: GreenLight Laser Enucleation of the prostate CPT 07416 Surgeon: Dr Isreal Erazo Anesthesia: General History of bladder outlet obstruction. Treated with alpha-erik and other medications. Still with symptoms. On cystoscopy in office has tight bladder neck. Recommendation for prostate procedure with laser enucleation of prostate. 75 g based on ultrasound Risks and benefits have been discussed. Focus was placed on development of retrograde ejaculation which is a normal part of this procedure. Procedure: After informed consent was verified the patient was brought to the operating room and placed in a supine position. Anesthesia was administered per protocol. Patient was placed in modified dorsal lithotomy position and prepped and draped in a sterile fashion. Safety pause time-out was confirmed. Antibiotics have been given. A Twenty-four Micronesian laser cystoscope was inserted per urethra. No abnormalities were found of the anterior and bulbar urethra. The prostatic urethra shows lateral crowding. The bladder was examined and both ureteric orifices were seen in their normal positions away from the area of interest. Bladder trabeculation grade 1/2 with cellules. Did have some glomerulations. Using a GreenLight laser with settings of 80 rodriguez incisions were made at the 5 and 7 o'clock position. The incisions were taken down from the bladder neck down to the level of the veru. These were gradually deepened in order to define the lateral aspects of the median lobe area. Once clearly defined they will also extended in the lateral directions in order to create a deep groove. The median lobe was then ablated and enucleated tissue released into the bladder with the laser power increased to 120 W. Once the median lobe area had been cleared attention was directed to the lateral lobes. Starting with the patient's left lateral lobe. First the 05:00 o'clock groove was further developed. This was moved in the lateral direction to undermine the tissue on the lateral side running from the bladder neck to the prostate apex. The ureteric orifice was used to guide incisions. Focus was then placed on the laser at the 1 o'clock position to developing a secondary groove down to the level of bladder fibers. The creation of a second deep groove defined a segment of intervening tissue similar to a slice of orange. At the apex of the prostate the 2 grooves were linked the us releasing the intervening tissue. This tissue was then removed with a combination of enucleation and ablation working from the apex toward the bladder neck. A similar procedure was repeated on the patient's right-hand side. The only differences being the position of the lateral groove at he 7 'oclock position and the secondary groove at the 11 o'clock position, Otherwise the procedure was developed in a mirror fashion. After the majority of tissue had been debulked remnant tissue was ablated with t he side fire laser and the curve of the prostate followed up each side wall clearly defining the anterior remnant strip that remained between the 11 and 1 o'clock positions. When this was had been completed debris and pieces of prostate were removed from the bladder with irrigation. Both ureteric orifices were reviewed again in shown to be patent in away from any areas of energy damage. The apical area was reviewed in any stray ooze was controlled. A 22 Micronesian 30 cc balloon Lehman catheter was placed over a stylet into the bladder. Clear efflux was obtained upopn irrigation with a Bronson piston syringe. 30 cc cc was placed in the balloon and gentle traction was placed. A snap was used to hold tension on the catheter to control bleeding during patient moved and transported. A drainage bag was placed. Once transportation is complete to the PACU the snap will be removed. The patient tolerated the procedure well, he was extubated in the operating and transferred in a stable condition to the recovery area. Total Power 61 kJ kW Lasing time 10 minutes 36 seconds Pathology: Prostate tissue Drains: Lehman catheter
[2024-03-21] MEDS: oxyCODONE HCl Immed Release 5 MG TABLET PO (10:24)
[2024-03-21] MEDS: Acetaminophen 325 MG TABLET 975 MG PO (10:24)
[2024-03-21] MEDS: fentaNYL citrate/PF 100 MCG/2 ML VIAL 25 MCG IVPUSH ×4 (10:26→10:48)
== END 2024-03-21 11:21 | disposition home or self-care (01) ==
PROVIDERS: PCP Internal Medicine; Visit Provider Urology
PROC: (CPT 52648; principal; 2024-03-21 09:00)
DX: N40.1 Benign prostatic hyperplasia with lower urinary tract symptoms (principal); N13.8 Other obstructive and reflux uropathy; R33.9 Retention of urine, unspecified; N32.89 Other specified disorders of bladder; E78.00 Pure hypercholesterolemia, unspecified; M10.9 Gout, unspecified; Z88.0 Allergy status to penicillin; Z88.2 Allergy status to sulfonamides; Z88.1 Allergy status to other antibiotic agents; Z87.19 Personal history of other diseases of the digestive system; Z86.16 Personal history of COVID-19; Z87.442 Personal history of urinary calculi
CPT/HCPCS: 52649; 88305; J1956; J2405; J2704; J3010

== ENCOUNTER → 2024-03-21 07:15 | Outpatient (BNV) | payer MEDICARE, SELFPAY | PROVIDERS: PCP Internal Medicine; Visit Provider Urology | DX: N40.0 Benign prostatic hyperplasia without lower urinary tract symptoms (principal) | CPT/HCPCS: 52649 ==

== ENCOUNTER → 2024-03-24 09:27 | Outpatient (BNVA) | payer MEDICARE, SELFPAY | PROVIDERS: PCP Internal Medicine; Visit Provider Urology | DX: N40.1 Benign prostatic hyperplasia with lower urinary tract symptoms (principal); N13.8 Other obstructive and reflux uropathy; R33.9 Retention of urine, unspecified | CPT/HCPCS: 51700; 51798 ==

== ENCOUNTER 2024-04-06 07:28 | Emergency (ER) | payer MEDICARE, SELFPAY ==
[2024-04-06 07:33] VITALS: BP 138/85; PULSE 65; RESP 18; TEMP 36.2; O2SAT 98; BMI 25.5
[2024-04-06 07:50] LABS: MANUAL DIFF FLAG NO
[2024-04-06 07:53] LABS: Basophils Absolute Auto 0.1 X10*3/uL (0.0-0.2); Eosinophils Absolute Auto 0.3 X10*3/uL (0.0-0.4); Eosinophils Percent Auto 4.8 % (0-4); Hematocrit 46.8 % (42.0-52.0); Imm Gran Abs Auto 0.03 X10*3/uL (0.00-0.03); Imm Gran Pct Auto 0.5 % (0.0-0.4); Lymphocytes Absolute Auto 1.7 X10*3/uL (1.2-4.9); Lymphocytes Percent Auto 26.4 % (20-40); Mean Corpuscular HGB Conc 34.2 g/dl (31.0-36.0); Mean Corpuscular Hemoglobin 29.4 pg (27.0-33.0); Mean Platelet Volume 9.6 fL (9.4-12.4); Monocytes Absolute Auto 0.5 X10*3/uL (0.1-1.2); Monocytes Percent Auto 7.2 % (2-11); Neutrophils Absolute Auto 3.8 x10*3/uL (2.0-8.3); Neutrophils Percent Auto 60.1 % (45-73); Platelet Count 195 X10*3/uL (160-400); Red Blood Count 5.44 X10*6/uL (4.60-5.80); Red Cell Distribution Width 13.4 % (11.0-16.0); White Blood Count 6.2 X10*3/uL (4.8-10.8)
[2024-04-06 08:06] LABS: Alanine Aminotransferase 22 U/L (0-40); Albumin Level 4.2 g/dL (3.5-5.0); Alkaline Phosphatase 88 U/L (39-117); Anion Gap 12 (12-20); Aspartate Amino Transferase 18 U/L (5-37); Blood Urea Nitrogen 17 mg/dL (9-16); Calcium 9.3 mg/dL (8.4-10.2); Carbon Dioxide 23 mmol/L (22-29); Chloride 108 mmol/L (96-108); Creatinine Clr Calc Pharmacy 84.8; Estimated Glomerular Filt Rate > 60; Glucose Random 111 mg/dL (60-115); Potassium 4.1 mmol/L (3.3-5.1); Sodium 139 mmol/L (135-145); Total Protein 7.1 g/dL (6.5-8.0)
--- NOTE | 2024-04-06 08:08 | PC.NURSE ---
pt is resting comfortably, in no distress. pt was bladder scanned with 0ml post void residual. awaitng ua results.
[2024-04-06 08:09] LABS: Appearance Urine Cloudy; Color Urine Yellow; Glucose Urine UA Negative (Negative); Leukocyte Esterase Urine Moderate (2+) (Negative); Nitrite Urine Negative (Negative); PH 5.5 (5.0-9.0); Specific Gravity - Urine 1.025 (1.005-1.025); UMIC TRIGGER UACC YES; Urine Blood Large (3+) (Negative); Urine Ketones Negative (Negative); Urine Protein Trace mg/dL (Neg-Trace)
[2024-04-06 08:13] LABS: Bacteria Urine None Seen (None Seen); Hyaline Casts Urine 0-2 /LPF (0-2); RBC Urine >20 /HPF (0-2); Squamous Epithelial Cell Urine 0-2 /HPF (0-2); UACC Culture Trigger YES; WBC Urine >50 /HPF (0-5)
--- NOTE | 2024-04-06 08:19 | ED_ITS ---
HPI - Male Genitourinary General Chief complaint: Urogenital-Male Stated complaint: burning sensation when urinating Time Seen by Provider: 04/06/24 07:59 Source: patient Mode of arrival: ambulatory Limitations: no limitations History of Present Illness ED Provider: Dr. Mcghee HPI Narrative: Patient with dysuria 2 weeks after having prostate surgery. Now with frequency and dysuria Onset (ago): day(s) Duration: constant Related Data Home Medications ?Medication ?Instructions ?Recorded ?Confirmed psyllium husk 3.4 gram/5.4 gram 1 tbsp PO DAILY 11/25/22 03/17/24 oral powder (Metamucil) lorazepam 1 mg tablet 1 mg PO DAILY PRN Anxiety 08/18/23 03/17/24 Previous Rx's ?Medication ?Instructions ?Recorded oxycodone-acetaminophen 5 mg-325 1 tab PO Q4-6H PRN severe pain 01/14/24 mg tablet (Percocet) (scale score 7-10) #10 tabs aspirin 81 mg tablet,delayed 81 mg PO DAILY #90 tabs 01/25/24 release (Adult Low Dose Aspirin) atorvastatin 80 mg tablet 80 mg PO QPM #90 tabs 01/25/24 cephalexin 500 mg capsule 500 mg PO Q6H 7 days #28 caps 04/06/24 Allergies Allergy/AdvReac Type Severity Reaction Status Date / Time citalopram [CITALOPRAM] Allergy Intermediate Hives Verified 04/06/24 07:34 clindamycin Allergy Intermediate Hives Verified 04/06/24 07:34 metronidazole [METRONIDAZOLE] Allergy Intermediate Hives Verified 04/06/24 07:34 Penicillins Allergy Intermediate HIVES Verified 04/06/24 07:34 Sulfa (Sulfonamide Allergy Intermediate HIVES Verified 04/06/24 07:34 Antibiotics) terazosin AdvReac Intermediate fainting Verified 04/06/24 07:34 Review of Systems 2 Review of Systems: Yes all other systems are reviewed and are negative Neurologic: Denies Sensory deficit (Neuro) PMFSH Past Medical History Medical History Atherosclerotic cardiovascular disease Osteoarthritis Insomnia Gout Depression Cervical disc disease Elevated cholesterol Skin lesions Anal pain History of COVID-19 BPH (benign prostatic hyperplasia) Diverticulitis Kidney stones Surgical History History of total right hip replacement History of arthroscopic surgery of shoulder H/O blepharoplasty History of nasal surgery Hx of cystoscopy Hx of cystoscopy Hx of lithotripsy H/O colonoscopy Hx of appendectomy Family History Family History Father Heart disease Social History Social History Household Members: Other Household Members Other:: Roomate [facility] Are you a primary daycare assistant to a significant other at home: No Do you presently have visiting nurse or other home services: No Alcohol intake: current Alcohol intake frequency: holidays/special occasions only Alcohol type: wine Patient Tobacco Use Status: Never used Tobacco Advance Directives: No Advance Directives Information Provided: No service: No Current occupational status: employed 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 Physical Exam 2 Vital Signs: Vital Signs: Last Vital Signs Temp 97.1 F 04/06/24 07:33 Pulse 63 04/06/24 08:20 Resp 18 04/06/24 08:20 BP 138/94 H 04/06/24 08:20 Pulse Ox 93 04/06/24 08:20 O2 Del Method Room Air 04/06/24 08:20 BMI result Body Mass Index 25.5 Const: General: healthy appearing Nutritional Appearance: average body habitus Orientation/consciousness: oriented to person and patient oriented x3 Limitations: no limitations HEENT: Head: Yes normal to inspection Ears: external ears normal General nose exam: Normal external nose present Mouth: Normal oral and palatal mucosa present and oropharynx normal Throat: Yes posterior oropharynx normal Eyes: General: appearance normal, both eyes and all related structures Neck: Other: supple Neck: Yes normal visual inspection Chest: Chest palpation & inspection: normal inspection of the chest Resp: Auscultation: clear to auscultation bilaterally Cardio: Jugular venous distension: no JVD Rate: regular rate Rhythm: r egular rhythm Heart sounds: S1 normal heart sound present and S2 normal heart sound present GI: Inspection: Yes normal to inspection Palpation (GI): Soft to palpation, nontender and No hepatosplenomegaly present Auscultation: normal bowel sounds : General: Yes no CVA tenderness Back/Spine/Pelvis: Back: no CVA tenderness Skin: General skin exam: no rashes or lesions noted Neuro: General: oriented to person and patient oriented x3 Cranial nerves: Yes CN's II-XII intact bilaterally Motor exam (neuro): 5/5 motor strength present throughout Sensory Exam: No Sensory deficit (Neuro) Extrem: General: Yes normal to inspection Psych: Appearance: grossly normal Course Reevaluation(s) Reevaluation #1: no flank pain, no fever, no elevated WBC will dc on keflex and treat for UtI Time: 08:26 Medical Decision Making Differential Diagnosis Differential Diagnoses: The differential diagnosis associated with the presentation includes (pyelonephritis, UTI, prostatitis) Admission/Observation Consideration of admission/observation: Escalation of care including admission/observation considered (upon arrival patient considered for admission) Lab Data 04/06/24 07:45 04/06/24 07:45 Labs: Lab Results 04/06/24 Range/Units 07:45 WBC 6.2 (4.8-10.8) X10*3/uL RBC 5.44 (4.60-5.80) X10*6/uL Hgb 16.0 (14.0-18.0) g/dl Hct 46.8 (42.0-52.0) % MCV 86.0 (80.0-98.0) fL MCH 29.4 (27.0-33.0) pg MCHC 34.2 (31.0-36.0) g/dl RDW 13.4 (11.0-16.0) % Plt Count 195 (160-400) X10*3/uL MPV 9.6 (9.4-12.4) fL Immature Gran % (Auto) 0.5 H (0.0-0.4) % Neut % (Auto) 60.1 (45-73) % Lymph % (Auto) 26.4 (20-40) % [place] % (Auto) 7.2 (2-11) % Eos % (Auto) 4.8 H (0-4) % Baso % (Auto) 1.0 (0-2) % Lymph # (Auto) 1.7 (1.2-4.9) X10*3/uL [place] # (Auto) 0.5 (0.1-1.2) X10*3/uL Eos # (Auto) 0.3 (0.0-0.4) X10*3/uL Baso # (Auto) 0.1 (0.0-0.2) X10*3/uL Abs Immat Gran (auto) 0.03 (0.00-0.03) X10*3/uL Absolute Neuts (auto) 3.8 (2.0-8.3) x10*3/uL Absolute Nucleated RBC 0.000 (0.0-0.012) X10*3/uL Nucleated RBC % (auto) 0.0 (0.0-0.2) /100WBC Sodium 139 (135-145) mmol/L Potassium 4.1 (3.3-5.1) mmol/L Chloride 108 (96-108) mmol/L Carbon Dioxide 23 (22-29) mmol/L Anion Gap 12 (12-20) BUN 17 H (9-16) mg/dL Creatinine 0.90 (0.5-1.4) mg/dL Estim Creat Clear Calc 84.8 Estimated GFR > 60 Random Glucose 111 (60-115) mg/dL Calcium 9.3 (8.4-10.2) mg/dL Total Bilirubin 1.0 (0.0-1.0) mg/dL AST 18 (5-37) U/L ALT 22 (0-40) U/L Alkaline Phosphatase 88 (39-117) U/L Total Protein 7.1 (6.5-8.0) g/dL Albumin 4.2 (3.5-5.0) g/dL Urine Color Yellow Urine Appearance Cloudy Urine pH 5.5 (5.0-9.0) Ur Specific [place] 1.025 (1.005-1.025) Urine Protein Trace (Neg-Trace) mg/dL Urine Glucose (UA) Negative (Negative) mg/dL Urine Ketones Negative (Negative) mg/dL Urine Blood Large (3+) H (Negative) Urine Nitrite Negative (Negative) Ur Leukocyte Esterase Moderate (2+) H (Negative) Urine RBC >20 H (0-2) /HPF Urine WBC >50 H (0-5) /HPF Ur Squamous Epith Cells 0-2 (0-2) /HPF Urine Bacteria None Seen (None Seen) Hyaline Casts 0-2 (0-2) /LPF External Record Review External record reviewed: Outpatient record Tests considered The following testing was considered but not selected: US considered but no evidence of bladder distention and not consistent with kidney stone Discharge Plan Discharge Clinical Impression: Urinary tract infection, Prostatitis Patient Disposition: Home, Self-Care Instructions: Urinary Tract Infection in Men (ED) Prescriptions: New cephalexin 500 mg capsule 500 mg PO Q6H 7 Days Qty: 28 0RF No Action Metamucil 3.4 gram/5.4 gram Powder 1 tbsp PO DAILY Rx Instructions: mix into at least 8 oz of water or juice before administering oxycodone-acetaminophen [Percocet] 5-325 mg tablet 1 tab PO Q4-6H PRN (Reason: severe pain (scale score 7-10)) Qty: 10 0RF Rx Instructions: Partial Fill upon patient request. lorazepam 1 mg tablet 1 mg PO DAILY PRN (Reason: Anxiety) atorvastatin 80 mg tablet 80 mg PO QPM Qty: 90 3RF aspirin [Adult Low Dose Aspirin] 81 mg tablet,delayed release (DR/EC) 81 mg PO DAILY Qty: 90 3RF Referrals: Isreal Erazo MD [Physician] - 5 days Print Language: Filipino
[2024-04-06 08:20] VITALS: BP 138/94; PULSE 63; RESP 18; O2SAT 93
[2024-04-06] MEDS: cephALEXin 500 MG CAPSULE PO (08:36)
[2024-04-06] MEDS: Phenazopyridine HCL 100 MG TABLET PO (08:37)
[2024-04-06 08:50] VITALS: BP 138/65; PULSE 78; RESP 16; TEMP 36.9; O2SAT 94
== END 2024-04-06 08:52 | disposition home or self-care (01) ==
PROVIDERS: Emergency Provider Emergency Medicine; PCP Internal Medicine
DX: N41.9 Inflammatory disease of prostate, unspecified (principal); N39.0 Urinary tract infection, site not specified; R30.0 Dysuria; R35.0 Frequency of micturition
CPT/HCPCS: 36415; 80053; 81001; 85025; 87086; 99283; 99284

== ENCOUNTER 2024-04-13 07:56 | Outpatient (AMB) | payer MEDICARE, SELFPAY ==
--- NOTE | 2024-04-13 08:02 | A.OFFVIS_ITS ---
Vital Signs 04/13/24 08:12 Height 5 ft 11 in Weight 182 lb BMI 25.4 BP 130/78 Blood Pressure Location Rt brachial Position Sitting Pulse 72 Intake Visit Reasons: painful scalp cyst Intake Note: Patient scheduled appointment for painful cyst on scalp. Reports cyst went away. Patient c/o: 2 smaller lesions on 1. lt cheek 2. rt upper forehead. Denies irritation, itch, pain. Lesion have been present for 1yr. No hx of skin ca. [employer]structor [employer] Required: No Allergies citalopram [CITALOPRAM] Allergy (Intermediate, Verified 04/13/24 08:07) Hives clindamycin Allergy (Intermediate, Verified 04/13/24 08:07) Hives metronidazole [METRONIDAZOLE] Allergy (Intermediate, Verified 04/13/24 08:07) Hives Penicillins Allergy (Intermediate, Verified 04/13/24 08:07) HIVES Sulfa (Sulfonamide Antibiotics) Allergy (Intermediate, Verified 04/13/24 08:07) HIVES terazosin Adverse Reaction (Intermediate, Verified 04/13/24 08:07) fainting HPI Comments Details: Patient presents here for evaluation of a scalp cyst. He had this proximally 2 weeks ago and where it was painful and enlarging. Since he made the appointment, the process has completely resolved. The son has superficial lesion involving his right lateral forehead and some desquamating skin of his left upper cheek. Chart was reviewed and patient evaluated [facility] Medical History Atherosclerotic cardiovascular disease Osteoarthritis Insomnia Gout Depression Cervical disc disease Elevated cholesterol Skin lesions Anal pain History of COVID-19 BPH (benign prostatic hyperplasia) Diverticulitis Kidney stones Surgical History History of total right hip replacement History of arthroscopic surgery of shoulder H/O blepharoplasty History of nasal surgery Hx of cystoscopy Hx of cystoscopy Hx of lithotripsy H/O colonoscopy Hx of appendectomy Family History Father Heart disease Social History Household Members: Other Household Members Other:: Roomate Housing: Condominium Are you a primary child care coordinator to a significant other at home: No Do you presently have visiting nurse or other home services: No Alcohol intake: current Alcohol intake frequency: holidays/special occasions only Alcohol type: wine Patient Tobacco Use Status: Never used Tobacco service: No Current occupational status: employed 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 Physical Exam Vital Signs: Last Vital Signs Pulse 72 04/13/24 08:12 BP 130/78 04/13/24 08:12 BMI result Body Mass Index 25.4 HEENT Other: No evidence of residual infection or cyst of the scalp in the area the patient said was symptomatic along the vertex. Very small (3 mm) right mid lateral forehead cyst and superficial desquamating skin of the left cheek area. Assessment & Plan Assessment & Plan (1) Scalp cyst: Code(s): L72.9 - Follicular cyst of the skin and subcutaneous tissue, unspecified Category: Surgical (2) Benign skin lesion of forehead: Code(s): L98.9 - Disorder of the skin and subcutaneous tissue, unspecified Category: Surgical (3) Skin lesion of face: Code(s): L98.9 - Disorder of the skin and subcutaneous tissue, unspecified Category: Surgical Plan At present, I recommend conservative therapy regarding all the above. Should assist returned, he has been instructed to call the office to have it evaluated. If the other lesions become more symptomatic or enlarge or a does not wished to have them any longer, patient has also been instructed to call the office and we will address these. All questions answered. Patient will otherwise follow- up p.r.n.. Coding Level of Care Code New Pt Level 4 (96682) Diagnoses Scalp cyst L72.9 Benign skin lesion of forehead L98.9 Skin lesion of face L98.9
[2024-04-13 08:12] VITALS: BP 130/78; PULSE 72; BMI 25.4
== END 2024-04-13 08:26 | disposition home or self-care (01) ==
PROVIDERS: PCP Internal Medicine; Visit Provider Surgery
DX: L72.9 Follicular cyst of the skin and subcutaneous tissue, unspecified (principal); L98.9 Disorder of the skin and subcutaneous tissue, unspecified
CPT/HCPCS: 99203

== ENCOUNTER → 2024-04-13 07:56 | Outpatient (BNVA) | payer MEDICARE, SELFPAY | PROVIDERS: PCP Internal Medicine; Visit Provider Surgery | DX: L72.9 Follicular cyst of the skin and subcutaneous tissue, unspecified (principal); L98.9 Disorder of the skin and subcutaneous tissue, unspecified | CPT/HCPCS: 99202 ==

== ENCOUNTER 2024-04-29 15:23 | Outpatient (AMB) | payer MEDICARE, SELFPAY ==
--- NOTE | 2024-04-29 15:42 | MHC.OFFVIS ---
Intake Visit Reasons: [facility]- follow up Intake Note: Patient is Present for Follow Up Urology Medication: none Antibiotic Allergies: Clindamycin, Penicillins, Sulfa Blood Thinners: aspirin Event Marketing Representative Required: No Allergies citalopram [CITALOPRAM] Allergy (Intermediate, Verified 07/14/24 09:03) Hives clindamycin Allergy (Intermediate, Verified 07/14/24 09:03) Hives metronidazole [METRONIDAZOLE] Allergy (Intermediate, Verified 07/14/24 09:03) Hives Penicillins Allergy (Intermediate, Verified 07/14/24 09:03) HIVES Sulfa (Sulfonamide Antibiotics) Allergy (Intermediate, Verified 07/14/24 09:03) HIVES terazosin Adverse Reaction (Intermediate, Verified 07/14/24 09:03) fainting HPI Comments Details: Julio is a pleasant male. He is a patient of Dr. Goodson. He seen for the following urologic conditions - nephrolithiasis - lower urinary tract symptoms Follow-up [facility]Light laser Some degree of urge urinary urgency Discussed dietary management Six-month follow-up imaging Lower urinary tract symptoms Progressive Primarily nocturia 2-3 times Prior medications tamsulosin minimal effect Minimal benefit from combination terazosin oxybutynin Nephrolithiasis Long history of chronic renal stone disease Has undergone multiple procedures with ESWL Does feel he may have stone currently Has previously been able to pass stones Stone composition - 01/23 uric acid with calcium oxalate, 03/25 mixed calcium oxalate 80% monohydrate Imaging - renal ultrasound 07/24 multiple renal stones, 3 on right, 2 on left. Bilateral renal cysts. Stones approximately 5 mm - 06/25 renal ultrasound bilateral renal cyst stable. Small stone? On right 2 mm - 08/26 renal ultrasound bilateral renal cysts, query small stone 3 mm right side Intervention - 03/25 right ureteroscopy, laser lithotripsy and stent placement Therapeutic plan - vitamin B6, fluids PFSH Medical History Atherosclerotic cardiovascular disease Osteoarthritis Insomnia Gout Depression Cervical disc disease Elevated cholesterol Skin lesions Anal pain History of COVID-19 BPH (benign prostatic hyperplasia) Diverticulitis Kidney stones Surgical History History of total right hip replacement History of arthroscopic surgery of shoulder H/O blepharoplasty History of nasal surgery Hx of cystoscopy Hx of cystoscopy Hx of lithotripsy H/O colonoscopy Hx of appendectomy Family History Father Heart disease Social History Household Members: Other Household Members Other:: Roomate [facility] Are you a primary women's health care nurse practitioner to a significant other at home: No Do you presently have visiting nurse or other home services: No Alcohol intake: current Alcohol intake frequency: holidays/special occasions only Alcohol type: wine Patient Tobacco Use Status: Never used Tobacco service: No Current occupational status: employed 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 Review of Systems Const Denies chills and Denies fever(s) Card Reports no additional complaints and Denies syncope Resp Denies cough GI Denies abdominal pain and Denies heartburn Reports as per HPI and Denies change in libido Neuro Denies syncope Psych Denies change in libido Endo Denies change in libido Physical Exam Const General: cooperative, healthy appearing, comfortable and no acute distress Orientation/consciousness: patient oriented x3 HEENT Face and sinus: Yes normal facial exam Mouth: moist mucous membranes Neck Neck: Yes normal visual inspection, Yes full ROM and Yes trachea midline Chest Chest palpation & inspection: normal inspection of the chest Resp Effort & Inspection: normal respiratory effort, able to speak in complete sentences and no respiratory distress GI Inspection: Yes normal to inspection Back/Spine/Pelvis Cervical Spine: normal cervical lordosis Thoracic/Lumbar Spine: thoracic and lumbar spine normal to inspection Skin General skin exam: no rashes or lesions noted Neuro General: patient oriented x3, gait normal, tone normal and moves all extremities Extrem General: Yes normal to inspection and Yes capillary refill normal Results AMB Urinalysis, Automated UA Leukoctes 70 Fortino/uL Last Edit by LATHA Uribe on 04/29/24 15:52 UA Nitrite Negative Last Edit by LATHA Uribe on 04/29/24 15:52 UA Urobilinogen 0.2 mg/dL Last Edit by LATHA Uribe on 04/29/24 15:52 UA Protein 15 mg/dL Last Edit by LATHA Uribe on 04/29/24 15:52 UA pH 5.0 Last Edit by Chinyeremalika Zuniga, RMA on 04/29/24 15:52 UA Blood 200 Edwin/uL Last Edit by Chinyere Cooperro, RMA on 04/29/24 15:52 UA Specific [place] 1.025 Last Edit by Chinyere Zuniga, RMA on 04/29/24 15:52 UA Ketone Negative Last Edit by Chinyeremalika Zuniga, RMA on 04/29/24 15:52 UA Bilirubin 0 mg/dL Last Edit by Chinyere Zuniga, RMA on 04/29/24 15:52 UA Glucose 0 mg/dL Last Edit by Chinyere Zuniga, RMA on 04/29/24 15:52 Results Reviewed Results Reviewed: Laboratory Last Values Urine pH (Auto) 5.0 04/29/24 15:43 Specific [place] (Auto) 1.025 04/29/24 15:43 Urine Protein (Auto) 15 mg/dL 04/29/24 15:43 Glucose (UA)(Auto) 0 mg/dL 04/29/24 15:43 Urine Ketones (Auto) Negative 04/29/24 15:43 Urine Blood (Auto) 200 Edwin/uL 04/29/24 15:43 Urine Nitrite (Auto) Negative 04/29/24 15:43 Urine Bilirubin (Auto) 0 mg/dL 04/29/24 15:43 Urine Urobilinogen (Auto) 0.2 mg/dL 04/29/24 15:43 Leukocyte Esterase (Auto) 70 Fortino/uL 04/29/24 15:43 Assessment & Plan Assessment & Plan (1) Bladder trabeculation: Code(s): N32.89 - Other specified disorders of bladder Category: Medical (2) Enlarged prostate: Code(s): N40.0 - Benign prostatic hyperplasia without lower urinary tract symptoms Category: Medical (3) Incomplete bladder emptying: Code(s): R33.9 - Retention of urine, unspecified Category: Medical Plan Six-month follow-up imaging Orders: Orders AMB Urinalysis Automated 04/29/24 Z13.9 - Encounter for screening, unspecified Patient Instructions: Imaging studies, laboratory and physical exam results were discussed and reviewed in detail. No major barriers to patient understanding were identified. An opportunity to ask questions regarding the treatment plan was provided. All questions were answered. The patient expressed understanding and agreement with the above treatment plan. The patient is aware they should contact our office by phone for worsening of their current condition or the appearance of new urologic symptoms. Compliance is encouraged with any medications and followup testing that is ordered. It is a privilege to participate in the urologic care of your patient. If you have any questions or concerns regarding treatment for the above conditions, or other urologic issues, please do not hesitate to contact me. The office telephone contact is [phone]. This note is constructed using voice recognition software. While every effort has been made to ensure accuracy rfp writer errors may have been included. Yours sincerely, Dr Isreal Erazo MD, [facility] - Urology Providers of Expert, Compassionate Care for the Genitourinary System Coding Level of Care Code Est Pt Level 3 (04920) Diagnoses Bladder trabeculation N32.89 Enlarged prostate N40.0 Incomplete bladder emptying R33.9
== END 2024-04-29 16:30 | disposition home or self-care (01) ==
PROVIDERS: PCP Internal Medicine; Visit Provider Urology
DX: N32.89 Other specified disorders of bladder (principal); N40.0 Benign prostatic hyperplasia without lower urinary tract symptoms; R33.9 Retention of urine, unspecified
CPT/HCPCS: 99024

== ENCOUNTER → 2024-04-29 15:23 | Outpatient (BNVA) | payer MEDICARE, SELFPAY | PROVIDERS: PCP Internal Medicine; Visit Provider Urology | DX: N20.0 Calculus of kidney (principal); N40.0 Benign prostatic hyperplasia without lower urinary tract symptoms; N32.89 Other specified disorders of bladder | CPT/HCPCS: 81003; 99212 ==

== ENCOUNTER 2024-05-10 07:04 | Emergency (ER) | payer MEDICARE, SELFPAY ==
--- NOTE | 2024-05-10 | ECG_ITS ---
Test Reason : CHEST TIGHTNESS Blood Pressure : / mmHG Vent. Rate : 055 BPM Atrial Rate : 055 BPM P-R Int : 258 ms QRS Dur : 100 ms QT Int : 434 ms P-R-T Axes : 062 -14 035 degrees QTc Int : 415 ms Sinus bradycardia with 1st degree A-V block Otherwise normal ECG When compared with ECG of 17-SEP-2023 16:53, Nonspecific T wave abnormality no longer evident in Lateral leads Referred By: Generic ED Physician Electronically Signed By:ESTEVAN RICO MD
--- NOTE | ~2024-05-10 | XR_ITS ---
EXAMINATION: XR CHEST CLINICAL INFORMATION: Patient states pain in chest. COMPARISON: 08/10/2023 TECHNIQUE: 2 views of the chest were obtained. FINDINGS: The lungs are well inflated. There is no gross pneumothorax. Heart size is normal. Mild dextroscoliosis of the thoracic spine with multilevel degenerative changes. Redemonstration of left basilar linear opacity characteristic of likely scar. No new focal consolidation. Minimal blunting of the posterior sulcus may represent trace pleural effusion. XR/XR chest 2V IMPRESSION: Redemonstration of left basilar linear opacity characteristic of likely scar. No new focal consolidation. Minimal blunting of the posterior sulcus may represent trace pleural effusion. This study was presented today May 10, 2024 for interpretation. Stat results provided at this time as requested by referring provider.
[2024-05-10 07:11] VITALS: BP 153/89; PULSE 63; RESP 18; TEMP 36.4; O2SAT 97; BMI 25.4
--- NOTE | 2024-05-10 07:30 | ED_ITS ---
HPI - General Adult General Chief complaint: Weakness Stated complaint: Pressure in chest/back Time Seen by Provider: 05/10/24 07:30 Source: patient and RN notes reviewed Mode of arrival: ambulatory Limitations: no limitations History of Present Illness ED Provider: Odette Wolfe PA-C HPI narrative: This is a 68-year-old male, with a history of depression, BPH, diverticulitis who presents emergency department with complaints of chest tightness the last 3- 4 days. Patient states that he noticed a slight discomfort in his chest which started 3-4 days ago. He denies any recent trauma or injury to his chest. He states that he can feel the discomfort with deep inspiration. He describes the pain as a dull sensation. 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 He does state that at times positional changes makes his pain worse. He denies any fevers, chills, recent congestion, cough, palpitations, shortness of breath, abdominal pain, nausea, vomiting or diarrhea he states that he had prostate surgery 5 weeks ago. No other complaints or concerns at this time MD complaint: Chest pain Onset (ago): day(s) Radiation: non-radiation Severity: moderate Quality: aching Relieving factors: none Exacerbating factors: none Associated symptoms: denies other symptoms Treatments prior to arrival: none Related Data Home Medications ?Medication ?Instructions ?Recorded ?Confirmed psyllium husk 3.4 gram/5.4 gram 1 tbsp PO DAILY 11/25/22 04/13/24 oral powder (Metamucil) lorazepam 1 mg tablet 1 mg PO DAILY PRN Anxiety 08/18/23 04/13/24 Previous Rx's ?Medication ?Instructions ?Recorded oxycodone-acetaminophen 5 mg-325 1 tab PO Q4-6H PRN severe pain 01/14/24 mg tablet (Percocet) (scale score 7-10) #10 tabs aspirin 81 mg tablet,delayed 81 mg PO DAILY #90 tabs 01/25/24 release (Adult Low Dose Aspirin) atorvastatin 80 mg tablet 80 mg PO QPM #90 tabs 01/25/24 phenazopyridine 100 mg tablet 100 mg PO .q6 PRN pain 4 days #16 04/08/24 (Pyridium) tabs Allergies Allergy/AdvReac Type Severity Reaction Status Date / Time citalopram [CITALOPRAM] Allergy Intermediate Hives Verified 05/13/24 10:17 clindamycin Allergy Intermediate Hives Verified 05/13/24 10:17 metronidazole [METRONIDAZOLE] Allergy Intermediate Hives Verified 05/13/24 10:17 Penicillins Allergy Intermediate HIVES Verified 05/13/24 10:17 Sulfa (Sulfonamide Allergy Intermediate HIVES Verified 05/13/24 10:17 Antibiotics) terazosin AdvReac Intermediate fainting Verified 05/13/24 10:17 Review of Systems 2 Review of Systems: Yes all other systems are reviewed and are negative Constitutional: Constitutional: Reports as per [facility] Past Medical History Medical History Atherosclerotic cardiovascular disease Osteoarthritis Insomnia Gout Depression Cervical disc disease Elevated cholesterol Skin lesions Anal pain History of COVID-19 BPH (benign prostatic hyperplasia) Diverticulitis Kidney stones Surgical History History of total right hip replacement History of arthroscopic surgery of shoulder H/O blepharoplasty History of nasal surgery Hx of cystoscopy Hx of cystoscopy Hx of lithotripsy H/O colonoscopy Hx of appendectomy Family History Family History Father Heart disease Social History Social History Household Members: Other Household Members Other:: Roomate Housing: Condominium Are you a primary care support representative to a significant other at home: No Do you presently have visiting nurse or other home services: No Alcohol intake: current Alcohol intake frequency: holidays/special occasions only Alcohol type: wine Patient Tobacco Use Status: Never used Tobacco service: No Current occupational status: employed 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 Physical Exam ED Vital Signs: Vital Signs - 24 hr 05/10/24 07:11 05/10/24 09:04 05/10/24 09:52 Temperature 97.6 F 98 F 97.6 F Pulse Rate 63 53 53 Respiratory Rate 18 20 Blood Pressure 153/89 H 153/88 H 169/91 H Pulse Oximetry 97 95 99 Oxygen Delivery Method Room Air Room Air Room Air BMI result Body Mass Index 25.4 Const General: cooperative, comfortable and no acute distress Orientation/consciousness: patient oriented x3 Limitations: no limitations HENMT Head: Yes normal to inspection, Yes normocephalic and Yes atraumatic Ears: hearing grossly normal bilaterally General nose exam: Normal external nose present Face and sinus: Yes normal facial exam Mouth: Normal oral and palatal mucosa present, oropharynx normal and moist mucous membranes Throat: Yes posterior oropharynx normal Eyes General: appearance normal, both eyes and all related structures Eyelids: Yes eyelids normal Conjunctivae: conjunctivae normal Sclerae: sclerae normal Pupils: Equal, round and reactive pupils present EOM: EOMs intact bilaterally Neck Neck: Yes normal visual inspection, Yes full ROM and Yes no lymphadenopathy Lymphatic: no lymphadenopathy noted Chest Other: No anterior chest wall tenderness to palpation Chest palpation & inspection: normal inspection of the chest Resp Effort & Inspection: normal respiratory effort and able to speak in complete sentences Auscultation: clear to auscultation bilaterally, no crackles, no rales, no rhonchi and no wheezes Cardio Rate: regular rate Rhythm: regular rhythm Heart sounds: S1 normal heart sound present and S2 normal heart sound present GI Inspection: Yes normal to inspection Skin General skin exam: no rashes or lesions noted Trauma: no lacerations or abrasions Wounds: no wounds Neuro General: patient oriented x3 and moves all extremities Cranial nerves: Yes Equal, round and reactive pupils present Extrem General: Yes normal to inspection Right upper extremity: normal to inspection Left upper extremity: normal to inspection Right lower extremity: normal to inspection Left lower extremity: normal to inspection Course Reevaluation(s) Reevaluation #2: Second troponin negative, today's workup reassuring. Negative D-dimer, negative troponin x2, negative viral swabs. Chest x-ray does show redemonstration of left basilar linear opacity characteristic of likely scar. No focal consolidation. Minimal blunting of the posterior sulcus may representing trace pleural effusion. Discussed findings with patient and recommending follow-up repeat chest x-ray in 4 weeks. He understands and agrees with plan. Given strict return precautions. Patient stable for discharge. Time: 12:38 Medical Decision Making Medical Decision Making MDM Narrative: This is a 68-year-old male who presents emergency department with complaints of chest pain x4 days. On arrival, vital signs within normal limits. He is speaking in full sentences, under no acute distress. Blood pressure mildly elevated 153/89, all other vital signs within normal limits. Differential diagnoses include ACS-unlikely, PE-unlikely, costochondritis, bronchitis, pneumothorax. Given that he had a recent surgery 4 weeks ago for his prostate, D-dimer was ordered. Plan: Labs, EKG, chest x-ray Differential Diagnosis Differential Diagnoses: The differential diagnosis associated with the presentation includes See above Admission/Observation Consideration of admission/observation: Escalation of care including admission/observation considered Lab Data MDM Lab Attestation statement: I reviewed the patient's lab results. No leukocytosis, stable H&H, chemistry within normal limits. D-dimer less than 150, negative viral swabs 05/10/24 07:57 05/10/24 07:57 Labs: Lab Results 05/10/24 05/10/24 05/10/24 Range/Units 07:57 09:06 09:52 WBC 4.9 (4.8-10.8) X10*3/uL RBC 5.35 (4.60-5.80) X10*6/uL Hgb 15.7 (14.0-18.0) g/dl Hct 45.8 (42.0-52.0) % MCV 85.6 (80.0-98.0) fL MCH 29.3 (27.0-33.0) pg MCHC 34.3 (31.0-36.0) g/dl RDW 13.3 (11.0-16.0) % Plt Count 175 (160-400) X10*3/uL MPV 9.3 L (9.4-12.4) fL Immature Gran % (Auto) 0.2 (0.0-0.4) % Neut % (Auto) 56.4 (45-73) % Lymph % (Auto) 29.4 (20-40) % [place] % (Auto) 6.8 (2-11) % Eos % (Auto) 6.4 H (0-4) % Baso % (Auto) 0.8 (0-2) % Lymph # (Auto) 1.4 (1.2-4.9) X10*3/uL [place] # (Auto) 0.3 (0.1-1.2) X10*3/uL Eos # (Auto) 0.3 (0.0-0.4) X10*3/uL Baso # (Auto) 0.0 (0.0-0.2) X10*3/uL Abs Immat Gran (auto) 0.01 (0.00-0.03) X10*3/uL Absolute Neuts (auto) 2.8 (2.0-8.3) x10*3/uL Absolute Nucleated RBC 0.000 (0.0-0.012) X10*3/uL Nucleated RBC % (auto) 0.0 (0.0-0.2) /100WBC D-Dimer High Sensitivty < 150 NG/ML Sodium 142 (135-145) mmol/L Potassium 3.9 (3.3-5.1) mmol/L Chloride 107 (96-108) mmol/L Carbon Dioxide 23 (22-29) mmol/L Anion Gap 16 (12-20) BUN 13 (9-16) mg/dL Creatinine 1.01 (0.5-1.4) mg/dL Estim Creat Clear Calc 75.5 Estimated GFR > 60 Random Glucose 111 (60-115) mg/dL Calcium 9.2 (8.4-10.2) mg/dL Total Bilirubin 0.7 (0.0-1.0) mg/dL AST 20 (5-37) U/L ALT 23 (0-40) U/L Alkaline Phosphatase 81 (39-117) U/L Troponin I High Sens < 2.7 (<3.5-35.0) ng/L Total Protein 6.9 (6.5-8.0) g/dL Albumin 4.2 (3.5-5.0) g/dL Influenza Type A (PCR) NEGATIVE (Negative) Influenza Type B (PCR) NEGATIVE (Negative) RSV RNA Qual (PCR) NEGATIVE (Negative) SARS-CoV-2 RNA (RT-PCR) NEGATIVE (Negative) 05/10/24 Range/Units 11:50 WBC (4.8-10.8) X10*3/uL RBC (4.60-5.80) X10*6/uL Hgb (14.0-18.0) g/dl Hct (42.0-52.0) % MCV (80.0-98.0) fL MCH (27.0-33.0) pg MCHC (31.0-36.0) g/dl RDW (11.0-16.0) % Plt Count (160-400) X10*3/uL MPV (9.4-12.4) fL Immature Gran % (Auto) (0.0-0.4) % Neut % (Auto) (45-73) % Lymph % (Auto) (20-40) % [place] % (Auto) (2-11) % Eos % (Auto) (0-4) % Baso % (Auto) (0-2) % Lymph # (Auto) (1.2-4.9) X10*3/uL [place] # (Auto) (0.1-1.2) X10*3/uL Eos # (Auto) (0.0-0.4) X10*3/uL Baso # (Auto) (0.0-0.2) X10*3/uL Abs Immat Gran (auto) (0.00-0.03) X10*3/uL Absolute Neuts (auto) (2.0-8.3) x10*3/uL Absolute Nucleated RBC (0.0-0.012) X10*3/uL Nucleated RBC % (auto) (0.0-0.2) /100WBC D-Dimer High Sensitivty NG/ML Sodium (135-145) mmol/L Potassium (3.3-5.1) mmol/L Chloride (96-108) mmol/L Carbon Dioxide (22-29) mmol/L Anion Gap (12-20) BUN (9-16) mg/dL Creatinine (0.5-1.4) mg/dL Estim Creat Clear Calc Estimated GFR Random Glucose (60-115) mg/dL Calcium (8.4-10.2) mg/dL Total Bilirubin (0.0-1.0) mg/dL AST (5-37) U/L ALT (0-40) U/L Alkaline Phosphatase (39-117) U/L Troponin I High Sens < 2.7 (<3.5-35.0) ng/L Total Protein (6.5-8.0) g/dL Albumin (3.5-5.0) g/dL Influenza Type A (PCR) (Negative) Influenza Type B (PCR) (Negative) RSV RNA Qual (PCR) (Negative) SARS-CoV-2 RNA (RT-PCR) (Negative) Independent Interpretation I performed an independent interpretation of an: EKG Interpretation: Sinus rhythm with a first-degree AV block at a ventricular rate of 70 beats per minute, no ST elevation or depression. Radiology Impression Discussion of test interpretation with radiology: I have reviewed the radiologist's reading. Discharge Plan Discharge Clinical Impression: Chest pain Patient Disposition: Home, Self-Care Instructions: Chest Pain (ED) Additional Instructions: You were seen in the emergency department due to chest pain. Your workup today was reassuring. You do have a trace pleural effusion noted on your chest x-ray, please have repeat chest x-ray performed in 4 weeks. Call your primary care physician to have this arranged. You may take an NSAID medications such as Aleve or ibuprofen as needed for pain. Please follow-up with your primary care physician regarding this visit. If any new or worsening symptoms occur including but not limited to worsening chest pain, shortness breath, fevers, chills, please return for re-evaluation. Prescriptions: No Action phenazopyridine [Pyridium] 100 mg tablet 100 mg PO .q6 PRN (Reason: pain) 4 Days Qty: 16 0RF Metamucil 3.4 gram/5.4 gram Powder 1 tbsp PO DAILY Rx Instructions: mix into at least 8 oz of water or juice before administering oxycodone-acetaminophen [Percocet] 5-325 mg tablet 1 tab PO Q4-6H PRN (Reason: severe pain (scale score 7-10)) Qty: 10 0RF Rx Instructions: Partial Fill upon patient request. lorazepam 1 mg tablet 1 mg PO DAILY PRN (Reason: Anxiety) atorvastatin 80 mg tablet 80 mg PO QPM Qty: 90 3RF aspirin [Adult Low Dose Aspirin] 81 mg tablet,delayed release (DR/EC) 81 mg PO DAILY Qty: 90 3RF Interventions: ED Discharge Assessment Last Done: 05/10/24 12:58 Discharge Date/Time: 05/10/24 13:01 Print Language: Swedish
[2024-05-10 08:06] LABS: MANUAL DIFF FLAG NO
[2024-05-10 08:11] LABS: Basophils Percent Auto 0.8 % (0-2); Eosinophils Absolute Auto 0.3 X10*3/uL (0.0-0.4); Eosinophils Percent Auto 6.4 % (0-4); Hematocrit 45.8 % (42.0-52.0); Hemoglobin 15.7 g/dl (14.0-18.0); Imm Gran Abs Auto 0.01 X10*3/uL (0.00-0.03); Imm Gran Pct Auto 0.2 % (0.0-0.4); Lymphocytes Absolute Auto 1.4 X10*3/uL (1.2-4.9); Lymphocytes Percent Auto 29.4 % (20-40); Mean Corpuscular HGB Conc 34.3 g/dl (31.0-36.0); Mean Corpuscular Hemoglobin 29.3 pg (27.0-33.0); Mean Corpuscular Volume 85.6 fL (80.0-98.0); Mean Platelet Volume 9.3 fL (9.4-12.4); Monocytes Absolute Auto 0.3 X10*3/uL (0.1-1.2); Monocytes Percent Auto 6.8 % (2-11); Neutrophils Absolute Auto 2.8 x10*3/uL (2.0-8.3); Neutrophils Percent Auto 56.4 % (45-73); Platelet Count 175 X10*3/uL (160-400); Red Blood Count 5.35 X10*6/uL (4.60-5.80); Red Cell Distribution Width 13.3 % (11.0-16.0); White Blood Count 4.9 X10*3/uL (4.8-10.8)
[2024-05-10 08:23] LABS: Alanine Aminotransferase 23 U/L (0-40); Albumin Level 4.2 g/dL (3.5-5.0); Alkaline Phosphatase 81 U/L (39-117); Anion Gap 16 (12-20); Aspartate Amino Transferase 20 U/L (5-37); Bilirubin Total 0.7 mg/dL (0.0-1.0); Blood Urea Nitrogen 13 mg/dL (9-16); Calcium 9.2 mg/dL (8.4-10.2); Carbon Dioxide 23 mmol/L (22-29); Chloride 107 mmol/L (96-108); Creatinine Clr Calc Pharmacy 75.5; Estimated Glomerular Filt Rate > 60; Glucose Random 111 mg/dL (60-115); Potassium 3.9 mmol/L (3.3-5.1); Sodium 142 mmol/L (135-145); Total Protein 6.9 g/dL (6.5-8.0)
[2024-05-10 08:31] LABS: Troponin-I High Sensitivity < 2.7 ng/L (<3.5-35.0)
[2024-05-10 09:04] VITALS: BP 153/88; PULSE 53; RESP 20; TEMP 36.6; O2SAT 95
[2024-05-10 09:23] LABS: D Dimer High Sensitivity < 150 NG/ML
[2024-05-10 09:52] VITALS: BP 169/91; PULSE 53; TEMP 36.4; O2SAT 99
[2024-05-10 10:48] LABS: Influenza A PCR NEGATIVE (Negative); Influenza B PCR NEGATIVE (Negative); Resp Syncy Virus RNA Qual PCR NEGATIVE (Negative); SARS COV2 PCR INHOUSE NEGATIVE (Negative)
[2024-05-10 12:18] LABS: Troponin-I High Sensitivity < 2.7 ng/L (<3.5-35.0)
[2024-05-10 12:58] VITALS: BP 144/86; PULSE 68; RESP 19; TEMP 36.6; O2SAT 98
== END 2024-05-10 13:01 | disposition home or self-care (01) ==
PROVIDERS: Physician Assistant Medical; Emergency Provider Emergency Medicine; PCP Internal Medicine
DX: R07.89 Other chest pain (principal); Z03.818 Encounter for observation for suspected exposure to other biological agents ruled out; Z79.899 Other long term (current) drug therapy
CPT/HCPCS: 0241U; 36415; 71046; 80053; 84484; 85025; 85379; 93005; 99283; 99284

== ENCOUNTER → 2024-05-10 07:23 | Outpatient (BNV) | payer MEDICARE, SELFPAY | PROVIDERS: Emergency Provider Emergency Medicine; PCP Internal Medicine; Visit Provider Internal Medicine Cardiovascular Disease | DX: R07.89 Other chest pain (principal) | CPT/HCPCS: 93010 ==

== ENCOUNTER 2024-05-13 10:09 | Outpatient (AMB) | payer MEDICARE, SELFPAY ==
--- NOTE | 2024-05-13 10:10 | MHC.OFFVIS ---
Vital Signs 05/13/24 10:11 Height 5 ft 11 in Weight 184 lb 2 oz BMI 25.7 BP 142/80 H Blood Pressure Location Rt brachial Position Sitting Pulse 70 Pulse Source Pulse Oximeter Pulse Oximetry (%) 97 Oxygen Delivery Method Room Air Intake Visit Reasons: Abnormal Chest X-ray Allergies citalopram [CITALOPRAM] Allergy (Intermediate, Verified 05/13/24 10:17) Hives clindamycin Allergy (Intermediate, Verified 05/13/24 10:17) Hives metronidazole [METRONIDAZOLE] Allergy (Intermediate, Verified 05/13/24 10:17) Hives Penicillins Allergy (Intermediate, Verified 05/13/24 10:17) HIVES Sulfa (Sulfonamide Antibiotics) Allergy (Intermediate, Verified 05/13/24 10:17) HIVES terazosin Adverse Reaction (Intermediate, Verified 05/13/24 10:17) fainting HPI HPI Abnormal Chest X-ray: Details: Julio is a pleasant 68 year old male, never smoker, with underlying BPH, OA and Depression. He was referred by ED for pulmonary evaluation. He was seen on 05/10 for midsternal chest pain, worse with inspiration x 4 days. He reports symptoms have slightly improved since then. CXR revealed a trace pleural effusion and mild linear scarring of LLL. He denies prior pleural effusions. He is under the care of cardiology for HTN, recent echo from 11/28 noted LVEF 55-60% with grade I diastolic dysfunction. Cardiac MRI revealed proximal LAD with 50% stenosis. He denies any recent URI. He did undergo recent prostate surgery under general with Dr. Erazo. He denies any kidney or liver issues. 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 He denies any occupational exposures. He reports aunt, never smoker, with lung cancer, otherwise no pertinent family history. [facility] Medical History Atherosclerotic cardiovascular disease Osteoarthritis Insomnia Gout Depression Cervical disc disease Elevated cholesterol Skin lesions Anal pain History of COVID-19 BPH (benign prostatic hyperplasia) Diverticulitis Kidney stones Surgical History History of total right hip replacement History of arthroscopic surgery of shoulder H/O blepharoplasty History of nasal surgery Hx of cystoscopy Hx of cystoscopy Hx of lithotripsy H/O colonoscopy Hx of appendectomy Family History Father Heart disease Social History Household Members: Other Household Members Other:: Roomate [facility] Are you a primary career development consultant to a significant other at home: No Do you presently have visiting nurse or other home services: No Alcohol intake: current Alcohol intake frequency: holidays/special occasions only Alcohol type: wine Patient Tobacco Use Status: Never used Tobacco service: No Current occupational status: employed 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 Review of Systems Const Denies chills, Denies excessive sweating, Denies fever(s), Denies headache(s) and Denies night sweats Eyes Denies dry eyes, Denies irritation and Denies itchy eyes ENT Reports Normal hearing present, Denies headache(s), Denies nasal congestion, Denies nasal discharge, Denies post nasal drip and Denies sore throat Card Denies chest pain, Denies chest pain at rest, Denies chest pain with activity, Denies claudication, Denies leg edema, Denies orthopnea and Denies paroxysmal nocturnal dyspnea Resp Denies chest congestion, Denies cough, Denies excessive phlegm production, Reports pain on inspiration, Denies pain with cough, Denies stridor and Denies wheezing Musc Denies myalgias Neuro Reports Normal hearing present and Denies headache(s) Endo Denies excessive sweating David/Lymph Denies lymphadenopathy Aller/Immun Denies itchy eyes, Denies seasonal rhinorrhea and Denies wheezing Physical Exam Vital Signs: Last Vital Signs Pulse 70 05/13/24 10:11 BP 142/80 H 05/13/24 10:11 Pulse Ox 97 05/13/24 10:11 Oxygen Delivery Method Room Air 05/13/24 10:11 BMI result Body Mass Index 25.7 Const General: cooperative, healthy appearing, comfortable, no acute distress, well developed and alert Orientation/consciousness: patient oriented x3 Limitations: no limitations HEENT Head: Yes normal to inspection, Yes normocephalic and Yes atraumatic Ears: hearing grossly normal bilaterally and external ears normal Eyes General: appearance normal, both eyes and all related structures Eyelids: Yes eyelids normal Sclerae: sclerae normal EOM: EOMs intact bilaterally Neck Neck: Yes normal visual inspection and Yes no lymphadenopathy Lymphatic: no lymphadenopathy noted Chest Chest palpation & inspection: normal inspection of the chest Resp Effort & Inspection: normal respiratory effort, able to speak in complete sentences, no audible wheezes, no cough, no stridor, not tachypneic, no tripod positioning and no use of accessory muscles Auscultation: clear to auscultation bilaterally Cardio Jugular venous distension: no JVD Rate: regular rate Rhythm: regular rhythm Skin Other: warm, dry General skin exam: no rashes or lesions noted Neuro General: patient oriented x3 Cranial nerves: Yes Normal hearing present Cognition (Neuro): normal cognition Gait exam (Neuro): Normal gait present Extrem General: Yes normal to inspection, Yes capillary refill normal, Yes no clubbing, cyanosis or edema and Yes no pedal edema Psych Appearance: grossly normal and well kempt Speech and movement: Normal speech and movement present and Clear speech present Affect: normal affect Attitude: cooperative Thought process: Normal thought process present Thought content: Normal thought content present Insight: Good insight present (Psych) Judgement: Good judgement present (Psych) Results Reviewed Results Reviewed: [address] [address] XRay Report Signed Patient: Julio Garcia MR#: [id number] : 1955 Acct:[id number] Age/Sex: 68 / M ADM Date: 05/10/24 Loc: HO.ED Attending Dr: Ordering Physician: Odette Wolfe Date of Service: 05/10/24 Procedure(s): XR chest 2V Accession Number(s): [id number] cc: Dilip Grady DO; Odette Wolfe~ EXAMINATION: XR CHEST CLINICAL INFORMATION: Patient states pain in chest. COMPARISON: 08/10/2023 TECHNIQUE: 2 views of the chest were obtained. FINDINGS: The lungs are well inflated. There is no gross pneumothorax. Heart size is normal. Mild dextroscoliosis of the thoracic spine with multilevel degenerative changes. Redemonstration of left basilar linear opacity characteristic of likely scar. No new focal consolidation. Minimal blunting of the posterior sulcus may represent trace pleural effusion. XR/XR chest 2V IMPRESSION: Redemonstration of left basilar linear opacity characteristic of likely scar. No new focal consolidation. Minimal blunting of the posterior sulcus may represent trace pleural effusion. This study was presented today May 10, 2024 for interpretation. Stat results provided at this time as requested by referring provider. Dictated By: Radha Salinas MD Signed By: <Electronically signed by Radha Salinas MD in OV> 05/10/24 1101 DD/ 0947 TD/TT: Polisher And Buffer: Assessment & Plan Assessment & Plan (1) Pleural effusion: Code(s): J90 - Pleural effusion, not elsewhere classified Category: Medical Plan Julio presents after recent CXR revealed trace pleural effusion. At this time reports respiratory symptoms are controlled and pleuritic discomfort is improving. Will send for repeat CXR in 4 weeks to assess for resolution. All questions were answered and patient is in agreement of plan. Will follow up to review results. Orders: Orders XR chest 2V 4 Weeks J90 - Pleural effusion, not elsewhere classified Coding Level of Care Code New Pt Level 3 (89730) Diagnoses Pleural effusion J90
[2024-05-13 10:11] VITALS: BP 142/80; PULSE 70; O2SAT 97; BMI 25.7
== END 2024-05-13 10:52 | disposition home or self-care (01) ==
PROVIDERS: PCP Internal Medicine; Referring Provider Internal Medicine; Visit Provider Nurse Practitioner Family
DX: J90 Pleural effusion, not elsewhere classified (principal)
CPT/HCPCS: 99203; 99213

== ENCOUNTER → 2024-05-13 10:09 | Outpatient (BNVA) | payer MEDICARE, SELFPAY | PROVIDERS: PCP Internal Medicine; Referring Provider Internal Medicine; Visit Provider Nurse Practitioner Family | DX: J90 Pleural effusion, not elsewhere classified (principal); R06.00 Dyspnea, unspecified; R07.9 Chest pain, unspecified | CPT/HCPCS: 99202 ==

== ENCOUNTER 2024-05-31 11:41 | Outpatient (REF) | payer MEDICARE, SELFPAY ==
--- NOTE | ~2024-05-31 | XR_ITS ---
EXAMINATION: XR CHEST CLINICAL INFORMATION: Pleural effusion COMPARISON: 05/10/2024 TECHNIQUE: 2 views of the chest were obtained. FINDINGS: No significant abnormality is noted involving the heart, lungs, mediastinum, bony thorax or soft tissues. If there had been some trace blunting of the posterior costophrenic sulcus, this has now resolved. XR/XR chest 2V IMPRESSION: Unremarkable examination. There is no pleural effusion. Electronically signed by: Rodrick Parry MD 05/31/2024 02:52 PM EDT
== END 2024-05-31 11:42 | disposition home or self-care (01) ==
LOC: HO.XRAY 11:41
PROVIDERS: PCP Internal Medicine; Visit Provider Nurse Practitioner Family
DX: J90 Pleural effusion, not elsewhere classified (principal)
CPT/HCPCS: 71046

== ENCOUNTER 2024-06-10 05:58 | Emergency (ER) | payer MEDICARE, SELFPAY ==
--- NOTE | ~2024-06-10 | CT_ITS ---
EXAMINATION: CT ABDOMEN AND PELVIS WITHOUT CONTRAST CLINICAL INFORMATION: Left lower quadrant pain. Left flank pain. COMPARISON: 01/14/2004 TECHNIQUE: Multidetector volumetric imaging was performed from the superior aspect of the liver through the pubic symphysis. Sagittal and coronal reformatted images were obtained on the technologist's workstation. This CT examination was performed using dose optimization techniques as appropriate, variously including the following: *Automated exposure control *Adjustment of mA and/or kV according to patient size (this includes techniques or standardized protocols for targeted exams where dose is matched to indication/reason for exam; i.e. extremities or head) *Use of iterative reconstruction technique DLP: 626 mGy-cm FINDINGS: LUNG BASES: The visualized lung bases are unremarkable. LIVER, GALLBLADDER, AND BILIARY TREE: The noncontrast liver is normal in size and contour. No biliary ductal dilatation is present. The gallbladder is unremarkable with no evidence of radiopaque gallstones, gallbladder wall thickening, or obvious pericholecystic inflammatory changes. PANCREAS: No ductal dilatation. SPLEEN: Not enlarged. ADRENAL GLANDS: No adrenal mass. KIDNEYS AND URETERS: The kidneys are symmetric in size. There are multiple bilateral nonobstructing renal calculi. The largest on the left measures 8 mm. The largest in the right measures 9 mm. No hydronephrosis or perinephric fluid collection. There are bilateral renal cyst requiring no further imaging follow-up. No ureteral calculus. BLADDER: Unremarkable. GASTROINTESTINAL TRACT: Diverticular disease of the sigmoid colon. No small bowel obstruction. ABDOMINAL WALL: No significant hernia is appreciated. LYMPH NODES: No bulky lymphadenopathy. VASCULAR: Normal caliber abdominal aorta. Circumaortic left renal vein. PELVIC VISCERA: Enlarged prostate gland. The prostate gland measures 4.5 x 5.4 cm in transverse dimension. OSSEOUS STRUCTURES: No destructive bone lesions. Status post right total hip arthroplasty. CT/CT abdomen pelvis wo IV con IMPRESSION: Nephrolithiasis without hydronephrosis. Prostatomegaly. Electronically signed by: Sascha Gutierrez MD 06/10/2024 01:21 PM EDT
[2024-06-10 06:02] VITALS: BP 153/89; PULSE 62; RESP 16; TEMP 36.5; O2SAT 98; BMI 24.8
[2024-06-10 06:17] LABS: MANUAL DIFF FLAG NO
[2024-06-10 06:19] LABS: Basophils Absolute Auto 0.1 X10*3/uL (0.0-0.2); Basophils Percent Auto 0.9 % (0-2); Eosinophils Absolute Auto 0.3 X10*3/uL (0.0-0.4); Hemoglobin 16.3 g/dl (14.0-18.0); Imm Gran Abs Auto 0.02 X10*3/uL (0.00-0.03); Imm Gran Pct Auto 0.4 % (0.0-0.4); Lymphocytes Percent Auto 35.7 % (20-40); Mean Corpuscular HGB Conc 32.6 g/dl (31.0-36.0); Mean Corpuscular Hemoglobin 28.6 pg (27.0-33.0); Mean Corpuscular Volume 87.9 fL (80.0-98.0); Mean Platelet Volume 9.8 fL (9.4-12.4); Monocytes Absolute Auto 0.4 X10*3/uL (0.1-1.2); Monocytes Percent Auto 7.1 % (2-11); Neutrophils Absolute Auto 2.9 x10*3/uL (2.0-8.3); Neutrophils Percent Auto 50.9 % (45-73); Platelet Count 195 X10*3/uL (160-400); Red Blood Count 5.69 X10*6/uL (4.60-5.80); Red Cell Distribution Width 13.2 % (11.0-16.0); White Blood Count 5.6 X10*3/uL (4.8-10.8)
[2024-06-10 06:34] LABS: Alanine Aminotransferase 22 U/L (0-40); Albumin Level 4.3 g/dL (3.5-5.0); Alkaline Phosphatase 82 U/L (39-117); Anion Gap 13 (12-20); Aspartate Amino Transferase 18 U/L (5-37); Bilirubin Direct 0.2 mg/dL (0.0-0.5); Bilirubin Total 0.8 mg/dL (0.0-1.0); Blood Urea Nitrogen 18 mg/dL (9-16); Calcium 9.4 mg/dL (8.4-10.2); Carbon Dioxide 24 mmol/L (22-29); Chloride 106 mmol/L (96-108); Creatinine Clr Calc Pharmacy 71.7; Estimated Glomerular Filt Rate > 60; Glucose Random 115 mg/dL (60-115); Lipase 54 U/L (8-78); Potassium 4.3 mmol/L (3.3-5.1); Sodium 139 mmol/L (135-145); Total Protein 7.2 g/dL (6.5-8.0)
[2024-06-10 08:23] VITALS: BP 140/86; PULSE 56; RESP 16; TEMP 36.6; O2SAT 96
[2024-06-10 08:27] LABS: Appearance Urine Clear; Color Urine Yellow; Glucose Urine UA Negative (Negative); Leukocyte Esterase Urine Small (1+) (Negative); Nitrite Urine Negative (Negative); PH 6.5 (5.0-9.0); Specific Gravity - Urine 1.025 (1.005-1.025); UMIC TRIGGER UACC YES; Urine Blood Negative (Negative); Urine Ketones Negative (Negative); Urine Protein Negative (Neg-Trace)
[2024-06-10 08:32] LABS: Bacteria Urine None Seen (None Seen); Hyaline Casts Urine 0-2 /LPF (0-2); RBC Urine 0-2 /HPF (0-2); Squamous Epithelial Cell Urine 0-2 /HPF (0-2); UACC Culture Trigger YES
[2024-06-10] MEDS: 0.9 % Sodium Chloride 1,000 ML 999 ML IV (09:00)
[2024-06-10] MEDS: Ketorolac Tromethamine 30 MG/ML VIAL IVPUSH (09:00)
--- NOTE | 2024-06-10 09:12 | ED.ABDPAIN ---
HPI - Abdominal Pain General Chief Complaint: Abdominal Pain Stated Complaint: kidney stones? Time Seen by Provider: 06/10/24 07:43 Source: patient Mode of arrival: ambulatory Limitations: no limitations History of Present Illness ED Provider: Maryellen Silva PA-C HPI narrative: 69 yo male with history of recurrent kidney stones presents to the ER for evaluation of left flank pain that radiates to the LLQ that started 2 hours ago. It comes and goes and it about a 6/10 in severity. It feels similar to his prior episdoes of kidney stones. He denies any hematuria, dysuria, frequency or urgency. No fever or chills. No nausea or vomiting. MD elicited complaint: flank pain Pertinent past history: kidney stones Onset (ago): hour(s) Pain Consistency: intermittent Location: L flank Severity: moderate Pain scale (0-10): 6 Quality: stabbing Radiation: LLQ Migration to: no migration Exacerbating factors: nothing Relieving factors: nothing Context: history of similar episodes Associated symptoms: denies other symptoms Related Data Home Medications ?Medication ?Instructions ?Recorded ?Confirmed psyllium husk 3.4 gram/5.4 gram 1 tbsp PO DAILY 11/25/22 04/13/24 oral powder (Metamucil) lorazepam 1 mg tablet 1 mg PO DAILY PRN Anxiety 08/18/23 04/13/24 Previous Rx's ?Medication ?Instructions ?Recorded oxycodone-acetaminophen 5 mg-325 1 tab PO Q4-6H PRN severe pain 01/14/24 mg tablet (Percocet) (scale score 7-10) #10 tabs aspirin 81 mg tablet,delayed 81 mg PO DAILY #90 tabs 01/25/24 release (Adult Low Dose Aspirin) atorvastatin 80 mg tablet 80 mg PO QPM #90 tabs 01/25/24 phenazopyridine 100 mg tablet 100 mg PO .q6 PRN pain 4 days #16 04/08/24 (Pyridium) tabs ibuprofen 600 mg tablet 600 mg PO Q8H PRN pain #14 tabs 06/10/24 nitrofurantoin macrocrystal 100 mg 100 mg PO Q12H 7 days #14 caps 06/10/24 capsule Allergies Allergy/AdvReac Type Severity Reaction Status Date / Time citalopram [CITALOPRAM] Allergy Intermediate Hives Verified 06/10/24 06:02 clindamycin Allergy Intermediate Hives Verified 06/10/24 06:02 metronidazole [METRONIDAZOLE] Allergy Intermediate Hives Verified 06/10/24 06:02 Penicillins Allergy Intermediate HIVES Verified 06/10/24 06:02 Sulfa (Sulfonamide Allergy Intermediate HIVES Verified 06/10/24 06:02 Antibiotics) terazosin AdvReac Intermediate fainting Verified 06/10/24 06:02 Review of Systems Review of Systems Yes all other systems are reviewed and are negative [facility] Past Medical History Medical History Atherosclerotic cardiovascular disease Osteoarthritis Insomnia Gout Depression Cervical disc disease Elevated cholesterol Skin lesions Anal pain History of COVID-19 BPH (benign prostatic hyperplasia) Diverticulitis Kidney stones Surgical History History of total right hip replacement History of arthroscopic surgery of shoulder H/O blepharoplasty History of nasal surgery Hx of cystoscopy Hx of cystoscopy Hx of lithotripsy H/O colonoscopy Hx of appendectomy Family History Family History Father Heart disease Social History Social History Household Members: Other Household Members Other:: [facility]ate [facility] Are you a primary rn managed care to a significant other at home: No Do you presently have visiting nurse or other home services: No Alcohol intake: current Alcohol intake frequency: holidays/special occasions only Alcohol type: wine Patient Tobacco Use Status: Never used Tobacco service: No Current occupational status: employed 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 Physical Exam ED Vital Signs: Vital Signs - 24 hr 06/10/24 06:02 06/10/24 08:23 Temperature 97.7 F 98 F Pulse Rate 62 56 Respiratory Rate 16 16 Blood Pressure 153/89 H 140/86 H Pulse Oximetry 98 96 Oxygen Delivery Method Room Air Room Air BMI result Body Mass Index 24.8 Appearance: Alert. Oriented X3. No acute distress. Head: normocephalic, atraumatic. Eyes: Pupils equal, round and reactive to light. ENT: Pharynx normal. No tonsillar swelling or exudate. Neck: Normal inspection. Neck supple. CVS: Normal heart rate and rhythm. Pulses normal. Respiratory: No respiratory distress. Breath sounds normal. Abdomen: Soft with left lower quadrant tenderness without rebound or guarding. no CVA tenderness. normal active BS x4 Skin: Skin warm and dry. Normal skin color. Normal skin turgor. No rashes. Extremities: No lower extremity edema. No joint swelling. Neuro/psych: Oriented X 3. No motor deficit. No sensory deficit. CN II-XII intact. Normal speech and cognition. Medical Decision Making Medical Decision Making [facility] Narrative: 69 yo male presenting with left flank pain radiating to LLQ that started 2 hours ago, similar to prior kidney stone pain. VSS on arival. PE without any CVA tenderness. labs showing normal WBC, normal renal function, UA + for infection CT scan done that does now show any ureteral stones, no hydro, no perinephric stranding. will treat for UTI. stablle for d/c home Differential Diagnosis Differential Diagnoses: The differential diagnosis associated with the presentation includes kidney stone, UTI, pyelonephritis, diverticulitis, colitis, MSK pain Admission/Observation Consideration of admission/observation: Escalation of care including admission/observation considered Lab Data [facility] Lab Attestation statement: I reviewed the patient's lab results. no leukocytosis, normal renal function 06/10/24 06:10 06/10/24 06:10 Labs: Lab Results 06/10/24 06/10/24 Range/Units 06:10 08:13 WBC 5.6 (4.8-10.8) X10*3/uL RBC 5.69 (4.60-5.80) X10*6/uL Hgb 16.3 (14.0-18.0) g/dl Hct 50.0 (42.0-52.0) % MCV 87.9 (80.0-98.0) fL MCH 28.6 (27.0-33.0) pg MCHC 32.6 (31.0-36.0) g/dl RDW 13.2 (11.0-16.0) % Plt Count 195 (160-400) X10*3/uL MPV 9.8 (9.4-12.4) fL Immature Gran % (Auto) 0.4 (0.0-0.4) % Neut % (Auto) 50.9 (45-73) % Lymph % (Auto) 35.7 (20-40) % [place] % (Auto) 7.1 (2-11) % Eos % (Auto) 5.0 H (0-4) % Baso % (Auto) 0.9 (0-2) % Lymph # (Auto) 2.0 (1.2-4.9) X10*3/uL [place] # (Auto) 0.4 (0.1-1.2) X10*3/uL Eos # (Auto) 0.3 (0.0-0.4) X10*3/uL Baso # (Auto) 0.1 (0.0-0.2) X10*3/uL Abs Immat Gran (auto) 0.02 (0.00-0.03) X10*3/uL Absolute Neuts (auto) 2.9 (2.0-8.3) x10*3/uL Absolute Nucleated RBC 0.000 (0.0-0.012) X10*3/uL Nucleated RBC % (auto) 0.0 (0.0-0.2) /100WBC Sodium 139 (135-145) mmol/L Potassium 4.3 (3.3-5.1) mmol/L Chloride 106 (96-108) mmol/L Carbon Dioxide 24 (22-29) mmol/L Anion Gap 13 (12-20) BUN 18 H (9-16) mg/dL Creatinine 1.05 (0.5-1.4) mg/dL Estim Creat Clear Calc 71.7 Estimated GFR > 60 Random Glucose 115 (60-115) mg/dL Calcium 9.4 (8.4-10.2) mg/dL Total Bilirubin 0.8 (0.0-1.0) mg/dL Direct Bilirubin 0.2 (0.0-0.5) mg/dL AST 18 (5-37) U/L ALT 22 (0-40) U/L Alkaline Phosphatase 82 (39-117) U/L Total Protein 7.2 (6.5-8.0) g/dL Albumin 4.3 (3.5-5.0) g/dL Lipase 54 (8-78) U/L Urine Color Yellow Urine Appearance Clear Urine pH 6.5 (5.0-9.0) Ur Specific [place] 1.025 (1.005-1.025) Urine Protein Negative (Neg-Trace) mg/dL Urine Glucose (UA) Negative (Negative) mg/dL Urine Ketones Negative (Negative) mg/dL Urine Blood Negative (Negative) Urine Nitrite Negative (Negative) Ur Leukocyte Esterase Small (1+) H (Negative) Urine RBC 0-2 (0-2) /HPF Urine WBC 11-20 H (0-5) /HPF Ur Squamous Epith Cells 0-2 (0-2) /HPF Urine Bacteria None Seen (None Seen) Hyaline Casts 0-2 (0-2) /LPF Independent Interpretation I performed an independent interpretation of an: CT Scan Interpretation: CT scan done that does now show any ureteral stones, no hydro, no perinephric stranding. Radiology Impression Discussion of test interpretation with radiology: I have reviewed the radiologist's reading. External Record Review External record reviewed: Office record, Outpatient record, Prior outpatient labs and Prior outpatient radiology Prescription Management I considered prescription management with: Pain Medication and Antibiotic Chronic Conditions Patient?s care impacted by: Other (recurrent kidney stones) Medications Administered Discontinued Medications Generic Name Dose Route Start Last Admin Trade Name Freq PRN Reason Stop Dose Admin Sodium Chloride 1,000 mls @ 999 mls/hr 06/10/24 08:00 06/10/24 10:31 Ns IV 06/10/24 09:00 Infused .Q1H1M DOMINIQUE Infusion Ketorolac Tromethamine 30 mg 06/10/24 08:00 06/10/24 09:00 Ketorolac Tromethamine 30 Mg/Ml Vial IVPUSH 06/10/24 08:01 30 mg ONCE ONE Administration Morphine Sulfate 4 mg 06/10/24 09:42 06/10/24 09:54 Morphine Sulfate 4 Mg/Ml Cartridge IVPUSH 06/10/24 09:43 4 mg ONCE ONE Administration Protocol Ondansetron HCl 4 mg 06/10/24 09:42 06/10/24 09:54 Ondansetron Hcl 4 Mg/2 Ml Vial IVPUSH 06/10/24 09:43 4 mg ONCE ONE Administration Critical Care Time Critical Care Time Critical Care Time: Yes Total Critical Care Time: 32 Attestation: I have personally provided critical care time exclusive of time spent on separately billable procedures. Time includes review of lab data, radiology results, bedside reassessment of pain, hemodynamics and mental status s/p IV narcotics, and monitoring for potential decompensation. Intervention performed as documented. Discharge Plan Discharge Clinical Impression: Acute UTI Patient Disposition: Home, Self-Care Instructions: Urinary Tract Infection in Men (DC) Additional Instructions: Your CT scan did not show any evidence of obstructing kidney stones or stones in the ureter that would be causing your pain. Your lab workup was reassuring. Your urine test did show evidence of white blood cells and possible early infection. Take the prescribed antibiotic as directed, complete the entire course and do not miss any doses. Follow-up with your urologist in your primary care doctor. If you develop new or worsening symptoms call 911 or come back to the ER for further evaluation. EXAMINATION: CT ABDOMEN AND PELVIS WITHOUT CONTRAST CLINICAL INFORMATION: Left lower quadrant pain. Left flank pain. COMPARISON: 01/14/2004 TECHNIQUE: Multidetector volumetric imaging was performed from the superior aspect of the liver through the pubic symphysis. Sagittal and coronal reformatted images were obtained on the technologist's workstation. This CT examination was performed using dose optimization techniques as appropriate, variously including the following: *Automated exposure control *Adjustment of mA and/or kV according to patient size (this includes techniques or standardized protocols for targeted exams where dose is matched to indication/reason for exam; i.e. extremities or head) *Use of iterative reconstruction technique DLP: 626 mGy-cm FINDINGS: LUNG BASES: The visualized lung bases are unremarkable. LIVER, GALLBLADDER, AND BILIARY TREE: The noncontrast liver is normal in size and contour. No biliary ductal dilatation is present. The gallbladder is unremarkable with no evidence of radiopaque gallstones, gallbladder wall thickening, or obvious pericholecystic inflammatory changes. PANCREAS: No ductal dilatation. SPLEEN: Not enlarged. ADRENAL GLANDS: No adrenal mass. KIDNEYS AND URETERS: The kidneys are symmetric in size. There are multiple bilateral nonobstructing renal calculi. The largest on the left measures 8 mm. The largest in the right measures 9 mm. No hydronephrosis or perinephric fluid collection. There are bilateral renal cyst requiring no further imaging follow-up. No ureteral calculus. BLADDER: Unremarkable. GASTROINTESTINAL TRACT: Diverticular disease of the sigmoid colon. No small bowel obstruction. ABDOMINAL WALL: No significant hernia is appreciated. LYMPH NODES: No bulky lymphadenopathy. VASCULAR: Normal caliber abdominal aorta. Circumaortic left renal vein. PELVIC VISCERA: Enlarged prostate gland. The prostate gland measures 4.5 x 5.4 cm in transverse dimension. OSSEOUS STRUCTURES: No destructive bone lesions. Status post right total hip arthroplasty. CT/CT abdomen pelvis wo IV con IMPRESSION: Nephrolithiasis without hydronephrosis. Prostatomegaly. Prescriptions: New nitrofurantoin macrocrystal 100 mg capsule 100 mg PO Q12H 7 Days Qty: 14 0RF Rx Instructions: must administer with a meal/food ibuprofen 600 mg tablet 600 mg PO Q8H PRN (Reason: pain) Qty: 14 0RF No Action phenazopyridine [Pyridium] 100 mg tablet 100 mg PO .q6 PRN (Reason: pain) 4 Days Qty: 16 0RF Metamucil 3.4 gram/5.4 gram Powder 1 tbsp PO DAILY Rx Instructions: mix into at least 8 oz of water or juice before administering oxycodone-acetaminophen [Percocet] 5-325 mg tablet 1 tab PO Q4-6H PRN (Reason: severe pain (scale score 7-10)) Qty: 10 0RF Rx Instructions: Partial Fill upon patient request. lorazepam 1 mg tablet 1 mg PO DAILY PRN (Reason: Anxiety) atorvastatin 80 mg tablet 80 mg PO QPM Qty: 90 3RF aspirin [Adult Low Dose Aspirin] 81 mg tablet,delayed release (DR/EC) 81 mg PO DAILY Qty: 90 3RF Interventions: ED Discharge Assessment Last Done: 06/10/24 13:36 Discharge Date/Time: 06/10/24 13:37 Print Language: Croatian
[2024-06-10 09:54] VITALS: RESP 16
[2024-06-10] MEDS: Morphine Sulfate 4 MG/ML CARTRIDGE IVPUSH (09:54)
[2024-06-10] MEDS: ondansetron HCL 4 MG/2 ML VIAL IVPUSH (09:54)
[2024-06-10 11:13] VITALS: BP 144/86; PULSE 59; RESP 16; O2SAT 98
[2024-06-10 12:45] VITALS: BP 125/72; PULSE 58; RESP 16; O2SAT 96
[2024-06-10 13:36] VITALS: BP 125/72; PULSE 58; RESP 16; TEMP 36.9; O2SAT 96
== END 2024-06-10 13:37 | disposition home or self-care (01) ==
PROVIDERS: Emergency Provider Emergency Medicine Emergency Medical Services; PCP Internal Medicine
DX: N39.0 Urinary tract infection, site not specified (principal); R10.9 Unspecified abdominal pain; N20.0 Calculus of kidney; E78.5 Hyperlipidemia, unspecified; Z87.442 Personal history of urinary calculi; Z79.82 Long term (current) use of aspirin; Z79.02 Long term (current) use of antithrombotics/antiplatelets; Z79.899 Other long term (current) drug therapy
CPT/HCPCS: 36415; 74176; 80048; 80076; 81001; 83690; 85025; 87086; 96361; 96374; 96375; 99284; 99285; J1885; J2270; J2405

== ENCOUNTER 2024-07-14 08:51 | Outpatient (AMB) | payer MEDICARE, SELFPAY ==
--- NOTE | 2024-07-14 09:00 | MHC.OFFVIS ---
Intake Visit Reasons: ER follow up-(06/10) bilateral nonobst stones Intake Note: Patient is Present for [place] [facility] [place] Nephrolithiasis without [facility] Medication:None Antibiotic Allergies:Clindamycin, Penicillins,Sulfa Antibiotics Blood Thinners: Aspirin Senior [employer] Required: No Accompanied by: Self / Same As Patient Allergies citalopram [CITALOPRAM] Allergy (Intermediate, Verified 07/14/24 09:03) Hives clindamycin Allergy (Intermediate, Verified 07/14/24 09:03) Hives metronidazole [METRONIDAZOLE] Allergy (Intermediate, Verified 07/14/24 09:03) Hives Penicillins Allergy (Intermediate, Verified 07/14/24 09:03) HIVES Sulfa (Sulfonamide Antibiotics) Allergy (Intermediate, Verified 07/14/24 09:03) HIVES terazosin Adverse Reaction (Intermediate, Verified 07/14/24 09:03) fainting HPI Comments Details: Julio is a pleasant male. He is a patient of Dr. Goodson. He seen for the following urologic conditions - nephrolithiasis - BPH Recent stone presentation CT scan shows bilateral stones 8 mm on right and 9 mm on left Has had episodes of colic Does understand that they are a bit too big to pass Would like to undergo intervention Lower urinary tract symptoms Progressive Primarily nocturia 2-3 times Prior medications tamsulosin minimal effect Minimal benefit from combination terazosin oxybutynin GreenLight laser - 03/28 Nephrolithiasis Long history of chronic renal stone disease Has undergone multiple procedures with ESWL Does feel he may have stone currently Has previously been able to pass stones Stone composition - 01/23 uric acid with calcium oxalate, 03/25 mixed calcium oxalate 80% monohydrate Imaging - renal ultrasound 07/24 multiple renal stones, 3 on right, 2 on left. Bilateral renal cysts. Stones approximately 5 mm - 06/25 renal ultrasound bilateral renal cyst stable. Small stone? On right 2 mm - 08/26 renal ultrasound bilateral renal cysts, query small stone 3 mm right side Intervention - 03/25 right ureteroscopy, laser lithotripsy and stent placement Therapeutic plan - vitamin B6, fluids PFSH Medical History Atherosclerotic cardiovascular disease Osteoarthritis Insomnia Gout Depression Cervical disc disease Elevated cholesterol Skin lesions Anal pain History of COVID-19 BPH (benign prostatic hyperplasia) Diverticulitis Kidney stones Surgical History History of total right hip replacement History of arthroscopic surgery of shoulder H/O blepharoplasty History of nasal surgery Hx of cystoscopy Hx of cystoscopy Hx of lithotripsy H/O colonoscopy Hx of appendectomy Family History Father Heart disease Social History Household Members: Other Household Members Other:: Roomate Housing: [facility] [place] Are you a primary customer care representative to a significant other at home: No Do you presently have visiting nurse or other home services: No Alcohol intake: current Alcohol intake frequency: holidays/special occasions only Alcohol type: wine Patient Tobacco Use Status: Never used Tobacco service: No Current occupational status: employed 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 Review of Systems Const Denies chills and Denies fever(s) Card Reports no additional complaints and Denies syncope Resp Denies cough GI Denies abdominal pain and Denies heartburn Reports as per HPI and Denies change in libido Neuro Denies syncope Psych Denies change in libido Endo Denies change in libido Physical Exam Const General: cooperative, healthy appearing, comfortable and no acute distress Orientation/consciousness: patient oriented x3 HEENT Face and sinus: Yes normal facial exam Mouth: moist mucous membranes Neck Neck: Yes normal visual inspection, Yes full ROM and Yes trachea midline Chest Chest palpation & inspection: normal inspection of the chest Resp Effort & Inspection: normal respiratory effort, able to speak in complete sentences and no respiratory distress GI Inspection: Yes normal to inspection Back/Spine/Pelvis Cervical Spine: normal cervical lordosis Thoracic/Lumbar Spine: thoracic and lumbar spine normal to inspection Skin General skin exam: no rashes or lesions noted Neuro General: patient oriented x3, gait normal, tone normal and moves all extremities Extrem General: Yes normal to inspection and Yes capillary refill normal Assessment & Plan Assessment & Plan (1) BPH w urinary obs/LUTS: Code(s): N40.1 - Benign prostatic hyperplasia with lower urinary tract symptoms; N13.8 - Other obstructive and reflux uropathy Category: Medical (2) Urinary urgency: Code(s): R39.15 - Urgency of urination Category: Medical (3) Nephrolithiasis: Code(s): N20.0 - Calculus of kidney Category: Medical Plan Ureteroscopy We discussed the nature of the decision and reasonable alternatives for performing ureteroscopy. Options such as medical therapy were discussed. Interventions include chemical dissolution, ESWL, ureteroscopy with laser lithotripsy and stent placement, PCNL. The relative uncertainties and benefits related to each alternate procedure were adequately discussed. General surgical risks including, but not limited to - pain, bleeding, infection, myocardial infarction, pulmonary embolus, deep vein thrombosis and cerebrovascular accident which may result in further hospitalization were discussed. Full disclosure of the procedure as well as all major risks, benefits and complications were discussed including but not limited to damage to the urethra, bladder and kidney infection, damage to the ureter, stent migration or malposition, scarring to the renal pelvis, remnant stone fragments, subsequent stone passage with need for secondary procedures. The overall secondary procedure rate is approximately 10-15%. The overall clearance rate is approximately 90-95%. Success of the procedure in the short-term does not necessarily guarantee that long-term success will be maintained. Suitable follow up will need to be maintained. The patient showed understanding of discussion and wishes to proceed with - cystoscopy, retrograde, ureteroscopy, possible lithotripsy/stone basketing and stent on the left side Patient Instructions: Imaging studies, laboratory and physical exam results were discussed and reviewed in detail. No major barriers to patient understanding were identified. An opportunity to ask questions regarding the treatment plan was provided. All questions were answered. The patient expressed understanding and agreement with the above treatment plan. The patient is aware they should contact our office by phone for worsening of their current condition or the appearance of new urologic symptoms. Compliance is encouraged with any medications and followup testing that is ordered. It is a privilege to participate in the urologic care of your patient. If you have any questions or concerns regarding treatment for the above conditions, or other urologic issues, please do not hesitate to contact me. The office telephone contact is [phone]. This note is constructed using voice recognition software. While every effort has been made to ensure accuracy cement rubber errors may have been included. Yours sincerely, Dr Isreal Erazo MD, [facility] - Urology Providers of Expert, Compassionate Care for the Genitourinary System Coding Level of Care Code Est Pt Level 4 (21815) Diagnoses BPH w urinary obs/LUTS N40.1; N13.8 Urinary urgency R39.15 Nephrolithiasis N20.0
== END 2024-07-14 10:01 | disposition home or self-care (01) ==
PROVIDERS: PCP Internal Medicine; Visit Provider Urology
DX: N40.1 Benign prostatic hyperplasia with lower urinary tract symptoms (principal); N13.8 Other obstructive and reflux uropathy; R39.15 Urgency of urination; N20.0 Calculus of kidney
CPT/HCPCS: 99214

== ENCOUNTER → 2024-07-14 08:51 | Outpatient (BNVA) | payer MEDICARE, SELFPAY | PROVIDERS: PCP Internal Medicine; Visit Provider Urology | DX: N40.1 Benign prostatic hyperplasia with lower urinary tract symptoms (principal); N13.8 Other obstructive and reflux uropathy; N20.0 Calculus of kidney; R39.15 Urgency of urination | CPT/HCPCS: 99212 ==

== ENCOUNTER 2024-08-01 09:58 | Day surgery (SDC) | payer MEDICARE, SELFPAY ==
[2024-08-01 10:20] VITALS: BMI 25.5
[2024-08-01 10:58] VITALS: BP 153/87; PULSE 63; RESP 14; TEMP 36.5; O2SAT 96
[2024-08-01] MEDS: Lactated Ringers 1,000 ML 50 ML IVCONT (11:00)
--- NOTE | 2024-08-01 11:50 | P.HPSUR_ITS ---
Pre-Procedural Eval Section A - 24 Hr Update-Section A only Date of Service: 08/01/24 The patient is an INPATIENT: No Changes since office visit: No Cold of Flu in the past 2 weeks, No New Medical Problems, No Changes in Medication and No Patient answered all questions The patient has been examined within 24 hours of the surgical procedure. The History & Physical has been completed within 30 days and I have reviewed it.: Yes Section B - Complete if H&P > 30 days Chief Complaint: Calculus of kidney Details of Present Illness: Left ureteroscopy with laser lithotripsy and stent placement Allergies: Allergies Allergy/AdvReac Type Severity Reaction Status Date / Time citalopram [CITALOPRAM] Allergy Intermediate Hives Verified 08/01/24 10:14 clindamycin Allergy Intermediate Hives Verified 08/01/24 10:14 metronidazole [METRONIDAZOLE] Allergy Intermediate Hives Verified 08/01/24 10:14 Penicillins Allergy Intermediate HIVES Verified 08/01/24 10:14 Sulfa (Sulfonamide Allergy Intermediate HIVES Verified 08/01/24 10:14 Antibiotics) terazosin AdvReac Intermediate fainting Verified 08/01/24 10:14 Review of Systems Sugical H&P ROS: Negative: Constitution, Cardiovascular, Respiratory, Neurological, Psychiatric, Hem-Onc, Allergic/Immunologic, Gastrointestinal, Gen itourinary, Musculoskeletal, Integumentary, Endocrine and Eyes/Ears/Nose/Throat Exam Surgical H&P Exam: Normal: HEENT, Normal: Heart, Normal: Lungs, Normal: Extremities, Normal: Abdomen, Normal: Skin and Normal: Neurological Plan Diagnosis/Plan: Unchanged (Cystoscopy, left retrograde, left ureteroscopy with laser lithotripsy and stent placed) I have reviewed the history and physical and performed a pertinent physical examination on my patient. No changes have occurred unless specified. Time Spent With Patient Time: Total time managing care of this patient today ____ minutes.
--- NOTE | 2024-08-01 12:27 | HO.ANESPROP2 ---
HPI - Anesthesia Eval Consult details Narrative: 69 yo male patient for Cystoscopy, Left ureteroscopy, retro PMFSH Active Problems Active Problems: All Active Problems (Updated 06/11/24 @ 00:02 by Onesimo Bass) Pleural effusion (Acute) Skin lesion of face (Acute) Benign skin lesion of forehead (Acute) Scalp cyst (Acute) Family history of coronary artery disease (Acute) Essential hypertension (Acute) Bladder trabeculation (Acute) Enlarged prostate (Acute) Incomplete bladder emptying (Acute) History of total right hip replacement (Acute) Cerumen impaction (Acute) Rash (Acute) Thoracic back pain (Acute) Cervical spondylosis (Acute) Muscle spasms of neck (Acute) Skin lesion of cheek (Acute) Osteoarthritis of right hip (Acute) Status post right rotator cuff repair (Acute) History of arthroscopy of right shoulder (Acute) Rotator cuff tear, right (Acute) Shoulder weakness (Acute) Urinary urgency (Acute) Nocturia (Acute) BPH w urinary obs/LUTS (Acute) LADI (acute kidney injury) (Acute) Nephrolithiasis (Acute) Atherosclerotic cardiovascular disease (Acute) Skin lesions (Acute) Anal pain (Acute) Past Medical History Medical History Atherosclerotic cardiovascular disease Osteoarthritis Insomnia Gout Depression Cervical disc disease Elevated cholesterol Skin lesions Anal pain History of COVID-19 BPH (benign prostatic hyperplasia) Diverticulitis Kidney stones Family History Family History Father Heart disease Family history of problems with anesthesia: No Surgical History Surgical History History of total right hip replacement History of arthroscopic surgery of shoulder H/O blepharoplasty History of nasal surgery Hx of cystoscopy Hx of cystoscopy Hx of lithotripsy H/O colonoscopy Hx of appendectomy History of Problems with Anesthesia: No Social History Social History Household Members: Other Household Members Other:: Roomate Housing: Condominium Are you a primary managed care director to a significant other at home: No Do you presently have visiting nurse or other home services: No Alcohol intake: current Alcohol intake frequency: does not drink Alcohol type: wine Patient Tobacco Use Status: Never used Tobacco Use of substances other than those prescribed or required for medical reasons: No Have you been hit, kicked, punched, or otherwise hurt by someone within the past year? 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 Meds Allergies Allergy/AdvReac Type Severity Reaction Status Date / Time citalopram [CITALOPRAM] Allergy Intermediate Hives Verified 08/01/24 10:14 clindamycin Allergy Intermediate Hives Verified 08/01/24 10:14 metronidazole [METRONIDAZOLE] Allergy Intermediate Hives Verified 08/01/24 10:14 Penicillins Allergy Intermediate HIVES Verified 08/01/24 10:14 Sulfa (Sulfonamide Allergy Intermediate HIVES Verified 08/01/24 10:14 Antibiotics) terazosin AdvReac Intermediate fainting Verified 08/01/24 10:14 Active Medications: Current Medications Fentanyl (Fentanyl Citrate/Pf 100 Mcg/2 Ml Vial) 25 mcg IVPUSH Q5M PRN PRN Reason: Pain, Moderate to Severe (Pain Scale 4-10) Stop: 08/01/24 18:20 Lactated Ringer's (Lr) 1,000 mls @ 50 mls/hr IVCONT .Q20H DOMINIQUE Last Admin: 08/01/24 11:00 Dose: 50 mls/hr Ondansetron HCl (Ondansetron Hcl 4 Mg/2 Ml Vial) 4 mg IVPUSH ONCE PRN PRN Reason: Nausea and Vomiting Stop: 08/01/24 18:20 Oxycodone HCl (Oxycodone Hcl Immed Release 5 Mg Tablet) 5 mg PO ONCE PRN PRN Reason: Pain, Moderate(Pain Scale 4-6) if no IV Access Stop: 08/01/24 18:20 Home Medications ?Medication ?Instructions ?Recorded ?Confirmed ?Last Taken ?Type psyllium husk 3.4 gram/5.4 gram 1 tbsp PO DAILY 11/25/22 08/01/24 07/31/24 History oral powder (Metamucil) lorazepam 1 mg tablet 1 mg PO DAILY PRN Anxiety 08/18/23 08/01/24 07/31/24 History Exam Height,Weight and Vital Signs: Height 5 ft 11 in Weight 83.007 kg Last Vital Signs Temp 97.7 F 08/01/24 10:58 Pulse 63 08/01/24 10:58 Resp 14 08/01/24 10:58 BP 153/87 H 08/01/24 10:58 Pulse Ox 96 08/01/24 10:58 O2 Del Method Room Air 08/01/24 10:58 Airway Mallampati Class: II TM Dist: >3cm Neck ROM: Full Loose/Missing/Broken Teeth: No Heart: RRR Lungs: CTAB Assessment and Plan Assessment Anesthesia Assessment: Anesthesia Plan Discussed and Chart Reviewed Final Anesthetic Review Family History of Problems with Anesthesia: No History of Problems with Anesthesia: No NPO: Yes ASA Class: III Final Preanesthetic Review: No Changes in Pt Med Stat, Meds/Allgs Chart Reviewed, Consent Obtained/Reviewed and Anes Risks/Benef Reviewed Patient Risk: Intermediate Procedure Risk: Low Assessment/Block/Sedation in SS: Assess/Block/Sedation-SS Anesthetic Plan Anesthetic Plan: GA Disposition: Standard PACU
--- NOTE | 2024-08-01 12:42 | W.PM.OPN ---
Operative Note Operative Note Date of Service: 08/01/24 Narrative: PreOperative Diagnosis: Left renal stone Post Operative Diagnosis: left renal stone Procedure: - cystoscopy, left retrograde - left dilatation of ureteric orifice under fluoroscopy - left ureteroscopy, laser lithotripsy, stone basketing - left stent placement Surgeon: Dr Isreal Erazo Anesthesia: General Indications for procedure: Bilateral stones on CT with symptomatology. Left worse than right Procedure: After informed consent was verified patient was brought to the operating placed in supine position. Anesthesia was administered per protocol. Patient was placed in modified dorsal lithotomy position and prepped and draped in a sterile fashion. Safety pause time-out and side of surgery confirmed. Antibiotics confirmed. 22 Moldovan cystoscope was inserted per urethra. Bladder was normal in its entirety. Both ureteric orifices were in normal position. The left ureteric orifice was cannulated and a retrograde examination was performed. No filling defects seen within the ureter. A Sensor guidewire was placed up to the level of the renal pelvis under fluoroscopy. The rigid cystoscope was removed and the inner cannula of ureteric access sheath was used under fluoroscopy to dilate the ureteric orifice. The ureteric access sheath was placed and the inner cannula with access wire removed. The digital flexible ureteral scope was placed. Small stones seen in the upper pole and in the mid pole of the kidney. Attempted to use a ZeroTip basket to remove. These were very small. Submucosal stones noted in the mid pole. Two hundred seventynm holmium laser used on submucosal stones. At the completion of the stone procedure a Sensor wire was placed back into the renal pelvis. The rigid cystoscope was backloaded over the wire and advanced into the bladder. A 6 Moldovan by 28 cm double-J stent was placed into the renal pelvis and bladder under a combination of fluoroscopy and direct visualization. The bladder was emptied. The patient tolerated the procedure well and was extubated in the operating room, and transferred in stable condition to the recovery area. Pathology: No stones Drains: As above
[2024-08-01 12:50] VITALS: BP 142/81; PULSE 60; RESP 18; TEMP 36.4; O2SAT 96
[2024-08-01 12:55] VITALS: BP 145/81; PULSE 57; RESP 16; O2SAT 96
[2024-08-01 13:00] VITALS: BP 142/81; PULSE 52; RESP 16; O2SAT 96
[2024-08-01] MEDS: Phenazopyridine HCL 100 MG TABLET PO (13:00)
[2024-08-01] MEDS: Ketorolac Tromethamine 15 MG/ML VIAL IVPUSH (13:01)
[2024-08-01 13:05] VITALS: BP 151/88; PULSE 61; RESP 16; O2SAT 96
[2024-08-01 13:20] VITALS: BP 146/90; PULSE 51; RESP 16; TEMP 36.1; O2SAT 96
== END 2024-08-01 14:04 | disposition home or self-care (01) ==
PROVIDERS: PCP Internal Medicine; Visit Provider Urology
PROC: (CPT 52356; principal; 2024-08-01 11:50)
DX: N20.0 Calculus of kidney (principal); N40.1 Benign prostatic hyperplasia with lower urinary tract symptoms; N13.8 Other obstructive and reflux uropathy; R39.15 Urgency of urination; E78.00 Pure hypercholesterolemia, unspecified; M10.9 Gout, unspecified; F32.A Depression, unspecified; Z79.82 Long term (current) use of aspirin; Z79.899 Other long term (current) drug therapy; Z88.0 Allergy status to penicillin; Z88.1 Allergy status to other antibiotic agents; Z88.2 Allergy status to sulfonamides
CPT/HCPCS: 52356; C1758; C1769; C1894; C2617; J0131; J1885; J1956; J2003; J2250; J2704; J3010; Q9967

== ENCOUNTER → 2024-08-01 09:58 | Outpatient (BNV) | payer MEDICARE, SELFPAY | PROVIDERS: PCP Internal Medicine; Visit Provider Urology | DX: N20.0 Calculus of kidney (principal) | CPT/HCPCS: 52356 ==

== ENCOUNTER 2024-08-10 08:47 | Outpatient (AMB) | payer MEDICARE, SELFPAY ==
--- NOTE | 2024-08-10 08:56 | A.OFFVIS_ITS ---
Intake Visit Reasons: Stent removal Intake Note: Patient is present for STENT REMOVAL Urology Medication:OXYCODONE,PYRIDIUM,NAPROXEN,TAMSULOSIN Antibiotic Allergy:CLINDAMYCIN,PENICILLIN,SULFA,TERAZOSIN Blood Thinner:NONE Personal Care Aide Required: No Allergies citalopram [CITALOPRAM] Allergy (Intermediate, Verified 08/10/24 08:57) Hives clindamycin Allergy (Intermediate, Verified 08/10/24 08:57) Hives metronidazole [METRONIDAZOLE] Allergy (Intermediate, Verified 08/10/24 08:57) Hives Penicillins Allergy (Intermediate, Verified 08/10/24 08:57) HIVES Sulfa (Sulfonamide Antibiotics) Allergy (Intermediate, Verified 08/10/24 08:57) HIVES terazosin Adverse Reaction (Intermediate, Verified 08/10/24 08:57) fainting HPI Comments Details: Julio is a pleasant male. He is a patient of Dr. Goodson. He seen for the following urologic conditions - nephrolithiasis - BPH Here for stent removal Had urinary tract infection following procedure No risk factors for immunosuppression Left-sided stent removed today 4 month follow-up renal ultrasound Lower urinary tract symptoms Progressive Primarily nocturia 2-3 times Prior medications tamsulosin minimal effect Minimal benefit from combination terazosin oxybutynin GreenLight laser - 03/28 Nephrolithiasis Long history of chronic renal stone disease Has undergone multiple procedures with ESWL Does feel he may have stone currently Has previously been able to pass stones Stone composition - 01/23 uric acid with calcium oxalate, 03/25 mixed calcium oxalate 80% monohydrate Imaging - renal ultrasound 07/24 multiple renal stones, 3 on right, 2 on left. Bilateral renal cysts. Stones approximately 5 mm - 06/25 renal ultrasound bilateral renal cyst stable. Small stone? On right 2 mm - 08/26 renal ultrasound bilateral renal cysts, query small stone 3 mm right side Intervention - 03/25 right ureteroscopy, laser lithotripsy and stent placement Therapeutic plan - vitamin B6, fluids [facility] Medical History Atherosclerotic cardiovascular disease Osteoarthritis Insomnia Gout Depression Cervical disc disease Elevated cholesterol Skin lesions Anal pain History of COVID-19 BPH (benign prostatic hyperplasia) Diverticulitis Kidney stones Surgical History History of total right hip replacement History of arthroscopic surgery of shoulder H/O blepharoplasty History of nasal surgery Hx of cystoscopy Hx of cystoscopy Hx of lithotripsy H/O colonoscopy Hx of appendectomy Family History Father Heart disease Social History Household Members: Other Household Members Other:: [facility]ate [facility] Are you a primary rn managed care to a significant other at home: No Do you presently have visiting nurse or other home services: No Alcohol intake: current Alcohol intake frequency: does not drink Alcohol type: wine Patient Tobacco Use Status: Never used Tobacco service: No Current occupational status: employed 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 Review of Systems Const Denies chills and Denies fever(s) Card Reports no additional complaints and Denies syncope Resp Denies cough GI Denies abdominal pain and Denies heartburn Reports as per HPI and Denies change in libido Neuro Denies syncope Psych Denies change in libido Endo Denies change in libido Physical Exam Const General: cooperative, healthy appearing, comfortable and no acute distress Orientation/consciousness: patient oriented x3 HEENT Face and sinus: Yes normal facial exam Mouth: moist mucous membranes Neck Neck: Yes normal visual inspection, Yes full ROM and Yes trachea midline Chest Chest palpation & inspection: normal inspection of the chest Resp Effort & Inspection: normal respiratory effort, able to speak in complete sentences and no respiratory distress GI Inspection: Yes normal to inspection Back/Spine/Pelvis Cervical Spine: normal cervical lordosis Thoracic/Lumbar Spine: thoracic and lumbar spine normal to inspection Skin General skin exam: no rashes or lesions noted Neuro General: patient oriented x3, gait normal, tone normal and moves all extremities Extrem General: Yes normal to inspection and Yes capillary refill normal Office Procedures Cystoscopy Consent Discussed risk and benefit or proposed procedure with the patient. Information consent for procedure given to the patient. Discussed technical aspects, risks, benefits and alternatives in full. Addressed all of the patient's questions and concerns regarding the procedure. The patient demonstrated knowledge and understanding. They wish to proceed with this procedure. Preparation The patient was prepped in the usual manner. A movie projectionist was present and in the room. Genitalia was prepped with betadine solution in a sterile manner. Lidocaine Jelly 2% was placed into the urethra and 16Fr flexible Olympus cystoscope was inserted into the meatus after adequate lubrication. Procedure A well lubricated 16 English cystoscope was placed No abnormality noted of urethra during placement Indwelling stent seen within bladder emerging from left ureteric orifices The stent was grasped with a 3 prong grasper and removed without difficulty The patient tolerated the procedure well [id number] with stent removal DISPOSABLE SCOPE URO-G FLEXIBLE SCOPE Procedure code (CPT) selection complete Office Meds lidocaine HCl 2 % mucosal jelly in applicator Performing Provider: Isreal Erazo MD Performing Location: [facility] Administered by: Azar Anderson LPN on 08/10/24 09:14 Dose Route Admin Location Dispensed Lot Number Expiration Date ND Counterintelligence Specialist 10 mL intra-urethral 10 mL nitrofurantoin monohydrate/macrocrystals 100 mg capsule Performing Provider: Isreal Erazo MD Performing Location: [facility] Administered by: Azar Anderson LPN on 08/10/24 09:14 Dose Route Admin Location Dispensed Lot Number Expiration Date ND Counterintelligence Specialist 100 mg PO 1 cap naproxen 500 mg tablet Performing Provider: Isreal Erazo MD Performing Location: [facility] [place] [facility] Administered by: Azar Anderson LPN on 08/10/24 09:14 Dose Route Admin Location Dispensed Lot Number Expiration Date ND Counterintelligence Specialist 500 mg PO 1 tab Results AMB Urinalysis, Automated UA Leukoctes 15 Fortino/uL Last Edit by VICTOR HUGO Ching on 08/10/24 09:08 UA Nitrite Negative Last Edit by VICTOR HUGO Ching on 08/10/24 09:08 UA Urobilinogen 0.2 mg/dL Last Edit by VICTOR HUGO Ching on 08/10/24 09:0 8 UA Protein 30 mg/dL Last Edit by VICTOR HUGO Ching on 08/10/24 09:08 UA pH 6.0 Last Edit by VICTOR HUGO Ching on 08/10/24 09:08 UA Blood 200 Edwin/uL Last Edit by VICTOR HUGO Ching on 08/10/24 09:08 UA Specific [place] 1.015 Last Edit by VICTOR HUGO Ching on 08/10/24 09: 08 UA Ketone Negative Last Edit by VICTOR HUGO Ching on 08/10/24 09:08 UA Bilirubin 0 mg/dL Last Edit by VICTOR HUGO Ching on 08/10/24 09:08 UA Glucose 0 mg/dL Last Edit by VICTOR HUGO Ching on 08/10/24 09:08 Results Reviewed Results Reviewed: Laboratory Last Values Urine pH (Auto) 6.0 08/10/24 09:08 Specific [place] (Auto) 1.015 08/10/24 09:08 Urine Protein (Auto) 30 mg/dL 08/10/24 09:08 Glucose (UA)(Auto) 0 mg/dL 08/10/24 09:08 Urine Ketones (Auto) Negative 08/10/24 09:08 Urine Blood (Auto) 200 Edwin/uL 08/10/24 09:08 Urine Nitrite (Auto) Negative 08/10/24 09:08 Urine Bilirubin (Auto) 0 mg/dL 08/10/24 09:08 Urine Urobilinogen (Auto) 0.2 mg/dL 08/10/24 09:08 Leukocyte Esterase (Auto) 15 Fortino/uL 08/10/24 09:08 Assessment & Plan Assessment & Plan (1) Nephrolithiasis: Code(s): N20.0 - Calculus of kidney Category: Medical Plan 4 month f/u renal US Orders: Orders AMB Urinalysis Automated Today Z13.9 - Encounter for screening, unspecified AMB Cystoscopy Today N13.8 - Other obstructive and reflux uropathy, N32.89 - Other specified disorders of bladder, N40.0 - Benign prostatic hyperplasia without lower urinary tract symptoms, N40.1 - Benign prostatic hyperplasia with lower urinary tract symptoms, R33.9 - Retention of urine, unspecified, R35.1 - Nocturia, R39.15 - Urgency of urination US renal BI 4 Months N20.0 - Calculus of kidney Patient Instructions: Imaging studies, laboratory and physical exam results were discussed and reviewed in detail. No major barriers to patient understanding were identified. An opportunity to ask questions regarding the treatment plan was provided. All questions were answered. The patient expressed understanding and agreement with the above treatment plan. The patient is aware they should contact our office by phone for worsening of their current condition or the appearance of new urologic symptoms. Compliance is encouraged with any medications and followup testing that is ordered. It is a privilege to participate in the urologic care of your patient. If you have any questions or concerns regarding treatment for the above conditions, or other urologic issues, please do not hesitate to contact me. The office telephone contact is [phone]. This note is constructed using voice recognition software. While every effort has been made to ensure accuracy washateria attendant errors may have been included. Yours sincerely, Dr Isreal Erazo MD, [facility] - Urology Providers of Expert, Compassionate Care for the Genitourinary System Coding Level of Care Code Est Pt Level 3 (84395) Diagnoses Nephrolithiasis N20.0 CPT Codes Cystoscopy - CPT: 35470-[id number] with stent removal ([id number])
== END 2024-08-10 09:31 | disposition home or self-care (01) ==
LOC: HO.HUSH 08:48
PROVIDERS: PCP Internal Medicine; Visit Provider Urology
DX: N32.89 Other specified disorders of bladder (principal); N40.0 Benign prostatic hyperplasia without lower urinary tract symptoms; R33.9 Retention of urine, unspecified; Z96.0 Presence of urogenital implants; N40.1 Benign prostatic hyperplasia with lower urinary tract symptoms; N13.8 Other obstructive and reflux uropathy; R35.1 Nocturia; R39.15 Urgency of urination; N20.0 Calculus of kidney; Z13.9 Encounter for screening, unspecified
CPT/HCPCS: 52310

== ENCOUNTER → 2024-08-10 08:47 | Outpatient (BNVA) | payer MEDICARE, SELFPAY | PROVIDERS: PCP Internal Medicine; Visit Provider Urology | DX: N40.1 Benign prostatic hyperplasia with lower urinary tract symptoms (principal); N13.8 Other obstructive and reflux uropathy; N32.89 Other specified disorders of bladder; R33.8 Other retention of urine; R39.15 Urgency of urination; R35.1 Nocturia; N20.0 Calculus of kidney; Z46.6 Encounter for fitting and adjustment of urinary device | CPT/HCPCS: 52310; 81003 ==

== ENCOUNTER 2024-08-23 15:00 | Outpatient (REF) | payer MEDICARE, SELFPAY ==
[2024-08-23 15:29] LABS: Appearance Urine Clear; Color Urine Yellow; Glucose Urine UA Negative (Negative); Leukocyte Esterase Urine Negative (Negative); Nitrite Urine Negative (Negative); PH 7.5 (5.0-9.0); Urine Blood Negative (Negative); Urine Ketones Negative (Negative); Urine Protein Negative (Neg-Trace)
[2024-08-23 15:32] LABS: Bacteria Urine None Seen (None Seen); Hyaline Casts Urine 0-2 /LPF (0-2); RBC Urine 0-2 /HPF (0-2); Squamous Epithelial Cell Urine 0-2 /HPF (0-2); WBC Urine 0-5 /HPF (0-5)
== END 2024-08-23 15:01 | disposition home or self-care (01) ==
LOC: HO.LAB 15:00
PROVIDERS: PCP Internal Medicine; Visit Provider Urology
DX: R33.9 Retention of urine, unspecified (principal); N32.89 Other specified disorders of bladder; R39.15 Urgency of urination; R35.1 Nocturia; N40.1 Benign prostatic hyperplasia with lower urinary tract symptoms; N13.8 Other obstructive and reflux uropathy
CPT/HCPCS: 81001; 87086

== ENCOUNTER 2024-09-07 11:25 | Emergency (ER) | payer MEDICARE, SELFPAY ==
--- NOTE | ~2024-09-07 | CT_ITS ---
EXAMINATION: CT ABDOMEN AND PELVIS WITHOUT CONTRAST CLINICAL INFORMATION: Right lower back pain. Right flank pain. Right lower quadrant pain. COMPARISON: CT dated June 10, 2024. TECHNIQUE: Multidetector volumetric imaging was performed from the superior aspect of the liver through the pubic symphysis. Sagittal and coronal reformatted images were obtained on the technologist's workstation. This CT examination was performed using dose optimization techniques as appropriate, variously including the following: *Automated exposure control *Adjustment of mA and/or kV according to patient size (this includes techniques or standardized protocols for targeted exams where dose is matched to indication/reason for exam; i.e. extremities or head) *Use of iterative reconstruction technique DLP: 685 mGy-cm FINDINGS: Limited examination of the intra-abdominal organs and vascular structures due to lack of IV contrast. LUNG BASES: Pulmonary patchy groundglass, lung bases and lingula. LIVER, GALLBLADDER, AND BILIARY TREE: Liver measures 15 cm. No pericholecystic fluid collection or gallbladder wall thickening. Gallbladder is contracted. No intrahepatic or extrahepatic biliary ductal dilatation. PANCREAS: No peripancreatic fluid collection. No main pancreatic ductal dilatation. SPLEEN: 11 cm. ADRENAL GLANDS: Soft tissue fullness without gross nodular lesion. KIDNEYS AND URETERS: Right kidney: Hydronephrosis, moderate. There is a cluster of 2 mm calculi, distal right ureter Multiple less than 3 mm calculi in the mid to upper pole pelvicalyceal system. 4.7 cm exophytic cyst, upper pole. Perinephric/pararenal edema pattern/fluid. Left kidney: No hydronephrosis. 3.4 mm calculus in the lower pole pelvicalyceal system. 1.8 cm exophytic cyst lateral aspect midportion. BLADDER: Fluid-filled nearly collapsed. GASTROINTESTINAL TRACT: Stool within the large intestine. Numerous diverticula throughout the large intestine mostly in the sigmoid colon. I do not see the appendix, though no pericecal edema pattern. No pneumatosis intestinalis. No ascites. No pneumoperitoneum. No intestinal obstruction pattern. ABDOMINAL WALL: Small tiny fat-containing umbilical hernia. LYMPH NODES: Nonspecific mildly prominent lymph nodes, mesenteric. VASCULAR: No aneurysm, abdominal aorta. PELVIC VISCERA: Prostate gland is not enlarged. Mild soft tissue fullness in the seminal vesicles, nonspecific. OSSEOUS STRUCTURES: Multilevel thoracolumbar spondylosis. No acute fracture or gross listhesis. No lytic or blastic lesions. S-shaped curvature of the lower lumbar spine apex at L3-4. Metallic beam hardening artifact secondary to total right hip arthroplasty prosthesis. Sclerosis in the inferior left sacroiliac joint. CT/CT abdomen pelvis wo IV con IMPRESSION: Cluster of 2 mm calculi resulting in unilateral obstructing uropathy with moderate hydronephrosis, right kidney. Superimposed acute inflammatory versus infectious process cannot be excluded. Bilateral nephrolithiasis. Bilateral renal cysts. Diverticular disease. Small fat-containing umbilical hernia. Multilevel thoracolumbar spondylosis. Fleischner guidelines were followed. Electronically signed by: Neymar Dean MD 09/07/2024 02:46 PM EST
[2024-09-07 11:54] VITALS: BP 171/88; PULSE 64; RESP 22; TEMP 35.8; O2SAT 97; BMI 35.9
--- NOTE | 2024-09-07 11:56 | ED_ITS ---
HPI - Abdominal Pain General Chief Complaint: Abdominal Pain Stated Complaint: kidney stones ? Time Seen by Provider: 09/07/24 21:40 Source: patient Mode of arrival: ambulatory Limitations: no limitations History of Present Illness ED Provider: HPI narrative: 69 yo male with history of bilateral kidney stones s/p left sided stent in july, hx UTIs who presents to the ER for evaluation of acute onset of severe right lower back pain, right groin & right lower quadrant pain that started 2 hours ago. No associated urinary symptoms. Nausea but no vomiting. Took oxycodone and tylenol at home 1 hour ago with worsening pain. no scrotal pain. He is very uncomfortable in triage, writhing in pain. Related Data Home Medications ?Medication ?Instructions ?Recorded ?Confirmed psyllium husk 3.4 gram/5.4 gram 1 tbsp PO DAILY 11/25/22 08/01/24 oral powder (Metamucil) lorazepam 1 mg tablet 1 mg PO DAILY PRN Anxiety 08/18/23 08/01/24 Previous Rx's ?Medication ?Instructions ?Recorded naproxen 500 mg tablet 500 mg PO BID PRN pain 7 days #14 08/01/24 tabs phenazopyridine 100 mg tablet 100 mg PO TID PRN Spasm 4 days #12 08/01/24 (Pyridium) tabs tamsulosin 0.4 mg capsule 0.4 mg PO BEDTIME 14 days #14 caps 08/01/24 oxycodone 5 mg tablet 5 mg PO Q8H PRN pain 3 days #20 08/06/24 tabs atorvastatin 80 mg tablet 80 mg PO BEDTIME #90 tabs 08/26/24 morphine 15 mg immediate release 15 mg PO Q8H PRN pain #15 tabs 09/07/24 tablet ondansetron 4 mg disintegrating 4 mg PO Q6-8H PRN nausea and 09/07/24 tablet vomiting #7 tabs tamsulosin 0.4 mg capsule (Flomax) 0.4 mg PO BEDTIME #10 caps 09/07/24 Allergies Allergy/AdvReac Type Severity Reaction Status Date / Time citalopram [CITALOPRAM] Allergy Intermediate Hives Verified 09/07/24 11:58 clindamycin Allergy Intermediate Hives Verified 09/07/24 11:58 metronidazole [METRONIDAZOLE] Allergy Intermediate Hives Verified 09/07/24 11:58 Penicillins Allergy Intermediate HIVES Verified 09/07/24 11:58 Sulfa (Sulfonamide Allergy Intermediate HIVES Verified 09/07/24 11:58 Antibiotics) terazosin AdvReac Intermediate fainting Verified 09/07/24 11:58 Review of Systems Review of Systems Yes all other systems are reviewed and are negative [facility] Past Medical History Medical History Atherosclerotic cardiovascular disease Osteoarthritis Insomnia Gout Depression Cervical disc disease Elevated cholesterol Skin lesions Anal pain History of COVID-19 BPH (benign prostatic hyperplasia) Diverticulitis Kidney stones Surgical History History of total right hip replacement History of arthroscopic surgery of shoulder H/O blepharoplasty History of nasal surgery Hx of cystoscopy Hx of cystoscopy Hx of lithotripsy H/O colonoscopy Hx of appendectomy Family History Family History Father Heart disease Social History Social History Household Members: Other Household Members Other:: [facility] Are you a primary primary care pediatrician to a significant other at home: No Do you presently have visiting nurse or other home services: No Alcohol intake: current Alcohol intake frequency: does not drink Alcohol type: wine Patient Tobacco Use Status: Never used Tobacco Smoked in Last 30 Days: No Use of substances other than those prescribed or required for medical reasons: No Advance Directives: No Advance Directives Information Provided: No Do you have a plan to hurt others: No Plan service: No Current occupational status: employed 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 Physical Exam ED Vital Signs: BMI result Body Mass Index 35.9 Appearance: Alert. Oriented X3. No acute distress. Eyes: PERRLA, No Nystagmus ENT: Pharynx normal. Oral Mucosa moist Neck: Normal inspection. Neck supple. CVS: Normal heart rate and rhythm. Pulses normal. Respiratory: No respiratory distress. Equal air entry bilateral, no wheezing/rales/rhonchi Abdomen: Soft and nontender. Bowel sounds are present, no mass palpable, right CVA tenderness and right lower abdominal tenderness Skin: Skin warm and dry. Normal skin color. Normal skin turgor. Extremities: No lower extremity edema. No calf tenderness Neuro: Oriented X 3. No motor deficit. No sensory deficit.No cerebellar signs , cranial nerves II-XII intact Course Course Course Narrative: This is a Rapid Medical Examination (RME) performed by Maryellen Silva PA-C in triage. Full HPI, ROS, assessment and treatment plan per primary provider in the Main ED. 69 yo male with history of bilateral kidney stones s/p left sided stent in july, hx UTIs who presents to the ER for evaluation of acute onset of severe right lower back pain, right groin & right lower quadrant pain that started 2 hours ago. No associated urinary symptoms. Nausea but no vomiting. Took oxycodone and tylenol at home 1 hour ago with worsening pain. no scrotal pain. He is very uncomfortable in triage, writhing in pain. Plan: IM toradol now, UA, labs, CT scan Medical Decision Making Medical Decision Making [facility] Narrative: Patient with 2 mm right distal ureteric stone felt better after pain medication will be seeing urologist in a.m. Lab Data [facility] Lab Attestation statement: I reviewed the patient's lab results. 09/07/24 14:00 09/07/24 14:00 Labs: Lab Results 09/07/24 Range/Units 14:00 WBC 13.1 H (4.8-10.8) X10*3/uL RBC 5.57 (4.60-5.80) X10*6/uL Hgb 16.3 (14.0-18.0) g/dl Hct 48.5 (42.0-52.0) % MCV 87.1 (80.0-98.0) fL MCH 29.3 (27.0-33.0) pg MCHC 33.6 (31.0-36.0) g/dl RDW 13.7 (11.0-16.0) % Plt Count 203 (160-400) X10*3/uL MPV 9.4 (9.4-12.4) fL Immature Gran % (Auto) 0.5 H (0.0-0.4) % Neut % (Auto) 88.5 H (45-73) % Lymph % (Auto) 6.5 L (20-40) % [place] % (Auto) 4.0 (2-11) % Eos % (Auto) 0.2 (0-4) % Baso % (Auto) 0.3 (0-2) % Lymph # (Auto) 0.9 L (1.2-4.9) X10*3/uL [place] # (Auto) 0.5 (0.1-1.2) X10*3/uL Eos # (Auto) 0.0 (0.0-0.4) X10*3/uL Baso # (Auto) 0.0 (0.0-0.2) X10*3/uL Abs Immat Gran (auto) 0.07 H (0.00-0.03) X10*3/uL Absolute Neuts (auto) 11.6 H (2.0-8.3) x10*3/uL Absolute Nucleated RBC 0.000 (0.0-0.012) X10*3/uL Nucleated RBC % (auto) 0.0 (0.0-0.2) /100WBC Sodium 142 (135-145) mmol/L Potassium 4.5 (3.3-5.1) mmol/L Chloride 107 (96-108) mmol/L Carbon Dioxide 28 (22-29) mmol/L Anion Gap 12 (12-20) BUN 17 H (9-16) mg/dL Creatinine 1.24 (0.5-1.4) mg/dL Estim Creat Clear Calc 53.1 Estimated GFR 58 Random Glucose 136 H (60-115) mg/dL Calcium 10.1 D (8.4-10.2) mg/dL Magnesium 1.8 (1.6-2.6) mg/dL Total Bilirubin 0.9 (0.0-1.0) mg/dL Direct Bilirubin 0.2 (0.0-0.5) mg/dL AST 28 (5-37) U/L ALT 33 (0-40) U/L Alkaline Phosphatase 85 (39-117) U/L Total Protein 7.5 (6.5-8.0) g/dL Albumin 4.5 (3.5-5.0) g/dL Urine Color Yellow Urine Appearance Cloudy Urine pH >= 9.0 (5.0-9.0) Ur Specific [place] 1.020 (1.005-1.025) Urine Protein 30 (1+) H (Neg-Trace) mg/dL Urine Glucose (UA) Negative (Negative) mg/dL Urine Ketones Negative (Negative) mg/dL Urine Blood Large (3+) H (Negative) Urine Nitrite Negative (Negative) Ur Leukocyte Esterase Trace H (Negative) Urine RBC >20 H (0-2) /HPF Urine WBC 0-5 (0-5) /HPF Ur Squamous Epith Cells 0-2 (0-2) /HPF Urine Bacteria None Seen (None Seen) Hyaline Casts 0-2 (0-2) /LPF Independent Interpretation I performed an independent interpretation of an: CT Scan Interpretation: CT/CT abdomen pelvis wo IV con IMPRESSION: Cluster of 2 mm calculi resulting in unilateral obstructing uropathy with moderate hydronephrosis, right kidney. Superimposed acute inflammatory versus infectious process cannot be excluded. Bilateral nephrolithiasis. Bilateral renal cysts. Diverticular disease. Small fat-containing umbilical hernia. Multilevel thoracolumbar spondylosis. Fleischner guidelines were followed. Electronically signed by: Neymar Dean MD 09/07/2024 02:46 PM [facility] Medications Administered Discontinued Medications Generic Name Dose Route Start Last Admin Trade Name Freq PRN Reason Stop Dose Admin Dexamethasone Sodium Phosphate 4 mg 09/07/24 22:52 09/07/24 23:15 Dexamethasone Sod Phosphate 4 Mg/Ml Vial IVPUSH 09/07/24 22:53 4 mg ONCE ONE Administration Hydromorphone HCl 1 mg 09/07/24 21:14 09/07/24 21:33 Hydromorphone Hcl 1 Mg/Ml Syringe IVPUSH 09/07/24 21:15 1 mg ONCE ONE Administration Protocol Ketorolac Tromethamine 30 mg 09/07/24 12:01 09/07/24 12:05 Ketorolac Tromethamine 30 Mg/Ml Vial IM 09/07/24 12:02 30 mg ONCE ONE Administration Ondansetron HCl 4 mg 09/07/24 21:14 09/07/24 21:33 Ondansetron Hcl 4 Mg/2 Ml Vial IVPUSH 09/07/24 21:15 4 mg ONCE ONE Administration Tamsulosin HCl 0.8 mg 09/07/24 22:59 09/07/24 23:15 Tamsulosin Hcl 0.4 Mg Capsule PO 09/07/24 23:00 0.8 mg ONCE ONE Administration Discharge Plan Discharge Clinical Impression: Calculus of distal right ureter Patient Disposition: Home, Self-Care Instructions: Ureteral Stones (ED) Additional Instructions: Drink plenty of fluids Take pain medication and Flomax as prescribed Follow with the urologist Prescriptions: New morphine 15 mg tablet 15 mg PO Q8H PRN (Reason: pain) Qty: 15 0RF Rx Instructions: Partial Fill upon patient request. ondansetron 4 mg tablet,disintegrating 4 mg PO Q6-8H PRN (Reason: nausea and vomiting) Qty: 7 0RF tamsulosin [Flomax] 0.4 mg capsule 0.4 mg PO BEDTIME Qty: 10 0RF No Action oxycodone 5 mg tablet 5 mg PO Q8H PRN (Reason: pain) 3 Days Qty: 20 0RF Rx Instructions: Partial Fill upon patient request. atorvastatin 80 mg tablet 80 mg PO BEDTIME Qty: 90 3RF Metamucil 3.4 gram/5.4 gram Powder 1 tbsp PO DAILY Rx Instructions: mix into at least 8 oz of water or juice before administering phenazopyridine [Pyridium] 100 mg tablet 100 mg PO TID PRN (Reason: Spasm) 4 Days Qty: 12 0RF tamsulosin 0.4 mg capsule 0.4 mg PO BEDTIME 14 Days Qty: 14 0RF naproxen 500 mg tablet 500 mg PO BID PRN (Reason: pain) 7 Days Qty: 14 0RF lorazepam 1 mg tablet 1 mg PO DAILY PRN (Reason: Anxiety) Interventions: ED Discharge Assessment Last Done: 09/07/24 23:24 Discharge Date/Time: 09/07/24 23:25 Print Language: Maori
[2024-09-07] MEDS: Ketorolac Tromethamine 30 MG/ML VIAL IM (12:05)
[2024-09-07 14:07] LABS: Basophils Percent Auto 0.3 % (0-2); Eosinophils Percent Auto 0.2 % (0-4); Hematocrit 48.5 % (42.0-52.0); Hemoglobin 16.3 g/dl (14.0-18.0); Imm Gran Abs Auto 0.07 X10*3/uL (0.00-0.03); Imm Gran Pct Auto 0.5 % (0.0-0.4); Lymphocytes Absolute Auto 0.9 X10*3/uL (1.2-4.9); Lymphocytes Percent Auto 6.5 % (20-40); MANUAL DIFF FLAG NO; Mean Corpuscular HGB Conc 33.6 g/dl (31.0-36.0); Mean Corpuscular Hemoglobin 29.3 pg (27.0-33.0); Mean Corpuscular Volume 87.1 fL (80.0-98.0); Mean Platelet Volume 9.4 fL (9.4-12.4); Monocytes Absolute Auto 0.5 X10*3/uL (0.1-1.2); Neutrophils Absolute Auto 11.6 x10*3/uL (2.0-8.3); Neutrophils Percent Auto 88.5 % (45-73); Platelet Count 203 X10*3/uL (160-400); Red Blood Count 5.57 X10*6/uL (4.60-5.80); Red Cell Distribution Width 13.7 % (11.0-16.0); White Blood Count 13.1 X10*3/uL (4.8-10.8)
[2024-09-07 14:10] LABS: Appearance Urine Cloudy; Color Urine Yellow; Glucose Urine UA Negative (Negative); Leukocyte Esterase Urine Trace (Negative); Nitrite Urine Negative (Negative); PH >= 9.0 (5.0-9.0); UMIC TRIGGER UACC YES; Urine Blood Large (3+) (Negative); Urine Ketones Negative (Negative); Urine Protein 30 (1+) mg/dL (Neg-Trace)
[2024-09-07 14:12] LABS: Bacteria Urine None Seen (None Seen); Hyaline Casts Urine 0-2 /LPF (0-2); RBC Urine >20 /HPF (0-2); Squamous Epithelial Cell Urine 0-2 /HPF (0-2); WBC Urine 0-5 /HPF (0-5)
[2024-09-07 14:21] LABS: Alanine Aminotransferase 33 U/L (0-40); Albumin Level 4.5 g/dL (3.5-5.0); Alkaline Phosphatase 85 U/L (39-117); Anion Gap 12 (12-20); Aspartate Amino Transferase 28 U/L (5-37); Bilirubin Direct 0.2 mg/dL (0.0-0.5); Bilirubin Total 0.9 mg/dL (0.0-1.0); Blood Urea Nitrogen 17 mg/dL (9-16); Calcium 10.1 mg/dL (8.4-10.2); Carbon Dioxide 28 mmol/L (22-29); Chloride 107 mmol/L (96-108); Creatinine Clr Calc Pharmacy 53.1; Estimated Glomerular Filt Rate 58; Glucose Random 136 mg/dL (60-115); Magnesium 1.8 mg/dL (1.6-2.6); Potassium 4.5 mmol/L (3.3-5.1); Sodium 142 mmol/L (135-145); Total Protein 7.5 g/dL (6.5-8.0)
[2024-09-07 21:19] VITALS: BP 177/87; PULSE 60; RESP 16; TEMP 36.7; O2SAT 94
[2024-09-07] MEDS: HYDROmorphone HCl 1 MG/ML SYRINGE IVPUSH (21:33)
[2024-09-07] MEDS: ondansetron HCL 4 MG/2 ML VIAL IVPUSH (21:33)
[2024-09-07 23:12] VITALS: BP 166/88; PULSE 54; RESP 18; TEMP 37; O2SAT 97
[2024-09-07] MEDS: Tamsulosin HCL 0.4 MG CAPSULE 0.8 MG PO (23:15)
[2024-09-07] MEDS: dexAMETHasone sod phosphate 4 MG/ML VIAL IVPUSH (23:15)
[2024-09-07 23:24] VITALS: BP 166/88; PULSE 54; RESP 18; TEMP 37; O2SAT 97
--- OUTSIDE RECORDS SUMMARY | 2024-09-13 18:08 | XMS_ITS ---
Author Name [facility] Organization Unknown History of Medication Use Medication Directions Dispensed Refills Start Date End Date Stat us levoFLOXacin (LEVAQUIN) 500 mg tablet Take 1 tablet (500 mg total) by mouth in the morning for 10 days. Take with food. 11/05/2022 active Problems Problem Status Onset Date Problem Type Date of Resoluti on Source Diverticulitis active EncounterDiagnosisAct [facility]S
== END 2024-09-07 23:25 | disposition home or self-care (01) ==
PROVIDERS: Physician Assistant; Emergency Provider Internal Medicine; PCP Internal Medicine
DX: N13.2 Hydronephrosis with renal and ureteral calculous obstruction (principal); R10.31 Right lower quadrant pain; E78.5 Hyperlipidemia, unspecified; Z87.442 Personal history of urinary calculi; Z79.02 Long term (current) use of antithrombotics/antiplatelets; Z79.899 Other long term (current) drug therapy
CPT/HCPCS: 36415; 74176; 80048; 80076; 81001; 83735; 85025; 96372; 96374; 96375; 99284; 99285; J1100; J1171; J1885; J2405

== ENCOUNTER → 2024-09-07 12:02 | Outpatient (BNV) | payer MEDICARE, SELFPAY | PROVIDERS: PCP Internal Medicine; Visit Provider Radiology Diagnostic Radiology | DX: N20.0 Calculus of kidney (principal); N28.1 Cyst of kidney, acquired; K44.9 Diaphragmatic hernia without obstruction or gangrene | CPT/HCPCS: 74176 ==

== ENCOUNTER 2024-09-10 19:10 | Inpatient (IN) | payer MEDICARE, SELFPAY ==
--- NOTE | ~2024-09-10 | CT_ITS ---
EXAMINATION: CT ABDOMEN AND PELVIS WITHOUT CONTRAST CLINICAL INFORMATION: Renal stone. COMPARISON: September 07, 2024 TECHNIQUE: Multidetector volumetric imaging was performed from the superior aspect of the liver through the pubic symphysis. Sagittal and coronal reformatted images were obtained on the technologist's workstation. This CT examination was performed using dose optimization techniques as appropriate, variously including the following: *Automated exposure control *Adjustment of mA and/or kV according to patient size (this includes techniques or standardized protocols for targeted exams where dose is matched to indication/reason for exam; i.e. extremities or head) *Use of iterative reconstruction technique DLP: 686 mGy-cm FINDINGS: LUNG BASES: There is atelectatic change and/or scarring at both lung bases LIVER, GALLBLADDER, AND BILIARY TREE: The liver is normal in size, shape, and attenuation. No focal hepatic lesion or biliary ductal dilatation is present. The gallbladder is normal in appearance. PANCREAS: Unremarkable. SPLEEN: Unremarkable. ADRENAL GLANDS: Unremarkable. KIDNEYS AND URETERS: The kidneys are normal in size, shape, and attenuation. Bilateral renal calculi are again seen measuring up to 6 mm lower pole left kidney. There is a stable 5 cm cyst upper pole right kidney. There is a 2 cm cyst mid pole left kidney. There is mild right hydronephrosis and hydroureter extending into the pelvis to the level of a 4 mm distal right ureteric calculus. BLADDER: Unremarkable. GASTROINTESTINAL TRACT: There are diverticula of the descending and sigmoid colon without diverticulitis. ABDOMINAL WALL: No significant hernia is appreciated. LYMPH NODES: Normal. VASCULAR: Unremarkable. PELVIC VISCERA: There is stable prostate gland enlargement. OSSEOUS STRUCTURES: There is diffuse mild thoracolumbar degenerative change. CT/CT abdomen pelvis wo IV con IMPRESSION: Mild right hydronephrosis and hydroureter to the level of a 4 mm distal right ureteric calculus. Bilateral renal calculi. Bilateral renal cysts. Diverticulosis of the descending and sigmoid colon. Fleischner guidelines were followed. Electronically signed by: Kory Garcia MD 09/11/2024 06:24 AM [facility]
[2024-09-10 19:38] VITALS: BP 136/89; PULSE 78; RESP 20; TEMP 37.2; O2SAT 94; BMI 25.8
--- NOTE | 2024-09-10 19:40 | ED.ABDPAIN ---
HPI - Abdominal Pain General Chief Complaint: Urogenital-Male Stated Complaint: right lower back pain ? kidney stone,fever Time Seen by Provider: 09/10/24 22:34 History of Present Illness ED Provider: Padmini CAUSEY narrative: The patient is a 69-year-old male who with a long history of problems with kidney stones. The patient was here 3 days ago on September 07 with right flank pain. He had a CT scan that showed a 2 mm stone in the right distal ureter. He was treated and released and prescribed morphine tablets, ondansetron, and tamsulosin. The patient came back to the emergency room today because of worsening right flank pain. He has had no vomiting. No fever. Related Data Home Medications ?Medication ?Instructions ?Recorded ?Confirmed psyllium husk 3.4 gram/5.4 gram 1 tbsp PO DAILY 11/25/22 08/01/24 oral powder (Metamucil) lorazepam 1 mg tablet 1 mg PO DAILY PRN Anxiety 08/18/23 08/01/24 Previous Rx's ?Medication ?Instructions ?Recorded naproxen 500 mg tablet 500 mg PO BID PRN pain 7 days #14 08/01/24 tabs phenazopyridine 100 mg tablet 100 mg PO TID PRN Spasm 4 days #12 08/01/24 (Pyridium) tabs tamsulosin 0.4 mg capsule 0.4 mg PO BEDTIME 14 days #14 caps 08/01/24 oxycodone 5 mg tablet 5 mg PO Q8H PRN pain 3 days #20 08/06/24 tabs atorvastatin 80 mg tablet 80 mg PO BEDTIME #90 tabs 08/26/24 morphine 15 mg immediate release 15 mg PO Q8H PRN pain #15 tabs 09/07/24 tablet ondansetron 4 mg disintegrating 4 mg PO Q6-8H PRN nausea and 09/07/24 tablet vomiting #7 tabs tamsulosin 0.4 mg capsule (Flomax) 0.4 mg PO BEDTIME #10 caps 09/07/24 Allergies Allergy/AdvReac Type Severity Reaction Status Date / Time citalopram [CITALOPRAM] Allergy Intermediate Hives Verified 09/10/24 19:41 clindamycin Allergy Intermediate Hives Verified 09/10/24 19:41 metronidazole [METRONIDAZOLE] Allergy Intermediate Hives Verified 09/10/24 19:41 Penicillins Allergy Intermediate HIVES Verified 09/10/24 19:41 Sulfa (Sulfonamide Allergy Intermediate HIVES Verified 09/10/24 19:41 Antibiotics) terazosin AdvReac Intermediate fainting Verified 09/10/24 19:41 Review of Systems Review of Systems Yes all other systems are reviewed and are negative [facility] Past Medical History Medical History Atherosclerotic cardiovascular disease Osteoarthritis Insomnia Gout Depression Cervical disc disease Elevated cholesterol Skin lesions Anal pain History of COVID-19 BPH (benign prostatic hyperplasia) Diverticulitis Kidney stones Surgical History History of total right hip replacement History of arthroscopic surgery of shoulder H/O blepharoplasty History of nasal surgery Hx of cystoscopy Hx of cystoscopy Hx of lithotripsy H/O colonoscopy Hx of appendectomy Family History Family History Father Heart disease Social History Social History Household Members: Other Household Members Other:: [facility]ate [facility] Are you a primary child care cook to a significant other at home: No Do you presently have visiting nurse or other home services: No Alcohol intake: current Alcohol intake frequency: does not drink Alcohol type: wine Patient Tobacco Use Status: Never used Tobacco Advance Directives: No Advance Directives Information Provided: No Do you have a plan to hurt others: No Plan service: No Current occupational status: employed 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 Physical Exam ED Vital Signs: Vital Signs - 24 hr 09/10/24 19:38 09/11/24 06:36 09/11/24 07:48 Temperature 98.9 F 98.0 F 98.5 F Pulse Rate 78 65 61 Respiratory Rate 20 12 18 Blood Pressure 136/89 142/83 H 165/86 H Pulse Oximetry 94 96 95 Oxygen Delivery Method Room Air Room Air Room Air 09/11/24 10:23 Temperature 98.3 F Pulse Rate 64 Respiratory Rate 18 Blood Pressure 146/81 H Pulse Oximetry 96 Oxygen Delivery Method Room Air BMI result Body Mass Index 25.8 Const Other: The patient is awake and alert. He did not appear uncomfortable or in distress. [facility] Head: Yes normal to inspection Mouth: Normal oral and palatal mucosa present and moist mucous membranes abnormal Eyes General: appearance normal, both eyes and all related structures Neck Neck: Yes full ROM Resp Effort & Inspection: normal respiratory effort Auscultation: clear to auscultation bilaterally Cardio Rate: regular rate Rhythm: regular rhythm Heart sounds: S1 normal heart sound present and S2 normal heart sound present GI Other: Abdomen was soft and nontender General: Yes no CVA tenderness Back/Spine/Pelvis Back: no CVA tenderness Skin Other: Skin is dry and unremarkable Neuro Other: The patient is awake and alert with a normal mental status. Cranial nerves are intact. Moves extremities normally. Gait is normal. Extrem Other: No peripheral edema Course Course Course Narrative: This is a rapid medical exam. Deferred additional HPI, ROS, PE to primary provider. 69 yo male with history of renal colic, diagnosed with 2 mm right distal ureteric stone on 09/07 discharged home on morphine, zofran and flomax. Per patient called urology on and has appt in October. Will obtain labs, UA VSS -A. Enrique JOSEPHN Medical Decision Making Medical Decision Making MDM Narrative: The patient is a 69-year-old male who was diagnosed 2 days ago with a right-sided distal ureteral stone. He returns today after having had some worsening pain. At the time that I saw the patient his pain was better. He had taken a dose of oxycodone before coming to the hospital. Surprisingly the patient's creatinine went up to 2.07 from 1.24 2 days ago. The patient was given 3 L of normal saline and I repeated a creatinine. Repeat creatinine was slightly higher at 2.13. I communicated with Dr. hCarlton. She requested that the patient received some more IV fluids in the emergency room and get a repeat basic metabolic panel later this morning. I will therefore be signing the patient out at change of shift to the oncoming emergency physician. I have ordered a BMP for 06:30. Dr Cardona should be contacted with the results of this. This was explained to the patient. He remains comfortable. He is getting a fourth liter of IV fluid. 09/11/2024 at 10:59 hours I assumed care of this patient from my colleague, Dr. Becka Foster at 07:00 hours. 69-year-old male with a history of hypertension, BPH, LADI nephrolithiasis who was seen on 09/07/2024 for right flank pain, CT scan revealed cluster of 2 mm calculi with moderate hydronephrosis of the right kidney with superimposed inflammatory changes who presented to the emergency department yesterday for increased flank pain. Patient was noted to have increased BUN and creatinine above baseline (09/07/2024 BUN and creatinine was 17 and 1.24 with a GFR of 58 and yesterday BUN and creatinine was 31 and 2.07 with a GFR of 36. Kept overnight and received normal saline IV x2 L and lactated Ringer's IV x2 L. repeat BUN creatinine this morning was 27 and 2.11 with a GFR of 35. Repeat CT scan this morning reading below was reviewed by me. The patient states that his pain is returning therefore I ordered Toradol 15 mg IV. I did discuss the patient's presentation with our covering urologist. Dr. Tacho Peck and she recommended that she be admitted to the hospitalist service. She also recommended that the patient be kept NPO after midnight for operative procedure in the morning. I did discuss the patient's presentation over tiger text with the covering hospitalist, nurse practitioner Ofe Whatley and the patient will be admitted to the hospitalist service for further treatment. CT abdomen pelvis wo IV con IMPRESSION: Mild right hydronephrosis and hydroureter to the level of a 4 mm distal right ureteric calculus. Bilateral renal calculi. Bilateral renal cysts. Diverticulosis of the descending and sigmoid colon. Lab Data 09/10/24 20:04 09/11/24 06:45 Labs: Lab Results 09/10/24 09/10/24 09/11/24 Range/Units 20:04 23:18 01:32 WBC 9.5 (4.8-10.8) X10*3/uL RBC 5.29 (4.60-5.80) X10*6/uL Hgb 15.5 (14.0-18.0) g/dl Hct 45.8 (42.0-52.0) % MCV 86.6 (80.0-98.0) fL MCH 29.3 (27.0-33.0) pg MCHC 33.8 (31.0-36.0) g/dl RDW 14.1 (11.0-16.0) % Plt Count 183 (160-400) X10*3/uL MPV 9.4 (9.4-12.4) fL Immature Gran % (Auto) 0.2 (0.0-0.4) % Neut % (Auto) 69.7 (45-73) % Lymph % (Auto) 18.3 L (20-40) % [place] % (Auto) 9.8 (2-11) % Eos % (Auto) 1.5 (0-4) % Baso % (Auto) 0.5 (0-2) % Lymph # (Auto) 1.7 (1.2-4.9) X10*3/uL [place] # (Auto) 0.9 (0.1-1.2) X10*3/uL Eos # (Auto) 0.1 (0.0-0.4) X10*3/uL Baso # (Auto) 0.1 (0.0-0.2) X10*3/uL Abs Immat Gran (auto) 0.02 (0.00-0.03) X10*3/uL Absolute Neuts (auto) 6.6 (2.0-8.3) x10*3/uL Absolute Nucleated RBC 0.000 (0.0-0.012) X10*3/uL Nucleated RBC % (auto) 0.0 (0.0-0.2) /100WBC Sodium 140 140 (135-145) mmol/L Potassium 4.4 4.9 (3.3-5.1) mmol/L Chloride 101 107 (96-108) mmol/L Carbon Dioxide 27 23 (22-29) mmol/L Anion Gap 16 15 (12-20) BUN 31 H 31 H (9-16) mg/dL Creatinine 2.07 H 2.13 H (0.5-1.4) mg/dL Estim Creat Clear Calc 36.3 35.3 Estimated GFR 32 31 Random Glucose 115 108 (60-115) mg/dL Calcium 9.6 8.8 D (8.4-10.2) mg/dL Total Bilirubin 1.1 H (0.0-1.0) mg/dL Direct Bilirubin 0.3 (0.0-0.5) mg/dL AST 22 (5-37) U/L ALT 24 (0-40) U/L Alkaline Phosphatase 97 (39-117) U/L Total Protein 7.8 (6.5-8.0) g/dL Albumin 4.5 (3.5-5.0) g/dL Urine Color Yellow Urine Appearance Clear Urine pH 5.5 (5.0-9.0) Ur Specific [place] 1.015 (1.005-1.025) Urine Protein Negative (Neg-Trace) mg/dL Urine Glucose (UA) Negative (Negative) mg/dL Urine Ketones Negative (Negative) mg/dL Urine Blood Negative (Negative) Urine Nitrite Negative (Negative) Ur Leukocyte Esterase Negative (Negative) 09/11/24 Range/Units 06:45 WBC (4.8-10.8) X10*3/uL RBC (4.60-5.80) X10*6/uL Hgb (14.0-18.0) g/dl Hct (42.0-52.0) % MCV (80.0-98.0) fL MCH (27.0-33.0) pg MCHC (31.0-36.0) g/dl RDW (11.0-16.0) % Plt Count (160-400) X10*3/uL MPV (9.4-12.4) fL Immature Gran % (Auto) (0.0-0.4) % Neut % (Auto) (45-73) % Lymph % (Auto) (20-40) % [place] % (Auto) (2-11) % Eos % (Auto) (0-4) % Baso % (Auto) (0-2) % Lymph # (Auto) (1.2-4.9) X10*3/uL [place] # (Auto) (0.1-1.2) X10*3/uL Eos # (Auto) (0.0-0.4) X10*3/uL Baso # (Auto) (0.0-0.2) X10*3/uL Abs Immat Gran (auto) (0.00-0.03) X10*3/uL Absolute Neuts (auto) (2.0-8.3) x10*3/uL Absolute Nucleated RBC (0.0-0.012) X10*3/uL Nucleated RBC % (auto) (0.0-0.2) /100WBC Sodium 139 (135-145) mmol/L Potassium 4.4 (3.3-5.1) mmol/L Chloride 108 (96-108) mmol/L Carbon Dioxide 23 (22-29) mmol/L Anion Gap 12 (12-20) BUN 27 H (9-16) mg/dL Creatinine 2.11 H (0.5-1.4) mg/dL Estim Creat Clear Calc 35.6 Estimated GFR 31 Random Glucose 105 (60-115) mg/dL Calcium 8.5 (8.4-10.2) mg/dL Total Bilirubin (0.0-1.0) mg/dL Direct Bilirubin (0.0-0.5) mg/dL AST (5-37) U/L ALT (0-40) U/L Alkaline Phosphatase (39-117) U/L Total Protein (6.5-8.0) g/dL Albumin (3.5-5.0) g/dL Urine Color Urine Appearance Urine pH (5.0-9.0) Ur Specific [place] (1.005-1.025) Urine Protein (Neg-Trace) mg/dL Urine Glucose (UA) (Negative) mg/dL Urine Ketones (Negative) mg/dL Urine Blood (Negative) Urine Nitrite (Negative) Ur Leukocyte Esterase (Negative) Medications Administered Discontinued Medications Generic Name Dose Route Start Last Admin Trade Name Freq PRN Reason Stop Dose Admin Sodium Chloride 1,000 mls @ 999 mls/hr 09/10/24 23:00 09/11/24 00:20 Ns IV 09/11/24 00:00 Infused .Q1H1M DOMINIQUE Infusion Sodium Chloride 1,000 mls @ 999 mls/hr 09/10/24 23:45 09/11/24 00:45 Ns IV 09/11/24 00:45 Infused .Q1H1M DOMINIQUE Infusion Lactated Ringer's 1,000 mls @ 999 mls/hr 09/11/24 00:30 09/11/24 01:31 Lr IV 09/11/24 01:30 Infused .Q1H1M DOMINIQUE Infusion Acetaminophen 1,000 mg in 100 mls @ 400 mls/hr 09/11/24 01:36 09/11/24 02:10 Ofirmev IV 09/11/24 01:50 Infused ONCE ONE Infusion Lactated Ringer's 1,000 mls @ 999 mls/hr 09/11/24 03:45 09/11/24 05:20 Lr IV 09/11/24 04:45 Infused .Q1H1M [facility] Infusion Discharge Plan Discharge Prescriptions: No Action oxycodone 5 mg tablet 5 mg PO Q8H PRN (Reason: pain) 3 Days Qty: 20 0RF Rx Instructions: Partial Fill upon patient request. atorvastatin 80 mg tablet 80 mg PO BEDTIME Qty: 90 3RF Metamucil 3.4 gram/5.4 gram Powder 1 tbsp PO DAILY Rx Instructions: mix into at least 8 oz of water or juice before administering phenazopyridine [Pyridium] 100 mg tablet 100 mg PO TID PRN (Reason: Spasm) 4 Days Qty: 12 0RF tamsulosin 0.4 mg capsule 0.4 mg PO BEDTIME 14 Days Qty: 14 0RF naproxen 500 mg tablet 500 mg PO BID PRN (Reason: pain) 7 Days Qty: 14 0RF morphine 15 mg tablet 15 mg PO Q8H PRN (Reason: pain) Qty: 15 0RF Rx Instructions: Partial Fill upon patient request. ondansetron 4 mg tablet,disintegrating 4 mg PO Q6-8H PRN (Reason: nausea and vomiting) Qty: 7 0RF tamsulosin [Flomax] 0.4 mg capsule 0.4 mg PO BEDTIME Qty: 10 0RF lorazepam 1 mg tablet 1 mg PO DAILY PRN (Reason: Anxiety) Print Language: Maldivian
[2024-09-10 20:08] LABS: MANUAL DIFF FLAG NO
[2024-09-10 20:09] LABS: Basophils Absolute Auto 0.1 X10*3/uL (0.0-0.2); Basophils Percent Auto 0.5 % (0-2); Eosinophils Absolute Auto 0.1 X10*3/uL (0.0-0.4); Eosinophils Percent Auto 1.5 % (0-4); Hematocrit 45.8 % (42.0-52.0); Hemoglobin 15.5 g/dl (14.0-18.0); Imm Gran Abs Auto 0.02 X10*3/uL (0.00-0.03); Imm Gran Pct Auto 0.2 % (0.0-0.4); Lymphocytes Absolute Auto 1.7 X10*3/uL (1.2-4.9); Lymphocytes Percent Auto 18.3 % (20-40); Mean Corpuscular HGB Conc 33.8 g/dl (31.0-36.0); Mean Corpuscular Hemoglobin 29.3 pg (27.0-33.0); Mean Corpuscular Volume 86.6 fL (80.0-98.0); Mean Platelet Volume 9.4 fL (9.4-12.4); Monocytes Absolute Auto 0.9 X10*3/uL (0.1-1.2); Monocytes Percent Auto 9.8 % (2-11); Neutrophils Absolute Auto 6.6 x10*3/uL (2.0-8.3); Neutrophils Percent Auto 69.7 % (45-73); Platelet Count 183 X10*3/uL (160-400); Red Blood Count 5.29 X10*6/uL (4.60-5.80); Red Cell Distribution Width 14.1 % (11.0-16.0); White Blood Count 9.5 X10*3/uL (4.8-10.8)
[2024-09-10 20:24] LABS: Albumin Level 4.5 g/dL (3.5-5.0); Alkaline Phosphatase 97 U/L (39-117); Anion Gap 16 (12-20); Aspartate Amino Transferase 22 U/L (5-37); Bilirubin Direct 0.3 mg/dL (0.0-0.5); Bilirubin Total 1.1 mg/dL (0.0-1.0); Blood Urea Nitrogen 31 mg/dL (9-16); Calcium 9.6 mg/dL (8.4-10.2); Carbon Dioxide 27 mmol/L (22-29); Chloride 101 mmol/L (96-108); Creatinine Clr Calc Pharmacy 36.3; Estimated Glomerular Filt Rate 32; Glucose Random 115 mg/dL (60-115); Potassium 4.4 mmol/L (3.3-5.1); Sodium 140 mmol/L (135-145); Total Protein 7.8 g/dL (6.5-8.0)
[2024-09-10 20:37] LABS: Alanine Aminotransferase 24 U/L (0-40)
[2024-09-10] MEDS: 0.9 % Sodium Chloride 1,000 ML 999 ML IV ×2 (23:15→23:48)
--- NOTE | 2024-09-10 23:23 | PC.NURSE ---
Pt UA sent Pt medicated per [facility] Plan of care ongoing.
[2024-09-10 23:26] LABS: Appearance Urine Clear; Color Urine Yellow; Glucose Urine UA Negative (Negative); Leukocyte Esterase Urine Negative (Negative); Nitrite Urine Negative (Negative); PH 5.5 (5.0-9.0); Specific Gravity - Urine 1.015 (1.005-1.025); Urine Blood Negative (Negative); Urine Ketones Negative (Negative); Urine Protein Negative (Neg-Trace)
--- NOTE | 2024-09-10 23:50 | PC.NURSE ---
Pt medicated per [facility] Plan of care ongoing.
[2024-09-11] VITALS (7 sets, daily range): BP systolic 139–165; BP diastolic 70–86; PULSE 57–67; RESP 12–18; TEMP 36.4–37; O2SAT 95–97; BMI 26.6
[2024-09-11] MEDS: Lactated Ringers 1,000 ML 999 ML IV ×2 (00:50→04:15)
[2024-09-11 01:51] LABS: Anion Gap 15 (12-20); Blood Urea Nitrogen 31 mg/dL (9-16); Calcium 8.8 mg/dL (8.4-10.2); Carbon Dioxide 23 mmol/L (22-29); Chloride 107 mmol/L (96-108); Creatinine Clr Calc Pharmacy 35.3; Estimated Glomerular Filt Rate 31; Glucose Random 108 mg/dL (60-115); Potassium 4.9 mmol/L (3.3-5.1); Sodium 140 mmol/L (135-145)
[2024-09-11] MEDS: Acetaminophen 1,000 MG/100 ML PIGGYBACK 400 MG IV (01:53)
--- NOTE | 2024-09-11 01:58 | PC.NURSE ---
Pt medicated per [facility] Plan of care ongoing.
--- NOTE | 2024-09-11 02:17 | PC.NURSE ---
Pt ambulated to restroom with a steady gait Plan of care ongoing.
--- NOTE | 2024-09-11 04:17 | PC.NURSE ---
Pt medicated per [facility] Plan of care ongoing.
[2024-09-11 08:40] LABS: Anion Gap 12 (12-20); Blood Urea Nitrogen 27 mg/dL (9-16); Calcium 8.5 mg/dL (8.4-10.2); Carbon Dioxide 23 mmol/L (22-29); Chloride 108 mmol/L (96-108); Creatinine Clr Calc Pharmacy 35.6; Estimated Glomerular Filt Rate 31; Glucose Random 105 mg/dL (60-115); Potassium 4.4 mmol/L (3.3-5.1); Sodium 139 mmol/L (135-145)
--- NOTE | 2024-09-11 09:18 | PC.NURSE ---
pt with nad, no complaints, Dr Sinclair aware of lab results and will contact urologist
--- NOTE | 2024-09-11 11:13 | P.HPHOSP_ITS ---
History of Present Illness Date of Service: 09/11/24 Chief Complaint: Right flank pain A 69-year-old male with a history of kidney stones presents with severe right flank pain since yesterday. He denies fever or urinary symptoms. Emergency Department Workup: * Serum creatinine >2.0 (elevated from baseline, typically normal). * CT abdomen and pelvis: * Mild right hydronephrosis and hydroureter to the level of a 4 mm distal right ureteric calculus. * Bilateral renal calculi noted. UA is negative Despite receiving multiple liters of intravenous fluids, his creatinine levels have not improved. Urology is planning a cystoscopy with stone removal and possible stent placement. Review of Systems 2 Review of Systems: Gen: no fever Resp: no sob, no cough CV: no chest, no REIS, no leg edema GI: No n/v, + abd pain : right flank pain Neuro: No confusion Yes all other systems are reviewed and are negative [facility] Medical History Atherosclerotic cardiovascular disease Osteoarthritis Insomnia Gout Depression Cervical disc disease Elevated cholesterol Skin lesions Anal pain History of COVID-19 BPH (benign prostatic hyperplasia) Diverticulitis Kidney stones Family History Father Heart disease Surgical History History of total right hip replacement History of arthroscopic surgery of shoulder H/O blepharoplasty History of nasal surgery Hx of cystoscopy Hx of cystoscopy Hx of lithotripsy H/O colonoscopy Hx of appendectomy Social History Household Members: Other Household Members Other:: Roomate Housing: [facility] Are you a primary summer child caregiver to a significant other at home: No Do you presently have visiting nurse or other home services: No Alcohol intake: current Alcohol intake frequency: does not drink Alcohol type: wine Patient Tobacco Use Status: Never used Tobacco Advance Directives: No Advance Directives Information Provided: No Do you have a plan to hurt others: No Plan service: No Current occupational status: employed 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 Meds Allergies Allergy/AdvReac Type Severity Reaction Status Date / Time citalopram [CITALOPRAM] Allergy Intermediate Hives Verified 09/10/24 19:41 clindamycin Allergy Intermediate Hives Verified 09/10/24 19:41 metronidazole [METRONIDAZOLE] Allergy Intermediate Hives Verified 09/10/24 19:41 Penicillins Allergy Intermediate HIVES Verified 09/10/24 19:41 Sulfa (Sulfonamide Allergy Intermediate HIVES Verified 09/10/24 19:41 Antibiotics) terazosin AdvReac Intermediate fainting Verified 09/10/24 19:41 Home Medications ?Medication ?Instructions ?Recorded ?Confirmed ?Last Taken ?Type lorazepam 1 mg tablet 1 mg PO DAILY PRN Anxiety 08/18/23 08/01/24 07/31/24 History oxycodone 5 mg tablet 5 mg PO Q8H PRN pain 09/11/24 Unknown History Physical Exam 2 Vital Signs and Narrative: Vital Signs: Last Vital Signs Temp 98.3 F 09/11/24 10:23 Pulse 64 09/11/24 10:23 Resp 18 09/11/24 10:23 BP 146/81 H 09/11/24 10:23 Pulse Ox 96 09/11/24 10:23 O2 Del Method Room Air 09/11/24 10:23 BMI result Body Mass Index 25.8 Const: Other: General: AO X 3, no acute distress Resp: CTA bilateral CVS: S1,S2,RRR GI: +BS, NT, no distention Skin: No rash Neuro: motor grossly intact Psych: appropriate affect Results Labs 09/10/24 20:04 09/11/24 06:45 Labs: Laboratory Results - last 24 hr 09/10/24 09/10/24 09/11/24 20:04 23:18 01:32 MCV 86.6 MCH 29.3 MCHC 33.8 RDW 14.1 Plt Count 183 MPV 9.4 Immature Gran % (Auto) 0.2 Neut % (Auto) 69.7 Lymph % (Auto) 18.3 L [place] % (Auto) 9.8 Eos % (Auto) 1.5 Baso % (Auto) 0.5 Lymph # (Auto) 1.7 [place] # (Auto) 0.9 Eos # (Auto) 0.1 Baso # (Auto) 0.1 Abs Immat Gran (auto) 0.02 Absolute Neuts (auto) 6.6 Absolute Nucleated RBC 0.000 Nucleated RBC % (auto) 0.0 Anion Gap 16 15 Estim Creat Clear Calc 36.3 35.3 Estimated GFR 32 31 Random Glucose 115 108 Calcium 9.6 8.8 D Total Bilirubin 1.1 H Direct Bilirubin 0.3 AST 22 ALT 24 Alkaline Phosphatase 97 Total Protein 7.8 Albumin 4.5 Urine Color Yellow Urine Appearance Clear Urine pH 5.5 Ur Specific [place] 1.015 Urine Protein Negative Urine Glucose (UA) Negative Urine Ketones Negative Urine Blood Negative Urine Nitrite Negative Ur Leukocyte Esterase Negative 09/11/24 06:45 MCV MCH MCHC RDW Plt Count MPV Immature Gran % (Auto) Neut % (Auto) Lymph % (Auto) [place] % (Auto) Eos % (Auto) Baso % (Auto) Lymph # (Auto) [place] # (Auto) Eos # (Auto) Baso # (Auto) Abs Immat Gran (auto) Absolute Neuts (auto) Absolute Nucleated RBC Nucleated RBC % (auto) Anion Gap 12 Estim Creat Clear Calc 35.6 Estimated GFR 31 Random Glucose 105 Calcium 8.5 Total Bilirubin Direct Bilirubin AST ALT Alkaline Phosphatase Total Protein Albumin Urine Color Urine Appearance Urine pH Ur Specific [place] Urine Protein Urine Glucose (UA) Urine Ketones Urine Blood Urine Nitrite Ur Leukocyte Esterase Imaging Radiologist's Impressions: Impressions Abdomen/Pelvis CT 09/11/24 02:00 IMPRESSION: Mild right hydronephrosis and hydroureter to the level of a 4 mm distal right ureteric calculus. Bilateral renal calculi. Bilateral renal cysts. Diverticulosis of the descending and sigmoid colon. Fleischner guidelines were followed. Electronically signed by: Kory Garcia MD 09/11/2024 06:24 AM [facility] Assessment and Plan (1) LADI (acute kidney injury): Status: Acute (2) BPH w urinary obs/LUTS: Status: Acute (3) Nephrolithiasis: Status: Acute Plan 69-Year-Old Male with Right Ureteric Stone and Acute Kidney Injury (LADI): plan: * Manage pain with IV morphine. * Administer intravenous fluids (IVF). * Monitor renal function with daily BMP. * Avoid NSAIDs to prevent further renal compromise. * Consult Urology for evaluation and intervention. * Initiate Flomax to facilitate stone passage. continue other home once med rec completed. Low risk for DVT, out of bed, ambulate Full code Quality Stroke Does the patient have a stroke diagnosis?: No VTE Prior VTE?: No VTE Risk Level:: Medical - low VTE Device Contraindication: N/A - Device Ordered VTE Drug Contraindication: Treatment Not Indicated
[2024-09-11] MEDS: Ketorolac Tromethamine 15 MG/ML VIAL IVPUSH (11:16)
--- NOTE | 2024-09-11 11:44 | PHA.MEDREC ---
Addendum entered by Beckie Mendoza shmuel 09/11/24 11:59: reviewed, oxycodone was prescribed in august as PRN and morphine prescribed 09/08/24 Original Note: Pharmacy Consult ? Medication Reconciliation Pharmacy has completed the medication reconciliation. Spoke to patient to confirm med list. Patient was very kind and was able to confirm his medications. Patient states he no longer takes Atorvastatin 80 mg, Mestamucil , Ondansetron 4 mg, Tamsulosin 0.4 mg and Trazadone. Patent stats the he too morphine yesterday , however it didn't takes his pain away so he too Oxycodone 5 mg. Patient states he only takes Lorazepam 1 mg daily.
[2024-09-11] MEDS: Tamsulosin HCL 0.4 MG CAPSULE PO (12:22)
[2024-09-11] MEDS: Lactated Ringers 1,000 ML 100 ML IVCONT ×2 (12:24→20:53)
--- NOTE | 2024-09-11 12:41 | PC.NURSE ---
Care of Pt assumed at 11a. Pt is A&Ox3, VSS, Pt ambulated independently. Medicated per DEC Pt has inpatient bed assignment and will be transported shortly. NAD at this time and Pt offers no complaints.
[2024-09-11] MEDS: Morphine Sulfate 2 MG/ML CARTRIDGE IVPUSH (20:53)
[2024-09-12 03:31] VITALS: BP 175/80; PULSE 66; RESP 20; TEMP 36.2; O2SAT 96
[2024-09-12] MEDS: Lactated Ringers 1,000 ML 100 ML IVCONT (05:27)
--- NOTE | 2024-09-12 05:40 | PC.NURSE ---
bp elevated 175/80 md notified pt stated his anxious about some project his working on at home , and procedure this am
[2024-09-12 05:46] LABS: Anion Gap 13 (12-20); Blood Urea Nitrogen 31 mg/dL (9-16); Calcium 9.2 mg/dL (8.4-10.2); Carbon Dioxide 26 mmol/L (22-29); Chloride 105 mmol/L (96-108); Creatinine Clr Calc Pharmacy 35.3; Estimated Glomerular Filt Rate 31; Glucose Random 106 mg/dL (60-115); Potassium 4.5 mmol/L (3.3-5.1); Sodium 139 mmol/L (135-145)
[2024-09-12] MEDS: Morphine Sulfate 2 MG/ML CARTRIDGE IVPUSH (06:50)
[2024-09-12] MEDS: ondansetron HCL 4 MG/2 ML VIAL IVPUSH (07:08)
[2024-09-12 07:31] VITALS: BP 186/98; PULSE 55; RESP 16; TEMP 36.3; O2SAT 98
--- NOTE | 2024-09-12 08:37 | P.PNIM_ITS ---
Subjective Subjective Date of Service: 09/12/24 Interval History: Pesistent severe right flank pain renal function still high Physical Exam 2 Vital Signs: Vital Signs: Last Vital Signs Temp 97.3 F 09/12/24 07:31 Pulse 55 09/12/24 07:31 Resp 16 09/12/24 07:31 BP 186/98 H 09/12/24 07:31 Pulse Ox 98 09/12/24 07:31 O2 Del Method Room Air 09/12/24 07:31 BMI result Body Mass Index 26.6 General: AO X 3, no acute distress Resp: CTA bilateral CVS: S1,S2,RRR GI: +BS, NT, no distention Skin: No rash Neuro: motor grossly intact Psych: appropriate affect Objective Data Active Medications Acetaminophen (Acetaminophen 325 Mg Tablet) 650 mg PO Q6H PRN PRN Reason: Pain, Mild (Pain Scale 1-3), fever or headache Calcium Carbonate (Calcium Carbonate 750 Mg Tab.Chew) 750 mg PO Q4H PRN PRN Reason: Heartburn Lactated Ringer's (Lr) 1,000 mls @ 100 mls/hr IVCONT .Q10H [facility] Last Admin: 09/12/24 05:27 Dose: 100 mls/hr Documented By: CLARA Lorazepam (Lorazepam 1 Mg Tablet) 1 mg PO DAILY PRN PRN Reason: Anxiety Magnesium Hydroxide (Milk Of Magnesia 30 Ml Oral.Susp) 30 ml PO DAILY PRN PRN Reason: Constipation Melatonin (Melatonin 3 Mg Tablet) 6 mg PO BEDTIME PRN PRN Reason: Insomnia Ondansetron HCl (Ondansetron Hcl 4 Mg/2 Ml Vial) 4 mg IVPUSH Q6H PRN PRN Reason: Nausea Last Admin: 09/12/24 07:08 Dose: 4 mg Documented By: CLARA Oxycodone HCl (Oxycodone Hcl Immed Release 5 Mg Tablet) 5 mg PO Q8H PRN PRN Reason: Pain, Moderate(Pain Scale 4-6) Sodium Chloride (0.9 % Sodium Chloride Flush 3 Ml Syringe) 3 ml IVFLUSH QSHIFT [facility] Last Admin: 09/11/24 23:06 Dose: Not Given Documented By: CLARA Non-Admin Reason: IV Running Tamsulosin HCl (Tamsulosin Hcl 0.4 Mg Capsule) 0.4 mg PO DAILY [facility] Last Admin: 09/11/24 12:22 Dose: 0.4 mg Documented By: NATTY Labs 09/10/24 20:04 09/12/24 04:35 Labs: Laboratory Results - last 24 hr 09/11/24 09/12/24 06:45 04:35 Anion Gap 12 13 Estim Creat Clear Calc 35.6 35.3 Estimated GFR 31 31 Random Glucose 105 106 Calcium 8.5 9.2 D Assessment and Plan (1) Essential hypertension: Status: Acute (2) Nephrolithiasis: Status: Acute (3) Acute kidney injury: Status: Acute Plan 69-Year-Old Male with Right Ureteric Stone and Acute Kidney Injury (LADI), LADI unchnaged plan: * Manage pain with IV dilaudid, morphine not as effective * continue intravenous fluids (IVF). * Monitor renal function with daily BMP. * Avoid NSAIDs to prevent further renal compromise. * Urology is planning intervention . * continue Flomax to facilitate stone passage. Elevated blood pressure with no history of HTN--could be pain related -start Norvasc if peristent high despite pain contro continue other home once med rec completed. Low risk for DVT, out of bed, ambulate Full code Quality Stroke Does the patient have a stroke diagnosis?: No VTE Prior VTE?: No VTE Risk Level:: Medical - low VTE Device Contraindication: N/A - Device Ordered VTE Drug Contraindication: Treatment Not Indicated
[2024-09-12] MEDS: HYDROmorphone HCl 0.5 MG/0.5 ML SYRINGE IVPUSH (08:47)
[2024-09-12] MEDS: Tamsulosin HCL 0.4 MG CAPSULE PO (08:47)
[2024-09-12] MEDS: 0.9 % Sodium Chloride Flush 3 ML SYRINGE IVFLUSH (08:47)
[2024-09-12] MEDS: amLODIPine Besylate 5 MG TABLET PO (09:00)
[2024-09-12] MEDS: HYDROmorphone HCl 1 MG/ML SYRINGE IVPUSH (10:36)
--- NOTE | 2024-09-12 10:40 | P.CNUR_ITS ---
History of Present Illness Consult details Consult date: 09/12/24 Narrative: CC: Distal right ureteric stones Patient well known to Urology Prior intervention left side proximally 6 weeks ago Had presented to emergency room last Thursday with right flank pain Imaging shown mild right hydronephrosis with 2 mm distal right ureteric stone Re presents on Thursday with increased severe pain Creatinine elevated from baseline over 2 Admitted for pain relief and hydration Calcium 9.2, creatinine 2.1, UA 2+ blood CT - Mild right hydronephrosis and hydroureter to the level of a 4 mm distal right ureteric calculus. Bilateral renal calculi Discussed intervention. He would like to move ahead. Review of Systems 2 Constitutional: Constitutional: Reports as per HPI and Reports no additional constitutional complaints Cardiovascular: Cardiovascular: Reports as per HPI and Reports no additional cardiovascular complaints Respiratory: Respiratory: Reports as per HPI and Reports no additional respiratory complaints Gastrointestinal: Gastrointestinal: Reports as per HPI and Reports no additional gastrointestinal complaints Genitourinary: Genitourinary: Reports as per HPI Musculoskeletal: Musculoskeletal: Reports no additional musculoskeletal complaints and Reports as per HPI Neurologic: Reports system reviewed and no additional complaints, except as documented and Reports as per HPI [facility] Past Medical History Medical History Atherosclerotic cardiovascular disease Osteoarthritis Insomnia Gout Depression Cervical disc disease Elevated cholesterol Skin lesions Anal pain History of COVID-19 BPH (benign prostatic hyperplasia) Diverticulitis Kidney stones Family History Family History Father Heart disease Surgical History Surgical History History of total right hip replacement History of arthroscopic surgery of shoulder H/O blepharoplasty History of nasal surgery Hx of cystoscopy Hx of cystoscopy Hx of lithotripsy H/O colonoscopy Hx of appendectomy Social History Social History Household Members: Friend(s) Household Members Other:: Roomate Housing: Condominium Are you a primary career services representative to a significant other at home: No Do you presently have visiting nurse or other home services: No Alcohol intake: current Alcohol intake frequency: does not drink Alcohol type: wine Patient Tobacco Use Status: Never used Tobacco service: No Current occupational status: employed 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 Meds Allergies Allergy/AdvReac Type Severity Reaction Status Date / Time citalopram [CITALOPRAM] Allergy Intermediate Hives Verified 09/10/24 19:41 clindamycin Allergy Intermediate Hives Verified 09/10/24 19:41 metronidazole [METRONIDAZOLE] Allergy Intermediate Hives Verified 09/10/24 19:41 Penicillins Allergy Intermediate HIVES Verified 09/10/24 19:41 Sulfa (Sulfonamide Allergy Intermediate HIVES Verified 09/10/24 19:41 Antibiotics) terazosin AdvReac Intermediate fainting Verified 09/10/24 19:41 Active Medications: Current Medications Acetaminophen (Acetaminophen 325 Mg Tablet) 650 mg PO Q6H PRN PRN Reason: Pain, Mild (Pain Scale 1-3), fever or headache Amlodipine Besylate (Amlodipine Besylate 5 Mg Tablet) 5 mg PO DAILY [facility]; Protocol Last Admin: 09/12/24 09:00 Dose: 5 mg Calcium Carbonate (Calcium Carbonate 750 Mg Tab.Chew) 750 mg PO Q4H PRN PRN Reason: Heartburn Hydromorphone HCl (Hydromorphone Hcl 1 Mg/Ml Syringe) 1 mg IVPUSH Q4H PRN; Protocol PRN Reason: Pain, Severe (Pain Scale 7-10) Last Admin: 09/12/24 10:36 Dose: 1 mg Lactated Ringer's (Lr) 1,000 mls @ 100 mls/hr IVCONT .Q10H [facility] Last Admin: 09/12/24 05:27 Dose: 100 mls/hr Levofloxacin (Levaquin) 500 mg in 100 mls @ 100 mls/hr IV PREOP ONE Stop: 09/12/24 11:38 Acetaminophen (Ofirmev) 1,000 mg in 100 mls @ 400 mls/hr IV PREOP ONE Stop: 09/12/24 10:53 Lorazepam (Lorazepam 1 Mg Tablet) 1 mg PO DAILY PRN PRN Reason: Anxiety Magnesium Hydroxide (Milk Of Magnesia 30 Ml Oral.Susp) 30 ml PO DAILY PRN PRN Reason: Constipation Melatonin (Melatonin 3 Mg Tablet) 6 mg PO BEDTIME PRN PRN Reason: Insomnia Ondansetron HCl (Ondansetron Hcl 4 Mg/2 Ml Vial) 4 mg IVPUSH Q6H PRN PRN Reason: Nausea Last Admin: 09/12/24 07:08 Dose: 4 mg Oxycodone HCl (Oxycodone Hcl Immed Release 5 Mg Tablet) 5 mg PO Q8H PRN PRN Reason: Pain, Moderate(Pain Scale 4-6) Sodium Chloride (0.9 % Sodium Chloride Flush 3 Ml Syringe) 3 ml IVFLUSH QSHIFT [facility] Last Admin: 09/12/24 08:47 Dose: 3 ml Tamsulosin HCl (Tamsulosin Hcl 0.4 Mg Capsule) 0.4 mg PO DAILY [facility] Last Admin: 09/12/24 08:47 Dose: 0.4 mg Home Medications ?Medication ?Instructions ?Recorded ?Confirmed ?Last Taken ?Type lorazepam 1 mg tablet 1 mg PO DAILY PRN Anxiety 08/18/23 09/11/24 07/31/24 History oxycodone 5 mg tablet 5 mg PO Q8H PRN pain 09/11/24 09/11/24 Unknown History Physical Exam 2 Vital Signs: Vital Signs: Last Vital Signs Temp 97.3 F 09/12/24 07:31 Pulse 55 09/12/24 07:31 Resp 16 09/12/24 07:31 BP 186/98 H 09/12/24 07:31 Pulse Ox 98 09/12/24 07:31 O2 Del Method Room Air 09/12/24 07:31 BMI result Body Mass Index 26.6 Const: General: cooperative, healthy appearing, comfortable and no acute distress Orientation/consciousness: patient oriented x3 HEENT: Face and sinus: Yes normal facial exam Mouth: moist mucous membranes Neck: Neck: Yes normal visual inspection, Yes full ROM and Yes trachea midline Chest: Chest palpation & inspection: normal inspection of the chest Resp: Effort & Inspection: normal respiratory effort, able to speak in complete sentences and no respiratory distress GI: Inspection: Yes normal to inspection Back/Spine/Pelvis: Cervical Spine: normal cervical lordosis Thoracic/Lumbar Spine: thoracic and lumbar spine normal to inspection Skin: General skin exam: no rashes or lesions noted Neuro: General: patient oriented x3, tone normal and moves all extremities Extrem: General: Yes normal to inspection and Yes capillary refill normal Results Labs 09/10/24 20:04 09/12/24 04:35 Labs: Abnormal lab results 09/12/24 Range/Units 04:35 BUN 31 H (9-16) mg/dL Creatinine 2.13 H (0.5-1.4) mg/dL BMP 09/12/24 04:35 Sodium 139 Potassium 4.5 Chloride 105 Carbon Dioxide 26 BUN 31 H Creatinine 2.13 H Calcium 9.2 D Urine 09/10/24 Range/Units 23:18 Urine Color Yellow Urine Appearance Clear Urine pH 5.5 (5.0-9.0) Ur Specific [place] 1.015 (1.005-1.025) Urine Protein Negative (Neg-Trace) mg/dL Urine Glucose (UA) Negative (Negative) mg/dL All other labs normal. Assessment and Plan (1) Nephrolithiasis: Status: Acute (2) LADI (acute kidney injury): Status: Acute Plan Ureteroscopy We discussed the nature of the decision and reasonable alternatives for performing ureteroscopy. Options such as medical therapy were discussed. Interventions include chemical dissolution, ESWL, ureteroscopy with laser lithotripsy and stent placement, PCNL. The relative uncertainties and benefits related to each alternate procedure were adequately discussed. General surgical risks including, but not limited to - pain, bleeding, infection, myocardial infarction, pulmonary embolus, deep vein thrombosis and cerebrovascular accident which may result in further hospitalization were discussed. Full disclosure of the procedure as well as all major risks, benefits and complications were discussed including but not limited to damage to the urethra, bladder and kidney infection, damage to the ureter, stent migration or malposition, scarring to the renal pelvis, remnant stone fragments, subsequent stone passage with need for secondary procedures. The overall secondary procedure rate is approximately 10-15%. The overall clearance rate is approximately 90-95%. Success of the procedure in the short-term does not necessarily guarantee that long-term success will be maintained. Suitable follow up will need to be maintained. The patient showed understanding of discussion and wishes to proceed with - cystoscopy, retrograde, ureteroscopy, possible lithotripsy/stone basketing and stent on the right side Procedures Date of Service Date of Service: 09/12/24
[2024-09-12] MEDS: oxyCODONE HCl Immed Release 5 MG TABLET PO (12:06)
[2024-09-12 13:11] VITALS: BP 144/78; PULSE 66
--- NOTE | 2024-09-12 14:14 | P.PNUR_ITS ---
Subjective Subjective Date of Service: 09/12/24 Interval history: Patient has passed stone this afternoon Immediate resolution of pain Has stone in specimen cup February DC home Physical Exam 2 Vital Signs: Vital Signs: Last Vital Signs Temp 97.3 F 09/12/24 07:31 Pulse 66 09/12/24 13:11 Resp 16 09/12/24 07:31 BP 144/78 H 09/12/24 13:11 Pulse Ox 98 09/12/24 07:31 O2 Del Method Room Air 09/12/24 07:31 BMI result Body Mass Index 26.6 Const: General: cooperative, healthy appearing, comfortable and no acute distress Orientation/consciousness: patient oriented x3 HEENT: Face and sinus: Yes normal facial exam Mouth: moist mucous membranes Neck: Neck: Yes normal visual inspection, Yes full ROM and Yes trachea midline Chest: Chest palpation & inspection: normal inspection of the chest Resp: Effort & Inspection: normal respiratory effort, able to speak in complete sentences and no respiratory distress GI: Inspection: Yes normal to inspection Back/Spine/Pelvis: Cervical Spine: normal cervical lordosis Thoracic/Lumbar Spine: thoracic and lumbar spine normal to inspection Skin: General skin exam: no rashes or lesions noted Neuro: General: patient oriented x3, tone normal and moves all extremities Extrem: General: Yes normal to inspection and Yes capillary refill normal Urology Results Labs 09/10/24 20:04 09/12/24 04:35 Labs: Laboratory Results - last 24 hr 09/12/24 04:35 Sodium 139 Potassium 4.5 Chloride 105 Carbon Dioxide 26 Anion Gap 13 BUN 31 H Creatinine 2.13 H Estim Creat Clear Calc 35.3 Estimated GFR 31 Random Glucose 106 Calcium 9.2 D Progress Note: A&P Assessment and plan (1) Nephrolithiasis: Status: Acute Plan DC home Time Spent With Patient Time: Total time managing care of this patient today ____ minutes. Progress Note: Quality Stroke Does the patient have a stroke diagnosis?: No
--- NOTE | 2024-09-12 14:27 | P.DS_ITS ---
DS: Providers Provider Date of Service: 09/10/24 Date of admission: 09/11/24 11:36 Date of discharge: 09/12/24 Primary care physician: Dilip Grady DO Consults: 09/11/24 11:38 Consult to Urology Routine Consulting Provider: [facility] Reason for consultation: kidney stone, kidney failure Has provider been notified: Yes Discharging clinician: Isreal Erazo DS: Diagnosis Discharge Diagnosis (1) Nephrolithiasis: Status: Acute (2) LADI (acute kidney injury): Status: Acute (3) Calculus of distal right ureter: Status: Acute DS: Summary Hospital Course Hospital Course: Admitted Thursday with persistent right flank pain for 24 hours. Was scheduled for add on surgery Thursday Proximally mid day Thursday he passed the stone and his pain resolved on the left side. Status at Discharge Functional status at discharge: independent ambulation Overall status at discharge: patient is back to baseline Time Attestation Total time managing care of this patient today: 10 mintues. Discharge Coordination Time (in mins): 10 Quality: Safe Use of Opioids Does Pt have an Active Cancer Diagnosis on the Problem List?: No Quality: Stroke Does the patient have a stroke diagnosis?: No Physical Exam Vital Signs: Vital Signs: Last Vital Signs Temp 97.3 F 09/12/24 07:31 Pulse 66 09/12/24 13:11 Resp 16 09/12/24 07:31 BP 144/78 H 09/12/24 13:11 Pulse Ox 98 09/12/24 07:31 O2 Del Method Room Air 09/12/24 07:31 BMI result Body Mass Index 26.6 DS: Data Data Completed and Pending Completed studies during hospitalization [Text1]: Procedures Dilation of Right Ureter with Intraluminal Device, Via Natural or Artificial Opening Endoscopic (03/06/21) Extirpation of Matter from Right Ureter, Via Natural or Artificial Opening Endoscopic (03/06/21) Fluoroscopy of Right Kidney, Ureter and Bladder (03/06/21) Replacement of Right Hip Joint with Ceramic Synthetic Substitute, Uncemented, Open Approach (12/02/22) Labs on day of discharge: Laboratory Results - last 24 hr 09/12/24 04:35 Sodium 139 Potassium 4.5 Chloride 105 Carbon Dioxide 26 Anion Gap 13 BUN 31 H Creatinine 2.13 H Estim Creat Clear Calc 35.3 Estimated GFR 31 Random Glucose [address] scan - abdomen: Radiologist's impression: ITS Impressions Abdomen/Pelvis CT 09/11/24 02:00 IMPRESSION: Mild right hydronephrosis and hydroureter to the level of a 4 mm distal right ureteric calculus. Bilateral renal calculi. Bilateral renal cysts. Diverticulosis of the descending and sigmoid colon. Fleischner guidelines were followed. Electronically signed by: Kory Garcia MD 09/11/2024 06:24 AM [facility] Discharge Plan Discharge Anticipated Discharge Date/Time: 09/12/24 14:15 Patient Disposition: Home, Self-Care Discharge Diagnosis: distal right ureteric stones Referrals: Dilip Grady DO [Primary Care Provider] - 1 Week Discharge Medications: New phenazopyridine [Pyridium] 100 mg tablet 100 mg PO TID PRN (Reason: Spasm) 4 Days Qty: 12 0RF tamsulosin 0.4 mg capsule 0.4 mg PO BEDTIME 14 Days Qty: 14 0RF No Action morphine 15 mg tablet 15 mg PO Q8H PRN (Reason: pain) Qty: 15 0RF Rx Instructions: Partial Fill upon patient request. oxycodone 5 mg tablet 5 mg PO Q8H PRN (Reason: pain) lorazepam 1 mg tablet 1 mg PO DAILY PRN (Reason: Anxiety) Discharge Orders: Discharge Order (Routine); Ordered 09/12/24 Ordered By: Isreal Erazo Diet: Advance to usual diet Activity on Discharge: As tolerated Stand Alone Forms: Patient Portal Discharge page Print Language: Kiswahili Care Plan Goals: stones Health Concerns: stones Plan of Treatment: stones Assessment: stones
--- NOTE | 2024-09-12 14:57 | MHC.CM.PN ---
CM ATTEMPTED TO SEE PT THIS MORNING, HOWEVER HE WAS OUT OF THE ROOM PT THEN DISCHARGED PRIOR TO CM RETURN PER EMR, PT LIVES WITH A ROOMMATE AND IS INDEPENDENT WITH CARE COPY OF HCP REQUESTED DURING HIS LAST ADMISSION PCP: SAMANTA SALES PT DISCHARGED HOME WITH NO SERVICES
== END 2024-09-12 14:46 | disposition home or self-care (01) | DRG 694 ==
LOC: HO.ED 09-11 11:05 → HO.EDOVER 09-11 11:42 → HO.S3 09-11 11:52
PROVIDERS: Emergency Medicine; Nurse Practitioner Family; Admitting Provider Internal Medicine; Emergency Provider Emergency Medicine Emergency Medical Services; PCP Internal Medicine; Visit Provider Internal Medicine
DX: N13.2 Hydronephrosis with renal and ureteral calculous obstruction (principal); N13.8 Other obstructive and reflux uropathy; N17.9 Acute kidney failure, unspecified; I10 Essential (primary) hypertension; I25.10 Atherosclerotic heart disease of native coronary artery without angina pectoris; N40.1 Benign prostatic hyperplasia with lower urinary tract symptoms; Z87.442 Personal history of urinary calculi; Z79.899 Other long term (current) drug therapy
CPT/HCPCS: 36415; 74176; 80048; 80076; 81003; 85025; 99285; J0131; J1171; J1885; J2270; J2405; J7120

== ENCOUNTER → 2024-09-11 11:36 | Outpatient (BNV) | payer MEDICARE, SELFPAY | PROVIDERS: Admitting Provider Internal Medicine; Emergency Provider Emergency Medicine Emergency Medical Services; PCP Internal Medicine; Visit Provider Urology | DX: N20.0 Calculus of kidney (principal); N17.9 Acute kidney failure, unspecified; N20.1 Calculus of ureter | CPT/HCPCS: 99222 ==

== ENCOUNTER → 2024-09-11 11:36 | Outpatient (BNV) | payer MEDICARE, SELFPAY | PROVIDERS: Admitting Provider Internal Medicine; Emergency Provider Emergency Medicine Emergency Medical Services; PCP Internal Medicine; Visit Provider Internal Medicine | DX: I10 Essential (primary) hypertension (principal); N20.0 Calculus of kidney; N17.9 Acute kidney failure, unspecified | CPT/HCPCS: 99223; 99232 ==

== ENCOUNTER 2024-09-17 07:07 | Emergency (ER) | payer MEDICARE, SELFPAY ==
[2024-09-17 07:17] VITALS: BP 146/85; PULSE 68; RESP 20; TEMP 37; O2SAT 99; BMI 27.3
--- NOTE | 2024-09-17 07:50 | ED_ITS ---
HPI - Skin/Abscess/Foreign Bdy General Chief complaint: Skin/Abscess/Foreign Body Stated complaint: rash Time Seen by Provider: 09/17/24 07:35 Source: patient, RN notes reviewed and old records reviewed Mode of arrival: ambulatory History of Present Illness ED Provider: Kathryn Wheeler PA-C HPI narrative: 69-year-old male with a past medical history right ureteric stone and LADI recently discharged from our facility on 09/12/2024, depression, gout, osteoarthritis, diverticulitis, presenting to the ED complaining right buttock pruritic/painful rash x 3 days. States when he was admitted to hospital was sitting in soiled linens in unsure if that caused rash. Also admits to shaving area after discharge. Denies new lotions, soaps, detergents, creams, medications, difficulty or inability to have BM/urinate, fever Related Data Home Medications ?Medication ?Instructions ?Recorded ?Confirmed lorazepam 1 mg tablet 1 mg PO DAILY PRN Anxiety 08/18/23 09/11/24 oxycodone 5 mg tablet 5 mg PO Q8H PRN pain 09/11/24 09/11/24 Previous Rx's ?Medication ?Instructions ?Recorded morphine 15 mg immediate release 15 mg PO Q8H PRN pain #15 tabs 09/07/24 tablet phenazopyridine 100 mg tablet 100 mg PO TID PRN Spasm 4 days #12 09/12/24 (Pyridium) tabs tamsulosin 0.4 mg capsule 0.4 mg PO BEDTIME 14 days #14 caps 09/12/24 mupirocin 2 % topical ointment 1 appl topical TID 7 days #22 grams 09/17/24 Allergies Allergy/AdvReac Type Severity Reaction Status Date / Time citalopram [CITALOPRAM] Allergy Intermediate Hives Verified 09/17/24 07:20 clindamycin Allergy Intermediate Hives Verified 09/17/24 07:20 metronidazole [METRONIDAZOLE] Allergy Intermediate Hives Verified 09/17/24 07:20 Penicillins Allergy Intermediate HIVES Verified 09/17/24 07:20 Sulfa (Sulfonamide Allergy Intermediate HIVES Verified 09/17/24 07:20 Antibiotics) terazosin AdvReac Intermediate fainting Verified 09/17/24 07:20 Review of Systems Review of Systems: Yes all other systems are reviewed and are negative Constitutional: Constitutional: Reports as per HPI PMFSH Past Medical History Attestation statement: The following information was validated with the patient. Source: old records reviewed Medical History Atherosclerotic cardiovascular disease Osteoarthritis Insomnia Gout Depression Cervical disc disease Elevated cholesterol Skin lesions Anal pain History of COVID-19 BPH (benign prostatic hyperplasia) Diverticulitis Kidney stones Surgical History History of total right hip replacement History of arthroscopic surgery of shoulder H/O blepharoplasty History of nasal surgery Hx of cystoscopy Hx of cystoscopy Hx of lithotripsy H/O colonoscopy Hx of appendectomy Family History Family History Father Heart disease Social History Social History Household Members: Friend(s) Household Members Other:: [facility] Are you a primary direct care counselor to a significant other at home: No Do you presently have visiting nurse or other home services: No Alcohol intake: current Alcohol intake frequency: does not drink Alcohol type: wine Patient Tobacco Use Status: Never used Tobacco Advance Directives: No Advance Directives Information Provided: No service: No Current occupational status: employed 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 Physical Exam Vital Signs: Vital Signs: Last Vital Signs Temp 98.6 F 09/17/24 08:02 Pulse 68 09/17/24 08:02 Resp 20 09/17/24 08:02 BP 146/85 H 09/17/24 08:02 Pulse Ox 99 09/17/24 08:02 O2 Del Method Room Air 09/17/24 08:02 BMI result Body Mass Index 27.3 Const: General: cooperative, healthy appearing and no acute distress Orientation/consciousness: patient oriented x3 Limitations: no limitations HEENT: Head: Yes normal to inspection and Yes atraumatic Ears: hearing grossly normal bilaterally General nose exam: Normal external nose present Face and sinus: Yes normal facial exam Eyes: General: appearance normal, both eyes and all related structures EOM: EOMs intact bilaterally Neck: Neck: Yes normal visual inspection and Yes no meningeal signs Resp: Effort & Inspection: normal respiratory effort and no respiratory distress Cardio: Rate: regular rate Skin: Other: + small erythematous pustules noted to h air follicles to right buttock area consistent with folliculitis. No surrounding erythema, no fluctuance/induration or sloughing. No perianal involvement Wounds: no wounds Neuro: General: patient oriented x3, tone normal and no meningeal signs Cranial nerves: Yes CN's II-XII intact bilaterally Gait exam (Neuro): Normal gait present Extrem: General: Yes normal to inspection Medical Decision Making Medical Decision Making MDM Narrative: 69-year-old male with a past medical history right ureteric stone and LADI recently discharged from our facility on 09/12/2024, depression, gout, osteoarthritis, diverticulitis, presenting to the ED complaining right buttock pruritic/painful rash x 3 days. On exam vital signs stable, NAD, nontoxic appearing, physical exam as noted above consistent with right buttock folliculitis. No evidence of cellulitis or perianal involvement. No sloughing. No mucous membrane involvement. No evidence of SJS/TENS Plan: Topical mupirocin Please refer to course for remaining clinical decision making, interpretation of labs/imaging results, and discussions with consultants and/or family members. Results discussed with patient including worrisome signs and symptoms and strict return precautions, and when to return to the emergency department. They verbalized understanding and feel safe for discharge at this time. Differential Diagnosis Differential Diagnoses: The differential diagnosis associated with the presentation includes As above External Record Review External record reviewed: Inpatient record, Office record, Outpatient record, Prior outpatient labs, Prior outpatient radiology, Primary care record and Outside ED record Tests considered The following testing was considered but not selected: As above Prescription Management I considered prescription management with: Antibiotic Discharge Plan Discharge Clinical Impression: Folliculitis Patient Disposition: Home, Self-Care Instructions: Folliculitis (ED) Additional Instructions: You have folliculitis which is an infection of the hair follicle Please apply topical mupirocin ointment as prescribed Follow-up with her primary care doctor If areas persistent, worsening, you fever, drainage from area difficulty or inability to have bowel movement or urinate return to the ED Prescriptions: New mupirocin 2 % ointment 1 appl topical TID 7 Days Qty: 22 0RF No Action morphine 15 mg tablet 15 mg PO Q8H PRN (Reason: pain) Qty: 15 0RF Rx Instructions: Partial Fill upon patient request. oxycodone 5 mg tablet 5 mg PO Q8H PRN (Reason: pain) phenazopyridine [Pyridium] 100 mg tablet 100 mg PO TID PRN (Reason: Spasm) 4 Days Qty: 12 0RF tamsulosin 0.4 mg capsule 0.4 mg PO BEDTIME 14 Days Qty: 14 0RF lorazepam 1 mg tablet 1 mg PO DAILY PRN (Reason: Anxiety) Referrals: Dilip Grady DO [Primary Care Provider] - 1 week Interventions: ED Discharge Assessment Last Done: 09/17/24 08:02 Discharge Date/Time: 09/17/24 08:03 Print Language: Spanish
[2024-09-17 08:02] VITALS: BP 146/85; PULSE 68; RESP 20; TEMP 37; O2SAT 99
== END 2024-09-17 08:03 | disposition home or self-care (01) ==
LOC: HO.ED 08:02
PROVIDERS: Emergency Provider Emergency Medicine; PCP Internal Medicine
DX: L73.9 Follicular disorder, unspecified (principal); R21 Rash and other nonspecific skin eruption
CPT/HCPCS: 99282; 99283

== ENCOUNTER 2024-10-18 09:44 | Outpatient (AMB) | payer MEDICARE, SELFPAY ==
--- NOTE | 2024-10-18 11:09 | MHC.OFFWIV ---
Intake Vital Signs 10/18/24 11:10 Weight 189 lb BP 120/74 Blood Pressure Location Rt brachial Position Sitting Pulse 68 Pulse Source Pulse Oximeter Temp 98.0 F Temp Source Oral Pulse Oximetry (%) 98 Oxygen Delivery Method Room Air Intake Visit Reasons: EP congestion, cough Sore throat Intake Note: Patient here for congestion, cough and tongue swelling/thrush which has been present for about 11 days. Patient Tobacco Use Status: Never used Tobacco Allergies citalopram [CITALOPRAM] Allergy (Intermediate, Verified 10/18/24 11:12) Hives clindamycin Allergy (Intermediate, Verified 10/18/24 11:12) Hives metronidazole [METRONIDAZOLE] Allergy (Intermediate, Verified 10/18/24 11:12) Hives Penicillins Allergy (Intermediate, Verified 10/18/24 11:12) HIVES Sulfa (Sulfonamide Antibiotics) Allergy (Intermediate, Verified 10/18/24 11:12) HIVES terazosin Adverse Reaction (Intermediate, Verified 10/18/24 11:12) fainting Do you need a note to return to daycare/school/sports/work: No HPI HPI Comments History of Present Illness Details This is a 69-year-old male with a past medical history of hypertension, BPH and renal calculi presenting for evaluation of cold symptoms that he has had for the past 2 weeks including nasal congestion, sore throat and cough. Patient states that he developed thrush approximately 2 days ago and has not taken any medication for treatment. Patient denies having any fevers, chills, otalgia, shortness for breath or chest pain. [facility] Medical History Atherosclerotic cardiovascular disease Osteoarthritis Insomnia Gout Depression Cervical disc disease Elevated cholesterol Skin lesions Anal pain History of COVID-19 BPH (benign prostatic hyperplasia) Diverticulitis Kidney stones Surgical History History of total right hip replacement History of arthroscopic surgery of shoulder H/O blepharoplasty History of nasal surgery Hx of cystoscopy Hx of cystoscopy Hx of lithotripsy H/O colonoscopy Hx of appendectomy Family History Father Heart disease Social History Household Members: Friend(s) Household Members Other:: Roomate Housing: Condominium Are you a primary urgent care physician assistant to a significant other at home: No Do you presently have visiting nurse or other home services: No Alcohol intake: current Alcohol intake frequency: does not drink Alcohol type: wine Patient Tobacco Use Status: Never used Tobacco service: No Current occupational status: employed 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 Review of Systems Const All systems reviewed & are unremarkable except as noted in HPI and below Denies chills, Denies fatigue and Denies fever(s) Eyes Reports no additional complaints ENT Reports no additional complaints, Denies otalgia, Reports mouth pain, Reports sore throat, Denies throat swelling and Denies tongue swelling Card Reports no additional complaints and Denies dyspnea Resp Reports no additional complaints, Reports cough, Denies dyspnea and Denies wheezing GI Reports no additional complaints Reports no additional complaints Musc Reports no additional complaints Skin/Breast Reports system reviewed and no additional complaints, except as documented Neuro Reports no additional complaints Endo Reports no additional complaints and Denies fatigue Aller/Immun Denies throat swelling, Denies tongue swelling and Denies wheezing Physical Exam Vital Signs: Last Vital Signs Temp 98.0 F 10/18/24 11:10 Pulse 68 10/18/24 11:10 BP 120/74 10/18/24 11:10 Pulse Ox 98 10/18/24 11:10 Oxygen Delivery Method Room Air 10/18/24 11:10 Const General: cooperative, healthy appearing, comfortable, no acute distress, well developed, alert, awake and Physically active; No lethargic or tired appearing Nutritional Appearance: average body habitus Orientation/consciousness: patient oriented x3 and No lethargic Limitations: no limitations HEENT Head: Yes normal to inspection and Yes normocephalic Ears: hearing grossly normal bilaterally, external ears normal, TM's abnormal bilaterally (TMs bulging bilaterally without erythema) and EAC's normal General nose exam: Normal external nose present Face and sinus: Yes normal facial exam and No sinus tenderness Mouth: abnormal oral mucosae, moist mucous membranes and other (Tongue is erythematous w/ intermittent white plaques, no angular chelitis) Teeth and gingiva: fair dentition Throat: Yes posterior oropharynx normal (No edema or exudates noted of the posterior oropharynx) and Yes postnasal drainage Eyes General: appearance normal, both eyes and all related structures Visual Kendall: normal visual kendall by confrontation Conjunctivae: conjunctivae normal Neck Lymphatic: no lymphadenopathy noted Resp Effort & Inspection: normal respiratory effort, able to speak in complete sentences, no audible wheezes, no cough and no respiratory distress Auscultation: clear to auscultation bilaterally Cardio Rate: regular rate Rhythm: regular rhythm Neuro General: patient oriented x3 Psych Appearance: grossly normal Mental Status: mental status grossly normal Insight: Good insight present (Psych) Judgement: Good judgement present (Psych) Assessment & Plan Assessment & Plan (1) Oropharyngeal candidiasis: Code(s): B37.0 - Candidal stomatitis Plan: Clotrimazole troches 5 times daily times 10-14 days. (2) Upper respiratory infection: Comment: Patient is afebrile and is not hypoxic. Code(s): J06.9 - Acute upper respiratory infection, unspecified Qualifiers: URI type: unspecified viral URI Qualified Code(s): J06.9 - Acute upper respiratory infection, unspecified Plan: Tylenol or ibuprofen as needed for pharyngitis, lungs are clear to auscultation bilaterally, Mucinex OTC as needed with increased clear fluids. Medications: New clotrimazole 10 mg mucous membrane .five times daily 70 tabs 0RF Coding Level of Care Code Est Pt Level 3 (52989) Diagnoses Oropharyngeal candidiasis B37.0 Viral upper respiratory tract infection J06.9 URI type: unspecified viral URI Time Spent (min) 20
[2024-10-18 11:10] VITALS: BP 120/74; PULSE 68; TEMP 36.7; O2SAT 98
== END 2024-10-18 12:00 | disposition home or self-care (01) ==
PROVIDERS: PCP Internal Medicine; Visit Provider Physician Assistant
DX: B37.0 Candidal stomatitis (principal); J06.9 Acute upper respiratory infection, unspecified

== ENCOUNTER → 2024-10-18 09:44 | Outpatient (BNVA) | payer MEDICARE, SELFPAY | PROVIDERS: PCP Internal Medicine; Visit Provider Physician Assistant | DX: B37.0 Candidal stomatitis (principal); J06.9 Acute upper respiratory infection, unspecified | CPT/HCPCS: 99212 ==

== ENCOUNTER 2024-10-21 08:44 | Outpatient (AMB) | payer MEDICARE, SELFPAY ==
--- NOTE | 2024-10-21 08:46 | MHC.OFFVIS ---
Intake Visit Reasons: 6M Follow up Intake Note: Patient is present for 6M F/U Urology Medication:NONE Antibiotic Allergy:CLINDAMYCIN,SULFA,TERAZOSIN Blood Thinner:NONE Adjunct History Instructor Required: No Allergies citalopram [CITALOPRAM] Allergy (Intermediate, Verified 10/21/24 08:47) Hives clindamycin Allergy (Intermediate, Verified 10/21/24 08:47) Hives metronidazole [METRONIDAZOLE] Allergy (Intermediate, Verified 10/21/24 08:47) Hives Penicillins Allergy (Intermediate, Verified 10/21/24 08:47) HIVES Sulfa (Sulfonamide Antibiotics) Allergy (Intermediate, Verified 10/21/24 08:47) HIVES terazosin Adverse Reaction (Intermediate, Verified 10/21/24 08:47) fainting HPI Comments Details: Julio is a pleasant male. He is a patient of Dr. Goodson. He seen for the following urologic conditions - nephrolithiasis - BPH Recent passage of 6 mm stone Will give medical expulsion therapeutic keep it home Would like to move ahead with ESWL on right side Has had some urgency and frequency with bladder Trial daily tadalafil Lower urinary tract symptoms Progressive Primarily nocturia 2-3 times Prior medications tamsulosin minimal effect Minimal benefit from combination terazosin oxybutynin GreenLight laser - 03/28 Nephrolithiasis Long history of chronic renal stone disease Has undergone multiple procedures with ESWL Does feel he may have stone currently Has previously been able to pass stones Stone composition - 01/23 uric acid with calcium oxalate, 03/25 mixed calcium oxalate 80% monohydrate Imaging - renal ultrasound 07/24 multiple renal stones, 3 on right, 2 on left. Bilateral renal cysts. Stones approximately 5 mm - 06/25 renal ultrasound bilateral renal cyst stable. Small stone? On right 2 mm - 08/26 renal ultrasound bilateral renal cysts, query small stone 3 mm right side Intervention - 03/25 right ureteroscopy, laser lithotripsy and stent placement Therapeutic plan - vitamin B6, fluids PFSH Medical History Atherosclerotic cardiovascular disease Osteoarthritis Insomnia Gout Depression Cervical disc disease Elevated cholesterol Skin lesions Anal pain History of COVID-19 BPH (benign prostatic hyperplasia) Diverticulitis Kidney stones Surgical History History of total right hip replacement History of arthroscopic surgery of shoulder H/O blepharoplasty History of nasal surgery Hx of cystoscopy Hx of cystoscopy Hx of lithotripsy H/O colonoscopy Hx of appendectomy Family History Father Heart disease Social History Household Members: Friend(s) Household Members Other:: [facility]ate [facility] Are you a primary healthcare administration internship to a significant other at home: No Do you presently have visiting nurse or other home services: No Alcohol intake: current Alcohol intake frequency: does not drink Alcohol type: wine Patient Tobacco Use Status: Never used Tobacco service: No Current occupational status: employed 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 Results AMB Urinalysis, Automated UA Leukoctes 0 Fortino/uL Last Edit by VICTOR HUGO Ching on 10/21/24 08:55 UA Nitrite Negative Last Edit by VICTOR HUGO Ching on 10/21/24 08:55 UA Urobilinogen 0.2 mg/dL Last Edit by VICTOR HUGO Ching on 10/21/24 08:55 UA Protein 0 mg/dL Last Edit by VICTOR HUGO Ching on 10/21/24 08:55 UA pH 6.0 Last Edit by VICTOR HUGO Ching on 10/21/24 08:55 UA Blood 0 Edwin/uL Last Edit by VICTOR HUGO Ching on 10/21/24 08:55 UA Specific [place] 1.020 Last Edit by VICTOR HUGO Ching on 10/21/24 08:55 UA Ketone Negative Last Edit by VICTOR HUGO Ching on 10/21/24 08:55 UA Bilirubin 0 mg/dL Last Edit by VICTOR HUGO Ching on 10/21/24 08:55 UA Glucose 0 mg/dL Last Edit by Dot Everett CCM on 10/21/24 08:55 Results Reviewed Results Reviewed: Laboratory Last Values Urine pH (Auto) 6.0 10/21/24 08:54 Specific [place] (Auto) 1.020 10/21/24 08:54 Urine Protein (Auto) 0 mg/dL 10/21/24 08:54 Glucose (UA)(Auto) 0 mg/dL 10/21/24 08:54 Urine Ketones (Auto) Negative 10/21/24 08:54 Urine Blood (Auto) 0 Edwin/uL 10/21/24 08:54 Urine Nitrite (Auto) Negative 10/21/24 08:54 Urine Bilirubin (Auto) 0 mg/dL 10/21/24 08:54 Urine Urobilinogen (Auto) 0.2 mg/dL 10/21/24 08:54 Leukocyte Esterase (Auto) 0 Fortino/uL 10/21/24 08:54 Assessment & Plan Assessment & Plan (1) Nephrolithiasis: Code(s): N20.0 - Calculus of kidney Category: Medical (2) Urinary urgency: Code(s): R39.15 - Urgency of urination Category: Medical Plan Extracorporeal Shock Wave Lithotripsy We discussed the nature of the decision and reasonable alternatives for performing the above surgery. Interventions include chemical dissolution, ESWL, ureteroscopy with laser lithotripsy and stent placement, PCNL. Options such as medical therapy were discussed. The relative uncertainties and benefits related to each alternate procedure were adequately discussed. General surgical risks including, but not limited to, pain, bleeding, infection, myocardial infarction, pulmonary embolus, deep vein thrombosis and cerebrovascular accident which may result in further hospitalization were discussed. Full disclosure of the procedure as well as all major risks, benefits and complications were discussed including but not limited to risks of bleeding, injury to the kidney with hematoma or amaury-hematoma, failure to fragments stone, potential for ureteric obstruction from stone passage and need for secondary procedures. There is a small long-term risk of hypertension and a question francois of diabetes. Success rate of fragmentation and passage is approximately 70- 75%. This is compared to the risks and benefits for ureteroscopy which has a higher success rate but is a more invasive procedure. The success rate of the procedure was discussed. Success of the procedure in the short-term does not necessarily guarantee that long-term success will be maintained. Suitable follow up will need to be maintained. The patient showed understanding of the discussion as well as the typical recovery time, and the outpatient nature of this procedure. Opportunity was given for questions. Repeat-back protocol used to confirm understanding. They wish to proceed with right ESWL Orders: Orders AMB Urinalysis Automated Today Z13.9 - Encounter for screening, unspecified Medications: New naproxen 500 mg PO BID 14 days 28 tabs 0RF N20.0 - Calculus of kidney prednisone 20 mg PO daily 5 days 5 tabs 0RF N20.0 - Calculus of kidney tamsulosin 0.4 mg PO daily 14 days 14 caps 1RF N20.0 - Calculus of kidney tadalafil 5 mg PO DAILY 90 days 90 tabs 0RF sexual activity R35.1 - Nocturia Changed From oxycodone 5 mg PO Q8H PRN pain To oxycodone 5 mg PO Q8H 7 days PRN 14 tabs 0RF pain (scale score 4-6) Patient Instructions: Imaging studies, laboratory and physical exam results were discussed and reviewed in detail. No major barriers to patient understanding were identified. An opportunity to ask questions regarding the treatment plan was provided. All questions were answered. The patient expressed understanding and agreement with the above treatment plan. The patient is aware they should contact our office by phone for worsening of their current condition or the appearance of new urologic symptoms. Compliance is encouraged with any medications and followup testing that is ordered. It is a privilege to participate in the urologic care of your patient. If you have any questions or concerns regarding treatment for the above conditions, or other urologic issues, please do not hesitate to contact me. The office telephone contact is [phone]. This note is constructed using voice recognition software. While every effort has been made to ensure accuracy hotel supplies salesperson errors may have been included. Yours sincerely, Dr Isreal Erazo MD, [facility] - Urology Providers of Expert, Compassionate Care for the Genitourinary System Coding Level of Care Code Est Pt Level 4 (74464) Diagnoses Nephrolithiasis N20.0 Urinary urgency R39.15
== END 2024-10-21 10:00 | disposition home or self-care (01) ==
PROVIDERS: PCP Internal Medicine; Visit Provider Urology
DX: N20.0 Calculus of kidney (principal); R39.15 Urgency of urination; Z13.9 Encounter for screening, unspecified
CPT/HCPCS: 99214

== ENCOUNTER → 2024-10-21 08:44 | Outpatient (BNVA) | payer MEDICARE, SELFPAY | PROVIDERS: PCP Internal Medicine; Visit Provider Urology | DX: N20.0 Calculus of kidney (principal); R39.15 Urgency of urination | CPT/HCPCS: 81003; 99212 ==

== ENCOUNTER 2024-11-08 10:57 | Outpatient (AMB) | payer MEDICARE, SELFPAY ==
[2024-11-08 10:59] VITALS: BP 132/84; PULSE 69; TEMP 36.2; O2SAT 97; BMI 27.6
--- NOTE | 2024-11-08 10:59 | A.OFFPC_ITS ---
Vital Signs 11/08/24 10:59 Height 5 ft 9 in Weight 187 lb BMI 27.6 BP 132/84 Blood Pressure Location Rt brachial Position Sitting Pulse 69 Temp 97.2 F Pulse Oximetry (%) 97 Intake Visit Reasons: follow up Allergies citalopram [CITALOPRAM] Allergy (Intermediate, Verified 10/21/24 08:47) Hives clindamycin Allergy (Intermediate, Verified 10/21/24 08:47) Hives metronidazole [METRONIDAZOLE] Allergy (Intermediate, Verified 10/21/24 08:47) Hives Penicillins Allergy (Intermediate, Verified 10/21/24 08:47) HIVES Sulfa (Sulfonamide Antibiotics) Allergy (Intermediate, Verified 10/21/24 08:47) HIVES terazosin Adverse Reaction (Intermediate, Verified 10/21/24 08:47) fainting PFSH Medical History Atherosclerotic cardiovascular disease Osteoarthritis Insomnia Gout Depression Cervical disc disease Elevated cholesterol Skin lesions Anal pain History of COVID-19 BPH (benign prostatic hyperplasia) Diverticulitis Kidney stones Surgical History History of total right hip replacement History of arthroscopic surgery of shoulder H/O blepharoplasty History of nasal surgery Hx of cystoscopy Hx of cystoscopy Hx of lithotripsy H/O colonoscopy Hx of appendectomy Family History Father Heart disease Social History Household Members: Friend(s) Household Members Other:: Roomate [facility]: [facility] Are you a primary care coordination manager to a significant other at home: No Do you presently have visiting nurse or other home services: No Alcohol intake: current Alcohol intake frequency: does not drink Alcohol type: wine Patient Tobacco Use Status: Never used Tobacco service: No Current occupational status: employed 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 Physical exam (Primary Care) Vital Signs: Last Vital Signs Temp 97.2 F 11/08/24 10:59 Pulse 69 11/08/24 10:59 BP 132/84 11/08/24 10:59 Pulse Ox 97 11/08/24 10:59 BMI result Body Mass Index 27.6 Tobacco/Smoking Status: Tobacco use Status Patient Tobacco Use Status Never used Tobacco 11/08/24 11:00 Coding Level of Care Code New Pt Level 4 (51876) Complex EM visit Add On G2211 Diagnoses Nephrolithiasis N20.0 Essential hypertension I10 Migraine headache G43.909 Assessment & Plan Assessment & Plan (1) Nephrolithiasis: Code(s): N20.0 - Calculus of kidney Category: Medical Plan: Urology note revd. Pt has multiple kidney stones and is scheduled for extraction. Informed patient he had an abrupt increase in serum creatinine in Decemeber. He reports he is aware and is seeing the urologist for kidney stones. Will repeat bw after the scheduled procedure is done. (2) Essential hypertension: Code(s): I10 - Essential (primary) hypertension Category: Medical Plan: BP is in range. Currently on no medications. (3) Migraine headache: Code(s): G43.909 - Migraine, unspecified, not intractable, without status migrainosus Plan: CT scan of the head ordered Plan History of Present Illness The patient is a 69-year-old male presenting with pain currently attributed to a dry socket from recent dental extractions. The dental extraction occurred a couple of weeks ago, and the dry socket is being managed by his dentist. In addition to his dental issues, the patient also reports a concern regarding a year-long sensation that something is not right, without specific symptoms. He describes episodes where he inadvertently bumps into doorways or drives over curbs, and experiences pain that may radiate into his head. The patient has a history of multiple kidney stones, with recent severe episodes warranting emergency room visits and hospitalizations. He is undergoing workup to determine the underlying cause of recurrent stones. The patient had a rotator cuff surgery two years ago, and he reports a full recovery. 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 Of note, the patient had a green-light laser surgery for prostate issues, which he describes as successful. He mentions elevated creatinine levels noted after his recent kidney stone incident. Social History Review of Systems Physical Exam General: Cooperative and healthy appearing Nutritional Appearance: Well nourished Orientation/consciousness: Patient oriented x3 Limitations: No limitations Head: Normal to inspection General: Appearance normal, both eyes and all related structures Neck: Normal visual inspection Chest: Normal palpation of entire chest wall Respiratory: Normal respiratory effort Neurology: Patient oriented x3 Results - Labs: Elevated creatinine levels noted in blood work post-kidney stone incident. Plan - Continue care for current dry socket per dental recommendations. - Monitor kidney function and creatinine levels closely due to recurrent kidney stones. - Proceed with evaluation for potential causes of tactile disorientation and mild confusion symptoms. - Discussion and assessment of insomnia and anxiety management options alongside lorazepam. - Continue follow-up with urology for kidney stone management and prostate monitoring. - Review and verify recent colonoscopy records for health maintenance. Patient was informed and verbally consented to the use of an ambient scribe for clinic note documentation during this visit. Discussion Notes During the visit, I reviewed the patient's complex medical history and current complaints. We focused on the management of pain secondary to a dry socket, which the patient is already receiving dental care for. We discussed his recurrent kidney stones, which have significantly impacted his life, highlighting the need for continued urologic care. I noted his elevated creatinine levels, likely related to the kidney stones, and explained the importance of monitoring these levels. We discussed the potential neurological symptoms he is experiencing, such as brushing against doorways, and considered further evaluation if symptoms persist. The patient was counseled on the effects of past psychological stressors on his anxiety and sleep disorders and agreed on the continued use of lorazepam for anxiety-related insomnia. I emphasized the importance of follow-up with his urologist regarding the kidney stone management and upcoming colonoscopy for colorectal cancer screening. Patient Instructions - Follow dental expert's advice regarding dry socket treatment. - Monitor urine and report any unusual symptoms immediately. - Follow kidney stone prevention strategies as advised by your urologist. - Continue taking lorazepam as prescribed for anxiety and monitor its effects on sleep. - Maintain a balance in dietary intake to support weight loss. - Maintain follow-up visits with your urologist and confirm appointments for PSA review and stone management. Orders: Orders CT head/brain wo IV con Today G43.909 - Migraine, unspecified, not intractable, without status migrainosus
--- OUTSIDE RECORDS SUMMARY | 2024-11-08 11:52 | XMS_ITS | Encounter Summary ---
Author Organization [facility] Address [address] [phone] Care Team Providers Care Novelty Candy Maker Name Role Phone Tiesha Caldwell MD Primary Care Provider Unavailabl e Encounter Details Date Type Department Care Team (Late st Contact Info) Description 11/04/2022 Orders Only [facility] Department of General Surgery [address] [place] [address] Julio Haney MD Social History Tobacco Use Types Packs/Day Years Used Date Smoking Tobacco: Never Assessed Sex and Gender Information Value Date Recorded Sex Assigned at Not on file Legal Sex Male 6:50 AM EST Gender Identity Not on file Sexual Orientation Not on file documented as of this encounter Plan of Treatment Not on file documented as of this encounter Visit Diagnoses Not on filedocumented in this encounter Care Teams Novelty Candy Maker Relationship Specialty Start Date End Date Tiesha Caldwell MD [address] [phone] PCP - General Internal Medicine 12/14/18 documented as of this encounter
--- OUTSIDE RECORDS SUMMARY | 2024-11-08 11:52 | XMS_ITS | Clinical Summary ---
Author Organization formerly [facility] Address [address] [phone] Care Team Providers Care Histology Teacher Name Role Phone PcpTiesha MD Primary Care Provider Unavailabl e Social History Tobacco Use Types Packs/Day Years Used Date Smoking Tobacco: Never Assessed Sex and Gender Information Value Date Recorded Sex Assigned at Not on file Legal Sex Male 6:50 AM EST Gender Identity Not on file Sexual Orientation Not on file Plan of Treatment Health Maintenance Due Date Last Done Comments CT Colonography 1956 Colonoscopy 1956 Colorectal Cancer Screening 1956 FIT-DNA (Cologuard) 1956 FIT 1956 FOBT 1956 Flex Sigmoidoscopy - 5y 1956 HIV Screening 1956 DTaP,Tdap,and Td Vaccines (1 - Tdap) 1974 Zoster Vaccines (1 of 2) 2006 Pneumococcal Vaccine, 65+ Ye ars (1 of 1 - PCV) 2021 COVID-19 Vaccine (1 - 2023-2 5 season) 2024 Influenza Vaccine (#1) 2024 HPV Vaccines Aged Out No longer eligi ble based on patient's age to complete this topic Hepatitis A Vaccines Aged Out No long er eligible based on patient's age to complete this topic Meningococcal Vaccine Aged Out No belén татьяна eligible based on patient's age to complete this topic Care Teams Histology Teacher Relationship Specialty Start Date End Date Tiesha Caldwell MD [address] [place] [address] PCP - General Internal Medicine 12/14/18
--- OUTSIDE RECORDS SUMMARY | 2024-11-08 11:52 | XMS_ITS | Clinical Summary ---
Author Organization [facility] Address [address] [place] [address] Care Team Providers Care Machine Leather Trimmer Name Role Phone Unavailable Primary Care Provider Unavailabl e Social History Tobacco Use Types Packs/Day Years Used Date Smoking Tobacco: Never Assessed Sex and Gender Information Value Date Recorded Sex Assigned at Not on file Gender Identity Not on file Sexual Orientation Not on file Plan of Treatment Not on file
== END 2024-11-08 11:33 | disposition home or self-care (01) ==
LOC: HO.HMCSH 10:57
PROVIDERS: PCP Internal Medicine; Visit Provider Internal Medicine
DX: N20.0 Calculus of kidney (principal); I10 Essential (primary) hypertension; G43.909 Migraine, unspecified, not intractable, without status migrainosus

== ENCOUNTER → 2024-11-08 10:57 | Outpatient (BNVA) | payer MEDICARE, SELFPAY | PROVIDERS: PCP Internal Medicine; Visit Provider Internal Medicine | DX: N20.0 Calculus of kidney (principal); I10 Essential (primary) hypertension; G43.909 Migraine, unspecified, not intractable, without status migrainosus | CPT/HCPCS: 99202 ==

== ENCOUNTER 2024-11-28 08:56 | Outpatient (REF) | payer MEDICARE, SELFPAY ==
--- NOTE | ~2024-11-28 | US_ITS ---
EXAMINATION: US KIDNEY BILATERAL HISTORY: N20.0 - Calculus of kidney TECHNIQUE: Real-time grayscale ultrasound imaging of the kidneys was performed and images were reviewed. COMPARISON: Comparison is made with the prior examination dated 07/20/2023. FINDINGS: Right kidney: The right kidney measures 11.6 x 6.7 x 6.2 cm. Renal parenchymal echotexture and thickness are normal. There is a 4.4 x 4.2 x 4.0 cm cyst in the interpolar region. There are nonobstructing 4 mm calculi at the upper and lower poles. There is no hydronephrosis. Left Kidney: The left kidney measures 10.1 x 6.2 x 4.9 cm. Renal parenchymal echotexture and thickness are normal. There is a septated cyst cortical cyst in the interpolar region measuring 1.7 x 1.9 x 1.7 cm. There is also a 6 x 9 x 8 mm parapelvic cyst. There is a 4 x 2 x 3 mm nonobstructing calculus in the interpolar region and a 7 x 3 x 5 mm nonobstructing calculus at the lower pole. There is no hydronephrosis. US/US renal BI IMPRESSION: Bilateral nephrolithiasis and cysts as described. Electronically signed by: Dilip Bourgeois MD 11/29/2024 07:29 AM [facility]
--- OUTSIDE RECORDS SUMMARY | 2024-11-28 09:27 | XMS_ITS ---
Author Organization Dilip Grady DO, FACP Address [address] [place], [place] [phone] Care Team Providers Care Rigging Loft Mechanic Name Role Phone Dilip Grady Primary Care Provider REASON FOR VISIT Message MEDICATIONS Medication SIG (Take, Route, Fr equency, Duration) Notes Start Date End Date Status traZODone HCl 50 MG 1 tablet at bedtime as needed Orally Once a day for 30 day(s) 08/16/2024 Active Encounters Encounter Location Date Provider Diagnosis [facility], [facility] [address] [place], [place] [phone] 08/16/2024 Dilip Grady PLAN OF TREATMENT Medication Medication Name Sig Start Date Stop Date Notes traZODone HCl 50 MG 1 tablet at bedtime as needed Orally Once a day for 30 day(s) 08/16/2024
--- OUTSIDE RECORDS SUMMARY | 2024-11-28 09:27 | XMS_ITS ---
Author Organization Dilip Grady DO, [facility] Address [address] [place], [place] [phone] Care Team Providers Care Road Mechanic Name Role Phone Miguel ADilip strong Primary Care Provider [phone] REASON FOR VISIT Refill and message MEDICATIONS Medication SIG (Take, Route, Fr equency, Duration) Notes Start Date End Date Status LORazepam 1 MG 1 tablet at bedtime as needed Orally Once a day for 30 days 08/26/2024 Active Encounters Encounter Location Date Provider Diagnosis Dilip Grady DO, [facility] [address] [place], [place] [phone] 08/26/2024 Dilip Grady Anxiety F41.9 ASSESSMENTS Encounter Date Diagnosis Assessment Notes Treatment Notes Treatment Clinical Notes 08/26/2024 Anxiety (ICD-10 - F41.9) PLAN OF TREATMENT Medication Medication Name Sig Start Date Stop Date Notes LORazepam 1 MG 1 tablet at bedtime as needed Orally Once a day for 30 days 08/26/2024 traZODone HCl 50 MG 1 tablet at bedtime as needed Orally Once a day 08/16/2024
--- OUTSIDE RECORDS SUMMARY | 2024-11-28 09:27 | XMS_ITS | Clinical Summary ---
Author Organization [facility] Address [address] [phone] Care Team Providers Care General Doc Name Role Phone PcpTiesha MD Primary Care [...] age to complete this topic Care Teams General Doc Relationship Specialty Start Date End Date Tiesha Caldwell MD [address] [place] [address] PCP - General Internal Medicine 12/14/18
--- OUTSIDE RECORDS SUMMARY | 2024-11-28 09:27 | XMS_ITS | Clinical Summary ---
Author Organization [facility] Address [address] [place] [address] Care Team Providers Care Child Specialist Name Role Phone Unavailable Primary Care Provider Unavailabl e Social History Tobacco Use Types Packs/Day Years Used Date Smoking Tobacco: Never Assessed Sex and Gender Information Value Date Recorded Sex Assigned at Not on file Gender Identity Not on file Sexual Orientation Not on file Plan of Treatment Not on file
--- OUTSIDE RECORDS SUMMARY | 2024-11-28 09:27 | XMS_ITS | Encounter Summary ---
Author Organization [facility] Address [address] [phone] Care Team Providers Care Power Generating Plant Operator Name Role Phone Tiesha Caldwell MD Primary Care Provider Unavailabl e Encounter Details Date Type Department Care Team (Late st Contact Info) Description 11/04/2022 Orders Only [facility] Department of General Surgery [address] [place] [address] Julio Haney MD Social History Tobacco Use [...] on filedocumented in this encounter Care Teams Power Generating Plant Operator Relationship Specialty Start Date End Date Tiesha Caldwell MD [address] [phone] PCP - General Internal Medicine 12/14/18 documented as of this encounter
== END 2024-11-28 08:57 | disposition home or self-care (01) ==
LOC: HO.US 08:56
PROVIDERS: PCP Internal Medicine; Visit Provider Urology
DX: N20.0 Calculus of kidney (principal)
CPT/HCPCS: 76775

== ENCOUNTER → 2024-11-28 08:59 | Outpatient (BNV) | payer MEDICARE, SELFPAY | PROVIDERS: PCP Internal Medicine; Visit Provider Radiology Diagnostic Radiology | DX: N20.0 Calculus of kidney (principal) | CPT/HCPCS: 76775 ==

== ENCOUNTER 2024-12-06 07:37 | Outpatient (REF) | payer MEDICARE, SELFPAY ==
--- NOTE | ~2024-12-06 | CT_ITS ---
EXAMINATION: CT HEAD WITHOUT CONTRAST CLINICAL INFORMATION: G43.909 - Migraine, unspecified, not intractable, without status migrain... COMPARISON: Correlated to CT report dated March 13, [address] head. TECHNIQUE: Contiguous axial imaging was performed from the skull base to vertex without intravenous administration of contrast. This CT examination was performed using dose optimization techniques as appropriate, variously including the following: *Automated exposure control *Adjustment of mA and/or kV according to patient size (this includes techniques or standardized protocols for targeted exams where dose is matched to indication/reason for exam; i.e. extremities or head) *Use of iterative reconstruction technique DLP: 846 mGy-cm FINDINGS: No acute intracranial hemorrhage, mass effect, midline shift, hydrocephalus or herniation. Weber-white matter differentiation is normal. Prominence of the extra-axial CSF spaces cerebral sulci and ventricles likely related to central volume loss. Posterior cranial fossa contents demonstrated no acute intracranial hemorrhage or mass effect. Sellar/suprasellar region demonstrated no gross masses. Craniocervical junction is intact. Calcified plaques in the cavernous supraclinoid segments both ICAs. Old traumatic deformity, nasal bones. No air-fluid levels in the included paranasal sinuses. Tympanic cavities and mastoid air cells are aerated. CT/CT head/brain wo IV con IMPRESSION: No acute intracranial hemorrhage. Mild Global cerebral atrophy. Electronically signed by: Neymar Dean MD 12/06/2024 08:42 AM [facility]
--- OUTSIDE RECORDS SUMMARY | 2024-12-06 07:40 | XMS_ITS | Clinical Summary ---
Author Organization [facility] Address [address] [phone] Care Team Providers Care Air And Missile Defense Crewmember Name Role Phone PcpTiesha MD Primary Care [...] age to complete this topic Care Teams Air And Missile Defense Crewmember Relationship Specialty Start Date End Date Tiesha Caldwell MD [address] [place] [address] PCP - General Internal Medicine 12/14/18
--- OUTSIDE RECORDS SUMMARY | 2024-12-06 07:40 | XMS_ITS | Encounter Summary ---
Author Organization [facility] Address [address] [phone] Care Team Providers Care Lapper Name Role Phone Tiesha Caldwell MD Primary Care Provider Unavailabl e Encounter Details Date Type Department Care Team (Late st Contact Info) Description 11/04/2022 Orders Only [facility] Department of General Surgery [address] [place] [address] Juilo Haney MD Social History Tobacco Use Types [...] on filedocumented in this encounter Care Teams Lapper Relationship Specialty Start Date End Date Tiesha Caldwell MD [address] [phone] PCP - General Internal Medicine 12/14/18 documented as of this encounter
--- OUTSIDE RECORDS SUMMARY | 2024-12-06 07:40 | XMS_ITS | Clinical Summary ---
Author Organization [facility] Address [address] [place] [address] Care Team Providers Care Print Line Tailer Name Role Phone Unavailable Primary Care Provider Unavailabl e Social History Tobacco Use Types Packs/Day Years Used Date Smoking Tobacco: Never Assessed Sex and Gender Information Value Date Recorded Sex Assigned at Not on file Gender Identity Not on file Sexual Orientation Not on file Plan of Treatment Not on file
== END 2024-12-06 07:38 | disposition home or self-care (01) ==
LOC: HO.CT 07:37
PROVIDERS: PCP Internal Medicine; Visit Provider Internal Medicine
DX: G43.909 Migraine, unspecified, not intractable, without status migrainosus (principal)
CPT/HCPCS: 70450

== ENCOUNTER → 2024-12-06 07:42 | Outpatient (BNV) | payer MEDICARE, SELFPAY | PROVIDERS: PCP Internal Medicine; Visit Provider Radiology Diagnostic Radiology | DX: G43.909 Migraine, unspecified, not intractable, without status migrainosus (principal) | CPT/HCPCS: 70450 ==

== ENCOUNTER 2024-12-08 07:30 | Outpatient (AMB) | payer MEDICARE, SELFPAY ==
--- NOTE | 2024-12-08 07:30 | MHC.OFFVIS ---
Intake Visit Reasons: 4m/US(set) Intake Note: Pt presents to the office today as a telehealth visit for a 4 month follow up US. Allergies citalopram [CITALOPRAM] Allergy (Intermediate, Verified 12/08/24 07:30) Hives clindamycin Allergy (Intermediate, Verified 12/08/24 07:30) Hives metronidazole [METRONIDAZOLE] Allergy (Intermediate, Verified 12/08/24 07:30) Hives Penicillins Allergy (Intermediate, Verified 12/08/24 07:30) HIVES Sulfa (Sulfonamide Antibiotics) Allergy (Intermediate, Verified 12/08/24 07:30) HIVES terazosin Adverse Reaction (Intermediate, Verified 12/08/24 07:30) fainting HPI Comments Details: Julio is a pleasant male. He is a patient of Dr. Goodson. He seen for the following urologic conditions - nephrolithiasis - BPH Telemedicine Evaluation 15 min Consultation [employer] Marshal Video Prior stone composition calcium oxalate mixed 24 hour urine low volume, low citrate - oxalate calcium and sodium in good range Start K-Citrate Upcoming Left ESWL Otherwise stable Lower urinary tract symptoms Progressive Primarily nocturia 2-3 times Prior medications tamsulosin minimal effect Minimal benefit from combination terazosin oxybutynin GreenLight laser - 03/28 Nephrolithiasis Long history of chronic renal stone disease Has undergone multiple procedures with ESWL Does feel he may have stone currently Has previously been able to pass stones Stone composition - 01/23 uric acid with calcium oxalate, 03/25 mixed calcium oxalate 80% monohydrate Imaging - renal ultrasound 07/24 multiple renal stones, 3 on right, 2 on left. Bilateral renal cysts. Stones approximately 5 mm - 06/25 renal ultrasound bilateral renal cyst stable. Small stone? On right 2 mm - 08/26 renal ultrasound bilateral renal cysts, query small stone 3 mm right side - 11/29 renal ultrasound for minimal stone right, 7 mm stone left Intervention - 03/25 right ureteroscopy, laser lithotripsy and stent placement Therapeutic plan - vitamin B6, fluids PFSH Medical History Atherosclerotic cardiovascular disease Osteoarthritis Insomnia Gout Depression Cervical disc disease Elevated cholesterol Skin lesions Anal pain History of COVID-19 BPH (benign prostatic hyperplasia) Diverticulitis Kidney stones Surgical History History of total right hip replacement History of arthroscopic surgery of shoulder H/O blepharoplasty History of nasal surgery Hx of cystoscopy Hx of cystoscopy Hx of lithotripsy H/O colonoscopy Hx of appendectomy Family History Father Heart disease Social History Household Members: Friend(s) Household Members Other:: Roomate Housing: [facility] Are you a primary patient care representative to a significant other at home: No Do you presently have visiting nurse or other home services: No Alcohol intake: current Alcohol intake frequency: does not drink Alcohol type: wine Patient Tobacco Use Status: Never used Tobacco service: No Current occupational status: employed 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 Review of Systems Const All systems reviewed & are unremarkable except as noted in HPI and below Reports no additional complaints Resp Reports no additional complaints GI Reports no additional complaints Reports as per HPI Musc Reports no additional complaints Physical Exam Telemedicine evaluation Appropriate responses Regular breathing rate and rhythm HEENT Head: Yes normal to inspection Ears: hearing grossly normal bilaterally Eyes General: appearance normal, both eyes and all related structures Neck Neck: Yes normal visual inspection Chest Chest palpation & inspection: normal inspection of the chest Resp Effort & Inspection: normal respiratory effort and able to speak in complete sentences Telehealth Telehealth Telehealth Platform: [employer] Location of provider rendering services: practice address Location of patient: address on file Patient Identification confirmed using: Name, : Yes Telehealth method: video Patient verbally consented to treatment: Yes Patient verbally consented to billing insurance company: Yes Patient informed of any privacy concerns related to visit: Yes Minutes spent on Phone/Video with Pt.: 15 Assessment & Plan Assessment & Plan (1) Nephrolithiasis: Code(s): N20.0 - Calculus of kidney Category: Medical Plan Risks, benefits and alternatives to therapy were discussed. These include but are not limited to infection, bleeding, damage to local organs and tissues, need for further interventions. Anesthetic risks regarding cardiac arrhythmia, blood clots, and potential mortality were discussed. The patient understands the typical recovery time and the outpatient nature of the procedure. After consideration of these risks the patient gives full informed consent and they wish to move ahead with the procedure. Left ESWL Start potassium citrate Medications: New potassium citrate ER 20 mEq (2 x 10 mEq (1,080 mg)) PO BID 90 days 360 tabs 0RF N20.0 - Calculus of kidney Patient Instructions: This note is constructed using voice recognition software. While every effort has been made to ensure accuracy polish maker errors may have been included. Imaging studies, laboratory and physical exam results were discussed and reviewed in detail. No major barriers to patient understanding were identified. An opportunity to ask questions regarding the treatment plan was provided. All questions were answered. The patient expressed understanding and agreement with the above treatment plan. The patient is aware they should contact our office by phone for worsening of their current condition or the appearance of new urologic symptoms. Compliance is encouraged with any medications and followup testing that is ordered. It is a privilege to participate in the urologic care of your patient. If you have any questions or concerns regarding treatment for the above conditions, or other urologic issues, please do not hesitate to contact me. The office telephone contact is [phone]. Sincerely, Dr Isreal Erazo MD, [facility] - Urology Compassionate Specialist Care for the Genitourinary System Coding Level of Care Code Tele Est Pt Level 4 (58270) Diagnoses Nephrolithiasis N20.0
--- OUTSIDE RECORDS SUMMARY | 2024-12-08 07:32 | XMS_ITS | Clinical Summary ---
Author Organization [facility] Address [address] [phone] Care Team Providers Care Rigger Third Name Role Phone PcpTiesha MD Primary Care [...] age to complete this topic Care Teams Rigger Third Relationship Specialty Start Date End Date Tiesha Caldwell MD [address] [place] [address] PCP - General Internal Medicine 12/14/18
--- OUTSIDE RECORDS SUMMARY | 2024-12-08 07:32 | XMS_ITS | Encounter Summary ---
Author Organization Pending sale to [facility] Address [address] [phone] Care Team Providers Care Investment Specialist Name Role Phone Tiesha Caldwell MD Primary Care Provider Unavailabl e Encounter Details Date Type Department Care Team (Late st Contact Info) Description 11/04/2022 Orders Only Pending sale to [facility] Department of General Surgery [address] [place] [address] Julio Haney MD Social History Tobacco Use [...] on filedocumented in this encounter Care Teams Investment Specialist Relationship Specialty Start Date End Date Tiesha Caldwell MD [address] [id number] PCP - General Internal Medicine 12/14/18 documented as of this encounter
--- OUTSIDE RECORDS SUMMARY | 2024-12-08 07:32 | XMS_ITS | Clinical Summary ---
Author Organization [facility] Address [address] [place] [address] Care Team Providers Care Telephone Messenger Name Role Phone Unavailable Primary Care Provider Unavailabl e Social History Tobacco Use Types Packs/Day Years Used Date Smoking Tobacco: Never Assessed Sex and Gender Information Value Date Recorded Sex Assigned at Not on file Gender Identity Not on file Sexual Orientation Not on file Plan of Treatment Not on file
== END 2024-12-08 10:00 | disposition home or self-care (01) ==
LOC: HO.HUSH 07:30
PROVIDERS: PCP Internal Medicine; Visit Provider Urology
DX: N20.0 Calculus of kidney (principal)
CPT/HCPCS: 99214

== ENCOUNTER 2024-12-21 08:47 | Day surgery (SDC) | payer MEDICARE, SELFPAY ==
--- OUTSIDE RECORDS SUMMARY | 2024-12-07 17:43 | XMS_ITS | Clinical Summary ---
Author Organization [facility] Address [address] [place] [address] Care Team Providers Care Bull Driver Name Role Phone Unavailable Primary Care Provider Unavailabl e Social History Tobacco Use Types Packs/Day Years Used Date Smoking Tobacco: Never Assessed Sex and Gender Information Value Date Recorded Sex Assigned at Not on file Gender Identity Not on file Sexual Orientation Not on file Plan of Treatment Not on file
--- OUTSIDE RECORDS SUMMARY | 2024-12-07 17:43 | XMS_ITS | Clinical Summary ---
Author Organization [facility] Address [address] [phone] Care Team Providers Care Statement Clerks Manager Name Role Phone PcpTiesha MD Primary Care [...] topic Meningococcal Vaccine Aged Out No belén татьяан eligible based on patient's age to complete this topic Care Teams Statement Clerks Manager Relationship Specialty Start Date End Date Tiesha Caldwell MD [address] [place] [address] PCP - General Internal Medicine 12/14/18
--- OUTSIDE RECORDS SUMMARY | 2024-12-07 17:43 | XMS_ITS | Encounter Summary ---
Author Organization [facility] Address [address] [phone] Care Team Providers Care Wrecking Mechanic Name Role Phone Tiesha Caldwell MD Primary Care Provider Unavailabl e Encounter Details Date Type Department Care Team (Late st Contact Info) Description 11/04/2022 Orders Only [facility] Department of General Surgery [address] [place] [address] Julio Haney MD Social History Tobacco Use [...] on filedocumented in this encounter Care Teams Wrecking Mechanic Relationship Specialty Start Date End Date Tiesha Caldwell MD [address] [phone] PCP - General Internal Medicine 12/14/18 documented as of this encounter
[2024-12-19 10:06] VITALS: BMI 27.6
[2024-12-19 10:20] VITALS: BMI 27.6
--- NOTE | ~2024-12-21 | XR_ITS ---
EXAMINATION: XR ABDOMEN 1 VIEW (KUB) HISTORY: stones COMPARISON: There are no prior studies for comparison. FINDINGS: Two supine views of the abdomen are submitted. The bowel gas pattern is unremarkable, without evidence of mechanical obstruction. There is a 5 mm calcification overlying the right renal shadow and an 8 mm calcification overlying the left renal shadow. There are phleboliths in the pelvis. There are no abnormal soft tissue masses. The patient is status post right total hip arthroplasty. XR/XR KUB IMPRESSION: Bilateral nephrolithiasis as described. Electronically signed by: Dilip Bourgeois MD 12/21/2024 01:31 PM EDT
[2024-12-21 09:43] VITALS: BP 138/86; PULSE 67; RESP 14; TEMP 36.3; O2SAT 96
[2024-12-21] MEDS: Lactated Ringers 1,000 ML 100 ML IVCONT (09:46)
--- NOTE | 2024-12-21 10:33 | HO.ANESPROP2 ---
Documented by User: Xiomara Begum NP 12/20/24 12:07 HPI - Anesthesia Eval Consult details Narrative: 69yo M for Right Lithotripsy ESW s/p cysto etc 07/2024 with [facility] 4 Follows [facility] [place] Cardiology for ASCD. Stable 01/2024 office visit [facility] Active Problems Active Problems: All Active Problems Upper respiratory infection (Acute) Oropharyngeal candidiasis (Acute) Calculus of distal right ureter (Acute) Pleural effusion (Acute) Skin lesion of face (Acute) Benign skin lesion of forehead (Acute) Scalp cyst (Acute) Family history of coronary artery disease (Acute) Essential hypertension (Acute) Bladder trabeculation (Acute) Enlarged prostate (Acute) Incomplete bladder emptying (Acute) History of total right hip replacement (Acute) Cerumen impaction (Acute) Rash (Acute) Thoracic back pain (Acute) Cervical spondylosis (Acute) Muscle spasms of neck (Acute) Skin lesion of cheek (Acute) Osteoarthritis of right hip (Acute) Status post right rotator cuff repair (Acute) History of arthroscopy of right shoulder (Acute) Rotator cuff tear, right (Acute) Shoulder weakness (Acute) Urinary urgency (Acute) Nocturia (Acute) BPH w urinary obs/LUTS (Acute) Nephrolithiasis (Acute) Atherosclerotic cardiovascular disease (Acute) Skin lesions (Acute) Anal pain (Acute) Past Medical History Medical History (Updated 12/19/24 @ 10:04 by Aleksandra Fishman RN) HTN (hypertension) Atherosclerotic cardiovascular disease Osteoarthritis Insomnia Gout Depression Cervical disc disease Elevated cholesterol Skin lesions Anal pain BPH (benign prostatic hyperplasia) Diverticulitis Kidney stones Family History Family History Father Heart disease Family history of problems with anesthesia: No Surgical History Surgical History (Updated 12/19/24 @ 10:06 by Aleksandra Fishman RN) History of prostate surgery Hx of rotator cuff surgery History of total right hip replacement History of arthroscopic surgery of shoulder H/O blepharoplasty History of nasal surgery Hx of cystoscopy Hx of lithotripsy H/O colonoscopy Hx of appendectomy History of Problems with Anesthesia: No Social History Social History Household Members: Friend(s) Household Members Other:: roommate Housing: Condominium Are you a primary long term acute care registered nurse to a significant other at home: No Do you presently have visiting nurse or other home services: No Alcohol intake: current Alcohol intake frequency: does not drink Alcohol type: wine Patient Tobacco Use Status: Never used Tobacco Use of substances other than those prescribed or required for medical reasons: No Have you been hit, kicked, punched, or otherwise hurt by someone within the past year? 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 Allergies Allergy/AdvReac Type Severity Reaction Status Date / Time citalopram [CITALOPRAM] Allergy Intermediate Hives Verified 12/21/24 09:42 clindamycin Allergy Intermediate Hives Verified 12/21/24 09:42 metronidazole [METRONIDAZOLE] Allergy Intermediate Hives Verified 12/21/24 09:42 Penicillins Allergy Intermediate HIVES Verified 12/21/24 09:42 Sulfa (Sulfonamide Allergy Intermediate HIVES Verified 12/21/24 09:42 Antibiotics) terazosin AdvReac Intermediate fainting Verified 12/21/24 09:42 Home Medications ?Medication ?Instructions ?Recorded ?Confirmed ?Last Taken ?Type acetaminophen 325 mg tablet 650 mg PO Q8H PRN pain 12/19/24 12/21/24 12/20/24 History lorazepam 1 mg tablet 1 mg PO BEDTIME PRN Anxiety 12/19/24 12/21/24 12/20/24 History Exam Height,Weight and Vital Signs: Height 5 ft 9 in Weight 84.822 kg Pertinent Lab Results Pertinent Lab Results: Laboratory Tests 09/10/24 09/12/24 20:04 04:35 WBC 9.5 Hgb 15.5 Hct 45.8 Plt Count 183 Sodium 139 Potassium 4.5 Chloride 105 Carbon Dioxide 26 BUN 31 H Creatinine 2.13 H Narrative Narrative: EKG 2023 Vent. Rate : 055 BPM Atrial Rate : 055 BPM P-R Int : 258 ms QRS Dur : 100 ms QT Int : 434 ms P-R-T Axes : 062 -14 035 degrees QTc Int : 415 ms Sinus bradycardia with 1st degree A-V block Otherwise normal ECG When compared with ECG of 17-SEP-2023 16:53 Coronary CTA 2023 Multiple mixed plaques throughout the proximal LAD causing moderate approximately 50% stenosis. One area with either central ulceration versus calcification. FFR is pending. Minimal to mild stenosis in the RCA. In the echocardiogram, possible basal inferior hypokinesis with reduced strain. Not clear if the wall motion abnormalities artifactual as there is no significant disease in the RCA. Assessment and Plan Assessment Anesthesia Assessment: Chart Reviewed Final Anesthetic Review Family History of Problems with Anesthesia: No History of Problems with Anesthesia: No Documented by User: Leyla Yun DO 12/21/24 10:35 [facility] Past Medical History Medical History (Updated 12/19/24 @ 10:04 by Aleksandra Fishman RN) HTN (hypertension) Atherosclerotic cardiovascular disease Osteoarthritis Insomnia Gout Depression Cervical disc disease Elevated cholesterol Skin lesions Anal pain BPH (benign prostatic hyperplasia) Diverticulitis Kidney stones Family History Family History Father Heart disease Family history of problems with anesthesia: No Surgical History Surgical History (Updated 12/19/24 @ 10:06 by Aleksandra Fishman RN) History of prostate surgery Hx of rotator cuff surgery History of total right hip replacement History of arthroscopic surgery of shoulder H/O blepharoplasty History of nasal surgery Hx of cystoscopy Hx of lithotripsy H/O colonoscopy Hx of appendectomy History of Problems with Anesthesia: No Social History Social History Household Members: Friend(s) Household Members Other:: roommate Housing: Condominium Are you a primary long term acute care registered nurse to a significant other at home: No Do you presently have visiting nurse or other home services: No Alcohol intake: current Alcohol intake frequency: does not drink Alcohol type: wine Patient Tobacco Use Status: Never used Tobacco Use of substances other than those prescribed or required for medical reasons: No Have you been hit, kicked, punched, or otherwise hurt by someone within the past year? 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 Allergies Allergy/AdvReac Type Severity Reaction Status Date / Time citalopram [CITALOPRAM] Allergy Intermediate Hives Verified 12/21/24 09:42 clindamycin Allergy Intermediate Hives Verified 12/21/24 09:42 metronidazole [METRONIDAZOLE] Allergy Intermediate Hives Verified 12/21/24 09:42 Penicillins Allergy Intermediate HIVES Verified 12/21/24 09:42 Sulfa (Sulfonamide Allergy Intermediate HIVES Verified 12/21/24 09:42 Antibiotics) terazosin AdvReac Intermediate fainting Verified 12/21/24 09:42 Home Medications ?Medication ?Instructions ?Recorded ?Confirmed ?Last Taken ?Type acetaminophen 325 mg tablet 650 mg PO Q8H PRN pain 12/19/24 12/21/24 12/20/24 History lorazepam 1 mg tablet 1 mg PO BEDTIME PRN Anxiety 12/19/24 12/21/24 12/20/24 History Exam Exam Date and Time: 12/21/24 1033 Height,Weight and Vital Signs: Height 5 ft 9 in Weight 84.822 kg Vital Signs Temperature 97.4 F 12/21/24 09:43 Pulse Rate 67 12/21/24 09:43 Respiratory Rate 14 12/21/24 09:43 Blood Pressure 138/86 12/21/24 09:43 Pulse Oximetry 96 12/21/24 09:43 Oxygen Delivery Method Room Air 12/21/24 09:43 Temperature 97.4 F 12/21/24 09:43 Pulse Rate 67 12/21/24 09:43 Respiratory Rate 14 12/21/24 09:43 Blood Pressure 138/86 12/21/24 09:43 Pulse Oximetry 96 12/21/24 09:43 Oxygen Delivery Method Room Air 12/21/24 09:43 Airway Mallampati Class: II TM Dist: >3cm Neck ROM: Full Denture: Upper Heart: S1S2 Lungs: CTAB Assessment and Plan Assessment Anesthesia Assessment: Anesthesia Plan Discussed and Chart Reviewed Final Anesthetic Review Family History of Problems with Anesthesia: No History of Problems with Anesthesia: No NPO: Yes ASA Class: II Final Preanesthetic Review: No Changes in Pt Med Stat, Meds/Allgs Chart Reviewed, Consent Obtained/Reviewed and Anes Risks/Benef Reviewed Patient Risk: Low Procedure Risk: Low Anesthetic Plan Anesthetic Plan: MAC: and Agree w/ Assess. and Plan Disposition: Standard PACU
--- NOTE | 2024-12-21 10:43 | MHC.SHP ---
Pre-Procedural Eval Section A - 24 Hr Update-Section A only Date of Service: 12/21/24 The patient is an INPATIENT: No Changes since office visit: No Cold of Flu in the past 2 weeks, No New Medical Problems, No Changes in Medication and No Patient answered all questions The patient has been examined within 24 hours of the surgical procedure. The History & Physical has been completed within 30 days and I have reviewed it.: Yes Section B - Complete if H&P > 30 days Chief Complaint: Calculus of kidney Details of Present Illness: left eswl 7mm Allergies: Allergies Allergy/AdvReac Type Severity Reaction Status Date / Time citalopram [CITALOPRAM] Allergy Intermediate Hives Verified 12/21/24 09:42 clindamycin Allergy Intermediate Hives Verified 12/21/24 09:42 metronidazole [METRONIDAZOLE] Allergy Intermediate Hives Verified 12/21/24 09:42 Penicillins Allergy Intermediate HIVES Verified 12/21/24 09:42 Sulfa (Sulfonamide Allergy Intermediate HIVES Verified 12/21/24 09:42 Antibiotics) terazosin AdvReac Intermediate fainting Verified 12/21/24 09:42 Review of Systems Sugical H&P ROS: Negative: Constitution, Cardiovascular, Respiratory, Neurological, Psychiatric, Hem-Onc, Allergic/Immunologic, Gastrointestinal, Genitourinary, Musculoskeletal, Integumentary, Endocrine and Eyes/Ears/Nose/Throat Exam Surgical H&P Exam: Normal: HEENT, Normal: Heart, Normal: Lungs, Normal: Extremities, Normal: Abdomen, Normal: Skin and Normal: Neurological Plan Diagnosis/Plan: Unchanged (ESWL left) I have reviewed the history and physical and performed a pertinent physical examination on my patient. No changes have occurred unless specified. Time Spent With Patient Time: Total time managing care of this patient today ____ minutes.
--- NOTE | 2024-12-21 11:12 | W.PM.OPN ---
Operative Note Operative Note Date of Service: 12/21/24 Narrative: PreOperative Diagnosis: Left Renal stones Post Operative Diagnosis: Left Renal stones Procedure: Left ESWL Surgeon: Dr Isreal Erazo Anesthesia: mac/sedation Indications for procedure: The patient understands ESWL may be a staged procedure and subsequent intervention may be required based on imaging after ESWL. Quoted stone clearance rates for a solitary procedure are in the 70-80% range based primarily on stone location. They also understand there is a risk of bleeding to the kidney, infection, damage to adjacent organs, and stone migration following the procedure. - Imaging 9 mm left ultrasound Procedure optimization has been performed with IV acetaminophen given in the holding area and 1 L of lactated Ringer's to be given in order to optimize the fluid-stone interface. 20 mg of IV Lasix will be given in the last 5 minutes of the procedure to optimize stone clearance. Procedure: After informed consent was verified the patient was brought to the operating room and placed in a supine position. Anesthesia was performed per protocol. Safety pause time-out was performed. Imaging was displayed in the room and laterality confirmed. ESWL was performed. The 1st 500 shocks were performed at 60 hertz. These were performed with increasing power. Once maximum power was reached the rate was increased to 180 hertz. A total of 2500 shocks were given. Targeted imaging with ultrasound/fluoroscopy showed stone smudging suggestive of disintegration. The patient tolerated the procedure well and was transferred to the recovery area upon completion. Post procedure imaging will be organized. There was no evidence for flank discoloration.
[2024-12-21 11:29] VITALS: BP 114/66; PULSE 61; RESP 17; TEMP 36.2; O2SAT 98
[2024-12-21 11:44] VITALS: BP 138/77; PULSE 57; RESP 18; O2SAT 99
[2024-12-21] MEDS: Ketorolac Tromethamine 15 MG/ML VIAL IVPUSH (11:47)
[2024-12-21 11:59] VITALS: BP 141/81; PULSE 61; RESP 16; TEMP 36.2; O2SAT 99
== END 2024-12-21 12:28 | disposition home or self-care (01) ==
PROVIDERS: PCP Internal Medicine; Visit Provider Urology
PROC: (CPT 50590; principal; 2024-12-21 10:40)
DX: N20.0 Calculus of kidney (principal); Z87.442 Personal history of urinary calculi; N40.1 Benign prostatic hyperplasia with lower urinary tract symptoms; R35.1 Nocturia; K62.89 Other specified diseases of anus and rectum; I25.10 Atherosclerotic heart disease of native coronary artery without angina pectoris; E78.00 Pure hypercholesterolemia, unspecified; M10.9 Gout, unspecified; Z88.0 Allergy status to penicillin; Z88.1 Allergy status to other antibiotic agents; Z88.2 Allergy status to sulfonamides; Z88.8 Allergy status to other drugs, medicaments and biological substances; Z98.890 Other specified postprocedural states
CPT/HCPCS: 50590; 74018; J0131; J1100; J1885; J1940; J2003; J2250; J2704

== ENCOUNTER → 2024-12-21 08:47 | Outpatient (BNV) | payer MEDICARE, SELFPAY | PROVIDERS: PCP Internal Medicine; Visit Provider Urology | DX: N20.0 Calculus of kidney (principal) | CPT/HCPCS: 50590 ==

== ENCOUNTER → 2024-12-21 09:07 | Outpatient (BNV) | payer MEDICARE, SELFPAY | PROVIDERS: PCP Internal Medicine; Visit Provider Radiology Diagnostic Radiology | DX: K80.20 Calculus of gallbladder without cholecystitis without obstruction (principal) | CPT/HCPCS: 74018 ==

== ENCOUNTER 2024-12-29 08:58 | Outpatient (AMB) | payer MEDICARE, SELFPAY ==
--- NOTE | 2024-12-29 08:59 | A.OFFVIS_ITS ---
Intake Visit Reasons: 2m/L[facility]ol[facility](set) Intake Note: Patient is present for 2m/litholink Urology Medication:none Antibiotic Allergy:clindamycin,penicillins,sulfa Blood Thinner:none Hat Renovator Required: No Allergies citalopram [CITALOPRAM] Allergy (Intermediate, Verified 12/29/24 09:00) Hives clindamycin Allergy (Intermediate, Verified 12/29/24 09:00) Hives metronidazole [METRONIDAZOLE] Allergy (Intermediate, Verified 12/29/24 09:00) Hives Penicillins Allergy (Intermediate, Verified 12/29/24 09:00) HIVES Sulfa (Sulfonamide Antibiotics) Allergy (Intermediate, Verified 12/29/24 09:00) HIVES terazosin Adverse Reaction (Intermediate, Verified 12/29/24 09:00) fainting HPI Comments Details: Julio is a pleasant male. He is a patient of Dr. Goodson. He seen for the following urologic conditions - nephrolithiasis - BPH Telemedicine Evaluation 15 min Consultation Molecular Detection Marshal Video 20 mEq b.i.d. potassium citrate cause diarrhea Cut back to 10 mEq b.i.d. 6 week follow-up renal ultrasound Prior stone composition calcium oxalate mixed 24 hour urine low volume, low citrate - oxalate calcium and sodium in good range Lower urinary tract symptoms Progressive Primarily nocturia 2-3 times Prior medications tamsulosin minimal effect Minimal benefit from combination terazosin oxybutynin GreenLight laser - 03/28 Nephrolithiasis Long history of chronic renal stone disease Has undergone multiple procedures with ESWL Does feel he may have stone currently Has previously been able to pass stones Stone composition - 01/23 uric acid with calcium oxalate, 03/25 mixed calcium oxalate 80% monohydrate Imaging - renal ultrasound 07/24 multiple renal stones, 3 on right, 2 on left. Bilateral renal cysts. Stones approximately 5 mm - 06/25 renal ultrasound bilateral renal cyst stable. Small stone? On right 2 mm - 08/26 renal ultrasound bilateral renal cysts, query small stone 3 mm right side - 11/29 renal ultrasound for minimal stone right, 7 mm stone left Intervention - 03/25 right ureteroscopy, laser lithotripsy and stent placement Therapeutic plan - vitamin B6, fluids PFSH Medical History (Updated 12/19/24 @ 10:04 by Aleksandra Fishman RN) HTN (hypertension) Atherosclerotic cardiovascular disease Osteoarthritis Insomnia Gout Depression Cervical disc disease Elevated cholesterol Skin lesions Anal pain BPH (benign prostatic hyperplasia) Diverticulitis Kidney stones Surgical History (Updated 01/17/25 @ 08:03 by Cece Gramajo) History of prostate surgery Hx of rotator cuff surgery History of total right hip replacement History of arthroscopic surgery of shoulder H/O blepharoplasty History of nasal surgery Hx of cystoscopy Hx of lithotripsy H/O colonoscopy (~02/09/19) Hx of appendectomy Family History Father Heart disease Social History Household Members: Friend(s) Household Members Other:: roommate Housing: Condominium Are you a primary director of career resources to a significant other at home: No Do you presently have visiting nurse or other home services: No Alcohol intake: current Alcohol intake frequency: does not drink Alcohol type: wine Patient Tobacco Use Status: Never used Tobacco service: No Current occupational status: employed 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 Review of Systems Const All systems reviewed & are unremarkable except as noted in HPI and below Reports no additional complaints Resp Reports no additional complaints GI Reports no additional complaints Reports as per HPI Musc Reports no additional complaints Physical Exam Telemedicine evaluation Appropriate responses Regular breathing rate and rhythm HEENT Head: Yes normal to inspection Ears: hearing grossly normal bilaterally Eyes General: appearance normal, both eyes and all related structures Neck Neck: Yes normal visual inspection Chest Chest palpation & inspection: normal inspection of the chest Resp Effort & Inspection: normal respiratory effort and able to speak in complete sentences Telehealth Telehealth Telehealth Platform: [facility] Location of provider rendering services: practice address Location of patient: address on file Patient Identification confirmed using: Name, : Yes Telehealth method: video Patient verbally consented to treatment: Yes Patient verbally consented to billing insurance company: Yes Patient informed of any privacy concerns related to visit: Yes Minutes spent on Phone/Video with Pt.: 15 Assessment & Plan Assessment & Plan (1) Nephrolithiasis: Code(s): N20.0 - Calculus of kidney Category: Medical (2) Nocturia: Code(s): R35.1 - Nocturia Category: Medical Plan Reduced dose potassium citrate Patient Instructions: This note is constructed using voice recognition software. While every effort has been made to ensure accuracy configuration management architect errors may have been included. Imaging studies, laboratory and physical exam results were discussed and reviewed in detail. No major barriers to patient understanding were identified. An opportunity to ask questions regarding the treatment plan was provided. All q uestions were answered. The patient expressed understanding and agreement with the above treatment plan. The patient is aware they should contact our office by phone for worsening of their current condition or the appearance of new urologic symptoms. Compliance is encouraged with any medications and followup testing that is ordered. It is a privilege to participate in the urologic care of your patient. If you have any questions or concerns regarding treatment for the above conditions, or other urologic issues, please do not hesitate to contact me. The office telephone contact is [phone]. Sincerely, Dr Isreal Erazo MD, [facility] - Urology Compassionate Specialist Care for the Genitourinary System Coding Level of Care Code Tele Est Pt Level 3 (46456) Complex EM visit Add On G2211 Diagnoses Nephrolithiasis N20.0 Nocturia R35.1
== END 2024-12-29 10:47 | disposition home or self-care (01) ==
LOC: HO.HUSH 08:59
PROVIDERS: PCP Internal Medicine; Visit Provider Urology
DX: N20.0 Calculus of kidney (principal); R35.1 Nocturia
CPT/HCPCS: 99024

== ENCOUNTER 2025-02-01 09:30 | Outpatient (REF) | payer MEDICARE, SELFPAY ==
--- NOTE | ~2025-02-01 | US_ITS ---
EXAMINATION: US KIDNEY BILATERAL HISTORY: N20.1 - Calculus of ureter TECHNIQUE: Real-time grayscale ultrasound imaging of the kidneys was performed and images were reviewed. COMPARISON: Comparison is made with the prior examination dated 11/28/2024. FINDINGS: Right kidney: The right kidney measures 11.9 x 6.1 x 6.0 cm. Renal parenchymal echotexture and thickness are normal. There is a 4.5 cm cyst in the interpolar region. There is a 4 x 3 x 5 mm nonobstructing calculus in the interpolar region and a 4 x 2 x 3 mm nonobstructing calculus at the lower pole. There is no hydronephrosis. Left Kidney: The left kidney measures 10.8 x 6.0 x 5.1 cm. Renal parenchymal echotexture and thickness are normal. There is a 1.5 x 1.9 x 1.8 cm septated cyst in the interpolar region and an additional 10 mm cyst more centrally in the interpolar region. Multiple nonobstructing calculi are noted, the largest of which measures 10 mm in size at the lower pole. There is no hydronephrosis. US/US renal BI IMPRESSION: Bilateral renal cysts and nonobstructing calculi as described. No hydronephrosis. Electronically signed by: Dilip Bourgeois MD 02/01/2025 05:19 PM EDT
--- OUTSIDE RECORDS SUMMARY | 2025-02-01 10:13 | XMS_ITS | Encounter Summary ---
Author Organization [facility] Address [address] [phone] Care Team Providers Care Licensed Architect Name Role Phone Tiesha Caldwell MD Primary Care Provider Unavailabl e Encounter Details Date Type Department Care Team (Late st Contact Info) Description 11/04/2022 Orders Only [facility] Department of General Surgery [address] [place] [address] Julio Haney MD Social History Tobacco Use [...] on filedocumented in this encounter Care Teams Licensed Architect Relationship Specialty Start Date End Date Tiesha Caldwell MD [address] [phone] PCP - General Internal Medicine 12/14/18 documented as of this encounter
--- OUTSIDE RECORDS SUMMARY | 2025-02-01 10:13 | XMS_ITS | Clinical Summary ---
Author Organization [facility] Address [address] [phone] Care Team Providers Care Nut Cracker Name Role Phone PcpTiesha MD Primary Care [...] DTaP,Tdap,and Td Vaccines (1 - Tdap) 1974 Pneumococcal Vaccine, 50+ Ye ars (1 of 1 - PCV) 2006 Zoster Vaccines (1 of 2) 2006 COVID-19 Vaccine (1 - 2023-2 5 season) 2024 Influenza Vaccine (Season Ended) 2025 HPV Vaccines Aged Out No longer eligi ble based on patient's age to complete this topic Hepatitis A Vaccines Aged Out No long er eligible based on patient's age to complete this topic Meningococcal Vaccine Aged Out No belén татьяна eligible based on patient's age to complete this topic Care Teams Nut Cracker Relationship Specialty Start Date End Date Tiesha Caldwell MD [address] [place] [address] PCP - General Internal Medicine 12/14/18
--- OUTSIDE RECORDS SUMMARY | 2025-02-01 10:13 | XMS_ITS | Clinical Summary ---
Author Organization [facility] Address [address] [place] [address] Care Team Providers Care Tobacco Packer Name Role Phone Unavailable Primary Care Provider Unavailabl e Social History Tobacco Use Types Packs/Day Years Used Date Smoking Tobacco: Never Assessed Sex and Gender Information Value Date Recorded Sex Assigned at Not on file Gender Identity Not on file Sexual Orientation Not on file Plan of Treatment Not on file
== END 2025-02-01 09:31 | disposition home or self-care (01) ==
LOC: HO.US 09:30
PROVIDERS: PCP Internal Medicine; Visit Provider Urology
DX: N20.1 Calculus of ureter (principal)
CPT/HCPCS: 76775

== ENCOUNTER → 2025-02-01 09:33 | Outpatient (BNV) | payer MEDICARE, SELFPAY | PROVIDERS: PCP Internal Medicine; Visit Provider Radiology Diagnostic Radiology | DX: N20.0 Calculus of kidney (principal); N28.1 Cyst of kidney, acquired | CPT/HCPCS: 76775 ==

== ENCOUNTER 2025-03-01 14:54 | Outpatient (AMB) | payer MEDICARE, SELFPAY ==
--- NOTE | 2025-03-01 14:44 | MHC.PC.OV ---
Intake Visit Reasons: Fever, sore throat, nasal congestion Allergies citalopram [CITALOPRAM] Allergy (Intermediate, Verified 03/01/25 15:03) Hives clindamycin Allergy (Intermediate, Verified 03/01/25 15:03) Hives metronidazole [METRONIDAZOLE] Allergy (Intermediate, Verified 03/01/25 15:03) Hives Penicillins Allergy (Intermediate, Verified 03/01/25 15:03) HIVES Sulfa (Sulfonamide Antibiotics) Allergy (Intermediate, Verified 03/01/25 15:03) HIVES terazosin Adverse Reaction (Intermediate, Verified 03/01/25 15:03) fainting Medication List - Last Reconciled 03/01/25 by Rosita Zapata PA-C acetaminophen 650 mg PO Q8H PRN lorazepam 1 mg PO BEDTIME PRN oxycodone 5 mg PO Q8H PRN 3 days Tobacco use date assessed: 03/01/25 Fall risk assessment: No Falls in past year Last assessed Fall Risk: 03/01/25 Dental Screening Dental Screen Date: 03/01/25 Did you have a dental visit in the last 12 months?: Yes Did you have a dental problem in the last 6 months where you did not have access to dental care?: No Was dental information given to patient?: Patient has dentist HPI Fever, sore throat, nasal congestion HPI Details The patient is a 69-year-old male presenting with respiratory symptoms, specifically a sore throat and cough. Symptoms commenced before his travel on Thursday, and he had been at a dance competition in [place] prior to their onset. He reports a sore throat, cough affecting his lungs, congestion, and a mild fever of 99.6?F. Notably, his baseline temperature is usually 96?F to 97?F. He denies other significant symptoms such as chest pain or shortness of breath. Initial self-treatment with Mucinex was largely ineffective. The patient expresses preference for a shorter antibiotic course to minimize side effects. [facility] Medical History HTN (hypertension) Atherosclerotic cardiovascular disease Osteoarthritis Insomnia Gout Depression Cervical disc disease Elevated cholesterol Skin lesions Anal pain BPH (benign prostatic hyperplasia) Diverticulitis Kidney stones Surgical History History of prostate surgery Hx of rotator cuff surgery History of total right hip replacement History of arthroscopic surgery of shoulder H/O blepharoplasty History of nasal surgery Hx of cystoscopy Hx of lithotripsy H/O colonoscopy (~02/09/19) Hx of appendectomy Family History Father Heart disease Social History Household Members: Friend(s) Household Members Other:: roommate Housing: Condominium Are you a primary hourly caregiver to a significant other at home: No Do you presently have visiting nurse or other home services: No Alcohol intake: current Alcohol intake frequency: holidays/special occasions only Patient Tobacco Use Status: Never used Tobacco service: No Current occupational status: employed Cognitive needs: No Hearing needs: No Vision needs: Yes (rx glasses) Questionnaire PHQ-9 Over the last 2 weeks, how often have you been bothered by any of the following problems? 1. Little interest or pleasure in doing things: not at all 2. Feeling down, depressed, or hopeless: not at all 3. Trouble falling or staying asleep, or sleeping too much: not at all 4. Feeling tired or having little energy: not at all 5. Poor appetite or overeating: not at all 6. Feeling bad about yourself - or that you are a failure or have let yourself or your family down: not at all 7. Trouble concentrating on things, such as reading the newspaper or watching television: not at all 8. Moving or speaking so slowly that other people could have noticed. Or the opposite - being so fidgety or restless that you have been moving around a lot more than usual: not at all 9. Thoughts that you would be better off or of hurting yourself in some way: not at all Total score: 0 Depression Screening Interpretation: Negative Depression Screening Done: Yes 95916 - PHQ-9 Billing: Yes Source: Developed by Drs. Dilip French, Megan Askew, Tonio Schofield and colleagues, with an educational gracie from [employer]. Thrive Questionnaire Date Thrive assessed: 03/01/25 I am a: Patient What is your living situation today?: I have a steady place to live Within the past 12 months, did the food you bought not last and you didn't have the money to get more?: Never true Within the past 12 months, did you worry whether your food would run out before you got money to buy more?: Never true Do you have trouble paying for medicines?: No Do you have trouble getting transportation to medical appointments?: No Do you have trouble paying your heating and electricity bill?: No Do you have trouble taking care of your child, family member or friend?: No Do you have trouble with day-to-day activities such as bathing, preparing meals, shopping, managing finances, etc.?: No Are you currently unemployed and looking for a job?: No Are you interested in more education?: No THRIVE Score: 0 AUDIT C Alcohol Use Questionnaire (AUDIT-C) 1. How often do you have a drink containing alcohol?: Monthly or less 2. How many drinks containing alcohol do you have on a typical day when you are drinking?: 1 or 2 3. How often do you have six or more drinks on one occasion?: Never Total Score: 1 Score Reviewed/Action Taken: No SHANELLE-7 AMB Questionnaire SHANELLE-7 Date SHANELLE - 7 assessed: 03/01/25 Feeling nervous, anxious, or on edge: 0 = Not at all Not being able to stop or control worryin = Not at all Worrying too much about different things: 0 = Not at all Trouble relaxin = Not at all Being so restless that it is hard to sit still: 0 = Not at all Becoming easily annoyed or irritable: 0 = Not at all Feeling afraid as if something awful might happen: 0 = Not at all Total SHANELLE-7 score (0-4 normal; 5-9 mild; 10-14 moderate; 15-21 severe): 0 Source: Developed by Drs. Dilip French, Megan Askew, Tonio Schofield and colleagues, with an educational gracie from [employer]. SHANELLE-7 Assessment Billing SHANELLE-7 Assessment Tool: SHANELLE-7 Assessment 68169 Review of Systems Const Details: - Constitutional: Reports fever of 99.6?F. - Respiratory: Reports sore throat, cough, and congestion. Denies chest pain and shortness of breath. - Gastrointestinal: Denies vomiting, diarrhea, and abdominal pain. - Musculoskeletal: Denies new back pain beyond usual vaccine-related discomfort. - Neurological: Denies neck stiffness. - Dermatological: Denies rash. - Genitourinary: Reports normal urination. Physical exam (Primary Care) Tobacco/Smoking Status: Tobacco use Status Tobacco use date assessed 03/01/25 03/01/25 14:51 Patient Tobacco Use Status Never used Tobacco 03/01/25 14:51 PHQ-9: PHQ-9 Score PHQ-9: Total score 0 03/01/25 14:51 Depression Screening Interpretation: Negative Thrive Assessment: Date of Thrive Assessment Date Thrive assessed 03/01/25 03/01/25 14:51 Telehealth Telehealth Telehealth Platform: Telephone Location of provider rendering services: practice address Location of patient: address on file Patient Identification confirmed using: Name, : Yes Telehealth method: voice only Patient verbally consented to treatment: Yes Patient verbally consented to billing insurance company: Yes Patient informed of any privacy concerns related to visit: Yes Minutes spent on Phone/Video with Pt.: 10 Coding Level of Care Code Tele Est Pt Level 3 (83758) Diagnoses Viral upper respiratory tract infection J06.9 URI type: unspecified viral URI Additional Codes PHQ-9 - 52406 - PHQ-9 Billing: Yes ([id number]) SHANELLE-7 Assessment Billing - SHANELLE-7 Assessment Tool: SHANELLE-7 Assessment 90060 ([id number]) Assessment & Plan Assessment & Plan (1) Upper respiratory infection: Comment: Patient is afebrile and is not hypoxic. Code(s): J06.9 - Acute upper respiratory infection, unspecified Category: Medical Qualifiers: URI type: unspecified viral URI Qualified Code(s): J06.9 - Acute upper respiratory infection, unspecified Plan: The patient will be treated with Azithromycin for five days to address the URI, minimizing the risk of further complications. Robitussin with Codeine will be prescribed for cough management, and the patient was informed of the need to avoid driving due to Codeine's sedative effects. Plan Plan Patient was informed and verbally consented to the use of an ambient scribe for clinic note documentation during this visit. 1. Upper respiratory infection The patient will be treated with Azithromycin for five days to address the URI, minimizing the risk of further complications. Robitussin with Codeine will be prescribed for cough management, and the patient was informed of the need to avoid driving due to Codeine's sedative effects. During the consultation, I discussed with the patient the likely diagnosis of upper respiratory infection most likely bronchitis. I recommended a five-day course of Azithromycin to address potential bacterial causes of the sore throat, explaining the benefits of a shorter antibiotic course in minimizing side effects while effectively treating the infection. For the cough associated with bronchitis, I prescribed Robitussin with Codeine, emphasizing the importance of avoiding activities requiring alertness, such as driving, due to the sedative properties of Codeine. The patient was receptive to the treatment plan and understood the precautions involved. I ensured the prescriptions were sent to his preferred pharmacy, [facility] [address] in [place], and encouraged him to reach out if symptoms do not improve or worsen. Medications: New azithromycin For 250 mg dose pack: take 500 mg today (day 1), then 250 mg for 4 days (days 2-5) PO 6 tabs 0RF codeine-guaifenesin 10-100 mg/5 mL 5 mL PO Q6H PRN 120 mL 0RF cough Patient Instructions: - Take Azithromycin (Z-Gonzalez) as prescribed for five days. - Use Robitussin with Codeine as directed for cough relief, but avoid driving or operating machinery while taking it. - Monitor symptoms and seek medical attention if they worsen or do not improve within a few days. - Contact the healthcare provider with any questions or concerns about the medications or if additional symptoms arise. - [facility] [place].
--- OUTSIDE RECORDS SUMMARY | 2025-03-01 15:42 | XMS_ITS | Clinical Summary ---
Author Organization [facility] Address [address] [phone] Care Team Providers Care Miller Wood Flour Name Role Phone PcpTiesha MD Primary Care [...] age to complete this topic Care Teams Miller Wood Flour Relationship Specialty Start Date End Date Tiesha Caldwell MD [address] [place] [address] PCP - General Internal Medicine 12/14/18
== END 2025-03-01 15:27 | disposition home or self-care (01) ==
LOC: HO.HMCSH 14:54
PROVIDERS: PCP Internal Medicine; Visit Provider Physician Assistant Medical
DX: J06.9 Acute upper respiratory infection, unspecified (principal)

== ENCOUNTER → 2025-03-01 14:54 | Outpatient (BNVA) | payer MEDICARE, SELFPAY | PROVIDERS: PCP Internal Medicine; Visit Provider Physician Assistant Medical | DX: J06.9 Acute upper respiratory infection, unspecified (principal) | CPT/HCPCS: 96127 ==

== ENCOUNTER 2025-03-09 09:27 | Outpatient (AMB) | payer MEDICARE, SELFPAY ==
[2025-03-09 09:26] VITALS: BP 131/70; PULSE 68; RESP 14; TEMP 36.7; O2SAT 97; BMI 27.6
--- NOTE | 2025-03-09 09:26 | A.OFFPC_ITS ---
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: No Accompanied by: Self / Same As Patient Allergies citalopram [CITALOPRAM] Allergy (Intermediate, Verified 03/09/25 10:41) Hives clindamycin Allergy (Intermediate, Verified 03/09/25 10:41) Hives metronidazole [METRONIDAZOLE] Allergy (Intermediate, Verified 03/09/25 10:41) Hives Penicillins Allergy (Intermediate, Verified 03/09/25 10:41) HIVES Sulfa (Sulfonamide Antibiotics) Allergy (Intermediate, Verified 03/09/25 10:41) HIVES terazosin Adverse Reaction (Intermediate, Verified 03/09/25 10:41) fainting Medication List - Last Reconciled 03/09/25 by Rosita Zapata PA-C acetaminophen 650 mg PO Q8H PRN lorazepam 1 mg PO BEDTIME PRN mupirocin 2% 1 appl topical QID oxycodone 5 mg PO Q8H PRN 3 days Tobacco use date assessed: 03/09/25 Fall risk assessment: No Falls in past year Last assessed Fall Risk: 03/09/25 Dental Screening Dental Screen Date: 03/09/25 Did you have a dental visit in the last 12 months?: Yes Did you have a dental problem in the last 6 months where you did not have access to dental care?: No Was dental information given to patient?: Patient has dentist HPI Cyst above lip HPI Details The patient is a 69-year-old male presenting with a facial skin lesion. Beginning approximately five to six months prior to the visit, he noted the development of a dark spot on his upper lip. Upon shaving, the area has been slightly painful and occasionally bleeds. There is no change in the lesion's appearance without external irritation. There is no personal or family history of skin malignancy, and he reports a recent resolution of cold symptoms. 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 - Family Status: Discussed family, refer encing his nephew who works as a PA at [employer] in the trauma center. 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 - Housing: Stable [facility] about recent [facility]. [facility] Medical History HTN (hypertension) Atherosclerotic cardiovascular disease Osteoarthritis Insomnia Gout Depression Cervical disc disease Elevated cholesterol Skin lesions Anal pain BPH (benign prostatic hyperplasia) Diverticulitis Kidney stones Surgical History History of prostate surgery Hx of rotator cuff surgery History of total right hip replacement History of arthroscopic surgery of shoulder H/O blepharoplasty History of nasal surgery Hx of cystoscopy Hx of lithotripsy H/O colonoscopy (~02/09/19) Hx of appendectomy Family History Father Heart disease Social History Household Members: Friend(s) Household Members Other:: roommate Housing: Condominium Are you a primary care transitions nurse to a significant other at home: No Do you presently have visiting nurse or other home services: No Alcohol intake: current Alcohol intake frequency: holidays/special occasions only Patient Tobacco Use Status: Never used Tobacco service: No Current occupational status: employed Cognitive needs: No Hearing needs: No Vision needs: Yes (rx glasses) Questionnaire PHQ-9 Over the last 2 weeks, how often have you been bothered by any of the following problems? 1. Little interest or pleasure in doing things: not at all 2. Feeling down, depressed, or hopeless: not at all 3. Trouble falling or staying asleep, or sleeping too much: not at all 4. Feeling tired or having little energy: not at all 5. Poor appetite or overeating: not at all 6. Feeling bad about yourself - or that you are a failure or have let yourself or your family down: not at all 7. Trouble concentrating on things, such as reading the newspaper or watching television: not at all 8. Moving or speaking so slowly that other people could have noticed. Or the opposite - being so fidgety or restless that you have been moving around a lot more than usual: not at all 9. Thoughts that you would be better off or of hurting yourself in some way: not at all Total score: 0 Depression Screening Interpretation: Negative Depression Screening Done: Yes 90078 - PHQ-9 Billing: Yes Source: Developed by Drs. Dilip French, Megan Askew, Tonio Schofield and colleagues, with an educational gracie from [employer]. Thrive Questionnaire Date Thrive assessed: 03/01/25 I am a: Patient What is your living situation today?: I have a steady place to live Within the past 12 months, did the food you bought not last and you didn't have the money to get more?: Never true Within the past 12 months, did you worry whether your food would run out before you got money to buy more?: Never true Do you have trouble paying for medicines?: No Do you have trouble getting transportation to medical appointments?: No Do you have trouble paying your heating and electricity bill?: No Do you have trouble taking care of your child, family member or friend?: No Do you have trouble with day-to-day activities such as bathing, preparing meals, shopping, managing finances, etc.?: No Are you currently unemployed and looking for a job?: No Are you interested in more education?: No THRIVE Score: 0 AUDIT C Alcohol Use Questionnaire (AUDIT-C) 1. How often do you have a drink containing alcohol?: Monthly or less 2. How many drinks containing alcohol do you have on a typical day when you are drinking?: 1 or 2 3. How often do you have six or more drinks on one occasion?: Never Total Score: 1 Score Reviewed/Action Taken: No SHANELLE-7 AMB Questionnaire SHANELLE-7 Date SHANELLE - 7 assessed: 03/01/25 Feeling nervous, anxious, or on edge: 0 = Not at all Not being able to stop or control worryin = Not at all Worrying too much about different things: 0 = Not at all Trouble relaxin = Not at all Being so restless that it is hard to sit still: 0 = Not at all Becoming easily annoyed or irritable: 0 = Not at all Feeling afraid as if something awful might happen: 0 = Not at all Total SHANELLE-7 score (0-4 normal; 5-9 mild; 10-14 moderate; 15-21 severe): 0 Source: Developed by Drs. Dilip French, Megan Askew, Tonio Schofield and colleagues, with an educational gracie from [employer]. SHANELLE-7 Assessment Billing SHANELLE-7 Assessment Tool: SHANELLE-7 Assessment 07542 Review of Systems Const Details: - Skin: Reports a persistent dark spot on lip for 5-6 months that bleeds when shaved. - Constitutional: Denies persistent fever, reports recovery from recent cold. - Genitourinary: Reports history of nephrolithiasis and a current kidney stone. Physical exam (Primary Care) Vital Signs: Last Vital Signs Temp 98.0 F 03/09/25 09:26 Pulse 68 03/09/25 09:26 Resp 14 03/09/25 09:26 BP 131/70 03/09/25 09:26 Pulse Ox 97 03/09/25 09:26 Oxygen Delivery Method Room Air 03/09/25 09:26 Care Plan Goal for BP management: <140/90 at Goal BMI result Body Mass Index 27.6 BMI Assessment/Plan discussion: High BMI High, discussed plan: lifestyle, weight reduction, dietary, physical activity and alcohol moderation Tobacco/Smoking Status: Tobacco use Status Tobacco use date assessed 03/09/25 03/09/25 09:36 Patient Tobacco Use Status Never used Tobacco 03/09/25 09:36 PHQ-9: PHQ-9 Score PHQ-9: Total score 0 03/09/25 09:36 Depression Screening Interpretation: Negative Thrive Assessment: Date of Thrive Assessment Date Thrive assessed 03/01/25 03/09/25 09:36 Const Other: Appearance: Alert. Oriented X3. No acute distress. Head: Normal external exam. Normocephalic. Atraumatic. Eyes: Pupils are equal, round, and reactive to light. Extraocular movements intact. Conjunctiva and sclera normal. Eyelids normal. Throat/Mouth/lips: Moist mucous membranes. Who left upper lip patient has skin lesion possibly consistent with impetigo. There is no advancing erythema, streaking, purulent drainage, foul odor noted at this time Neck: Normal inspection. Neck supple. Full range of motion. Cardiovascular: Normal heart rate and rhythm. Respiratory: No respiratory distress. Painless inspiration. Back: Full range of motion noted. Skin: Skin warm and dry. Normal skin color. Normal skin turgor. Presence of a dark spot on the lip, described as a skin lesion. No rashes/lesions/lacerations noted elsewhere. Extremities: Extremities exhibit normal range of motion. Neuro: Oriented X 3. No motor deficit. No sensory deficit. Reflexes normal. Coding Level of Care Code Est Pt Level 4 (28351) Complex EM visit Add On G2211 Diagnoses Skin lesion of face L98.9 Calculus of distal right ureter N20.1 Additional Codes SHANELLE-7 Assessment Billing - SHANELLE-7 Assessment Tool: SHANELLE-7 Assessment 11540 ([id number]) PHQ-9 - 91752 - PHQ-9 Billing: Yes ([id number]) Assessment & Plan Assessment & Plan (1) Skin lesion of face: Code(s): L98.9 - Disorder of the skin and subcutaneous tissue, unspecified Category: Surgical Plan: The patient has a persistent dark spot on his lip and was suggested to use a topical antibiotic, Bactroban, to counter potential skin infection risk. Referral to dermatology for further assessment is organized to evaluate the lesion's character and recommend further treatment if necessary. (2) Calculus of distal right ureter: Code(s): N20.1 - Calculus of ureter Category: Medical Plan: The patient has a current 10 mm kidney stone with a planned follow-up appointment for possible lithotripsy. He was advised to follow through with his urologist's care plan and report any changes in symptoms, such as pain or obstruction signs. Plan Plan Patient was informed and verbally consented to the use of an ambient scribe for clinic note documentation during this visit. 1. Facial Skin Lesion The patient has a persistent dark spot on his lip and was suggested to use a topical antibiotic, Bactroban, to counter potential skin infection risk. Referral to dermatology for further assessment is organized to evaluate the lesion's character and recommend further treatment if necessary. 2. Nephrolithiasis The patient has a current 10 mm kidney stone with a planned follow-up appointment for possible lithotripsy. He was advised to follow through with his urologist's care plan and report any changes in symptoms, such as pain or obstruction signs. During the consultation, I discussed the patient's facial skin lesion, advising the use of topical Bactroban to manage a potential superficial skin infection. Discussing the possible need for dermatological evaluation, I highlighted the filling separator's role in further diagnosing and treating the lesion appropriately. Given his nephrolithiasis, with the current 10-mm kidney stone, I emphasized the importance of following up with his urologist for ongoing management and potential lithotripsy to prevent obstruction or acute episodes. I encouraged the patient to remain observant of any symptom changes and seek care promptly if symptoms evolve. Orders: Referrals Dermatology Referral L98.9 - Disorder of the skin and subcutaneous tissue, unspecified Medications: New mupirocin 2% 1 appl topical QID 22 grams 3RF Patient Instructions: - Apply Bactroban (mupirocin) on the dark spot - Attend the follow-up appointment for possible lithotripsy - Await follow-up call or contact dermatology within the month regarding the dark spot - Contact healthcare provider if symptoms such as severe pain or bleeding occur - Monitor for symptom changes and report promptly if they arise - Maintain hydration as recommended by the urologist for kidney stone management.
== END 2025-03-09 09:49 | disposition home or self-care (01) ==
LOC: HO.HMCSH 09:27
PROVIDERS: PCP Internal Medicine; Visit Provider Physician Assistant Medical
DX: L98.9 Disorder of the skin and subcutaneous tissue, unspecified (principal); N20.1 Calculus of ureter

== ENCOUNTER → 2025-03-09 09:27 | Outpatient (BNVA) | payer MEDICARE, SELFPAY | PROVIDERS: PCP Internal Medicine; Visit Provider Physician Assistant Medical | DX: L98.9 Disorder of the skin and subcutaneous tissue, unspecified (principal); N20.1 Calculus of ureter | CPT/HCPCS: 96127; 99212 ==

== ENCOUNTER 2025-03-21 13:08 | Outpatient (AMB) | payer MEDICARE, SELFPAY ==
--- NOTE | 2025-03-21 13:20 | A.OFFVIS_ITS ---
Intake Visit Reasons: ESWL, follow up/US Intake Note: Patient is present for ESWL/US Urology Medication:NONE Antibiotic Allergy:CLINDAMYCIN,PENICILLINS,SULFA Blood Thinner:NONE Esthetician Facialist Required: No Allergies citalopram (CITALOPRAM) Allergy (Intermediate, Verified 03/23/25 09:06) Hives clindamycin Allergy (Intermediate, Verified 03/23/25 09:06) Hives metronidazole (METRONIDAZOLE) Allergy (Intermediate, Verified 03/23/25 09:06) Hives Penicillins Allergy (Intermediate, Verified 03/23/25 09:06) HIVES Sulfa (Sulfonamide Antibiotics) Allergy (Intermediate, Verified 03/23/25 09:06) HIVES terazosin Adverse Reaction (Intermediate, Verified 03/23/25 09:06) fainting HPI Comments Details: Julio is a pleasant male. He is a patient of Dr. Goodson. He seen for the following urologic conditions - nephrolithiasis - BPH Six week follow-up 10 mEq potassium citrate b.i.d. unable to tolerate higher dose Ultrasound bilateral small stones Persistent stone on left side despite ESWL Prior stones calcium oxalate monohydrate He would like to move ahead with intervention Prior stone composition calcium oxalate mixed 24 hour urine low volume, low citrate - oxalate calcium and sodium in good range Lower urinary tract symptoms Progressive Primarily nocturia 2-3 times Prior medications tamsulosin minimal effect Minimal benefit from combination terazosin oxybutynin GreenLight laser - 03/28 Nephrolithiasis Long history of chronic renal stone disease Has undergone multiple procedures with ESWL Does feel he may have stone currently Has previously been able to pass stones Stone composition - 01/23 uric acid with calcium oxalate, 03/25 mixed calcium oxalate 80% monohydrate Imaging - renal ultrasound 07/24 multiple renal stones, 3 on right, 2 on left. Bilateral renal cysts. Stones approximately 5 mm - 06/25 renal ultrasound bilateral renal cyst stable. Small stone? On right 2 mm - 08/26 renal ultrasound bilateral renal cysts, query small stone 3 mm right side - 11/29 renal ultrasound for minimal stone right, 7 mm stone left - 03/29 renal ultrasound bilateral small stones - fragments on left Intervention - 03/25 right ureteroscopy, laser lithotripsy and stent placement - 01/27 left renal ESWL Therapeutic plan - vitamin B6, fluids [facility] Medical History (Updated 03/23/25 @ 09:35 by Mariel Poole NP) Seasonal allergies Cough History of diverticulosis HTN (hypertension) Atherosclerotic cardiovascular disease Osteoarthritis Insomnia Gout Depression Cervical disc disease Elevated cholesterol Skin lesions Anal pain BPH (benign prostatic hyperplasia) Diverticulitis Kidney stones Surgical History (Updated 03/09/25 @ 13:11 by Rosita Zapata PA-C) History of prostate surgery Hx of rotator cuff surgery History of total right hip replacement History of arthroscopic surgery of shoulder H/O blepharoplasty History of nasal surgery Hx of cystoscopy Hx of lithotripsy H/O colonoscopy (~07/17/20) Hx of appendectomy Family History Father Heart disease Social History Household Members: Friend(s) Household Members Other:: roommate Housing: [facility] Are you a primary child care associate to a significant other at home: No Do you presently have visiting nurse or other home services: No Alcohol intake: current Alcohol intake frequency: holidays/special occasions only Patient Tobacco Use Status: Never used Tobacco service: No Current occupational status: employed Cognitive needs: No Hearing needs: No Vision needs: Yes (rx glasses) Review of Systems Const Denies chills and Denies fever(s) Card Reports no additional complaints and Denies syncope Resp Denies cough GI Denies abdominal pain and Denies heartburn Reports as per HPI and Denies change in libido Neuro Denies syncope Psych Denies change in libido Endo Denies change in libido Physical Exam Const General: cooperative, healthy appearing, comfortable and no acute distress Orientation/consciousness: patient oriented x3 HEENT Face and sinus: Yes normal facial exam Mouth: moist mucous membranes Neck Neck: Yes normal visual inspection, Yes full ROM and Yes trachea midline Chest Chest palpation & inspection: normal inspection of the chest Resp Effort & Inspection: normal respiratory effort, able to speak in complete sentences and no respiratory distress GI Inspection: Yes normal to inspection Back/Spine/Pelvis Cervical Spine: normal cervical lordosis Thoracic/Lumbar Spine: thoracic and lumbar spine normal to inspection Skin General skin exam: no rashes or lesions noted Neuro General: patient oriented x3, gait normal, tone normal and moves all extremities Extrem General: Yes normal to inspection and Yes capillary refill normal Results AMB Urinalysis, Automated UA Leukoctes 0 Fortino/uL Last Edit [facility] 03/21/25 16:11 UA Nitrite Negative Last Edit by Dot Everett [facility] on 03/21/25 16:11 UA Urobilinogen 0.2 mg/dL Last Edit by Dot Everett [facility] on 03/21/25 16:1 1 UA Protein 0 mg/dL Last Edit by Dot Everett [facility] on 03/21/25 16:11 UA pH 7.0 Last Edit by Dot Everett [facility] on 03/21/25 16:11 UA Blood 0 Edwin/uL Last Edit by Dot Everett [facility] on 03/21/25 16:11 UA Specific [place] 1.010 Last Edit by Dot Everett [facility] on 03/21/25 16: 11 UA Ketone Negative Last Edit by Dot Everett [facility] on 03/21/25 16:11 UA Bilirubin 0 mg/dL Last Edit by Dot Everett [facility] on 03/21/25 16:11 UA Glucose 0 mg/dL Last Edit by Dot Everett [facility] on 03/21/25 16:11 Results Reviewed Results Reviewed: Laboratory Last Values Urine pH (Auto) 7.0 03/21/25 16:10 Specific [place] (Auto) 1.010 03/21/25 16:10 Urine Protein (Auto) 0 mg/dL 03/21/25 16:10 Glucose (UA)(Auto) 0 mg/dL 03/21/25 16:10 Urine Ketones (Auto) Negative 03/21/25 16:10 Urine Blood (Auto) 0 Edwin/uL 03/21/25 16:10 Urine Nitrite (Auto) Negative 03/21/25 16:10 Urine Bilirubin (Auto) 0 mg/dL 03/21/25 16:10 Urine Urobilinogen (Auto) 0.2 mg/dL 03/21/25 16:10 Leukocyte Esterase (Auto) 0 Fortino/uL 03/21/25 16:10 Assessment & Plan Assessment & Plan (1) Nephrolithiasis: Code(s): N20.0 - Calculus of kidney Category: Medical Plan Ureteroscopy We discussed the nature of the decision and reasonable alternatives for performing ureteroscopy. Options such as medical therapy were discussed. Interventions include chemical dissolution, ESWL, ureteroscopy with laser lithotripsy and stent placement, PCNL. The relative uncertainties and benefits related to each alternate procedure were adequately discussed. General surgical risks including, but not limited to - pain, bleeding, infection, myocardial infarction, pulmonary embolus, deep vein thrombosis and cerebrovascular accident which may result in further hospitalization were discussed. Full disclosure of the procedure as well as all major risks, benefits and complications were discussed including but not limited to damage to the urethra, bladder and kidney infection, damage to the ureter, stent migration or malposition, scarring to the renal pelvis, remnant stone fragments, subsequent stone passage with need for secondary procedures. The overall secondary procedure rate is approximately 10-15%. The overall clearance rate is approximately 90-95%. Success of the procedure in the short-term does not necessarily guarantee that long-term success will be maintained. Suitable follow up will need to be maintained. The patient showed understanding of discussion and wishes to proceed with - cystoscopy, retrograde, ureteroscopy, possible lithotripsy/stone basketing and stent on the left side Orders: Orders AMB Urinalysis Automated 03/21/25 Z13.9 - Encounter for screening, unspecified Patient Instructions: This note is constructed using voice recognition software. While every effort has been made to ensure accuracy fruit farmer errors may have been included. Imaging studies, laboratory and physical exam results were discussed and reviewed in detail. No major barriers to patient understanding were identified. An opportunity to ask questions regarding the treatment plan was provided. All questions were answered. The patient expressed understanding and agreement with the above treatment plan. The patient is aware they should contact our office by phone for worsening of their current condition or the appearance of new urologic symptoms. Compliance is encouraged with any medications and followup testing that is ordered. It is a privilege to participate in the urologic care of your patient. If you have any questions or concerns regarding treatment for the above conditions, or other urologic issues, please do not hesitate to contact me. The office telephone contact is [phone]. Sincerely, Dr Isreal Erazo MD, [facility] - Urology Compassionate Specialist Care for the Genitourinary System Coding Level of Care Code Est Pt Level 4 (10745) Diagnoses Nephrolithiasis N20.0
== END 2025-03-21 14:11 | disposition home or self-care (01) ==
PROVIDERS: PCP Internal Medicine; Visit Provider Urology
DX: Z13.9 Encounter for screening, unspecified (principal)

== ENCOUNTER → 2025-03-21 13:08 | Outpatient (BNVA) | payer MEDICARE, SELFPAY | PROVIDERS: PCP Internal Medicine; Visit Provider Urology | DX: N20.0 Calculus of kidney (principal) | CPT/HCPCS: 81003; 99212 ==

== ENCOUNTER 2025-03-23 08:57 | Outpatient (REF) | payer MEDICARE, SELFPAY ==
--- NOTE | ~2025-03-23 | XR_ITS ---
EXAMINATION: XR CHEST CLINICAL INFORMATION: R05.1 - Acute cough COMPARISON: 05/31/2024 TECHNIQUE: 2 views of the chest were obtained. FINDINGS: The cardiac, hilar, and mediastinal contours are normal. Lungs demonstrate hyperaeration and linear atelectasis or scarring in both bases. The lungs are otherwise clear. There is no pneumothorax or pleural effusion. There is no focal osseous or soft tissue abnormality. There are surgical anchors in the right humeral head. There are degenerative spinal changes. XR/XR chest 2V IMPRESSION: No active pulmonary disease. Electronically signed by: George Tobin MD 03/23/2025 09:46 AM EDT
== END 2025-03-23 08:58 | disposition home or self-care (01) ==
LOC: HO.HMGCX 08:57
PROVIDERS: PCP Internal Medicine; Visit Provider Nurse Practitioner Family
DX: R05.1 Acute cough (principal); J30.2 Other seasonal allergic rhinitis
CPT/HCPCS: 71046; 99212

== ENCOUNTER 2025-03-23 08:57 | Outpatient (AMB) | payer MEDICARE, SELFPAY ==
[2025-03-23 09:01] VITALS: BP 114/84; PULSE 74; TEMP 36.4; O2SAT 96; BMI 27.5
--- NOTE | 2025-03-23 09:01 | MHC.OFFWIV ---
Intake Vital Signs 03/23/25 09:01 Height 5 ft 9 in Weight 186 lb 4 oz BMI 27.5 BP 114/84 Blood Pressure Location Lt brachial Position Sitting Pulse 74 Temp 97.6 F Temp Source Oral Pulse Oximetry (%) 96 Oxygen Delivery Method Room Air Intake Visit Reasons: EP-cough Intake Note: Patient with cough times 5 months off and on. Non productive. Patient Tobacco Use Status: Never used Tobacco Allergies citalopram (CITALOPRAM) Allergy (Intermediate, Verified 03/23/25 09:06) Hives clindamycin Allergy (Intermediate, Verified 03/23/25 09:06) Hives metronidazole (METRONIDAZOLE) Allergy (Intermediate, Verified 03/23/25 09:06) Hives Penicillins Allergy (Intermediate, Verified 03/23/25 09:06) HIVES Sulfa (Sulfonamide Antibiotics) Allergy (Intermediate, Verified 03/23/25 09:06) HIVES terazosin Adverse Reaction (Intermediate, Verified 03/23/25 09:06) fainting Medication List - Last Reconciled 03/23/25 by Mariel Poole NP lorazepam 1 mg PO BEDTIME PRN mupirocin 2% 1 appl topical QID Do you need a note to return to daycare/school/sports/work: No HPI HPI Comments History of Present Illness Details 69 y/o Male patient who presents to the walk in clinic with c/o non-productive cough on/off for 5 months. Pt had a Tele-health appointment with PCP back in February 2025 for similar concerns; he was prescribed Z-pack for 5 days. Reports that symptoms resolved then. He does have h/o Seasonal allergies but currently not taking any medications for it. [facility] Medical History (Updated 03/23/25 @ 09:35 by Mariel Poole NP) Seasonal allergies Cough History of diverticulosis HTN (hypertension) Atherosclerotic cardiovascular disease Osteoarthritis Insomnia Gout Depression Cervical disc disease Elevated cholesterol Skin lesions Anal pain BPH (benign prostatic hyperplasia) Diverticulitis Kidney stones Surgical History (Updated 03/09/25 @ 13:11 by Rosita Zapata PA-C) History of prostate surgery Hx of rotator cuff surgery History of total right hip replacement History of arthroscopic surgery of shoulder H/O blepharoplasty History of nasal surgery Hx of cystoscopy Hx of lithotripsy H/O colonoscopy (~07/17/20) Hx of appendectomy Family History Father Heart disease Social History Household Members: Friend(s) Household Members Other:: roommate [facility] Are you a primary critical care nurse practitioner to a significant other at home: No Do you presently have visiting nurse or other home services: No Alcohol intake: current Alcohol intake frequency: holidays/special occasions only Patient Tobacco Use Status: Never used Tobacco service: No Current occupational status: employed Cognitive needs: No Hearing needs: No Vision needs: Yes (rx glasses) Review of Systems Const All systems reviewed & are unremarkable except as noted in HPI and below Physical Exam Vital Signs: Last Vital Signs Temp 97.6 F 03/23/25 09:01 Pulse 74 03/23/25 09:01 BP 114/84 03/23/25 09:01 Pulse Ox 96 03/23/25 09:01 Oxygen Delivery Method Room Air 03/23/25 09:01 BMI result Body Mass Index 27.5 Const General: comfortable and no acute distress Nutritional Appearance: well nourished Orientation/consciousness: patient oriented x3 HEENT Head: Yes normocephalic Ears: external ears normal and TM abnormal bulging and with fluid behind the TM bilateral General nose exam: No nasal discharge present and Abnormal mucous membranes and turbinates present boggy and erythematous Face and sinus: Yes sinuses nontender Mouth: moist mucous membranes Throat: Yes uvula midline, Yes abnormal tonsil (Enlarged Tonsils +2) and Yes postnasal drainage Resp Effort & Inspection: normal respiratory effort, able to speak in complete sentences, no audible wheezes and no cough Auscultation: clear to auscultation bilaterally, no crackles, no rales, no rhonchi and no wheezes Cardio Heart sounds: S1 normal heart sound present and S2 normal heart sound present Neuro General: patient oriented x3 Assessment & Plan Assessment & Plan (1) Cough: Code(s): R05.9 - Cough, unspecified Qualifiers: Cough type: acute Qualified Code(s): R05.1 - Acute cough Plan: Ordered Xray of Chest. Possibly Allergies; cough from Postnasal drip Ordered Prednisone for few days - due to enlarged tonsils Ordered Allergy medications. (2) Seasonal allergies: Code(s): J30.2 - Other seasonal allergic rhinitis Plan: Ordered Xray of Chest. Possibly Allergies; cough from Postnasal drip Ordered Prednisone for few days - due to enlarged tonsils Ordered Allergy medications. Orders: Orders XR chest 2V Today R05.1 - Acute cough Medications: New prednisone 20 mg PO DAILY 7 tabs 0RF J30.2 - Other seasonal allergic rhinitis, R05.1 - Acute cough cetirizine (Zyrtec) 10 mg PO DAILY 30 tabs 0RF J30.2 - Other seasonal allergic rhinitis Discontinued oxycodone Partial Fill upon patient request. Discontinued Reason: Patient Completed Course 5 mg PO Q8H 3 days PRN 8 tabs 0RF pain Coding Level of Care Code Est Pt Level 4 (23876) Diagnoses Acute cough R05.1 Cough type: acute Seasonal allergies J30.2 Time Spent (min) 20
--- OUTSIDE RECORDS SUMMARY | 2025-03-23 09:30 | XMS_ITS | Clinical Summary ---
Author Organization [facility] Address [address] [id number] Care Team Providers Care Manager Cosmetic Name Role Phone PcpTiesha MD Primary Care [...] Vaccines (1 of 2) 2006 COVID-19 Vaccine ( - 2023-2 5 season) 2024 Influenza Vaccine (Season Ended) 2025 HPV Vaccines Aged Out No longer eligi ble based on patient's age to complete this topic Hepatitis A Vaccines Aged Out No long er eligible based on patient's age to complete this topic Meningococcal Vaccine Aged Out No belén татьяна eligible based on patient's age to complete this topic Care Teams Manager Cosmetic Relationship Specialty Start Date End Date Tiesha Caldwell MD [address] [place] [address] PCP - General Internal Medicine 12/14/18
== END 2025-03-23 09:28 | disposition home or self-care (01) ==
PROVIDERS: PCP Internal Medicine; Visit Provider Nurse Practitioner Family
DX: R05.1 Acute cough (principal); J30.2 Other seasonal allergic rhinitis

== ENCOUNTER → 2025-03-23 09:30 | Outpatient (BNV) | payer MEDICARE, SELFPAY | PROVIDERS: PCP Internal Medicine; Visit Provider Radiology Diagnostic Radiology | DX: R05.1 Acute cough (principal) | CPT/HCPCS: 71046 ==

== ENCOUNTER 2025-04-17 09:51 | Day surgery (SDC) | payer MEDICARE, SELFPAY ==
--- OUTSIDE RECORDS SUMMARY | 2025-04-11 12:37 | XMS_ITS | Clinical Summary ---
Author Organization [facility] Address [address] [phone] Care Team Providers Care Cloth Folder Machine Name Role Phone PcpTiesha MD Primary Care [...] 2023-2 5 season) 2024 Influenza Vaccine (#1) 2025 HPV Vaccines Aged Out No longer eligi ble based on patient's age to complete this topic Hepatitis A Vaccines Aged Out No long er eligible based on patient's age to complete this topic Meningococcal Vaccine Aged Out No beéln татьяна eligible based on patient's age to complete this topic Care Teams Cloth Folder Machine Relationship Specialty Start Date End Date Tiesha Caldwell MD [address] [phone] PCP - General Internal Medicine 12/14/18
--- OUTSIDE RECORDS SUMMARY | 2025-04-11 12:37 | XMS_ITS | Clinical Summary ---
Author Organization [facility] Address [address] [place] [address] Care Team Providers Care Corn Miller Name Role Phone Unavailable Primary Care Provider Unavailabl e Social History Tobacco Use Types Packs/Day Years Used Date Smoking Tobacco: Never Assessed Sex and Gender Information Value Date Recorded Sex Assigned at Not on file Gender Identity Not on file Sexual Orientation Not on file Plan of Treatment Not on file
--- OUTSIDE RECORDS SUMMARY | 2025-04-11 12:38 | XMS_ITS ---
Author Name [facility] Organization Unknown Problems Problem Status Onset Date Problem Type Date of Resoluti on Source Diverticulitis active EncounterDiagnosisAct CTUCHS
--- NOTE | 2025-04-14 11:01 | P.CONAN_ITS ---
Documented by User: Xiomara Begum NP 04/14/25 11:05 HPI - Anesthesia Eval Consult details Narrative: 69yo M for Left Cystoscopy, Ureteroroscopy, Retro, Laser s/p ESWL 12/2024 with [facility] Active Problems Active Problems: All Active Problems Seasonal allergies (Acute) Cough (Acute) History of diverticulosis (Acute) Upper respiratory infection (Acute) Oropharyngeal candidiasis (Acute) Calculus of distal right ureter (Acute) Pleural effusion (Acute) Skin lesion of face (Acute) Benign skin lesion of forehead (Acute) Scalp cyst (Acute) Family history of coronary artery disease (Acute) Essential hypertension (Acute) Bladder trabeculation (Acute) Enlarged prostate (Acute) Incomplete bladder emptying (Acute) History of total right hip replacement (Acute) Cerumen impaction (Acute) Rash (Acute) Thoracic back pain (Acute) Cervical spondylosis (Acute) Muscle spasms of neck (Acute) Skin lesion of cheek (Acute) Osteoarthritis of right hip (Acute) Status post right rotator cuff repair (Acute) History of arthroscopy of right shoulder (Acute) Rotator cuff tear, right (Acute) Shoulder weakness (Acute) Urinary urgency (Acute) Nocturia (Acute) BPH w urinary obs/LUTS (Acute) Nephrolithiasis (Acute) Atherosclerotic cardiovascular disease (Acute) Skin lesions (Acute) Anal pain (Acute) Past Medical History Medical History (Updated 03/23/25 @ 09:35 by Mariel Poole NP) Seasonal allergies Cough History of diverticulosis HTN (hypertension) Atherosclerotic cardiovascular disease Osteoarthritis Insomnia Gout Depression Cervical disc disease Elevated cholesterol Skin lesions Anal pain BPH (benign prostatic hyperplasia) Diverticulitis Kidney stones Family History Family History Father Heart disease Family history of problems with anesthesia: No Surgical History Surgical History (Updated 03/09/25 @ 13:11 by Rosita Zapata PA-C) History of prostate surgery Hx of rotator cuff surgery History of total right hip replacement History of arthroscopic surgery of shoulder H/O blepharoplasty History of nasal surgery Hx of cystoscopy Hx of lithotripsy H/O colonoscopy (~07/17/20) Hx of appendectomy History of Problems with Anesthesia: No Social History Social History Household Members: Friend(s) Household Members Other:: roommate Housing: Condominium Are you a primary restorative care technician to a significant other at home: No Do you presently have visiting nurse or other home services: No Alcohol intake: current Alcohol intake frequency: does not drink Patient Tobacco Use Status: Never used Tobacco Have you been hit, kicked, punched, or otherwise hurt by someone within the past year? If so, by whom?: No Are you DNR?: No Advance Directives: No Advance Directives Information Provided: Yes service: No Current occupational status: employed Cognitive needs: No Hearing needs: No Vision needs: Yes (rx glasses) Meds Allergies Allergy/AdvReac Type Severity Reaction Status Date / Time citalopram (CITALOPRAM) Allergy Intermediate Hives Verified 03/23/25 09:06 clindamycin Allergy Intermediate Hives Verified 03/23/25 09:06 metronidazole (METRONIDAZOLE) Allergy Intermediate Hives Verified 03/23/25 09:06 Penicillins Allergy Intermediate HIVES Verified 03/23/25 09:06 Sulfa (Sulfonamide Allergy Intermediate HIVES Verified 03/23/25 09:06 Antibiotics) terazosin AdvReac Intermediate fainting Verified 03/23/25 09:06 Exam Narrative Narrative: ECHO 2023 Conclusions: - 1. Normal LV ejection fraction 55-60% with grade 1 diastolic dysfunction 2. Normal cardiac valvular Doppler 3. No gross pericardial effusion Assessment and Plan Assessment Anesthesia Assessment: Chart Reviewed Final Anesthetic Review Family History of Problems with Anesthesia: No History of Problems with Anesthesia: No Documented by User: Dilshad Moore MD 04/17/25 10:41 [facility] Past Medical History Medical History (Updated 03/23/25 @ 09:35 by Mariel Poole NP) Seasonal allergies Cough History of diverticulosis HTN (hypertension) Atherosclerotic cardiovascular disease Osteoarthritis Insomnia Gout Depression Cervical disc disease Elevated cholesterol Skin lesions Anal pain BPH (benign prostatic hyperplasia) Diverticulitis Kidney stones Family History Family History Father Heart disease Surgical History Surgical History (Updated 03/09/25 @ 13:11 by Rosita Zapata PA-C) History of prostate surgery Hx of rotator cuff surgery History of total right hip replacement History of arthroscopic surgery of shoulder H/O blepharoplasty History of nasal surgery Hx of cystoscopy Hx of lithotripsy H/O colonoscopy (~07/17/20) Hx of appendectomy Social History Social History Household Members: Friend(s) Household Members Other:: roommate Housing: Condominium Are you a primary restorative care technician to a significant other at home: No Do you presently have visiting nurse or other home services: No Alcohol intake: current Alcohol intake frequency: does not drink Patient Tobacco Use Status: Never used Tobacco Have you been hit, kicked, punched, or otherwise hurt by someone within the past year? If so, by whom?: No Are you DNR?: No Advance Directives: No Advance Directives Information Provided: Yes service: No Current occupational status: employed Cognitive needs: No Hearing needs: No Vision needs: Yes (rx glasses) Meds Allergies Allergy/AdvReac Type Severity Reaction Status Date / Time citalopram (CITALOPRAM) Allergy Intermediate Hives Verified 03/23/25 09:06 clindamycin Allergy Intermediate Hives Verified 03/23/25 09:06 metronidazole (METRONIDAZOLE) Allergy Intermediate Hives Verified 03/23/25 09:06 Penicillins Allergy Intermediate HIVES Verified 03/23/25 09:06 Sulfa (Sulfonamide Allergy Intermediate HIVES Verified 03/23/25 09:06 Antibiotics) terazosin AdvReac Intermediate fainting Verified 03/23/25 09:06 Exam Exam Date and Time: 12/21/24 1033 Height,Weight and Vital Signs: Height 5 ft 9 in Weight 84.822 kg Vital Signs Temperature 97.4 F 12/21/24 09:43 Pulse Rate 67 12/21/24 09:43 Respiratory Rate 14 12/21/24 09:43 Blood Pressure 138/86 12/21/24 09:43 Pulse Oximetry 96 12/21/24 09:43 Oxygen Delivery Method Room Air 12/21/24 09:43 Temperature 97.4 F 12/21/24 09:43 Pulse Rate 67 12/21/24 09:43 Respiratory Rate 14 12/21/24 09:43 Blood Pressure 138/86 12/21/24 09:43 Pulse Oximetry 96 12/21/24 09:43 Oxygen Delivery Method Room Air 12/21/24 09:43 Pertinent Lab Results Pertinent Lab Results: Laboratory Tests 09/10/24 09/12/24 20:04 04:35 WBC 9.5 Hgb 15.5 Hct 45.8 Plt Count 183 Sodium 139 Potassium 4.5 Chloride 105 Carbon Dioxide 26 BUN 31 H Creatinine 2.13 H Airway Mallampati Class: II TM Dist: >3cm Neck ROM: Full Denture: Upper Heart: S1S2 Lungs: CTAB Assessment and Plan Final Anesthetic Review NPO: Yes Final Preanesthetic Review: No Changes in Pt Med Stat, Meds/Allgs Chart Reviewed, Consent Obtained/Reviewed and Anes Risks/Benef Reviewed Patient Risk: Intermediate Procedure Risk: Low Anesthetic Plan Anesthetic Plan: GA and Agree w/ Assess. and Plan Disposition: Standard PACU
--- NOTE | ~2025-04-17 | FL_ITS ---
EXAMINATION: FL GUIDANCE ONLY HISTORY: stone left COMPARISON: Relation is made with a renal ultrasound dated 02/01/2025. TECHNIQUE: Fluoroscopy time: 18.1 seconds. Cumulative Dose: 5.4 mGy. Images: 3. FINDINGS: The initial image demonstrate opacification of the mid to distal left ureter, which is grossly unremarkable. Evaluation is limited by patient motion. The 2nd image demonstrates a small amount of contrast is seen in the left intrarenal collecting system. There are filling defects in lower pole calyces consistent with the calculi noted on ultrasound. The final film demonstrates the proximal portion of a nephroureteral stent in place. FL/FL guidance in OR IMPRESSION: Fluoroscopy during procedure. Please see procedure report for additional information. Electronically signed by: Dilip Bourgeois MD 04/17/2025 01:11 PM EDT
[2025-04-17 06:30] VITALS: BMI 27.5
[2025-04-17 10:02] VITALS: BP 138/84; PULSE 74; RESP 20; TEMP 36.4; O2SAT 98
[2025-04-17] MEDS: Lactated Ringers 1,000 ML 100 ML IVCONT (10:11)
--- NOTE | 2025-04-17 11:14 | MHC.SHP ---
Pre-Procedural Eval Section A - 24 Hr Update-Section A only Date of Service: 04/17/25 The patient is an INPATIENT: No Changes since office visit: No Cold of Flu in the past 2 weeks, No New Medical Problems, No Changes in Medication and No Patient answered all questions The patient has been examined within 24 hours of the surgical procedure. The History & Physical has been completed within 30 days and I have reviewed it.: Yes Section B - Complete if H&P > 30 days Chief Complaint: Calculus of kidney Allergies: Allergies Allergy/AdvReac Type Severity Reaction Status Date / Time citalopram (CITALOPRAM) Allergy Intermediate Hives Verified 03/23/25 09:06 clindamycin Allergy Intermediate Hives Verified 03/23/25 09:06 metronidazole (METRONIDAZOLE) Allergy Intermediate Hives Verified 03/23/25 09:06 Penicillins Allergy Intermediate HIVES Verified 03/23/25 09:06 Sulfa (Sulfonamide Allergy Intermediate HIVES Verified 03/23/25 09:06 Antibiotics) terazosin AdvReac Intermediate fainting Verified 03/23/25 09:06 Plan Diagnosis/Plan: Unchanged (cystoscopy, retrorgade, ureteroscopy, laser, stent) I have reviewed the history and physical and performed a pertinent physical examination on my patient. No changes have occurred unless specified. Time Spent With Patient Time: Total time managing care of this patient today ____ minutes.
[2025-04-17 12:39] VITALS: BP 153/89; PULSE 66; RESP 18; TEMP 36.1; O2SAT 95
[2025-04-17 12:44] VITALS: BP 138/82; PULSE 67; RESP 15; O2SAT 94
[2025-04-17 12:49] VITALS: BP 139/81; PULSE 71; RESP 13; O2SAT 97
[2025-04-17 12:54] VITALS: BP 156/84; PULSE 69; RESP 11; O2SAT 97
[2025-04-17 13:01] VITALS: BP 148/80; PULSE 67; RESP 13; TEMP 36.2; O2SAT 97
--- NOTE | 2025-05-03 13:34 | P.OP_ITS ---
Operative Note Operative Note Date of Service: 04/17/25 Narrative: PreOperative Diagnosis: Left renal stone Post Operative Diagnosis: Left renal stone Procedure: - cystoscopy, left retrograde - left dilatation of ureteric orifice under fluoroscopy - left ureteroscopy, laser lithotripsy, stone basketing Surgeon: Dr Isreal Erazo Anesthesia: General Indications for procedure: Left stone. Prior ESWL. Minimal change on imaging. Persistent discomfort left side Procedure: After informed consent was verified patient was brought to the operating placed in supine position. Anesthesia was administered per protocol. Patient was placed in modified dorsal lithotomy position and prepped and draped in a sterile fashion. Safety pause time-out and side of surgery confirmed. Antibiotics confirmed. A 22 [place] cystoscope was inserted per urethra. The urethra and bladder were normal in their entirety. Both ureteric orifices were in normal position. The left ureteric orifice was cannulated and a retrograde examination was performed. Filling defects seen in left ureter. A Sensor guidewire was placed up to the level of the renal pelvis under fluoroscopy. The rigid cystoscope was removed and the inner cannula of ureteric access sheath was used under fluoroscopy to dilate the ureteric orifice. The ureteric access sheath was placed and the inner cannula with access wire removed. The digital flexible ureteral scope was placed. Small stone encountered in the mid pole. Using 270 micron laser fiber with hol mium laser stone was broken into small pieces. Using a ZeroTip basket small fragments were removed and sent for analysis. Due to prior non tolerance of a stent. A decision was made not to place a stent. At the completion of the stone procedure the scope with sheath were slowly withdrawn back into the bladder. The bladder was emptied. The patient tolerated the procedure well and was extubated in the operating room, and transferred in stable condition to the recovery area. Pathology: Stones Drains: None
== END 2025-04-17 13:19 | disposition home or self-care (01) ==
PROVIDERS: PCP Internal Medicine; Visit Provider Urology
PROC: (CPT 52356; principal; 2025-04-17 11:20)
DX: N20.0 Calculus of kidney (principal); Z87.442 Personal history of urinary calculi; I10 Essential (primary) hypertension; E78.00 Pure hypercholesterolemia, unspecified; I25.10 Atherosclerotic heart disease of native coronary artery without angina pectoris; M10.9 Gout, unspecified; J30.2 Other seasonal allergic rhinitis; Z88.0 Allergy status to penicillin; Z88.1 Allergy status to other antibiotic agents; Z88.2 Allergy status to sulfonamides; Z88.8 Allergy status to other drugs, medicaments and biological substances; Z96.641 Presence of right artificial hip joint; Z98.890 Other specified postprocedural states
CPT/HCPCS: 52356; 82365; 88300; C1758; C1769; J1100; J1885; J1956; J2003; J2250; J2704; J3010; Q9967

== ENCOUNTER → 2025-04-17 09:51 | Outpatient (BNV) | payer MEDICARE, SELFPAY | PROVIDERS: PCP Internal Medicine; Visit Provider Urology | DX: N20.0 Calculus of kidney (principal) | CPT/HCPCS: 52353; 74420 ==

== ENCOUNTER 2025-05-08 13:03 | Outpatient (AMB) | payer MEDICARE, SELFPAY ==
[2025-05-08 13:07] VITALS: BP 147/89; PULSE 72; RESP 16; TEMP 36.7; O2SAT 96; BMI 28.5
--- NOTE | 2025-05-08 13:07 | A.OFFPC_ITS ---
Vital Signs 05/08/25 13:07 05/08/25 14:01 Height 5 ft 9 in Weight 193 lb BMI 28.5 BP 147/89 H 135/79 Respiration 16 Pulse 72 Pulse Source Pulse Oximeter Temp 98.0 F Temp Source Temporal Artery Scan Pulse Oximetry (%) 96 Oxygen Delivery Method Room Air Intake Visit Reasons: follow up Lead Inspector Required: No Accompanied by: Self / Same As Patient Allergies citalopram (CITALOPRAM) Allergy (Intermediate, Verified 05/08/25 14:45) Hives clindamycin Allergy (Intermediate, Verified 05/08/25 14:45) Hives metronidazole (METRONIDAZOLE) Allergy (Intermediate, Verified 05/08/25 14:45) Hives Penicillins Allergy (Intermediate, Verified 05/08/25 14:45) HIVES Sulfa (Sulfonamide Antibiotics) Allergy (Intermediate, Verified 05/08/25 14:45) HIVES terazosin Adverse Reaction (Intermediate, Verified 05/08/25 14:45) fainting Medication List - Last Reconciled 05/08/25 by Rosita Zapata PA-C azithromycin For 250 mg dose pack: take 500 mg today (day 1), then 250 mg for 4 days (days 2-5) PO cetirizine (Zyrtec) 10 mg PO DAILY hydrocodone-acetaminophen 5-325 mg 1 tab PO Q4H PRN 7 days lorazepam 1 mg PO BEDTIME PRN Tobacco use date assessed: 05/08/25 Dental Screening Dental Screen Date: 03/09/25 HPI follow up HPI Details The patient is a 69-year-old male presenting for a follow-up visit for hypertension and kidney stones management. The patient reports a history of hypertension, previously managed with medication, but experienced adverse effects leading to discontinuation. He experienced syncope after taking terazosin, which resulted in an ambulance call. The patient has a history of recurrent kidney stones, with the most recent being a 10 mm stone requiring cystoscopy and lithotripsy. He describes episodes of severe pain associated with stone passage and has had multiple interventions in the past. The patient reports skin lesions and has been referred to dermatology for further evaluation. He has not yet scheduled an appointment but plans to follow up with the dermatology office. The patient reported he was having body aches although I gave him a prescription of azithromycin a few months ago and it alleviated all his body aches and he has not had them since. He is wondering what he could have had that was treated with the azithromycin that was causing the body aches. We were questioning Lyme disease and he would like to be tested for Lyme. He reports he does feel like he is having the body aches again and having a little bit of a cough therefore he would like the Z-Gonzalez and a chest x-ray which was ordered today. Along with the Lyme titer The patient has a history of pleural effusion, previously treated with antibiotics, and reports occasional respiratory discomfort. He denies current respiratory symptoms but is concerned about recurrence. Hence why the chest x- ray was ordered today. The patient mentions hearing concerns, suspecting earwax buildup, but denies significant hearing loss. Social History - Exercise: Previously engaged in a [employer] career, currently not specified. - Weight management: Expresses concern a bout weight gain and attempts to manage it through dietary changes. - Substance use: Uses lorazepam for slee p, avoids alcohol due to adverse effects. FOR[facility]LY [facility], [facility] Medical History (Updated 05/08/25 @ 14:52 by Rosita Zapata PA-C) Body aches Seasonal allergies Cough History of diverticulosis HTN (hypertension) Atherosclerotic cardiovascular disease Osteoarthritis Insomnia Gout Depression Cervical disc disease Elevated cholesterol Skin lesions Anal pain BPH (benign prostatic hyperplasia) Diverticulitis Kidney stones Surgical History History of prostate surgery Hx of rotator cuff surgery History of total right hip replacement History of arthroscopic surgery of shoulder H/O blepharoplasty History of nasal surgery Hx of cystoscopy Hx of lithotripsy H/O colonoscopy (~07/17/20) Hx of appendectomy Family History Father Heart disease Social History Household Members: Friend(s) Household Members Other:: roommate Housing: Condominium Are you a primary career center director to a significant other at home: No Do you presently have visiting nurse or other home services: No Alcohol intake: current Alcohol intake frequency: does not drink Patient Tobacco Use Status: Never used Tobacco service: No Current occupational status: employed Cognitive needs: No Hearing needs: No Vision needs: Yes (rx glasses) Questionnaire PHQ-9 Over the last 2 weeks, how often have you been bothered by any of the following problems? 1. Little interest or pleasure in doing things: not at all 2. Feeling down, depressed, or hopeless: not at all 3. Trouble falling or staying asleep, or sleeping too much: not at all 4. Feeling tired or having little energy: not at all 5. Poor appetite or overeating: not at all 6. Feeling bad about yourself - or that you are a failure or have let yourself or your family down: not at all 7. Trouble concentrating on things, such as reading the newspaper or watching television: not at all 8. Moving or speaking so slowly that other people could have noticed. Or the opposite - being so fidgety or restless that you have been moving around a lot more than usual: not at all 9. Thoughts that you would be better off or of hurting yourself in some way: not at all Total score: 0 Depression Screening Interpretation: Negative Depression Screening Done: Yes 60897 - PHQ-9 Billing: Yes Source: Developed by Drs. Dilip French, Megan Askew, Tonio Schofield and colleagues, with an educational gracie from [employer]. Thrive Questionnaire Date Thrive assessed: 03/09/25 I am a: Patient What is your living situation today?: I have a steady place to live Within the past 12 months, did the food you bought not last and you didn't have the money to get more?: Never true Within the past 12 months, did you worry whether your food would run out before you got money to buy more?: Never true Do you have trouble paying for medicines?: No Do you have trouble getting transportation to medical appointments?: No Do you have trouble paying your heating and electricity bill?: No Do you have trouble taking care of your child, family member or friend?: No Do you have trouble with day-to-day activities such as bathing, preparing meals, shopping, managing finances, etc.?: No Are you currently unemployed and looking for a job?: No Are you interested in more education?: No THRIVE Score: 0 AUDIT C Alcohol Use Questionnaire (AUDIT-C) 1. How often do you have a drink containing alcohol?: Monthly or less 2. How many drinks containing alcohol do you have on a typical day when you are drinking?: 1 or 2 3. How often do you have six or more drinks on one occasion?: Never Total Score: 1 Score Reviewed/Action Taken: No SHANELLE-7 AMB Questionnaire SHANELLE-7 Date SHANELLE - 7 assessed: 03/09/25 Feeling nervous, anxious, or on edge: 0 = Not at all Not being able to stop or control worryin = Not at all Worrying too much about different things: 0 = Not at all Trouble relaxin = Not at all Being so restless that it is hard to sit still: 0 = Not at all Becoming easily annoyed or irritable: 0 = Not at all Feeling afraid as if something awful might happen: 0 = Not at all Total SHANELLE-7 score (0-4 normal; 5-9 mild; 10-14 moderate; 15-21 severe): 0 Source: Developed by Drs. Dilip French, Megan Askew, Tonio Schofield and colleagues, with an educational gracie from [employer]. SHANELLE-7 Assessment Billing SHANELLE-7 Assessment Tool: SHANELLE-7 Assessment 86722 Review of Systems Const Details: - Cardiovascular: Denies chest pain or palpitations. - Respiratory: Reports occasional respiratory discomfort, denies current dyspnea or wheezing. - Dermatological: Reports skin lesions. - Musculoskeletal: Reports persistent body aches. - Neurological: Denies significant hearing loss, reports concern about earwax buildup. All systems reviewed & are unremarkable except as noted in HPI and below Physical exam (Primary Care) Vital Signs: Last Vital Signs Temp 98.0 F 05/08/25 13:07 Pulse 72 05/08/25 13:07 Resp 16 05/08/25 13:07 BP 147/89 H 05/08/25 13:07 Pulse Ox 96 05/08/25 13:07 Oxygen Delivery Method Room Air 05/08/25 13:07 Care Plan Goal for BP management: <140/90 at Goal BMI result Body Mass Index 28.5 BMI Assessment/Plan discussion: High BMI High, discussed plan: lifestyle, weight reduction, dietary, physical activity and alcohol moderation Tobacco/Smoking Status: Tobacco use Status Tobacco use date assessed 05/08/25 05/08/25 13:15 Patient Tobacco Use Status Never used Tobacco 08/04/25 13:15 PHQ-9: PHQ-9 Score PHQ-9: Total score 0 05/08/25 13:15 Depression Screening Interpretation: Negative Thrive Assessment: Date of Thrive Assessment Date Thrive assessed 03/09/25 05/08/25 13:15 Const Other: Appearance: Alert. Oriented X3. No acute distress. Head: Normal external exam. Normocephalic. Atraumatic. Eyes: Pupils are equal, round, and reactive to light. Extraocular movements intact. Conjunctiva and sclera normal. Eyelids normal. Ears: External auditory canal normal. Tympanic membranes normal. No wax in the ears. Throat: Pharynx normal. Uvula midline. Moist mucous membranes. Neck: Normal inspection. Neck supple. Full range of motion.No meningeal signs. Cardiovascular: Normal heart rate and rhythm. Heart sound normal. No murmurs noted. Pulses normal throughout. Respiratory: No respiratory distress. Painless inspiration. Breath sounds normal. No wheezes/rales/rhonchi noted. Chest nontender. No accessory muscle usage noted or decreased air movement noted. Back: Full range of motion noted. Occasional pain in the back, possibly related to kidney stones. Skin: Skin warm and dry. Normal skin color. Normal skin turgor. Skin lesions noted; patient referred to dermatology. No signs of infection. Extremities: Extremities exhibit normal range of motion. Neuro: Oriented X 3. No motor deficit. No sensory deficit. Reflexes normal. Coding Level of Care Code Est Pt Level 4 (26397) Complex EM visit Add On G2211 Diagnoses Essential hypertension I10 Nephrolithiasis N20.0 Skin lesions L98.9 Body aches R52 Pleural effusion J90 Additional Codes SHANELLE-7 Assessment Billing - SHANELLE-7 Assessment Tool: SHANELLE-7 Assessment 92388 ([id number]) PHQ-9 - 46998 - PHQ-9 Billing: Yes ([id number]) Time Spent (min) 45 Assessment & Plan Assessment & Plan (1) Essential hypertension: Code(s): I10 - Essential (primary) hypertension Category: Medical Plan: The patient is not currently on antihypertensive medication due to previous adverse reactions, including syncope with terazosin. Blood pressure monitoring is recommended, and alternative medications may be considered if hypertension persists. (2) Nephrolithiasis: Code(s): N20.0 - Calculus of kidney Category: Medical Plan: The patient has a history of recurrent kidney stones, with the most recent stone being 10 mm, requiring cystoscopy and lithotripsy. Pain management and monitoring for stone passage are advised. (3) Skin lesions: Code(s): L98.9 - Disorder of the skin and subcutaneous tissue, unspecified Category: Medical Plan: The patient has been referred to dermatology for evaluation of skin lesions. Follow-up with dermatology is pending, and the patient is advised to schedule an appointment. (4) Body aches: Code(s): R52 - Pain, unspecified Category: Medical Plan: The patient reports persistent body aches and is concerned about Lyme disease. A Lyme disease test has been ordered to rule out infection. (5) Pleural effusion: Code(s): J90 - Pleural effusion, not elsewhere classified Category: Medical Plan: The patient has a history of pleural effusion, previously treated with antibiotics. A repeat chest X-ray is recommended to ensure resolution and monitor for recurrence. Plan Plan Patient was informed and verbally consented to the use of an ambient scribe for clinic note documentation during this visit. 1. Hypertension The patient is not currently on antihypertensive medication due to previous adverse reactions, including syncope with terazosin. Blood pressure monitoring is recommended, and alternative medications may be considered if hypertension persists. 2. Kidney Stones The patient has a history of recurrent kidney stones, with the most recent stone being 10 mm, requiring cystoscopy and lithotripsy. Pain management and monitoring for stone passage are advised. 3. Skin Lesions The patient has been referred to dermatology for evaluation of skin lesions. Follow-up with dermatology is pending, and the patient is advised to schedule an appointment. 4. Possible Lyme Disease The patient reports persistent body aches and is concerned about Lyme disease. A Lyme disease test has been ordered to rule out infection. 5. Pleural Effusion The patient has a history of pleural effusion, previously treated with antibiotics. A repeat chest X-ray is recommended to ensure resolution and monitor for recurrence. 6. Hearing Concerns The patient reports concerns about earwax buildup but denies significant hearing loss. Referral to an field representative/health education may be considered if symptoms persist. During the visit, we discussed the patient's hypertension management, noting the adverse effects of terazosin and the need for alternative options if hypertension persists. We reviewed the patient's history of kidney stones and the recent intervention with cystoscopy and lithotripsy. The patient was advised to follow up with dermatology for skin lesions and to schedule a Lyme disease test due to persistent body aches. A repeat chest X-ray was recommended to monitor for pleural effusion recurrence, and hearing concerns were addressed with the possibility of an audiology referral. Orders: Orders Lyme IgG/IgM w/reflex to WB Today Z00.00 - Encounter for general adult medical examination without abnormal findings XR chest 2V Today R05.1 - Acute cough Medications: New azithromycin For 250 mg dose pack: take 500 mg today (day 1), then 250 mg for 4 days (days 2-5) PO 6 tabs 0RF Patient Instructions: - Monitor blood pressure regularly and report any significant changes. - Follow up with dermatology for skin lesions evaluation. - Schedule and complete the Lyme disease test as ordered. - Obtain a repeat chest X-ray to check for pleural effusion. - Consider an audiology referral if hearing concerns persist.
--- OUTSIDE RECORDS SUMMARY | 2025-05-08 13:23 | XMS_ITS | Clinical Summary ---
Author Organization Formerly [facility], later [facility] Address [address] [phone] Care Team Providers Care Link Wire Fabric Machine Tender Name Role Phone PcpTiesha MD Primary Care [...] age to complete this topic Care Teams Link Wire Fabric Machine Tender Relationship Specialty Start Date End Date Tiesha Caldwell MD [address] [place] [address] PCP - General Internal Medicine 12/14/18
--- OUTSIDE RECORDS SUMMARY | 2025-05-08 13:23 | XMS_ITS | Clinical Summary ---
Author Organization Formerly [facility] Address [address] [place] [address] Care Team Providers Care Community Recreation Coordinator Name Role Phone Unavailable Primary Care Provider Unavailabl e Social History Tobacco Use Types Packs/Day Years Used Date Smoking Tobacco: Never Assessed Sex and Gender Information Value Date Recorded Sex Assigned at Not on file Gender Identity Not on file Sexual Orientation Not on file Plan of Treatment Not on file
[2025-05-08 14:01] VITALS: BP 135/79
== END 2025-05-08 13:47 | disposition home or self-care (01) ==
LOC: HO.HMCSH 13:03
PROVIDERS: PCP Internal Medicine; Visit Provider Physician Assistant Medical
DX: I10 Essential (primary) hypertension (principal); N20.0 Calculus of kidney; L98.9 Disorder of the skin and subcutaneous tissue, unspecified; R52 Pain, unspecified; J90 Pleural effusion, not elsewhere classified

== ENCOUNTER → 2025-05-08 13:03 | Outpatient (BNVA) | payer MEDICARE, SELFPAY | PROVIDERS: PCP Internal Medicine; Visit Provider Physician Assistant Medical | DX: I10 Essential (primary) hypertension (principal); N20.0 Calculus of kidney; L98.9 Disorder of the skin and subcutaneous tissue, unspecified; R52 Pain, unspecified; J90 Pleural effusion, not elsewhere classified | CPT/HCPCS: 96127; 99212 ==

== ENCOUNTER 2025-05-31 08:07 | Outpatient (AMB) | payer MEDICARE, SELFPAY ==
[2025-05-31 08:09] VITALS: BP 132/84; PULSE 66; TEMP 36.4; O2SAT 99; BMI 28.5
--- NOTE | 2025-05-31 08:09 | AM.OFFWIN_ITS ---
Intake Vital Signs 05/31/25 08:09 Height 5 ft 9 in Weight 193 lb BMI 28.5 BP 132/84 Blood Pressure Location Lt brachial Position Sitting Pulse 66 Pulse Source Pulse Oximeter Temp 97.6 F Temp Source Oral Pulse Oximetry (%) 99 Oxygen Delivery Method Room Air Intake Visit Reasons: EP-kidney stones Intake Note: pt presents with concern for unresolved kidney stones s/p cystoscopy, c/o LT flank pain Patient Tobacco Use Status: Never used Tobacco Allergies citalopram (CITALOPRAM) Allergy (Intermediate, Verified 05/31/25 08:15) Hives clindamycin Allergy (Intermediate, Verified 05/31/25 08:15) Hives metronidazole (METRONIDAZOLE) Allergy (Intermediate, Verified 05/31/25 08:15) Hives Penicillins Allergy (Intermediate, Verified 05/31/25 08:15) HIVES Sulfa (Sulfonamide Antibiotics) Allergy (Intermediate, Verified 05/31/25 08:15) HIVES terazosin Adverse Reaction (Intermediate, Verified 05/31/25 08:15) fainting Do you need a note to return to daycare/school/sports/work: No HPI HPI Comments History of Present Illness Details History - The patient is a 70-year-old male pres enting with what he thinks is a kidney stone. - The patient has a history of kidney st ones for 25 years, experiencing episodes at least twice a year. - A 10 mm kidney stone was identified on the left side, which was the largest stone he has ever had. - The patient underwent lithotripsy for stone management on 05/03. - The patient reports persistent pain, e specially in the morning, since the procedure on May 03. - The patient is scheduled for an ultras ound on June 20. - The patient underwent GreenLight laser surgery two years ago for benign prostatic hyperplasia, which improved urinary symptoms. - The patient denies hematuria and fever , but reports left-sided low back pain radiating to the front. Physical Exam General: Cooperative, healthy appearing, comfortable, no acute distress and well developed Orientation: Patient oriented x3 Limitations: No limitations Head: Normal to inspection Ears: Hearing grossly normal bilaterally Face and sinus: Normal facial exam Neck: Normal visual inspection and Yes full ROM Respiratory: Normal respiratory effort and able to speak in complete sentences. Skin: No rashes or lesions noted Neuro: Patient oriented x3 Back/spine: Negative CVA bilaterally PFSH Medical History (Updated 05/08/25 @ 14:52 by Rosita Zapata PA-C) Body aches Seasonal allergies Cough History of diverticulosis HTN (hypertension) Atherosclerotic cardiovascular disease Osteoarthritis Insomnia Gout Depression Cervical disc disease Elevated cholesterol Skin lesions Anal pain BPH (benign prostatic hyperplasia) Diverticulitis Kidney stones Surgical History History of prostate surgery Hx of rotator cuff surgery History of total right hip replacement History of arthroscopic surgery of shoulder H/O blepharoplasty History of nasal surgery Hx of cystoscopy Hx of lithotripsy H/O colonoscopy (~07/17/20) Hx of appendectomy Family History Father Heart disease Social History Household Members: Friend(s) Household Members Other:: roommate [facility] Are you a primary career advisor to a significant other at home: No Do you presently have visiting nurse or other home services: No Alcohol intake: current Alcohol intake frequency: does not drink Patient Tobacco Use Status: Never used Tobacco service: No Current occupational status: employed Cognitive needs: No Hearing needs: No Vision needs: Yes (rx glasses) Review of Systems Const All systems reviewed & are unremarkable except as noted in HPI and below Physical Exam Vital Signs: Last Vital Signs Temp 97.6 F 05/31/25 08:09 Pulse 66 05/31/25 08:09 BP 132/84 05/31/25 08:09 Pulse Ox 99 05/31/25 08:09 Oxygen Delivery Method Room Air 05/31/25 08:09 BMI result Body Mass Index 28.5 Results AMB Urinalysis, Automated UA Leukoctes 0 Fortino/uL Last Edit by Samia Mcqueen CMA on 05/31/25 08:47 UA Nitrite Negative Last Edit by Samia Mcqueen CMA on 05/31/25 08:47 UA Urobilinogen 0.2 mg/dL Last Edit by Samia Mcqueen CMA on 05/31/25 08:47 UA Protein 0 mg/dL Last Edit by Samia Mcqueen CMA on 05/31/25 08:47 UA pH 6.0 Last Edit by Samia Mcqueen CMA on 05/31/25 08:47 UA Blood 0 Edwin/uL Last Edit by Samia Mcqueen CMA on 05/31/25 08:47 UA Specific [place] 1.025 Last Edit by Samia Mcqueen CMA on 05/31/25 08:47 UA Ketone Negative Last Edit by Samia Mcqueen CMA on 05/31/25 08:47 UA Bilirubin 0 mg/dL Last Edit by Samia Mcqueen CMA on 05/31/25 08:47 UA Glucose 0 mg/dL Last Edit by Samia Mcqueen CMA on 05/31/25 08:47 Assessment & Plan Assessment & Plan (1) Nephrolithiasis: Code(s): N20.0 - Calculus of kidney Plan: Patient was informed and verbally consented to the use of an ambient scribe for clinic note documentation during this visit. Nephrolithiasis -UA negative for infection or blood. - Contacted Dr. Erazo's office for possible urgent evaluation to avoid emergency department visit. Left a message with Urology nurse to have pt evaluated today or tomorrow, if not, they can have him go to the ED. If pain gets worse or he is unable to urinate, runs a fever, he should go to the ED. Orders: Orders AMB Urinalysis Automated Today Z13.9 - Encounter for screening, unspecified Coding Level of Care Code Est Pt Level 3 (94704) Diagnoses Nephrolithiasis N20.0
== END 2025-05-31 09:04 | disposition home or self-care (01) ==
PROVIDERS: PCP Internal Medicine; Visit Provider Physician Assistant
DX: Z13.9 Encounter for screening, unspecified (principal); N20.0 Calculus of kidney

== ENCOUNTER → 2025-05-31 08:07 | Outpatient (BNVA) | payer MEDICARE, SELFPAY | PROVIDERS: PCP Internal Medicine; Visit Provider Physician Assistant | DX: N20.0 Calculus of kidney (principal) | CPT/HCPCS: 81003; 99212 ==

== ENCOUNTER 2025-06-01 13:54 | Emergency (ER) | payer MEDICARE, SELFPAY ==
--- NOTE | ~2025-06-01 | US_ITS ---
EXAMINATION: US RETROPERITONEAL LIMITED, LEFT(RENAL ONLY) CLINICAL INFORMATION: Left Flank pain, history of stones.. COMPARISON: 02/01/2025 TECHNIQUE: Real-time imaging of the left kidney. FINDINGS: LEFT KIDNEY: 11.3 x 5.7 x 4.5 cm (SAG x AP x TRV). The kidney is normal in size, contour, and echogenicity. Renal cortical thickness is normal. No suspicious focal parenchymal lesion. There is a thinly septated midpole cyst measuring 1.8 x 1.9 x 1.5 cm. There is a simple cyst in the midpole measuring 0.6 x 1.1 x 0.9 cm. These are stable. There is a nonobstructing mid pole calculus measuring 4 mm, and lower pole calculus measuring 4 mm. Is no hydronephrosis. US/US renal LT IMPRESSION: 1. No left hydronephrosis. 2. Nonobstructing renal calculi measuring 4 mm the mid and lower pole. 3. Mildly complicated cyst in the midpole measuring 1.9 cm, unchanged. Simple cyst in the midpole measuring 1.1 cm, unchanged. Electronically signed by: George Tobin MD 06/01/2025 04:27 PM EDT
[2025-06-01 14:27] VITALS: BP 140/78; PULSE 76; RESP 18; TEMP 36.7; O2SAT 96; BMI 26.8
--- NOTE | 2025-06-01 14:27 | ED.GENADULT ---
HPI - General Adult General Chief complaint: Abdominal Pain Stated complaint: Lower back pain Related Data Home Medications ?Medication ?Instructions ?Recorded ?Confirmed cetirizine 10 mg tablet (Zyrtec) 10 mg PO DAILY PRN 05/31/25 Previous Rx's ?Medication ?Instructions ?Recorded lorazepam 1 mg tablet 1 mg PO BEDTIME PRN Anxiety #90 01/16/25 tabs hydrocodone 5 mg-acetaminophen 325 1 tab PO Q4H PRN pain 7 days #8 04/17/25 mg tablet tabs Allergies Allergy/AdvReac Type Severity Reaction Status Date / Time citalopram (CITALOPRAM) Allergy Intermediate Hives Verified 06/01/25 20:39 clindamycin Allergy Intermediate Hives Verified 06/01/25 20:39 metronidazole (METRONIDAZOLE) Allergy Intermediate Hives Verified 06/01/25 20:39 Penicillins Allergy Intermediate HIVES Verified 06/01/25 20:39 Sulfa (Sulfonamide Allergy Intermediate HIVES Verified 06/01/25 20:39 Antibiotics) terazosin AdvReac Intermediate fainting Verified 06/01/25 20:39 [facility] Past Medical History Medical History (Updated 06/01/25 @ 21:14 by ROWAN Ocampo) Body aches Seasonal allergies Cough History of diverticulosis HTN (hypertension) Atherosclerotic cardiovascular disease Osteoarthritis Insomnia Gout Depression Cervical disc disease Elevated cholesterol Skin lesions Anal pain BPH (benign prostatic hyperplasia) Diverticulitis Kidney stones Surgical History History of prostate surgery Hx of rotator cuff surgery History of total right hip replacement History of arthroscopic surgery of shoulder H/O blepharoplasty History of nasal surgery Hx of cystoscopy Hx of lithotripsy H/O colonoscopy (~07/17/20) Hx of appendectomy Family History Family History Father Heart disease Social History Social History Household Members: Friend(s) Household Members Other:: roommate Housing: Condominium Are you a primary acute care clinical nurse specialist to a significant other at home: No Do you presently have visiting nurse or other home services: No Alcohol intake: current Alcohol intake frequency: does not drink Patient Tobacco Use Status: Never used Tobacco Advance Directives: No Advance Directives Information Provided: Yes service: No Current occupational status: employed Cognitive needs: No Hearing needs: No Vision needs: Yes (rx glasses) Physical Exam ED Vital Signs: Vital Signs - 24 hr 06/01/25 14:27 Temperature 98.1 F Pulse Rate 76 Respiratory Rate 18 Blood Pressure 140/78 H Pulse Oximetry 96 Oxygen Delivery Method Room Air BMI result Body Mass Index 26.8 Course Course Course Narrative: This is an RME: Additional HPI, ROS, PE not included below will be deferred to primary provider. RME assessment and note performed by: Odette Kumar PA-C This is a [id number], with a hx of diverticulitis, kidney stones, gout, who presents to the ER with complaints of left sided abdominal pain since yesterday. Hx of kidney stones and diverticulitis - reports it feels as though it is one of those two things. Reporting subjective fevers. No urinary symptoms. Plan: Labs, UA, US, further ER eval needed Reevaluation(s) Reevaluation #1: Patient left without completing treatment. Medical Decision Making Lab Data 06/01/25 14:56 06/01/25 14:56 Labs: Lab Results 06/01/25 06/01/25 Range/Units 14:56 15:00 WBC 9.6 (4.8-10.8) X10*3/uL RBC 5.55 (4.60-5.80) X10*6/uL Hgb 16.2 (14.0-18.0) g/dl Hct 48.1 (42.0-52.0) % MCV 86.7 (80.0-98.0) fL MCH 29.2 (27.0-33.0) pg MCHC 33.7 (31.0-36.0) g/dl RDW 13.9 (11.0-16.0) % Plt Count 194 (160-400) X10*3/uL MPV 9.8 (9.4-12.4) fL Immature Gran % (Auto) 0.3 (0.0-0.4) % Neut % (Auto) 77.3 H (45-73) % Lymph % (Auto) 14.4 L (20-40) % Nye % (Auto) 6.0 (2-11) % Eos % (Auto) 1.6 (0-4) % Baso % (Auto) 0.4 (0-2) % Lymph # (Auto) 1.4 (1.2-4.9) X10*3/uL Nye # (Auto) 0.6 (0.1-1.2) X10*3/uL Eos # (Auto) 0.2 (0.0-0.4) X10*3/uL Baso # (Auto) 0.0 (0.0-0.2) X10*3/uL Abs Immat Gran (auto) 0.03 (0.00-0.03) X10*3/uL Absolute Neuts (auto) 7.4 (2.0-8.3) x10*3/uL Absolute Nucleated RBC 0.000 (0.0-0.012) X10*3/uL Nucleated RBC % (auto) 0.0 (0.0-0.2) /100WBC Sodium 139 (135-145) mmol/L Potassium 3.5 D (3.3-5.1) mmol/L Chloride 107 (96-108) mmol/L Carbon Dioxide 23 (22-29) mmol/L Anion Gap 13 (12-20) BUN 23 H (9-16) mg/dL Creatinine 1.06 (0.5-1.4) mg/dL Estim Creat Clear Calc 70.0 Estimated GFR > 60 Random Glucose 128 H (60-115) mg/dL Calcium 9.1 (8.4-10.2) mg/dL Magnesium 1.9 (1.6-2.6) mg/dL Total Bilirubin 0.8 (0.0-1.0) mg/dL Direct Bilirubin 0.2 (0.0-0.5) mg/dL AST 24 (5-37) U/L ALT 27 (0-40) U/L Alkaline Phosphatase 87 (39-117) U/L Total Protein 7.2 (6.5-8.0) g/dL Albumin 4.5 (3.5-5.0) g/dL Lipase 48 (8-78) U/L Urine Color Yellow Urine Appearance Clear Urine pH 6.0 (5.0-9.0) Ur Specific [place] 1.025 (1.005-1.025) Urine Protein Negative (Neg-Trace) mg/dL Urine Glucose (UA) Negative (Negative) mg/dL Urine Ketones Negative (Negative) mg/dL Urine Blood Negative (Negative) Urine Nitrite Negative (Negative) Ur Leukocyte Esterase Negative (Negative) Discharge Plan Discharge Clinical Impression: Abdominal pain Patient Disposition: Left W/O Completing Treatment Prescriptions: No Action lorazepam 1 mg tablet 1 mg PO BEDTIME PRN (Reason: Anxiety) Qty: 90 1RF hydrocodone-acetaminophen 5-325 mg tablet 1 tab PO Q4H PRN (Reason: pain) 7 Days Qty: 8 0RF Rx Instructions: Partial Fill upon patient request. cetirizine [Zyrtec] 10 mg tablet 10 mg PO DAILY PRN Discharge Date/Time: 06/01/25 16:23
[2025-06-01 15:14] LABS: MANUAL DIFF FLAG NO
[2025-06-01 15:17] LABS: Appearance Urine Clear; Glucose Urine UA Negative (Negative); PH 6.0 (5.0-9.0); Specific Gravity - Urine 1.025 (1.005-1.025)
[2025-06-01 15:30] LABS: Hematocrit 48.1 % (42.0-52.0); Hemoglobin 16.2 g/dl (14.0-18.0); Imm Gran Abs Auto 0.03 X10*3/uL (0.00-0.03); Imm Gran Pct Auto 0.3 % (0.0-0.4); Lymphocytes Absolute Auto 1.4 X10*3/uL (1.2-4.9); Mean Corpuscular HGB Conc 33.7 g/dl (31.0-36.0); Mean Corpuscular Hemoglobin 29.2 pg (27.0-33.0); Mean Corpuscular Volume 86.7 fL (80.0-98.0); NRBC Abs Auto 0.000 X10*3/uL (0.0-0.012); NRBC Pct Auto 0.0 /100WBC (0.0-0.2); Platelet Count 194 X10*3/uL (160-400); Red Blood Count 5.55 X10*6/uL (4.60-5.80); White Blood Count 9.6 X10*3/uL (4.8-10.8)
[2025-06-01 15:41] LABS: Alanine Aminotransferase 27 U/L (0-40); Albumin Level 4.5 g/dL (3.5-5.0); Alkaline Phosphatase 87 U/L (39-117); Anion Gap 13 (12-20); Aspartate Amino Transferase 24 U/L (5-37); Blood Urea Nitrogen 23 mg/dL (9-16); Calcium 9.1 mg/dL (8.4-10.2); Carbon Dioxide 23 mmol/L (22-29); Chloride 107 mmol/L (96-108); Creatinine Clr Calc Pharmacy 70.0; Estimated Glomerular Filt Rate > 60; Lipase 48 U/L (8-78); Magnesium 1.9 mg/dL (1.6-2.6); Potassium 3.5 mmol/L (3.3-5.1); Sodium 139 mmol/L (135-145); Total Protein 7.2 g/dL (6.5-8.0)
--- NOTE | 2025-06-01 16:09 | PC.NURSE ---
Pt is leaving and plans to f/u with PCP.
--- OUTSIDE RECORDS SUMMARY | 2025-06-01 16:24 | XMS_ITS | Encounter Summary ---
[facility] Organization [facility] Address [address] [phone] Care Team Providers Care Human Resources Benefits Specialist Name Role Phone Tiesha Caldwell MD Primary Care Provider Unavailabl e Encounter Details Date Type Department Care Team (Late st Contact Info) Description 11/04/2022 Orders Only [facility] Department of General Surgery [address] [place] [address] Julio Haney MD Social History Tobacco Use [...] on filedocumented in this encounter Care Teams Human Resources Benefits Specialist Relationship Specialty Start Date End Date Tiesha Caldwell MD [address] [id number] PCP - General Internal Medicine 12/14/18 documented as of this encounter
--- OUTSIDE RECORDS SUMMARY | 2025-06-01 16:24 | XMS_ITS | Clinical Summary ---
Author Organization [facility] Address [address] [phone] Care Team Providers Care Escape Wheel Tooth Cutter Name Role Phone PcpTiesha MD Primary Care [...] age to complete this topic Care Teams Escape Wheel Tooth Cutter Relationship Specialty Start Date End Date Tiesha Caldwell MD [address] [place] [address] PCP - General Internal Medicine 12/14/18
--- OUTSIDE RECORDS SUMMARY | 2025-06-01 16:24 | XMS_ITS | Clinical Summary ---
Author Organization [facility] Address [address] [place] [address] Care Team Providers Care Button Tufting Machine Operator Name Role Phone Unavailable Primary Care Provider Unavailabl e Social History Tobacco Use Types Packs/Day Years Used Date Smoking Tobacco: Never Assessed Sex and Gender Information Value Date Recorded Sex Assigned at Not on file Gender Identity Not on file Sexual Orientation Not on file Plan of Treatment Not on file
== END 2025-06-01 16:23 | disposition left against medical advice (07) ==
PROVIDERS: Physician Assistant Medical; Emergency Provider Emergency Medicine; PCP Internal Medicine
DX: M54.50 Low back pain, unspecified (principal); Z79.899 Other long term (current) drug therapy
CPT/HCPCS: 36415; 76775; 80048; 80076; 81003; 83690; 83735; 85025; 99282; 99284

== ENCOUNTER → 2025-06-01 14:34 | Outpatient (BNV) | payer MEDICARE, SELFPAY | PROVIDERS: Emergency Provider Emergency Medicine; PCP Internal Medicine; Visit Provider Radiology Diagnostic Radiology | DX: R10.32 Left lower quadrant pain (principal); N20.0 Calculus of kidney; Z87.442 Personal history of urinary calculi | CPT/HCPCS: 76775 ==

== ENCOUNTER 2025-06-01 20:30 | Emergency (ER) | payer MEDICARE, SELFPAY ==
--- NOTE | ~2025-06-01 | CT_ITS ---
CLINICAL HISTORY: LLQ pain CT abdomen and pelvis with contrast Comparison: 09/11/2024 Findings: Mild inflammatory stranding proximal sigmoid colon. Large underlying diverticuli noted. No free air or fluid collection. Stable bilateral lung base scarring noted. Right hip prosthesis. No acute bony abnormality. Liver and spleen within normal limits. Pancreas and adrenal glands unremarkable. Gallbladder is within normal limits. Bilateral small nonobstructing renal stones. No ureteral stone or hydronephrosis. Bilateral renal cysts noted. Abdominal aorta is normal in caliber. No free fluid or adenopathy in the pelvis. Appendix not identified. Impression: Mild proximal sigmoid acute diverticulitis This document has been electronically signed by: Liu Parrish MD on 06/01/2025 22:02:53
[2025-06-01 20:36] VITALS: BP 174/84; PULSE 78; RESP 20; TEMP 36.6; O2SAT 95; BMI 27.2
--- NOTE | 2025-06-01 20:42 | ED_ITS ---
HPI - Abdominal Pain General Chief Complaint: Abdominal Pain Stated Complaint: lower extremity pain Time Seen by Provider: 06/02/25 00:17 History of Present Illness ED Provider: Padmini CAUSEY narrative: The patient is a 70-year-old male who says he developed abdominal pain yesterday that feels similar to previous episodes of diverticulitis. His pain continued today and he ultimately came to the emergency room. He indicates the pain is in his left lower abdomen. He came to the emergency room earlier today and had labs drawn but had to leave for an appointment before he was seen by a provider. He subsequently returned to the emergency room because his symptoms persisted. He has had left lower quadrant abdominal pain. No definite fever. No nausea or vomiting. The patient reports a history of penicillin allergy, metronidazole allergy, and clindamycin allergy among other etiologies. Related Data Home Medications ?Medication ?Instructions ?Recorded ?Confirmed cetirizine 10 mg tablet (Zyrtec) 10 mg PO DAILY PRN Previous Rx's ?Medication ?Instructions ?Recorded lorazepam 1 mg tablet 1 mg PO BEDTIME PRN Anxiety #90 01/16/25 tabs hydrocodone 5 mg-acetaminophen 325 1 tab PO Q4H PRN pa in 7 days #8 04/17/25 mg tablet tabs ibuprofen 400 mg tablet 400 mg PO Q6H PRN pain #14 t abs 06/02/25 levofloxacin 500 mg tablet 500 mg PO DAILY #7 tabs Allergies Allergy/AdvReac Type Severity Reaction Status Date / Time citalopram (CITALOPRAM) Allergy Intermediate Hives Verified 06/01/25 20:39 clindamycin Allergy Intermediate Hives Verified 06/01/25 20:39 metronidazole (METRONIDAZOLE) Allergy Intermediate Hives Verified 06/01/25 20:39 Penicillins Allergy Intermediate HIVES Verified 06/01/25 20:39 Sulfa (Sulfonamide Allergy Intermediate HIVES Verified 06/01/25 20:39 Antibiotics) terazosin AdvReac Intermediate fainting Verified 06/01/25 20:39 Review of Systems Review of Systems Yes all other systems are reviewed and are negative [facility] Past Medical History Medical History (Updated 06/02/25 @ 00:30 by Alessandro Washington MD) Body aches Seasonal allergies Cough History of diverticulosis HTN (hypertension) Atherosclerotic cardiovascular disease Osteoarthritis Insomnia Gout Depression Cervical disc disease Elevated cholesterol Skin lesions Anal pain BPH (benign prostatic hyperplasia) Diverticulitis Kidney stones Surgical History History of prostate surgery Hx of rotator cuff surgery History of total right hip replacement History of arthroscopic surgery of shoulder H/O blepharoplasty History of nasal surgery Hx of cystoscopy Hx of lithotripsy H/O colonoscopy (~07/17/20) Hx of appendectomy Family History Family History Father Heart disease Social History Social History Household Members: Friend(s) Household Members Other:: roommate Housing: Condominium Are you a primary hearing care professional to a significant other at home: No Do you presently have visiting nurse or other home services: No Alcohol intake: current Alcohol intake frequency: holidays/special occasions only Patient Tobacco Use Status: Never used Tobacco Smoked in Last 30 Days: No Use of substances other than those prescribed or required for medical reasons: No Advance Directives: No Advance Directives Information Provided: Yes service: No Current occupational status: employed Cognitive needs: No Hearing needs: No Vision needs: Yes (rx glasses) Physical Exam ED Vital Signs: Vital Signs - 24 hr 06/01/25 20:36 06/01/25 23:43 06/02/25 00:36 Temperature 97.9 F 98.4 F 97.9 F Pulse Rate 78 64 66 Respiratory Rate 20 16 20 Blood Pressure 174/84 H 146/84 H 165/90 H Pulse Oximetry 95 98 97 Oxygen Delivery Method Room Air Room Air Room Air 06/02/25 00:41 Temperature 97.9 F Pulse Rate 66 Respiratory Rate 20 Blood Pressure 165/90 H Pulse Oximetry 97 Oxygen Delivery Method Room Air BMI result Body Mass Index 27.2 Const Other: The patient is awake, alert, pleasant, cooperative. He does not appear in acute distress. Orientation/consciousness: patient oriented x3 HENMT Other: The face is symmetrical. ?Mucous membranes moist. Eyes Other: Pupils are round equal, conjunctivae are clear, extraocular movements intact General: appearance normal, both eyes and all related structures Neck Neck: Yes normal visual inspection and Yes full ROM Resp Effort & Inspection: normal respiratory effort Auscultation: clear to auscultation bilaterally Cardio Rate: regular rate Rhythm: regular rhythm Heart sounds: S1 normal heart sound present and S2 normal heart sound present GI Other: The patient is quite tender in the left lower quadrant. General: Yes no CVA tenderness Back/Spine/Pelvis Back: no CVA tenderness Skin Other: The skin is dry and unremarkable General skin exam: no rashes or lesions noted Neuro General: patient oriented x3, gait normal, tone normal, moves all extremities, no focal motor deficits and CN's II-XI intact bilaterally Extrem Other: There is no calf swelling or tenderness. No asymmetry. No peripheral edema. Course Course Course Narrative: This is an RME: Additional HPI, ROS, PE not included below will be deferred to primary provider. RME assessment and note performed by: Odette Kumar PA-C This is a 70-year-old male, with a past medical history of diverticulitis and kidney stones, who presents emergency department with concerns of left lower quadrant pain. Patient was seen here earlier however left without completing treatment. He returns as his pain has worsened. He already had labs performed at 256 this afternoon. He had no leukocytosis, chemistry with no evidence of LADI. He did have an ultrasound revealing a nonobstructing renal calculi med assuring 4 mm in the mid and lower pole. Also mildly complicated cyst in the midpole measuring 1.9 cm unchanged. Plan: Likely diagnostic imaging. Deferring to primary provider. Medical Decision Making Medical Decision Making [facility] Narrative: The patient is a 70-year-old male with a history of kidney stones. He has also had a previous episode of diverticulitis. He has had left-sided pain for over 24 hours. He has no CVA percussion tenderness on exam. He does have left lower quadrant tenderness in the anterior abdomen. A CT scan shows uncomplicated diverticulitis. The patient has several antibiotic allergies including penicillin, metronidazole, and clindamycin. The patient will be started on a 7 day course of levofloxacin 500 mg daily. I think this monotherapy is reasonable given his allergy to metronidazole and clindamycin. He has responded well to levofloxacin for diverticulitis in the past. He feels comfortable being discharged. Medications Administered Discontinued Medications Generic Name Dose Route Start Last Admin Trade Name Freq PRN Reason Stop Dose Admin Iohexol 85 ml 06/01/25 21:36 06/01/25 21:37 Iohexol 350 Mg/Ml 100 Ml Infus..Btl IV 06/01/25 21:37 85 ml ONCE ONE Administration Ketorolac Tromethamine 10 mg 06/02/25 00:24 06/02/25 00:34 Ketorolac Tromethamine 15 Mg/Ml Vial IVPUSH 06/02/25 00:25 10 mg ONCE ONE Administration Levofloxacin 500 mg 06/02/25 00:24 06/02/25 00:35 Levofloxacin 500 Mg Tablet PO 06/02/25 00:25 500 mg ONCE ONE Administration Discharge Plan Discharge Clinical Impression: Diverticulitis Patient Disposition: Home, Self-Care Instructions: Diverticulitis (ED) Additional Instructions: Your CAT scan shows that you have another case of diverticulitis. Please take the levofloxacin once a day as prescribed until done. You may use ibuprofen and acetaminophen (Tylenol) as needed for discomfort. Please drink a lot of fluids. Please plan on following up with your regular doctor. Return to the emergency room if significantly worse. Prescriptions: New levofloxacin 500 mg tablet 500 mg PO DAILY Qty: 7 0RF ibuprofen 400 mg tablet 400 mg PO Q6H PRN (Reason: pain) Qty: 14 0RF No Action lorazepam 1 mg tablet 1 mg PO BEDTIME PRN (Reason: Anxiety) Qty: 90 1RF hydrocodone-acetaminophen 5-325 mg tablet 1 tab PO Q4H PRN (Reason: pain) 7 Days Qty: 8 0RF Rx Instructions: Partial Fill upon patient request. cetirizine [Zyrtec] 10 mg tablet 10 mg PO DAILY PRN Referrals: Reza Augustine MD [Physician, Internal Medicine] Interventions: ED Discharge Assessment Last Done: 06/02/25 00:41 Discharge Date/Time: 06/02/25 00:41 Print Language: Yi
[2025-06-01] MEDS: iohexoL 350 MG/ML 100 ML INFUS..BTL 85 ML IV (21:37)
[2025-06-01 23:43] VITALS: BP 146/84; PULSE 64; RESP 16; TEMP 36.9; O2SAT 98
[2025-06-02 00:36] VITALS: BP 165/90; PULSE 66; RESP 20; TEMP 36.6; O2SAT 97
[2025-06-02 00:41] VITALS: BP 165/90; PULSE 66; RESP 20; TEMP 36.6; O2SAT 97
== END 2025-06-02 00:41 | disposition home or self-care (01) ==
PROVIDERS: Emergency Provider Emergency Medicine
DX: K57.32 Diverticulitis of large intestine without perforation or abscess without bleeding (principal); R10.32 Left lower quadrant pain; R10.2 Pelvic and perineal pain; Z79.899 Other long term (current) drug therapy; Z87.442 Personal history of urinary calculi
CPT/HCPCS: 36415; 74177; 76775; 80048; 80076; 81003; 83690; 83735; 85025; 96374; 99284; 99285; J1885; Q9967

== ENCOUNTER 2025-07-04 15:37 | Outpatient (AMB) | payer MEDICARE, SELFPAY ==
--- NOTE | 2025-07-04 15:35 | A.OFFVIS_ITS ---
Intake Visit Reasons: 3 month f/u renal u/s Intake Note: Patient is present for 3 mo follow up ESWL 05/03/25 Urology Medication:NONE Antibiotic Allergy:CLINDAMYCIN,PENICILLINS,SULFA Blood Thinner:NONE Imaging done 06/01/25 : Ultrasound , CT Sampling Theory Teacher Required: No Accompanied by: Self / Same As Patient Allergies citalopram (CITALOPRAM) Allergy (Intermediate, Verified 07/04/25 15:36) Hives clindamycin Allergy (Intermediate, Verified 07/04/25 15:36) Hives metronidazole (METRONIDAZOLE) Allergy (Intermediate, Verified 07/04/25 15:36) Hives Penicillins Allergy (Intermediate, Verified 07/04/25 15:36) HIVES Sulfa (Sulfonamide Antibiotics) Allergy (Intermediate, Verified 07/04/25 15:36) HIVES terazosin Adverse Reaction (Intermediate, Verified 07/04/25 15:36) fainting HPI Comments Details: Julio is a pleasant male. He is a patient of Dr. Goodson. He seen for the following urologic conditions - nephrolithiasis - BPH Stone composition 80% uric acid Recent CT very small stone Prior stone composition calcium oxalate mixed 24 hour urine low volume, low citrate - oxalate calcium and sodium in good range Lower urinary tract symptoms Progressive Primarily nocturia 2-3 times Prior medications tamsulosin minimal effect Minimal benefit from combination terazosin oxybutynin GreenLight laser - 03/28 Nephrolithiasis Long history of chronic renal stone disease Has undergone multiple procedures with ESWL Does feel he may have stone currently Has previously been able to pass stones Stone composition - 01/23 uric acid with calcium oxalate, 03/25 mixed calcium oxalate 80% monohydrate Imaging - renal ultrasound 07/24 multiple renal stones, 3 on right, 2 on left. Bilateral renal cysts. Stones approximately 5 mm - 06/25 renal ultrasound bilateral renal cyst stable. Small stone? On right 2 mm - 08/26 renal ultrasound bilateral renal cysts, query small stone 3 mm right side - 11/29 renal ultrasound for minimal stone right, 7 mm stone left - 03/29 renal ultrasound bilateral small stones - fragments on left Intervention - 03/25 right ureteroscopy, laser lithotripsy and stent placement - 01/27 left renal ESWL Therapeutic plan - vitamin B6, fluids PFSH Medical History (Updated 06/03/25 @ 00:01 by Background Dafan) Body aches Seasonal allergies Cough History of diverticulosis HTN (hypertension) Atherosclerotic cardiovascular disease Osteoarthritis Insomnia Gout Depression Cervical disc disease Elevated cholesterol Skin lesions Anal pain BPH (benign prostatic hyperplasia) Diverticulitis Kidney stones Surgical History History of prostate surgery Hx of rotator cuff surgery History of total right hip replacement History of arthroscopic surgery of shoulder H/O blepharoplasty History of nasal surgery Hx of cystoscopy Hx of lithotripsy H/O colonoscopy (~07/17/20) Hx of appendectomy Family History Father Heart disease Social History Household Members: Friend(s) Household Members Other:: roommate [facility] Are you a primary managed care coordinator to a significant other at home: No Do you presently have visiting nurse or other home services: No Alcohol intake: current Alcohol intake frequency: holidays/special occasions only Patient Tobacco Use Status: Never used Tobacco service: No Current occupational status: employed Cognitive needs: No Hearing needs: No Vision needs: Yes (rx glasses) Review of Systems Const Denies chills and Denies fever(s) Card Reports no additional complaints and Denies syncope Resp Denies cough GI Denies abdominal pain and Denies heartburn Reports as per HPI and Denies change in libido Neuro Denies syncope Psych Denies change in libido Endo Denies change in libido Physical Exam Const General: cooperative, healthy appearing, comfortable and no acute distress Orientation/consciousness: patient oriented x3 HEENT Face and sinus: Yes normal facial exam Mouth: moist mucous membranes Neck Neck: Yes normal visual inspection, Yes full ROM and Yes trachea midline Chest Chest palpation & inspection: normal inspection of the chest Resp Effort & Inspection: normal respiratory effort, able to speak in complete sentences and no respiratory distress GI Inspection: Yes normal to inspection Back/Spine/Pelvis Cervical Spine: normal cervical lordosis Thoracic/Lumbar Spine: thoracic and lumbar spine normal to inspection Skin General skin exam: no rashes or lesions noted Neuro General: patient oriented x3, gait normal, tone normal and moves all extremities Extrem General: Yes normal to inspection and Yes capillary refill normal Assessment & Plan Assessment & Plan (1) Nephrolithiasis: Code(s): N20.0 - Calculus of kidney Category: Medical (2) BPH w urinary obs/LUTS: Code(s): N40.1 - Benign prostatic hyperplasia with lower urinary tract symptoms; N13.8 - Other obstructive and reflux uropathy Category: Medical Plan Six-month follow-up Orders: Orders US renal BI 6 Months N20.0 - Calculus of kidney Medications: New allopurinol 100 mg PO DAILY 90 tabs 1RF 90 days N20.0 - Calculus of kidney potassium citrate ER 10 mEq PO BID 180 tabs 1RF 90 days N20.0 - Calculus of kidney Patient Instructions: This note is constructed using voice recognition software. While every effort has been made to ensure accuracy salvage machine operator errors may have been included. Imaging studies, laboratory and physical exam results were discussed and reviewed in detail. No major barriers to patient understanding were identified. An opportunity to ask questions regarding the treatment plan was provided. All questions were answered. The patient expressed understanding and agreement with the above treatment plan. The patient is aware they should contact our office by phone for worsening of their current condition or the appearance of new urologic symptoms. Compliance is encouraged with any medications and followup testing that is ordered. It is a privilege to participate in the urologic care of your patient. If you have any questions or concerns regarding treatment for the above conditions, or other urologic issues, please do not hesitate to contact me. The office telephone contact is [phone]. Sincerely, Dr Isreal Erazo MD, PRIYA [facility] - Urology Compassionate Specialist Care for the Genitourinary System Coding Level of Care Code Est Pt Level 3 (40823) Complex EM visit Add On G2211 Diagnoses Nephrolithiasis N20.0 BPH w urinary obs/LUTS N40.1; N13.8
--- OUTSIDE RECORDS SUMMARY | 2025-07-04 16:51 | XMS_ITS | Clinical Summary ---
Author Organization [facility] Address [address] [id number] Care Team Providers Care Asset Protection Detective Name Role Phone PcpTiesha MD Primary Care [...] COVID-19 Vaccine (1 - 2023-2 5 season) 2025 Influenza Vaccine (#1) 2025 HPV Vaccines Aged Out No longer eligi ble based on patient's age to complete this topic Hepatitis A Vaccines Aged Out No long er eligible based on patient's age to complete this topic Meningococcal Vaccine Aged Out No belén татьяна eligible based on patient's age to complete this topic Care Teams Asset Protection Detective Relationship Specialty Start Date End Date Tiesha Caldwell MD [address] [place] [address] PCP - General Internal Medicine 12/14/18
--- OUTSIDE RECORDS SUMMARY | 2025-07-04 16:51 | XMS_ITS | Encounter Summary ---
Author Organization [facility] Address [address] [phone] Care Team Providers Care Branding Machine Tender Name Role Phone Tiesha Caldwell MD Primary Care Provider Unavailabl e Encounter Details Date Type Department Care Team (Late st Contact Info) Description 11/04/2022 Orders Only [facility] Department of General Surgery [address] [place] [address] Julio Haney MD Social History Tobacco Use [...] on filedocumented in this encounter Care Teams Branding Machine Tender Relationship Specialty Start Date End Date Tiesha Caldwell MD [address] [phone] PCP - General Internal Medicine 12/14/18 documented as of this encounter
--- OUTSIDE RECORDS SUMMARY | 2025-07-04 16:51 | XMS_ITS | Clinical Summary ---
Author Organization [facility] Address [address] [place] [address] Care Team Providers Care Upper Stitcher Name Role Phone Unavailable Primary Care Provider Unavailabl e Social History Tobacco Use Types Packs/Day Years Used Date Smoking Tobacco: Never Assessed Sex and Gender Information Value Date Recorded Sex Assigned at Not on file Gender Identity Not on file Sexual Orientation Not on file Plan of Treatment Not on file
== END 2025-07-04 16:43 | disposition home or self-care (01) ==
LOC: HO.HUSH 15:37
PROVIDERS: PCP Internal Medicine; Visit Provider Urology
DX: N20.0 Calculus of kidney (principal); N40.1 Benign prostatic hyperplasia with lower urinary tract symptoms; N13.8 Other obstructive and reflux uropathy
CPT/HCPCS: 99213; G2211

== ENCOUNTER → 2025-07-04 15:37 | Outpatient (BNVA) | payer MEDICARE, SELFPAY | PROVIDERS: PCP Internal Medicine; Visit Provider Urology | DX: N20.0 Calculus of kidney (principal); N40.1 Benign prostatic hyperplasia with lower urinary tract symptoms; N13.8 Other obstructive and reflux uropathy | CPT/HCPCS: 99212 ==

== ENCOUNTER → 2025-07-12 08:17 | Outpatient (REF) | payer MEDICARE, SELFPAY ==
--- NOTE | ~2025-07-12 | NM_ITS ---
EXERCISE MYOCARDIAL PERFUSION STUDY INDICATION: The heart disease to evaluate for myocardial ischemia TECHNIQUE: The patient was brought in for an exercise perfusion study on 07/12/2025. Patient performed exercise as per Adrian protocol and was injected 30 mCi of sestamibi once target heart rate was achieved. Images were obtained using the SPECT gamma camera interlaced with the gating device. Images were obtained in supine position. Resting perfusion study was performed on 07/13/2025. Patient was administered 30 mCi of sestamibi intravenously at rest. Images were then obtained in supine position. Images obtained without without CT attenuation. Total DLP 83 mGy-cm. Images were processed with the software and compared side to side in short axis, horizontal long axis and vertical long axis views. FINDINGS: Raw images were reviewed The stress perfusion study showed nonattenuated images show moderately reduced uptake in the basal and mid inferior wall of the LV myocardium. Remainder of the LV myocardium is normally perfused. Attenuated corrected images show overall normal uptake of radiotracer in all segments of the LV myocardium. The gated study shows normal LV systolic function with calculated LVEF of 64%. LV cavity is normal in size. The gated study shows normal systolic wall thickening and contraction of segments. Resting study shows no change in perfusion pattern compared to stress perfusion study. Gating at rest reveals normal systolic wall motion with ejection fraction at 69%. The findings are consistent with likely normal myocardial perfusion. NM/NM cardiolite stress test IMPRESSION: 1. Myocardial perfusion imaging study shows likely normal myocardial perfusion. 2. Gated LVEF is 64%. 3. Transient ischemic dilatation not present. EKG revealed positive for ischemia. Electronically signed by: Garth Gooden MD 07/14/2025 04:30 PM EDT
--- NOTE | 2025-07-12 08:21 | CA_ITS ---
Acquisition Time: 2025-07-12 08:28:00 Total Exercise Time: 00:05:40 Test Indications: CAD Medications: SEE H&P Protocol: MARIA Max HR: 131 BPM 86% of Pred: 151 BPM Max BP: 210/52 mmHG Max Work Load: 7.0 METS Exercise stress test with exercise 5 min 40 sec of Maria protocol, achieving 86% MPHR, with mild sob and fatigue, with occassional PVC in recovery, with hypertensive response to exercise with max BP 210/52, with EKG changes meeting criteria for ischemia: up to 2 min horizointal to upsloping ST depression inferiorly and V5-V6 that gradually returns to baseline borderline ST abnormality in those leads. In recovery his BP returned to 130/88. Test reviewed with Dr Gooden Referred By: Rosita Zapata Electronically Signed By: NICOLASA LO
--- NOTE | 2025-07-12 08:21 | HM_ITS ---
Conclusion: 1. Patient was monitored for total period of 3 days 2. Baseline was normal sinus rhythm with average heart of 66 beats per minute 3. No significant pauses noted 4. Rare ectopy noted without significant tachyarrhythmias 5. No patient reported events MTDD
== END ==
LOC: HO.CARD 08:17
PROVIDERS: PCP Internal Medicine; Visit Provider Physician Assistant Medical
DX: I25.10 Atherosclerotic heart disease of native coronary artery without angina pectoris (principal); R07.9 Chest pain, unspecified; I51.89 Other ill-defined heart diseases; I11.9 Hypertensive heart disease without heart failure
CPT/HCPCS: 78452; 93017; 93242; A9500

== ENCOUNTER → 2025-07-12 08:21 | Outpatient (BNV) | payer MEDICARE, SELFPAY | PROVIDERS: PCP Internal Medicine; Visit Provider Nurse Practitioner Family | DX: I42.8 Other cardiomyopathies (principal) | CPT/HCPCS: 78452; 93016; 93018 ==

== ENCOUNTER 2025-07-18 10:26 | Outpatient (AMB) | payer MEDICARE, SELFPAY ==
[2025-07-18 10:28] VITALS: BP 116/68; PULSE 65; TEMP 36.6; O2SAT 97; BMI 25.2
--- NOTE | 2025-07-18 10:28 | AM.OFFWIN_ITS ---
Intake Vital Signs 07/18/25 10:28 Height 5 ft 11 in Weight 181 lb BMI 25.2 BP 116/68 Blood Pressure Location Lt brachial Position Sitting Pulse 65 Pulse Source Pulse Oximeter Temp 97.8 F Temp Source Oral Pulse Oximetry (%) 97 Oxygen Delivery Method Room Air Intake Visit Reasons: EP fall, tailbone injury/pain Patient Tobacco Use Status: Never used Tobacco Allergies citalopram (CITALOPRAM) Allergy (Intermediate, Verified 07/18/25 10:30) Hives clindamycin Allergy (Intermediate, Verified 07/18/25 10:30) Hives metronidazole (METRONIDAZOLE) Allergy (Intermediate, Verified 07/18/25 10:30) Hives Penicillins Allergy (Intermediate, Verified 07/18/25 10:30) HIVES Sulfa (Sulfonamide Antibiotics) Allergy (Intermediate, Verified 07/18/25 10:30) HIVES terazosin Adverse Reaction (Intermediate, Verified 07/18/25 10:30) fainting zolpidem Adverse Reaction (Mild, Verified 07/18/25 10:31) Numbness Medication List - Last Reconciled 07/18/25 by Sander Trinh MD allopurinol 100 mg PO DAILY 90 days cetirizine (Zyrtec) 10 mg PO DAILY PRN ibuprofen 400 mg PO Q6H PRN tadalafil (Cialis) 5 mg PO DAILY Do you need a note to return to daycare/school/sports/work: No HPI EP fall, tailbone injury/pain HPI Details History of Present Illness The patient is a 70-year-old male presenting with back pain following a fall. Back pain following fall: - The patient reports a fall approximate ly 1-2 months ago, landing on a marble floor. - Initially hit and felt pain at the bas e of his back, around the coccyx area, but now identifies the pain in the lumbar region. - Pain described as being sore, escalati ng to severe discomfort the previous night. - Denies seeing a healthcare provider un til this visit. - Experiences a minimal amount of radiat ing pain down the legs without signific ant severity. - Denies pain upon palpation. - Pain aggravated by walking, bending, t wisting, and daily activities, though the patient avoids activities that may further aggravate the condition. 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 Medical History: - Kidney stones: Reports history of a 10 -mm kidney stone, treated surgically in May with lithotripsy. Surgical History: - Lithotripsy for a 10-mm kidney stone i n May. Problem List - Back pain following fall - History of kidney stones Plan - An x-ray is ordered to assess the lumb ar, sacral, and coccyx regions due to the fall and ongoing pain, with instructions for the patient to proceed to the radiology department next door. - Prescribed tramadol for pain managemen t, recommending usage at night due to potential drowsiness and constipation, advising caution if waking during the night. - Discussed the avoidance of NSAIDs like naproxen and ibuprofen due to kidney considerations. - f/u with PCP Review of Systems - General: No fever no chills - Neurological: No headaches no dizziness - Ear nose throat: No sore throat no hearing difficulty no ear pain - Cardiovascular: No syncope, no chest pain, no palpitations - Gastrointestinal: No nausea vomiting or diarrhea Physical Exam - General: No acute distress - HEENT: No acute findings - Neck: Supple - Respiratory system: Able to talk in f ull sentences, no audible wheeze - back: No pain with palpation over lum bar or sacral area, no pain with percussion straight leg negative, range of motion intact with slight discomfort - Gastrointestinal: No pain - Extremities: No new findings - WIRE WEAVING LOOM SETTER: Alert awake oriented x3 motor in tact , gait stable - Skin: Normal turgor PFSH Medical History History of syncope Abnormal stress test Body aches Seasonal allergies Cough History of diverticulosis HTN (hypertension) Atherosclerotic cardiovascular disease Osteoarthritis Insomnia Gout Depression Cervical disc disease Elevated cholesterol Skin lesions Anal pain BPH (benign prostatic hyperplasia) Diverticulitis Kidney stones Surgical History History of prostate surgery Hx of rotator cuff surgery History of total right hip replacement History of arthroscopic surgery of shoulder H/O blepharoplasty History of nasal surgery Hx of cystoscopy Hx of lithotripsy H/O colonoscopy (~07/17/20) Hx of appendectomy Family History Father Heart disease Social History Household Members: Friend(s) Household Members Other:: roommate Housing: Condominium Are you a primary certified caregiver to a significant other at home: No Do you presently have visiting nurse or other home services: No Alcohol intake: current Alcohol intake frequency: holidays/special occasions only Patient Tobacco Use Status: Never used Tobacco service: No Current occupational status: employed Cognitive needs: No Hearing needs: No Vision needs: Yes (rx glasses) Physical Exam Vital Signs: Last Vital Signs Temp 97.8 F 07/18/25 10:28 Pulse 65 07/18/25 10:28 BP 116/68 07/18/25 10:28 Pulse Ox 97 07/18/25 10:28 Oxygen Delivery Method Room Air 07/18/25 10:28 BMI result Body Mass Index 25.2 Assessment & Plan Assessment & Plan (1) Fall: Code(s): W19.XXXA - Unspecified fall, initial encounter Qualifiers: Encounter type: initial encounter Qualified Code(s): W19.XXXA - Unspecified fall, initial encounter (2) Lumbosacral pain: Code(s): M54.50 - Low back pain, unspecified Plan History of Present Illness The patient is a 70-year-old male presenting with back pain following a fall. Back pain following fall: - The patient reports a fall approximately 1-2 months ago, landing on a marble floor. - Initially hit and felt pain at the base of his back, around the coccyx area, but now identifies the pain in the lumbar region. - Pain described as being sore, escalating to severe discomfort the previous night. - Denies seeing a healthcare provider until this visit. - Experiences a minimal amount of radiating pain down the legs without significant severity. - Denies pain upon palpation. - Pain aggravated by walking, bending, twisting, and daily activities, though the patient avoids activities that may further aggravate the condition. 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 Medical History: - Kidney stones: Reports history of a 10-mm kidney stone, treated surgically in May with lithotripsy. Surgical History: - Lithotripsy for a 10-mm kidney stone in May. Problem List - Back pain following fall - History of kidney stones Plan - An x-ray is ordered to assess the lumbar, sacral, and coccyx regions due to the fall and ongoing pain, with instructions for the patient to proceed to the radiology department next door. - Prescribed tramadol for pain management, recommending usage at night due to potential drowsiness and constipation, advising caution if waking during the night. - Discussed the avoidance of NSAIDs like naproxen and ibuprofen due to kidney considerations. - f/u with PCP Orders: Orders XR lumbar spine 2-3V Today M54.50 - Low back pain, unspecified, W19.XXXA - Unspecified fall, initial encounter XR sacrum coccyx min 2V Today M54.50 - Low back pain, unspecified, W19.XXXA - Unspecified fall, initial encounter Medications: New tramadol 50 mg PO BEDTIME PRN 10 tabs 0RF back pain 10 days Discontinued ibuprofen Discontinued Reason: Doctor's Order 400 mg PO Q6H PRN 14 tabs 0RF pain Coding Level of Care Code Est Pt Level 3 (68679) Diagnoses Fall, initial encounter W19.XXXA Encounter type: initial encounter Lumbosacral pain M54.50
--- OUTSIDE RECORDS SUMMARY | 2025-07-18 12:18 | XMS_ITS | Clinical Summary ---
Author Organization [facility] Address [address] [phone] Care Team Providers Care Slot Editor Name Role Phone PcpTiesha MD Primary Care [...] age to complete this topic Care Teams Slot Editor Relationship Specialty Start Date End Date Tiesha Caldwell MD [address] [place] [address] PCP - General Internal Medicine 12/14/18
--- OUTSIDE RECORDS SUMMARY | 2025-07-18 12:18 | XMS_ITS | Encounter Summary ---
Author Organization [facility] Address [address] [phone] Care Team Providers Care Suction Drum Drier Operator Name Role Phone Tiesha Caldwell MD Primary Care Provider Unavailabl e Encounter Details Date Type Department Care Team (Late st Contact Info) Description 11/04/2022 Orders Only [facility] Department of General Surgery [address] [place] [address] Julio Haney MD Social History Tobacco Use [...] on filedocumented in this encounter Care Teams Suction Drum Drier Operator Relationship Specialty Start Date End Date Tiesha Caldwell MD [address] [phone] PCP - General Internal Medicine 12/14/18 documented as of this encounter
--- OUTSIDE RECORDS SUMMARY | 2025-07-18 12:18 | XMS_ITS | Clinical Summary ---
Author Organization [facility] Address [address] [place] [address] Care Team Providers Care Entry Level Web Developer Name Role Phone Unavailable Primary Care Provider Unavailabl e Social History Tobacco Use Types Packs/Day Years Used Date Smoking Tobacco: Never Assessed Sex and Gender Information Value Date Recorded Sex Assigned at Not on file Gender Identity Not on file Sexual Orientation Not on file Plan of Treatment Not on file
== END 2025-07-18 10:49 | disposition home or self-care (01) ==
PROVIDERS: PCP Internal Medicine; Visit Provider Internal Medicine
DX: M54.50 Low back pain, unspecified (principal); W19.XXXA Unspecified fall, initial encounter

== ENCOUNTER 2025-07-18 10:46 | Outpatient (REF) | payer MEDICARE, SELFPAY ==
--- NOTE | ~2025-07-18 | XR_ITS ---
EXAMINATION: XR LUMBOSACRAL SPINE CLINICAL INFORMATION: W19.XXXA - Unspecified fall, initial encounter COMPARISON: None available. Correlation made with CT abdomen and pelvis 05/24/2025. TECHNIQUE: Three views of the lumbosacral spine. FINDINGS: There is a minimal levoconvex scoliosis, apex at L3. There is a normal lumbar lordosis. There is no subluxation. Alignment is normal. There is no fracture, compression deformity, or suspicious bone lesion. Moderate disc degeneration is present L4-5, and to a lesser degree L5-S1. Remainder of the intervertebral discs appear normal. There is normal facet alignment. There is mild degenerative facet change spanning L4-S1. Partially imaged right hip replacement. Soft tissues demonstrate small calcifications overlying the inferior renal shadows bilaterally, suggesting nephrolithiasis. Soft tissues otherwise normal. XR/XR lumbar spine 2-3V IMPRESSION: 1. No acute abnormality of the lumbar spine. 2. Mild to moderate lumbar spondylosis most significant at L4-5. Electronically signed by: George Tobin MD 07/18/2025 11:20 AM EDT
--- NOTE | ~2025-07-18 | XR_ITS ---
EXAMINATION: XR SACRUM AND COCCYX CLINICAL INFORMATION: W19.XXXA - Unspecified fall, initial encounter COMPARISON: None available. TECHNIQUE: 2 views of the sacrum and 2 views of the coccyx were obtained. FINDINGS: No fracture, dislocation, or suspicious bone lesion. The SI joints appear normal bilaterally. Partially imaged right hip prosthesis. No soft tissue abnormality. XR/XR sacrum coccyx min 2V IMPRESSION: Normal sacrum and SI joints. Electronically signed by: George Tobin MD 07/18/2025 11:22 AM EDT
== END 2025-07-18 10:47 | disposition home or self-care (01) ==
LOC: HO.HMGCX 10:46
PROVIDERS: PCP Internal Medicine; Visit Provider Internal Medicine
DX: M54.50 Low back pain, unspecified (principal); Z91.81 History of falling
CPT/HCPCS: 72100; 72220

== ENCOUNTER → 2025-07-18 10:54 | Outpatient (BNV) | payer MEDICARE, SELFPAY | PROVIDERS: PCP Internal Medicine; Visit Provider Radiology Diagnostic Radiology | DX: M47.816 Spondylosis without myelopathy or radiculopathy, lumbar region (principal); M53.3 Sacrococcygeal disorders, not elsewhere classified | CPT/HCPCS: 72100; 72220 ==

== ENCOUNTER 2025-08-07 10:50 | Outpatient (AMB) | payer MEDICARE, SELFPAY ==
--- NOTE | 2025-08-07 10:56 | MHC.PC.OV ---
Vital Signs 08/07/25 10:57 Height 5 ft 9 in Weight 183 lb BMI 27.0 BP 134/80 Blood Pressure Location Lt brachial Position Sitting Respiration 14 Pulse 68 Pulse Source Pulse Oximeter Temp 97.6 F Temp Source Temporal Artery Scan Pulse Oximetry (%) 98 Oxygen Delivery Method Room Air Intake Visit Reasons: follow up Grinder Operator Automatic Required: No Accompanied by: Self / Same As Patient Allergies citalopram (CITALOPRAM) Allergy (Intermediate, Verified 08/07/25 10:57) Hives clindamycin Allergy (Intermediate, Verified 08/07/25 10:57) Hives metronidazole (METRONIDAZOLE) Allergy (Intermediate, Verified 08/07/25 10:57) Hives Penicillins Allergy (Intermediate, Verified 08/07/25 10:57) HIVES Sulfa (Sulfonamide Antibiotics) Allergy (Intermediate, Verified 08/07/25 10:57) HIVES terazosin Adverse Reaction (Intermediate, Verified 08/07/25 10:57) fainting zolpidem Adverse Reaction (Mild, Verified 08/07/25 10:57) Numbness Tobacco use date assessed: 05/08/25 Dental Screening Dental Screen Date: 03/09/25 [facility] Medical History History of syncope Abnormal stress test Body aches Seasonal allergies Cough History of diverticulosis HTN (hypertension) Atherosclerotic cardiovascular disease Osteoarthritis Insomnia Gout Depression Cervical disc disease Elevated cholesterol Skin lesions Anal pain BPH (benign prostatic hyperplasia) Diverticulitis Kidney stones Surgical History History of prostate surgery Hx of rotator cuff surgery History of total right hip replacement History of arthroscopic surgery of shoulder H/O blepharoplasty History of nasal surgery Hx of cystoscopy Hx of lithotripsy H/O colonoscopy (~07/17/20) Hx of appendectomy Family History Father Heart disease Social History Household Members: Friend(s) Household Members Other:: roommate Housing: Condominium Are you a primary family day care worker to a significant other at home: No Do you presently have visiting nurse or other home services: No Alcohol intake: current Alcohol intake frequency: holidays/special occasions only Patient Tobacco Use Status: Never used Tobacco service: No Current occupational status: employed Cognitive needs: No Hearing needs: No Vision needs: Yes (rx glasses) Questionnaire PHQ-9 Over the last 2 weeks, how often have you been bothered by any of the following problems? 1. Little interest or pleasure in doing things: not at all 2. Feeling down, depressed, or hopeless: not at all 3. Trouble falling or staying asleep, or sleeping too much: not at all 4. Feeling tired or having little energy: not at all 5. Poor appetite or overeating: not at all 6. Feeling bad about yourself - or that you are a failure or have let yourself or your family down: not at all 7. Trouble concentrating on things, such as reading the newspaper or watching television: not at all 8. Moving or speaking so slowly that other people could have noticed. Or the opposite - being so fidgety or restless that you have been moving around a lot more than usual: not at all 9. Thoughts that you would be better off or of hurting yourself in some way: not at all Total score: 0 Depression Screening Interpretation: Negative Depression Screening Done: Yes 93787 - PHQ-9 Billing: Yes Source: Developed by Drs. Dilip French, Megan Askew, Tonio Schofield and colleagues, with an educational gracie from [employer]. Thrive Questionnaire Date Thrive assessed: 03/09/25 I am a: Patient What is your living situation today?: I have a steady place to live Within the past 12 months, did the food you bought not last and you didn't have the money to get more?: Never true Within the past 12 months, did you worry whether your food would run out before you got money to buy more?: Never true Do you have trouble paying for medicines?: No Do you have trouble getting transportation to medical appointments?: No Do you have trouble paying your heating and electricity bill?: No Do you have trouble taking care of your child, family member or friend?: No Do you have trouble with day-to-day activities such as bathing, preparing meals, shopping, managing finances, etc.?: No Are you currently unemployed and looking for a job?: No Are you interested in more education?: No THRIVE Score: 0 AUDIT C Alcohol Use Questionnaire (AUDIT-C) 1. How often do you have a drink containing alcohol?: Monthly or less 2. How many drinks containing alcohol do you have on a typical day when you are drinking?: 1 or 2 3. How often do you have six or more drinks on one occasion?: Never Total Score: 1 Score Reviewed/Action Taken: No SHANELLE-7 AMB Questionnaire SHANELLE-7 Date SHANELLE - 7 assessed: 03/09/25 Feeling nervous, anxious, or on edge: 0 = Not at all Not being able to stop or control worryin = Not at all Worrying too much about different things: 0 = Not at all Trouble relaxin = Not at all Being so restless that it is hard to sit still: 0 = Not at all Becoming easily annoyed or irritable: 0 = Not at all Feeling afraid as if something awful might happen: 0 = Not at all Total SHANELLE-7 score (0-4 normal; 5-9 mild; 10-14 moderate; 15-21 severe): 0 Source: Developed by Drs. Dilip French, Megan Askew, Tonio Schofield and colleagues, with an educational gracie from [employer]. SHANELLE-7 Assessment Billing SHANELLE-7 Assessment Tool: SHANELLE-7 Assessment 89236 Physical exam (Primary Care) Vital Signs: Last Vital Signs Temp 97.6 F 08/07/25 10:57 Pulse 68 08/07/25 10:57 Resp 14 08/07/25 10:57 BP 134/80 08/07/25 10:57 Pulse Ox 98 08/07/25 10:57 Oxygen Delivery Method Room Air 08/07/25 10:57 BMI result Body Mass Index 27.0 Tobacco/Smoking Status: Tobacco use Status Tobacco use date assessed 05/08/25 08/07/25 11:03 Patient Tobacco Use Status Never used Tobacco 08/07/25 11:03 PHQ-9: PHQ-9 Score PHQ-9: Total score 0 08/07/25 11:03 Depression Screening Interpretation: Negative Thrive Assessment: Date of Thrive Assessment Date Thrive assessed 03/09/25 08/07/25 11:03 Coding Level of Care Code Est Pt Level 4 (40534) Complex EM visit Add On G2211 Diagnoses Herpes simplex B00.9 Screening examination for infectious disease Z11.9 Additional Codes SHANELLE-7 Assessment Billing - SHANELLE-7 Assessment Tool: SHANELLE-7 Assessment 87243 ([id number]) PHQ-9 - 02870 - PHQ-9 Billing: Yes ([id number]) Assessment & Plan Assessment & Plan (1) Herpes simplex: Code(s): B00.9 - Herpesviral infection, unspecified Plan: History of Present Illness - The patient is a 70-year-old male presenting with multiple concerns, including a penile lesion, a rash on his buttock, body pains, and for management of his sleep medication. - He reports having a pimple-like lesion on his penis, which he states has resolved, and an itchy rash on his buttock. - He has a history of genital warts, for which he was seen by another provider in 2021. - The patient also reports recent onset of generalized body aches and an episode of back pain with tingling in his legs after standing for approximately 20 minutes. - His past surgical history includes a shoulder surgery and a hip replacement, neither of which are currently causing symptoms. - In July of this year, the patient experienced a syncopal episode after getting up in the middle of the night with severe stomach pains and diarrhea, resulting in a fall. - He was evaluated at a walk-in clinic for subsequent spinal soreness, and X-rays were negative for fracture. - He has a history of diverticulitis, noting a flare-up a month prior to the fall. - The patient is dissatisfied with zolpidem for sleep, as he does not feel well after taking it, and notes that lorazepam was previously effective for him. - He has not received the flu or COVID-19 shots. Social History - Diet: The patient reports eliminating sugar from his diet about two months ago, which resulted in weight loss. Review of Systems - Constitutional: Reports body aches and a history of weight loss after dietary changes. - Integumentary: Reports a resolved pimple on the penis and an itchy rash on the buttock. - Musculoskeletal: Reports back pain and generalized body aches. - Neurological: Reports paresthesia in his legs after prolonged standing and a history of dizziness and syncope. - Gastrointestinal: Reports a recent episode of severe abdominal pain and diarrhea. History of diverticulitis. - Psychiatric: Reports insomnia. Physical Exam General: Cooperative and healthy appearing Nutritional Appearance: Well nourished Orientation/consciousness: Patient oriented x3 Limitations: No limitations Head: Normal to inspection General: Appearance normal, both eyes and all related structures Neck: Normal visual inspection Chest: Normal palpation of entire chest wall Respiratory: N ormal respiratory effort Neurology: Patient oriented x3, reports tingling in legs and back pain. Skin; Grouped vesicular lesions at the top of the intergluteal cleft Results - Imaging: Patient reports a spinal X-ray was performed at a walk-in clinic in July and was negative for fracture. Plan - Insomnia: Discontinue zolpidem and start trazodone. - Diagnostics: Order blood work for further evaluation. - Vaccinations: Patient declined the influenza vaccine at this time. Discussion Notes I examined the patient for his complaints of a penile lesion and a rash on his buttock. The rash was identified as appearing herpetic. I clarified to the patient that his history of genital warts is not the cause of his current body aches or leg tingling. We discussed his dissatisfaction with zolpidem for sleep, and we agreed to switch his prescription to trazodone. The patient was offered a flu shot, which he declined. I provided him with orders for blood work. Patient Instructions - Please go to the lab to have blood work done. - We will change your sleep medication from zolpidem to trazodone. - You have declined the flu shot at today's visit. (2) Screening examination for infectious disease: Code(s): Z11.9 - Encounter for screening for infectious and parasitic diseases, unspecified Plan: As above Orders: Orders Syphilis Screen Today Z11.9 - Encounter for screening for infectious and parasitic diseases, unspecified HIV Ab/Ag Today Z11.9 - Encounter for screening for infectious and parasitic diseases, unspecified Complete Blood Count no Diff Today B00.9 - Herpesviral infection, unspecified C Reactive Protein Today B00.9 - Herpesviral infection, unspecified UA and rflx microscopic Today B00.9 - Herpesviral infection, unspecified CT NG by PCR Urine Today B00.9 - Herpesviral infection, unspecified Basic Metabolic Panel Today B00.9 - Herpesviral infection, unspecified Lipid Panel Today B00.9 - Herpesviral infection, unspecified Liver Panel Today B00.9 - Herpesviral infection, unspecified Thyroid Stimulating Hormone Today B00.9 - Herpesviral infection, unspecified Medications: New trazodone 100 mg PO BEDTIME PRN 30 tabs 1RF sleep 30 days
[2025-08-07 10:57] VITALS: BP 134/80; PULSE 68; RESP 14; TEMP 36.4; O2SAT 98; BMI 27.0
--- OUTSIDE RECORDS SUMMARY | 2025-08-07 13:19 | XMS_ITS | Clinical Summary ---
Author Organization [facility] Address [address] [phone] Care Team Providers Care Cable Puller Name Role Phone PcpTiesha MD Primary Care [...] age to complete this topic Care Teams Cable Puller Relationship Specialty Start Date End Date Tiesha Caldwell MD [address] [place] [address] PCP - General Internal Medicine 12/14/18
--- OUTSIDE RECORDS SUMMARY | 2025-08-07 13:19 | XMS_ITS | Encounter Summary ---
Author Organization [facility] Address [address] [phone] Care Team Providers Care Bus Analyst Name Role Phone Tiesha Caldwell MD Primary Care Provider Unavailabl e Encounter Details Date Type Department Care Team (Late st Contact Info) Description 11/04/2022 Orders Only [facility] Department of General Surgery [address] [place] [address] Julio Haney MD Social History Tobacco Use [...] on filedocumented in this encounter Care Teams Bus Analyst Relationship Specialty Start Date End Date Tiesha Caldwell MD [address] [phone] PCP - General Internal Medicine 12/14/18 documented as of this encounter
--- OUTSIDE RECORDS SUMMARY | 2025-08-07 13:19 | XMS_ITS | Clinical Summary ---
Author Organization [facility] Address [address] [place] [address] Care Team Providers Care Gastrointestinal Technician Name Role Phone Unavailable Primary Care Provider Unavailabl e Social History Tobacco Use Types Packs/Day Years Used Date Smoking Tobacco: Never Assessed Sex and Gender Information Value Date Recorded Sex Assigned at Not on file Gender Identity Not on file Sexual Orientation Not on file Plan of Treatment Not on file
== END 2025-08-07 11:30 | disposition home or self-care (01) ==
LOC: HO.HMCSH 10:50
PROVIDERS: PCP Internal Medicine; Visit Provider Internal Medicine
DX: B00.9 Herpesviral infection, unspecified (principal); Z11.9 Encounter for screening for infectious and parasitic diseases, unspecified

== ENCOUNTER 2025-08-07 10:50 | Outpatient (REF) | payer MEDICARE, SELFPAY ==
[2025-08-07 13:24] LABS: Syphilis Screen Nonreactive (Nonreactive)
[2025-08-07 13:25] LABS: HIV Num 1 0.06 S/CO (0.00-0.99)
[2025-08-07 14:04] LABS: CT PCR Urine NOT DETECTED (Not Detect.); NG PCR Urine NOT DETECTED (Not Detect.)
== END 2025-08-07 10:51 | disposition home or self-care (01) ==
LOC: HO.LAB 10:50
PROVIDERS: PCP Internal Medicine; Visit Provider Internal Medicine
DX: I10 Essential (primary) hypertension (principal); B00.9 Herpesviral infection, unspecified; Z11.9 Encounter for screening for infectious and parasitic diseases, unspecified
CPT/HCPCS: 86780; 87389; 87491; 87591; 96127; 99212

== ENCOUNTER 2025-08-08 13:37 | Outpatient (REF) | payer MEDICARE, SELFPAY ==
[2025-08-08 14:29] LABS: Hematocrit 47.9 % (42.0-52.0); Hemoglobin 15.8 g/dl (14.0-18.0); Mean Corpuscular HGB Conc 33.0 g/dl (31.0-36.0); Mean Corpuscular Hemoglobin 28.7 pg (27.0-33.0); Mean Corpuscular Volume 86.9 fL (80.0-98.0); NRBC Abs Auto 0.000 X10*3/uL (0.0-0.012); NRBC Pct Auto 0.0 /100WBC (0.0-0.2); Platelet Count 223 X10*3/uL (160-400); Red Blood Count 5.51 X10*6/uL (4.60-5.80); White Blood Count 5.3 X10*3/uL (4.8-10.8)
[2025-08-08 15:21] LABS: Alanine Aminotransferase 38 U/L (0-40); Albumin Level 4.8 g/dL (3.5-5.0); Alkaline Phosphatase 107 U/L (39-117); Anion Gap 9 (12-20); Aspartate Amino Transferase 29 U/L (5-37); Blood Urea Nitrogen 20 mg/dL (9-16); Calcium 9.6 mg/dL (8.4-10.2); Carbon Dioxide 29 mmol/L (22-29); Chloride 106 mmol/L (96-108); Cholesterol 211 mg/dL (<200); Estimated Glomerular Filt Rate > 60; HDL Cholesterol 49 mg/dL (>40); Potassium 3.9 mmol/L (3.3-5.1); Sodium 140 mmol/L (135-145); Total Protein 7.4 g/dL (6.5-8.0); Triglycerides 217 mg/dL (<150)
[2025-08-08 15:36] LABS: Thyroid Stimulating Hormone 0.39 uIU/mL (0.32-4.0)
--- OUTSIDE RECORDS SUMMARY | 2025-08-08 16:39 | XMS_ITS | Encounter Summary ---
Author Organization [facility] Address [address] [phone] Care Team Providers Care Library Associate Name Role Phone Tiesha Caldwell MD Primary Care Provider Unavailabl e Encounter Details Date Type Department Care Team (Late st Contact Info) Description 11/04/2022 Orders Only [facility] Department of General Surgery [address] [place] [address] Julio Haney MD Social History Tobacco Use [...] on filedocumented in this encounter Care Teams Library Associate Relationship Specialty Start Date End Date Tiesha Caldwell MD [address] [phone] PCP - General Internal Medicine 12/14/18 documented as of this encounter
--- OUTSIDE RECORDS SUMMARY | 2025-08-08 16:39 | XMS_ITS | Clinical Summary ---
Author Organization [facility] Address [address] [id number] Care Team Providers Care Dispatcher Street Department Name Role Phone PcpTiesha MD Primary Care [...] age to complete this topic Care Teams Dispatcher Street Department Relationship Specialty Start Date End Date Tiesha Caldwell MD [address] [place] [address] PCP - General Internal Medicine 12/14/18
--- OUTSIDE RECORDS SUMMARY | 2025-08-08 16:39 | XMS_ITS | Clinical Summary ---
Author Organization [facility] Address [address] [place] [address] Care Team Providers Care Chain Maker Machine Name Role Phone Unavailable Primary Care Provider Unavailabl e Social History Tobacco Use Types Packs/Day Years Used Date Smoking Tobacco: Never Assessed Sex and Gender Information Value Date Recorded Sex Assigned at Not on file Gender Identity Not on file Sexual Orientation Not on file Plan of Treatment Not on file
== END 2025-08-08 13:38 | disposition home or self-care (01) ==
LOC: HO.LAB 13:37
PROVIDERS: PCP Internal Medicine; Visit Provider Internal Medicine
DX: B00.9 Herpesviral infection, unspecified (principal); Z13.6 Encounter for screening for cardiovascular disorders; Z13.29 Encounter for screening for other suspected endocrine disorder
CPT/HCPCS: 36415; 80048; 80061; 80076; 84443; 85027; 86140

== ENCOUNTER 2025-08-14 09:09 | Outpatient (AMB) | payer MEDICARE, SELFPAY ==
--- NOTE | 2025-08-14 09:13 | MHC.OFFVIS ---
Vital Signs 08/14/25 09:14 Height 5 ft 11 in BP 122/68 Blood Pressure Location Lt brachial Position Sitting Pulse 66 Pulse Source Monitor Intake Visit Reasons: follow up after testing Allergies citalopram (CITALOPRAM) Allergy (Intermediate, Verified 08/07/25 10:57) Hives clindamycin Allergy (Intermediate, Verified 08/07/25 10:57) Hives metronidazole (METRONIDAZOLE) Allergy (Intermediate, Verified 08/07/25 10:57) Hives Penicillins Allergy (Intermediate, Verified 08/07/25 10:57) HIVES Sulfa (Sulfonamide Antibiotics) Allergy (Intermediate, Verified 08/07/25 10:57) HIVES terazosin Adverse Reaction (Intermediate, Verified 08/07/25 10:57) fainting zolpidem Adverse Reaction (Mild, Verified 08/07/25 10:57) Numbness Medication List - Last Reconciled 08/14/25 by Mike Ceballos MD acyclovir 5% (Zovirax) 1 appl topical 6XD 7 days tadalafil (Cialis) 5 mg PO DAILY valacyclovir (Valtrex) 500 mg PO BID HPI Comments Details: Julio returns for follow-up regarding coronary artery disease. In the past, he was seen regarding hypertension as well as family history of coronary disease. Then he underwent coronary CTA which showed evidence of established CAD. He has a history of hypertension and has medications like Losartan and Amlodipine but not anymore. He was also on other medications like Terazosin and Finasteride which had apparently led to syncope. Otherwise, he states he feels fine. He has got no clear-cut cardiac symptoms. [facility] Medical History History of syncope Abnormal stress test Body aches Seasonal allergies Cough History of diverticulosis HTN (hypertension) Atherosclerotic cardiovascular disease Osteoarthritis Insomnia Gout Depression Cervical disc disease Elevated cholesterol Skin lesions Anal pain BPH (benign prostatic hyperplasia) Diverticulitis Kidney stones Surgical History History of prostate surgery Hx of rotator cuff surgery History of total right hip replacement History of arthroscopic surgery of shoulder H/O blepharoplasty History of nasal surgery Hx of cystoscopy Hx of lithotripsy H/O colonoscopy (~07/17/20) Hx of appendectomy Family History Father Heart disease Social History Household Members: Friend(s) Household Members Other:: roommate Housing: Condominium Are you a primary manager intensive care to a significant other at home: No Do you presently have visiting nurse or other home services: No Alcohol intake: current Alcohol intake frequency: holidays/special occasions only Patient Tobacco Use Status: Never used Tobacco service: No Current occupational status: employed Cognitive needs: No Hearing needs: No Vision needs: Yes (rx glasses) Review of Systems Const Denies weakness ENT Denies dizziness Card Denies chest pain, Denies chest pain with activity, Denies syncope, Denies rapid heart rate, Denies pedal edema, Denies edema, Denies leg edema, Denies lightheadedness, Denies palpitations, Denies dyspnea, Denies dyspnea on exertion and Denies orthopnea Resp Denies cough, Denies dyspnea and Denies dyspnea on exertion GI Denies hematochezia and Denies change in stool character Musc Denies abnormal gait, Denies muscle cramps, Denies muscle weakness, Denies numbness, Denies radiating pain into limb and Denies tingling Neuro Denies abnormal gait, Denies dizziness, Denies syncope, Denies numbness, Denies tingling and Denies weakness Endo Denies palpitations Physical Exam Vital Signs: Last Vital Signs Pulse 66 08/14/25 09:14 BP 122/68 08/14/25 09:14 Const General: comfortable and no acute distress Orientation/consciousness: patient oriented x3 HEENT Other: Unremarkable Head: Yes normal to inspection Neck Neck: Yes normal visual inspection Chest Chest palpation & inspection: normal inspection of the chest Resp Auscultation: clear to auscultation bilaterally Cardio Palpation: normal PMI Heart sounds: S1 normal heart sound present, S2 normal heart sound present, no gallops, no murmurs and no rubs GI Palpation (GI): Soft to palpation Back/Spine/Pelvis Other: unremarkable Skin General skin exam: no rashes or lesions noted Neuro General: patient oriented x3 Extrem General: Yes normal to inspection Psych Mental Status: mental status grossly normal Office Procedures EKG Details: EKG with sinus rhythm at 66/Min; rightward axis; OK prolongation 232 milliseconds; poor R-wave progression across the anterior leads; nonspecific ST[place]; [place]. [id number], Complete Assessment & Plan Assessment & Plan (1) Atherosclerotic cardiovascular disease: Code(s): I25.10 - Atherosclerotic heart disease of [place] coronary artery without angina pectoris Category: Medical Plan: Cardiac studies reviewed. Coronary CTA -2023- Multiple mixed plaques throughout the proximal LAD causing moderate approximately 50% stenosis. One area with either central ulceration versus calcification. Minimal to mild stenosis in the RCA. FFR-borderline significance in the proximal OM1 stenosis. In the echocardiogram, possible basal inferior hypokinesis with reduced strain. In the recent ETT, he reached 7 METS exercise capacity, reached target heart rate, no angina; hypertensive blood pressure response and positive EKG changes for ischemia. Overall, established CAD. EKG positive for EKG changes but negative for angina but no flow-limiting lesions in the CTA. Last year, recommended aspirin and statins but he is not taking either. He is still reluctant and might be more willing. (2) Essential hypertension: Code(s): I10 - Essential (primary) hypertension Category: Medical Plan: Has been on amlodipine/lisinopril in the past but nothing at this time. Today's blood pressure seems normal. Can be monitored. Plan Discussion Notes During the visit, we discussed the patient's hypertension management, noting that his blood pressure has remained stable without medication. The patient was advised to consider starting statin therapy for hyperlipidemia, and we discussed the potential benefits and side effects of this treatment. Patient was informed and verbally consented to the use of an ambient scribe for clinic note documentation during this visit. Medications: New atorvastatin (Lipitor) 40 mg PO QPM 90 tabs 1RF Patient Instructions: - Monitor blood pressure regularly to ensure it remains stable - Continue managing herpes symptoms and seek further evaluation if symptoms persist. - Consider starting statin therapy for hyperlipidemia after reviewing potential benefits and side effects. Coding Level of Care Code Est Pt Level 4 (58126) Complex EM visit Add On G2211 Diagnoses Atherosclerotic cardiovascular disease I25.10 Essential hypertension I10 CPT Codes EKG - CPT: 56795-[id number], Complete ([id number])
[2025-08-14 09:14] VITALS: BP 122/68; PULSE 66
--- OUTSIDE RECORDS SUMMARY | 2025-08-14 09:57 | XMS_ITS | Encounter Summary ---
Author Organization [facility] Address [address] [id number] Care Team Providers Care Processing Archivist Name Role Phone Tiesha Caldwell MD Primary Care Provider Unavailabl e Encounter Details Date Type Department Care Team (Late st Contact Info) Description 11/04/2022 Orders Only [facility] Department of General Surgery [address] [place] [address] Julio Haney MD Social History Tobacco Use [...] on filedocumented in this encounter Care Teams Processing Archivist Relationship Specialty Start Date End Date Tiesha Caldwell MD [address] [phone] PCP - General Internal Medicine 12/14/18 documented as of this encounter
--- OUTSIDE RECORDS SUMMARY | 2025-08-14 09:57 | XMS_ITS | Clinical Summary ---
Author Organization [facility] Address [address] [place] [address] Care Team Providers Care Powerhouse Operator Name Role Phone Unavailable Primary Care Provider Unavailabl e Social History Tobacco Use Types Packs/Day Years Used Date Smoking Tobacco: Never Assessed Sex and Gender Information Value Date Recorded Sex Assigned at Not on file Gender Identity Not on file Sexual Orientation Not on file Plan of Treatment Not on file
--- OUTSIDE RECORDS SUMMARY | 2025-08-14 09:57 | XMS_ITS | Clinical Summary ---
Author Organization [facility] Address [address] [phone] Care Team Providers Care Stripper And Opaquer Apprentice Name Role Phone PcpTiesha MD Primary Care [...] age to complete this topic Care Teams Stripper And Opaquer Apprentice Relationship Specialty Start Date End Date Tiesha Caldwell MD [address] [place] [address] PCP - General Internal Medicine 12/14/18
== END 2025-08-14 09:40 | disposition home or self-care (01) ==
PROVIDERS: PCP Internal Medicine; Visit Provider Internal Medicine
DX: I25.10 Atherosclerotic heart disease of native coronary artery without angina pectoris (principal); I10 Essential (primary) hypertension
CPT/HCPCS: 93010; 99214; G2211

== ENCOUNTER → 2025-08-14 09:09 | Outpatient (BNVA) | payer MEDICARE, SELFPAY | PROVIDERS: PCP Internal Medicine; Visit Provider Internal Medicine | DX: I25.10 Atherosclerotic heart disease of native coronary artery without angina pectoris (principal); I10 Essential (primary) hypertension; Z82.49 Family history of ischemic heart disease and other diseases of the circulatory system | CPT/HCPCS: 93005; 99212 ==